=== PATIENT | male | born 1955 | race American Indian/Alaskan Native ===

== ENCOUNTER 2017-03-05 17:51 | Inpatient (IN) | payer MEDICARE, OTHER ==
[2017-03-05 18:10] VITALS: BMI 44.9
--- NOTE | 2017-03-05 18:28 | ED PDOC ---
Arrival/HPI - General Chief Complaint: GI Problem Time Seen by Provider: 03/05/17 18:15 Historian: Patient - History of Present Illness Narrative History of Present Illness (Text): 03/05/17 18:25 Patient had just finished dialysis and developed nausea and vomiting. He reports he has vomited approximately 6 times. No abdominal pain or diarrhea. No back pain. He states that he has some weakness and fatigue. No chest pain palpitations or dyspnea. No fever or chills. No injury or trauma. Time/Duration: Prior to Arrival Symptom Onset: Sudden Symptom Course: Unchanged Severity Level: Moderate Activities at Onset: Rest Past Medical History - Provider Review Nursing Documentation Reviewed: Yes - Infectious Disease Hx of Infectious Diseases: None - Tetanus Immunization Tetanus Immunization: Unknown - Cardiac Hx Cardiac Disorders: Yes Hx Cardiac Arrhythmia: Yes Hx Hypertension: Yes - Pulmonary Hx Respiratory Disorders: No (smokes cigarettes) Hx Asthma: No - Neurological Hx Neurological Disorder: No - HEENT Hx HEENT Disorder: No - Renal Hx Renal Disorder: Yes Hx Dialysis: Yes (MWF) Type of Dialysis Access: L arm fistula Date of Last Dialysis Treatment: 03/05/17 Hx Kidney Stones: Yes Hx Neurogenic Bladder: No Hx Pyelonephritis: No Hx Renal Cancer: No Hx Renal Failure: Yes - Endocrine/Metabolic Hx Endocrine Disorders: Yes Hx Diabetes Mellitus Type 1: Yes - Hematological/Oncological Hx Blood Disorders: Yes Hx Anemia: Yes (BLOOD TRANSFUSION) - Integumentary Hx Dermatological Disorder: No - Musculoskeletal/Rheumatological Hx Musculoskeletal Disorders: Yes Hx Falls: Yes Other/Comment: carpal tunnel - Gastrointestinal Hx Gastrointestinal Disorders: Yes Hx Gastroesophageal Reflux: Yes - Genitourinary/Gynecological Hx Genitourinary Disorders: No - Psychiatric Hx Psychophysiologic Disorder: No Hx Substance Use: No - Past Surgical History Past Surgical History: Non-Contributing - Surgical History Hx Cholecystectomy: No Hx Coronary Stent: Yes (2016) Hx Gastric Bypass Surgery: No Hx Hysterectomy: No Hx Joint Replacement: No Hx Kidney Transplant: No Hx Liver Transplant: No Hx Mastectomy: No Hx Musculoskeletal Surgery: No Hx Open Heart Surgery: No Hx Orthopedic Surgery: No Hx Splenectomy: No Hx Valve Replacement: No Other/Comment: Dialysis shunt placement in left arm. - Anesthesia Hx Anesthesia: Yes Hx Anesthesia Reactions: No Hx Malignant Hyperthermia: No - Suicidal Assessment Feels Threatened In Home Enviroment: No Family/Social History - Physician Review Nursing Documentation Reviewed: Yes Family/Social History: No Known Family HX, Unknown Family HX Smoking Status: Light Smoker < 10 Cigarettes Daily Hx Alcohol Use: No Hx Substance Use: No Hx Substance Use Treatment: No Allergies/Home Meds Allergies/Adverse Reactions: Allergies Penicillins Allergy (Verified 03/05/17 18:09) SWELLING Home Medications: Home Meds Medication Instructions Recorded Confirmed Enalapril Maleate [Vasotec] 20 mg PO BID 05/06/16 03/05/17 Mv,Sebastian,Min/Iron/Folic Acid/Lut 1 tab PO DAILY 05/06/16 03/05/17 [Complete Multi Tablet] Pantoprazole [Protonix EC Tab] 40 mg PO BID 05/06/16 03/05/17 amLODIPine [Norvasc] 10 mg PO DAILY 05/06/16 03/05/17 Albuterol HFA [Ventolin HFA 90 90 mcg INH PRN PRN 05/18/16 03/05/17 mcg/actuation (8 g)] Colesevelam HCl [Welchol] 27 mg PO DAILY 05/18/16 03/05/17 Ferric Citrate [Auryxia] 210 mg PO TID 05/18/16 03/05/17 Cinacalcet [Sensipar] 30 mg PO DAILY 02/09/17 03/05/17 Ergocalciferol (Vitamin D2) 50,000 unit PO QD7 PRN 02/09/17 03/05/17 [Vitamin D2] Insulin Glargine, Recombina 2 units SUBCUT ACBD PRN 02/09/17 03/05/17 [Lantus] Review of Systems - Physician Review All systems were reviewed & negative as marked: Yes - Review of Systems Constitutional: Fatigue. absent: Fevers Respiratory: absent: SOB, Cough, Wheezing Cardiovascular: absent: Chest Pain, Palpitations, Syncope Gastrointestinal: Nausea, Vomiting. absent: Abdominal Pain, Constipation, Diarrhea Genitourinary Male: Other (patient does make some minimal urine) Neurological: Normal Physical Exam Vital Signs Pulse Resp BP Pulse Ox 03/05/17 20:49 84 18 118/65 96 03/05/17 17:52 88 18 121/61 96 Appearance: Positive for: Other (morbidly obese) - Systems Exam Head: Present: Atraumatic, Normocephalic Pupils: Present: PERRL Extroacular Muscles: Present: EOMI Conjunctiva: Present: Normal Mouth: Present: Moist Mucous Membranes Pharnyx: No: ERYTHEMA, EXUDATE, TONSILS ENLARGED Neck: Present: Normal Range of Motion Respiratory/Chest: Present: Clear to Auscultation, Good Air Exchange, Decreased Breath Sounds. No: Respiratory Distress, Accessory Muscle Use Cardiovascular: Present: Regular Rate and Rhythm, Normal S1, S2. No: Murmurs Abdomen: Present: Normal Bowel Sounds. No: Tenderness, Distention, Peritoneal Signs, Rebound, Guarding Back: Present: Normal Inspection. No: CVA Tenderness, Midline Tenderness, Paraspinal Tenderness Upper Extremity: Present: Normal Inspection. No: Cyanosis, Edema Lower Extremity: Present: Normal Inspection. No: Edema, CALF TENDERNESS Neurological: Present: GCS=15, CN II-XII Intact, Speech Normal, Motor Func Grossly Intact Skin: Present: Warm, Dry, Normal Color. No: Rashes Psychiatric: Present: Alert, Oriented x 3, Normal Insight, Normal Concentration Medical Decision Making ED Course and Treatment: 03/05/17 18:32 Impression: A 61 year old male with nausea and vomiting after dialysis treatment. Plan: -- EKG -- chest xray -- labs -- Urinalysis -- Zofran -- Reassess and disposition Prior Visits: Notes and results from previous visits were reviewed. Patient last reported to emergency department on 02/09/17 for evaluation of low hemoglobin count and generalized weakness. Patient was discharged. Progress Notes: 03/05/17 20:24 EKG shows normal sinus rhythm rate approximately [address] or T-wave changes 03/05/17 20:25 Venous blood draw requiring M.D. skill from a right femoral vein stick on first attempt sterilely 03/05/17 20:26 Patient has had no vomiting while in the emergency department 03/05/17 21:34 Discussed in detail with . She will admit to telemetry. She requested the patient be covered with vancomycin and Flagyl. She requests a consult with who has been called. Ultrasound of the abdomen has been ordered, but the tech has left for the evening and will not be called back in. Ultrasound will be done first thing in the morning. - Lab Interpretations Lab Results: 03/05/17 20:20 03/05/17 20:20 Lab Results 03/05/17 20:20: Sodium 138, Potassium 5.5 H, Chloride 95 L, Carbon Dioxide 31, Anion Gap 18, BUN 31 H, Creatinine 5.4 H, Est GFR ( Amer) 13, Est GFR ( Non-Af Amer) 11, Random Glucose 122 H, Calcium 8.8, Total Bilirubin 2.1 H, AST > 1500 H, ALT 1301 H, Alkaline Phosphatase 145 H, Lactate Dehydrogenase 02773 H , Total Creatine Kinase 304 H, CK-MB (CK-2) 3.4, CK-MB (CK-2) % Cancelled, Troponin I 0.26 H* D, Total Protein 8.9 H, Albumin 3.8, Globulin 5.1, Albumin/ Globulin Ratio 0.7 L, Lipase 45 03/05/17 20:20: PT 19.7 H, INR 1.82 H, APTT 32.8 H 03/05/17 20:20: WBC 17.1 H D, RBC 3.02 L, Hgb 8.9 L, Hct 28.4 L, MCV 94.0, MCH 29.5, MCHC 31.3, RDW 17.7 H, Plt Count 122, MPV 10.1, Neutrophils % (Manual) Pending, Lymphocytes % (Manual) Pending, Monocytes % (Manual) Pending I have reviewed the lab results: Yes - RAD Interpretation Radiology Orders: 03/05/17 18:23 CHEST PORTABLE [RAD] Stat 03/05/17 21:22 ABDOMEN COMPLETE [US] Stat - EKG Interpretation Interpreted by ED Physician: Yes Type: 12 lead EKG - Medication Orders Current Medication Orders: Vancomycin HCl (Vancomycin 1gm) 1 gm in 250 mls @ 167 mls/hr IVPB STAT STA PRN Reason: Protocol Stop: 03/05/17 23:01 Discontinued Medications Ondansetron HCl (Zofran Inj) 4 mg IVP STAT STA Stop: 03/05/17 18:23 Last Admin: 03/05/17 21:12 Dose: Ondansetron HCl (Zofran Odt) 4 mg PO STAT STA Stop: 03/05/17 20:27 Last Admin: 03/05/17 21:12 Dose: 4 mg - Scribe Statement The provider has reviewed the documentation as recorded by the Leon Simons Provider Scribe Attestation: All medical record entries made by the Scribe were at my direction and personally dictated by me. I have reviewed the chart and agree that the record accurately reflects my personal performance of the history, physical exam, medical decision making, and the department course for this patient. I have also personally directed, reviewed, and agree with the discharge instructions and disposition. Disposition/Present on Arrival - Present on Arrival Any Indicators Present on Arrival: No History of DVT/PE: Yes History of Uncontrolled Diabetes: Yes Urinary Catheter: No History of Decub. Ulcer: No History Surgical Site Infection Following: None - Disposition Have Diagnosis and Disposition been Completed?: Yes Diagnosis: Elevated troponin, ESRD (end stage renal disease), Obesity, Nausea and vomiting , Elevated liver enzymes Disposition: HOSPITALIZED Disposition Time: 21:36 Patient Plan: Admission, Telemetry Condition: FAIR Referrals: Shavonne Varela MD [Primary Care Provider] - Follow up with primary
[2017-03-05 20:43] LABS: ALB/GLOB RATIO 0.7 (1.1-1.8); BILIRUBIN,TOTAL 2.1 mg/dL (0.2-1.3); CALCIUM 8.8 mg/dL (8.4-10.5); POTASSIUM 5.5 mmol/L (3.6-5.0); TOTAL PROTEIN 8.9 g/dL (5.8-8.3)
[2017-03-05 20:50] LABS: INR 1.82 (0.93-1.08); PARTIAL THROMBOPLASTIN TIME 32.8 Seconds (23.7-30.8)
[2017-03-05 20:55] LABS: HEMATOCRIT 28.4 % (42.0-52.0); MEAN CORPUSCULAR HEMOGLOBIN 29.5 pg (25.0-35.0); MEAN CORPUSCULAR HGB CONC 31.3 g/dl (31.0-37.0); MEAN PLATELET VOLUME 10.1 fl (7.0-11.0); PLATELET COUNT 122 10^3/uL (120.0-450.0); RED CELL DISTRIBUTION WIDTH 17.7 % (11.5-14.5); WHITE BLOOD COUNT 17.1 10^3/ul (4.5-11.0)
[2017-03-05 20:56] LABS: TROPONIN I 0.26 ng/mL
[2017-03-05 20:57] LABS: ADD MANUAL DIFF? YES
[2017-03-05] MEDS ORDERED: Vancomycin 1gm in NS 250ml 1 GM/250 ML BAG IVPB STA (21:32)
[2017-03-05] MEDS ORDERED: metroNIDAZOLE IV 500 mg/100 ml 500 MG/100 ML BAG IVPB STA (21:33)
[2017-03-05] MEDS ORDERED: Sodium Chloride 0.45% 1,000 ML IV SCH (22:45)
[2017-03-05 22:55] LABS: BAND 5 % (0-2); NEUTROPHIL 80 % (50.0-70.0); PLATELET ESTIMATE NORMAL (NORMAL)
[2017-03-05 23:19] LABS: ARTERIAL BLOOD GAS HCO3 26.7 mmol/L (21-28); ARTERIAL BLOOD GAS O2 CAPACITY 11.8 mL/dl (16-24); ARTERIAL BLOOD GAS O2 CONTENT 11.1 ML/dl (15-23); ARTERIAL BLOOD HGB O2 SAT 88.3 % (95.0-98.0); CARBOXYHEMOGLOBIN 5.5 % (0.5-1.5); HHB 5.4 % (0-5); METHEMOGLOBIN 0.8 % (0.0-3.0)
[2017-03-05 23:26] LABS: ARTERIAL BLOOD GAS PH 7.11 (7.35-7.45)
[2017-03-06] MEDS ORDERED: levoFLOXacin 750 mg in D5W 750 MG/150 ML BAG IVPB STA (00:14)
--- NOTE | 2017-03-06 00:23 | US ---
EXAM: US Abdomen Complete CLINICAL HISTORY: 61 years old, male; Pain; Abdominal pain; Generalized; Additional info: Elevated lfts TECHNIQUE: Real-time ultrasound of the abdomen (complete) with image documentation. COMPARISON: No relevant prior studies available. FINDINGS: Liver: The liver is increased in echogenicity and size measuring 21 cm in longitudinal dimension. No intrahepatic bile duct dilation. Gallbladder: The gallbladder is decompressed, and contains multiple stones. The gallbladder wall is thickened likely secondary to underdistention. Common bile duct: No stones. No dilation. Pancreas: Visualization of the pancreas is limited by overlying bowel gas. Right kidney: No acute findings. No hydronephrosis. Left Kidney: Unremarkable. No hydronephrosis. Spleen: Unremarkable in echogenicity and size. Aorta: Unremarkable. Inferior vena cava: patent. IMPRESSION: Fatty infiltration of an enlarged liver. Cholelithiasis. Limited evaluation of the pancreas, secondary to overlying bowel gas. Otherwise, unremarkable sonographic evaluation of the abdomen, as detailed above.
--- NOTE | 2017-03-06 00:37 | CP.PCM.CON ---
<Luiz Bro - Last Filed: 03/06/17 01:07> History of Present Illness - History of Present Illness History of Present Illness: 61 y/o M with PMH of HTN, IDDM,, ESRD on dialysis, and HLD presents to the ED for nausea and vomiting for the past day. History was provided by previous records, friend at bedside, and significant other via telephone as the patient was too lethargic to effectively communicate. According to significant other, pt had been experiencing flu-like symptoms over the past week. He recently went to see his PMD and received a Z-pack which he started 3 days ago. Over the weekend, pt went to [facility]. This morning, he began experiencing nonbloody, nonbilious episodes of vomiting. Pt began to develop fever and chills, along with lethargy. At this point, an ambulance was called for the patient. At bedside, pt is accompanied by his friend who also mentions that pt underwent dialysis and had between 4-5 liters removed. PMH: HTN, IDDM,, ESRD on dialysis, and HLD Surgical Hx: Carpal tunnel release, AV fistula Social Hx: Former tobacco use, 1/2 ppd. Occasional alcohol use, no illicit drug use Allergies: Penicillin Medications: See MAR Review of Systems - Review of Systems Systems not reviewed;Unavailable: Altered Mental Status Past Patient History - Infectious Disease Hx of Infectious Diseases: None - Tetanus Immunizations Tetanus Immunization: Unknown - Past Social History Smoking Status: Light Smoker < 10 Cigarettes Daily - CARDIAC Hx Cardiac Disorders: Yes Hx Cardia Arrhythmia: Yes Hx Hypertension: Yes - PULMONARY Hx Respiratory Disorders: No (smokes cigarettes) Hx Asthma: No - NEUROLOGICAL Hx Neurological Disorder: No - HEENT Hx HEENT Problems: No - RENAL Hx Chronic Kidney Disease: Yes Hx Dialysis: Yes (MWF) Type of Dialysis Access: L arm fistula Date of Last Dialysis Treatment: 03/05/17 Hx Kidney Stones: Yes Hx Neurogenic Bladder: No Hx Pyelonephritis: No Hx Renal (Kidney) Cancer: No Hx Renal Failure: Yes - ENDOCRINE/METABOLIC Hx Endocrine Disorders: Yes Hx Diabetes Mellitus Type 1: Yes - HEMATOLOGICAL/ONCOLOGICAL Hx Blood Disorders: Yes Hx Anemia: Yes (BLOOD TRANSFUSION) - INTEGUMENTARY Hx Dermatological Problems: No - MUSCULOSKELETAL/RHEUMATOLOGICAL Hx Musculoskeletal Disorders: Yes Hx Falls: Yes Other/Comment: carpal tunnel - GASTROINTESTINAL Hx Gastrointestinal Disorders: Yes Hx Gastroesophageal Reflux: Yes - GENITOURINARY/GYNECOLOGICAL Hx Genitourinary Disorders: No - PSYCHIATRIC Hx Psychophysiologic Disorder: No Hx Substance Use: No - SURGICAL HISTORY Hx Cholecystectomy: No Hx Coronary Stent: Yes (2016) Hx Gastric Bypass Surgery: No Hx Hysterectomy: No Hx Joint Replacement: No Hx Kidney Transplant: No Hx Liver Transplant: No Hx Mastectomy: No Hx Musculoskeletal Surgery: No Hx Open Heart Surgery: No Hx Orthopedic Surgery: No Hx Splenectomy: No Hx Valve Replacement: No Other/Comment: Dialysis shunt placement in left arm. - ANESTHESIA Hx Anesthesia: Yes Hx Anesthesia Reactions: No Hx Malignant Hyperthermia: No Meds Allergies/Adverse Reactions: Allergies Allergy/AdvReac Type Severity Reaction Status Date / Time Penicillins Allergy SWELLING Verified 03/05/17 18:09 - Medications Medications: Current Medications Acetaminophen (Tylenol 325mg Tab) 650 mg PO Q6H PRN PRN Reason: Fever >100.4 F Albuterol/Ipratropium (Duoneb 3 Mg/0.5 Mg (3 Ml) Ud) 3 ml IH Q2H PRN PRN Reason: Shortness of Breath Albuterol/Ipratropium (Duoneb 3 Mg/0.5 Mg (3 Ml) Ud) 3 ml IH [id number] NARA Furosemide (Lasix) 40 mg IVP STAT STA Stop: 03/06/17 00:34 Hydralazine HCl (Apresoline) 10 mg IVP Q6 NARA Metronidazole (Flagyl) 500 mg in 100 mls @ 100 mls/hr IVPB Q8 NARA PRN Reason: Protocol Levofloxacin/Dextrose (Levaquin 750mg) 750 mg in 150 mls @ 100 mls/hr IVPB STAT STA Stop: 03/06/17 01:43 Meropenem 250 mg/ Sodium (Chloride) 100 mls @ 100 mls/hr IVPB Q12H NARA PRN Reason: Protocol Stop: 03/06/17 01:14 Insulin Human Regular (Humulin R Med) 0 units SC ACHS NARA PRN Reason: Protocol Ondansetron HCl (Zofran Inj) 4 mg IVP Q6H PRN PRN Reason: Nausea/Vomiting Pantoprazole Sodium (Protonix Inj) 40 mg IVP DAILY NARA Physical Exam - Constitutional Appears: Toxic, In Acute Distress - Head Exam Head Exam: ATRAUMATIC, NORMAL INSPECTION, NORMOCEPHALIC - Eye Exam Eye Exam: EOMI, Normal appearance - ENT Exam ENT Exam: Mucous Membranes Dry - Neck Exam Neck exam: Positive for: Normal Inspection. Negative for: Lymphadenopathy - Respiratory Exam Respiratory Exam: Decreased Breath Sounds, Respiratory Distress. absent: Wheezes - Cardiovascular Exam Cardiovascular Exam: RRR, +S1, +S2 - GI/Abdominal Exam GI & Abdominal Exam: Normal Bowel Sounds, Soft. absent: Tenderness - Extremities Exam Extremities exam: Positive for: pedal edema (+1 edema b/l). Negative for: calf tenderness - Neurological Exam Neurological exam: Alert, CN II-XII Intact, Oriented x3 - Psychiatric Exam Psychiatric exam: Normal Affect, Normal Mood - Skin Skin Exam: Dry, Intact, Warm Results - Vital Signs Recent Vital Signs: Last Vital Signs Temp 99.4 F 03/05/17 22:40 Pulse 86 03/06/17 00:15 Resp 15 03/06/17 00:15 BP 150/70 03/06/17 00:15 Pulse Ox 92 L 03/06/17 00:15 - Labs Result Diagrams: 03/05/17 20:20 03/05/17 20:20 Labs: Laboratory Results - last 24 hr 03/05/17 03/05/17 22:30 23:15 pCO2 84 H* pO2 81.0 HCO3 26.7 ABG pH 7.11 L* ABG Total CO2 29.3 H ABG O2 Saturation 94.2 L ABG O2 Content 11.1 L ABG Base Excess -3.5 L ABG Hemoglobin 8.8 L ABG Carboxyhemoglobin 5.5 H POC ABG HHb (Measured) 5.4 H ABG Methemoglobin 0.8 ABG O2 Capacity 11.8 L Hgb O2 Saturation 88.3 L FiO2 100.0 Troponin I 0.35 H* D Assessment & Plan - Assessment and Plan (Free Text) Plan: 61 y/o M with PMH of HTN, IDDM,, ESRD on dialysis, and HLD presents with hypercapnic, hypoxemic respiratory failure in setting of multiorgan dysfunction syndrome. Pt is found to have multiple lab abnormalities including elevated troponins, elevated LFTs, and chronic anemia. Pt was intubated in the ED due to increased lethargy and inability to protect his airway. Pt will be admitted to the ICU. Neuro: Obtunded, intubated Ammonia levels Will monitor neuro status for acute worsening Cardio: Will obtain BNP Trend troponins, elevated at this time likely secondary to ESRD Lasix 40 mg IV x 1 given to help with potential fluid overload Hydralazine prn for BP, Goal SBP <180 Recent cardiac cath shown to have EF of 65%, nonocclusive Maintain MAP >65 Cardiology consult, Dr. Ervin Pulm: Hypercapnic, hypoxemic respiratory failure Intubated, PRVC Will obtain repeat CXR after intubation Will obtain ABG after intubation Duonebs scheduled and prn Solumedrol 40 mg IV q12 Will cover CAP with 1 dose of levaquin and Merrem scheduled Will obtain CT chest to evaluate for possible infiltrate Maintain O2 sat >92% GI: Will obtain noncontrast CT of abdomen Increased LFTs, possible shock liver Flagyl, Merrem, and 1 dose of levaquin Protonix GI consult, Dr. Brown Nephro: Received dialysis today Hx of ESRD, creatinine near baseline Replenish electrolytes as needed Maintain euvolemia Consider nephrology consult Heme/ID: Multiorgan dysfunction syndrome Afebrile, Leukocytosis CBC daily Blood and urine cultures pending Continue abx Maintain normothermia Endo: ISS Fingersticks q4h TSH PPX: Protonix Heparin Seen, reviewed, and discussed with attending Adali, PGY-1 <Antwon Espinoza Q - Last Filed: 03/06/17 07:00> Meds - Medications Medications: Current Medications Acetaminophen (Tylenol 325mg Tab) 650 mg PO Q6H PRN PRN Reason: Fever >100.4 F Albuterol/Ipratropium (Duoneb 3 Mg/0.5 Mg (3 Ml) Ud) 3 ml IH Q2H PRN PRN Reason: Shortness of Breath Albuterol/Ipratropium (Duoneb 3 Mg/0.5 Mg (3 Ml) Ud) 3 ml IH [id number] NARA Heparin Sodium (Porcine) (Heparin) 5,000 units SC Q12 NARA PRN Reason: Protocol Hydralazine HCl (Apresoline) 10 mg IVP Q6 PRN PRN Reason: SBP >180 Metronidazole (Flagyl) 500 mg in 100 mls @ 100 mls/hr IVPB Q8 NARA PRN Reason: Protocol Propofol (Diprivan) 1,000 mg in 100 mls @ 3.674 mls/hr IV .Q24H PRN; Protocol; 5 MCG/KG/MIN PRN Reason: TITRATE PER MD ORDER Last Titration: 03/06/17 03:35 Dose: 20 mcg/kg/min, 14.696 mls/hr Meropenem 500 mg/ Sodium (Chloride) 100 mls @ 100 mls/hr IVPB Q12 [facility] Stop: 03/13/17 06:23 Insulin Human Regular (Humulin R Med) 0 units SC ACHS NARA PRN Reason: Protocol Methylprednisolone (Solu-Medrol) 40 mg IVP Q12 [facility] Last Admin: 03/06/17 06:49 Dose: 40 mg Ondansetron HCl (Zofran Inj) 4 mg IVP Q6H PRN PRN Reason: Nausea/Vomiting Pantoprazole Sodium (Protonix Inj) 40 mg IVP DAILY [facility] Results - Vital Signs Recent Vital Signs: Last Vital Signs Temp 99.4 F 03/05/17 22:40 Pulse 77 03/06/17 05:08 Resp 14 03/06/17 05:08 BP 159/76 H 03/06/17 05:08 Pulse Ox 100 03/06/17 05:08 - Labs Result Diagrams: 03/05/17 20:20 03/05/17 20:20 Labs: Laboratory Results - last 24 hr 03/05/17 03/05/17 03/06/17 22:30 23:15 01:42 pCO2 84 H* pO2 81.0 HCO3 26.7 ABG pH 7.11 L* ABG Total CO2 29.3 H ABG O2 Saturation 94.2 L ABG O2 Content 11.1 L ABG Base Excess -3.5 L ABG Hemoglobin 8.8 L ABG Carboxyhemoglobin 5.5 H POC ABG HHb (Measured) 5.4 H ABG Methemoglobin 0.8 ABG O2 Capacity 11.8 L Hgb O2 Saturation 88.3 L FiO2 100.0 Ammonia 63 H Troponin I 0.35 H* D Influenza Typ A,B (EIA) 03/06/17 03/06/17 03:16 04:11 pCO2 75 H* pO2 76.0 L HCO3 26.7 ABG pH 7.16 L* ABG Total CO2 29.0 H ABG O2 Saturation 94.5 L ABG O2 Content 11.2 L ABG Base Excess -2.6 L ABG Hemoglobin 8.8 L ABG Carboxyhemoglobin 4.0 H POC ABG HHb (Measured) 5.2 H ABG Methemoglobin 0.9 ABG O2 Capacity 11.9 L Hgb O2 Saturation 89.9 L FiO2 100.0 Ammonia Troponin I Influenza Typ A,B (EIA) Negative for flu a/b Attending/Attestation - Attestation I have personally seen and examined this patient.: Yes I have fully participated in the care of the patient.: Yes I have reviewed all pertinent clinical information: Yes Notes (Text): 03/06/17 06:56 I agree with the above mentioned note by Dr. Bro with the following additions/exceptions noted: 61 y/o male with PMHx as described above came to the ED after experiencing cold- like symptoms over the past week. He used a zpack for about 3-4 days without any improvement. Over the past 1 day, as per his girlfriend, the patient began having multiple bouts of NBNB emesis, before and continuing after HD. Patient came to the ED and was obtunded; not a candidate for NIPPV due to his altered mentation and intractable vomiting. He was admitted to the ICU for further care and monitoring and remained in the ED overnight due to a lack of beds/ nurses in the ICU. Case discussed with Dr. Juarez who intubated the patient after it was handed over to him by an earlier ED Physician labs and images reviewed personally total time of care: 45 minutes
--- NOTE | 2017-03-06 00:58 | CP.PCM.CON ---
<Spencer Olivo - Last Filed: 03/06/17 01:01> History of Present Illness - History of Present Illness History of Present Illness: Surgery consult for Dr. Lin 61 M with PMH of ESRD on HD M, W, F, HTN, HLD, COPD, CHF, HIV presents with N/V since this AM. Pt had AMS and history was taken from friend. Pt has been having weakness, SOB, dry cough for a few weeks and these symptoms have been progressively worsen. This AM he started to vomit multiple times. Non bloody, non bilious. He was able to tolerate a banana today. Pt drank 4 beers yesterday. Pt also has chronic pain and takes Advil daily and takes percocet as needed. Friend also reports that pt had back pain for a few weeks and had Xray or MRI taken two weeks ago at [facility] that showed abnormality. Pt is oliguric and has alternating Diarrhea and Constipation. Denies F/C/CP/ABd pain/ hematemesis/hematochezia/melena/hemoptesis . US shows thicken GB wall, sludge and pericholecystic fluids. WBC was 17. Tbili 2.1 AST 1500+, ALT 1300. Trop 0.35 , Ph 7.11 PCo2 84. SS: smokes 1/2 pack daily, social drinker, no IV drug abuse. Sx: Carpal tunnel release 2013 Review of Systems - Review of Systems Systems not reviewed;Unavailable: Altered Mental Status Review of Systems: See HPI - Constitutional Constitutional: absent: Anorexia, Chills Past Patient History - Infectious Disease Hx of Infectious Diseases: None - Tetanus Immunizations Tetanus Immunization: Unknown - Past Social History Smoking Status: Light Smoker < 10 Cigarettes Daily - CARDIAC Hx Cardiac Disorders: Yes Hx Cardia Arrhythmia: Yes Hx Hypertension: Yes - PULMONARY Hx Respiratory Disorders: No (smokes cigarettes) Hx Asthma: No - NEUROLOGICAL Hx Neurological Disorder: No - HEENT Hx HEENT Problems: No - RENAL Hx Chronic Kidney Disease: Yes Hx Dialysis: Yes (MWF) Type of Dialysis Access: L arm fistula Date of Last Dialysis Treatment: 03/05/17 Hx Kidney Stones: Yes Hx Neurogenic Bladder: No Hx Pyelonephritis: No Hx Renal (Kidney) Cancer: No Hx Renal Failure: Yes - ENDOCRINE/METABOLIC Hx Endocrine Disorders: Yes Hx Diabetes Mellitus Type 1: Yes - HEMATOLOGICAL/ONCOLOGICAL Hx Blood Disorders: Yes Hx Anemia: Yes (BLOOD TRANSFUSION) - INTEGUMENTARY Hx Dermatological Problems: No - MUSCULOSKELETAL/RHEUMATOLOGICAL Hx Musculoskeletal Disorders: Yes Hx Falls: Yes Other/Comment: carpal tunnel - GASTROINTESTINAL Hx Gastrointestinal Disorders: Yes Hx Gastroesophageal Reflux: Yes - GENITOURINARY/GYNECOLOGICAL Hx Genitourinary Disorders: No - PSYCHIATRIC Hx Psychophysiologic Disorder: No Hx Substance Use: No - SURGICAL HISTORY Hx Cholecystectomy: No Hx Coronary Stent: Yes (2016) Hx Gastric Bypass Surgery: No Hx Hysterectomy: No Hx Joint Replacement: No Hx Kidney Transplant: No Hx Liver Transplant: No Hx Mastectomy: No Hx Musculoskeletal Surgery: No Hx Open Heart Surgery: No Hx Orthopedic Surgery: No Hx Splenectomy: No Hx Valve Replacement: No Other/Comment: Dialysis shunt placement in left arm. - ANESTHESIA Hx Anesthesia: Yes Hx Anesthesia Reactions: No Hx Malignant Hyperthermia: No Meds Allergies/Adverse Reactions: Allergies Allergy/AdvReac Type Severity Reaction Status Date / Time Penicillins Allergy SWELLING Verified 03/05/17 18:09 - Medications Medications: Current Medications Acetaminophen (Tylenol 325mg Tab) 650 mg PO Q6H PRN PRN Reason: Fever >100.4 F Albuterol/Ipratropium (Duoneb 3 Mg/0.5 Mg (3 Ml) Ud) 3 ml IH Q2H PRN PRN Reason: Shortness of Breath Albuterol/Ipratropium (Duoneb 3 Mg/0.5 Mg (3 Ml) Ud) 3 ml IH [id number] NARA Hydralazine HCl (Apresoline) 10 mg IVP Q6 NARA Metronidazole (Flagyl) 500 mg in 100 mls @ 100 mls/hr IVPB Q8 NARA PRN Reason: Protocol Levofloxacin/Dextrose (Levaquin 750mg) 750 mg in 150 mls @ 100 mls/hr IVPB STAT STA Stop: 03/06/17 01:43 Meropenem 250 mg/ Sodium (Chloride) 100 mls @ 100 mls/hr IVPB Q12H NARA PRN Reason: Protocol Stop: 03/06/17 01:14 Insulin Human Regular (Humulin R Med) 0 units SC ACHS NARA PRN Reason: Protocol Ondansetron HCl (Zofran Inj) 4 mg IVP Q6H PRN PRN Reason: Nausea/Vomiting Pantoprazole Sodium (Protonix Inj) 40 mg IVP DAILY NARA Physical Exam - Constitutional Appears: In Acute Distress - Head Exam Head Exam: ATRAUMATIC, NORMAL INSPECTION, NORMOCEPHALIC - Eye Exam Eye Exam: EOMI, PERRL. absent: Conjunctival injection, Scleral icterus Pupil Exam: NORMAL ACCOMODATION - ENT Exam ENT Exam: Mucous Membranes Moist, Normal Exam - Neck Exam Neck exam: Positive for: Normal Inspection - Respiratory Exam Respiratory Exam: absent: Accessory Muscle Use, Chest Wall Tenderness, NORMAL BREATHING PATTERN - Cardiovascular Exam Cardiovascular Exam: REGULAR RHYTHM, +S1, +S2 - GI/Abdominal Exam GI & Abdominal Exam: Soft. absent: Distended, Firm, Guarding, Hernia, Tenderness - Neurological Exam Neurological exam: Altered - Skin Skin Exam: Dry, Intact, Normal Color, Warm Results - Vital Signs Recent Vital Signs: Last Vital Signs Temp 99.4 F 03/05/17 22:40 Pulse 86 03/06/17 00:15 Resp 15 03/06/17 00:15 BP 150/70 03/06/17 00:15 Pulse Ox 92 L 03/06/17 00:15 - Labs Result Diagrams: 03/05/17 20:20 03/05/17 20:20 Labs: Laboratory Results - last 24 hr 03/05/17 03/05/17 22:30 23:15 pCO2 84 H* pO2 81.0 HCO3 26.7 ABG pH 7.11 L* ABG Total CO2 29.3 H ABG O2 Saturation 94.2 L ABG O2 Content 11.1 L ABG Base Excess -3.5 L ABG Hemoglobin 8.8 L ABG Carboxyhemoglobin 5.5 H POC ABG HHb (Measured) 5.4 H ABG Methemoglobin 0.8 ABG O2 Capacity 11.8 L Hgb O2 Saturation 88.3 L FiO2 100.0 Troponin I 0.35 H* D Assessment & Plan - Assessment and Plan (Free Text) Assessment: Vomiting with Transaminitis, r/o Cholecystitis , hepatitis -F/U official US reads -Trend Labs: LFT, CBC, CMP -MOnitor VS -f/u CT Will DW Dr. Lin <Sven Lin - Last Filed: 03/06/17 08:29> Meds - Medications Medications: Current Medications Albuterol/Ipratropium (Duoneb 3 Mg/0.5 Mg (3 Ml) Ud) 3 ml IH Q2H PRN PRN Reason: Shortness of Breath Albuterol/Ipratropium (Duoneb 3 Mg/0.5 Mg (3 Ml) Ud) 3 ml IH [id number] [facility] Heparin Sodium (Porcine) (Heparin) 5,000 units SC Q12 NARA PRN Reason: Protocol Hydralazine HCl (Apresoline) 10 mg IVP Q6 PRN PRN Reason: SBP >180 Metronidazole (Flagyl) 500 mg in 100 mls @ 100 mls/hr IVPB Q8 NARA PRN Reason: Protocol Propofol (Diprivan) 1,000 mg in 100 mls @ 3.674 mls/hr IV .Q24H PRN; Protocol; 5 MCG/KG/MIN PRN Reason: TITRATE PER MD ORDER Last Titration: 03/06/17 03:35 Dose: 20 mcg/kg/min, 14.696 mls/hr Meropenem 500 mg/ Sodium (Chloride) 100 mls @ 100 mls/hr IVPB Q12 [facility] Stop: 03/13/17 06:23 Acetylcysteine 18,300 mg/ (Dextrose) 291.5 mls @ 291.5 mls/hr IV .Q1H ONE PRN Reason: Protocol Stop: 03/06/17 09:29 Acetylcysteine 6,100 mg/ (Dextrose) 530.5 mls @ 132.625 mls/hr IV .Q4H ONE PRN Reason: Protocol Stop: 03/06/17 13:59 Acetylcysteine 12,200 mg/ (Dextrose) 1,061 mls @ 66.313 mls/hr IV .Q16H ONE PRN Reason: Protocol Stop: 03/07/17 05:59 Insulin Human Regular (Humulin R Med) 0 units SC ACHS [facility] PRN Reason: Protocol Methylprednisolone (Solu-Medrol) 40 mg IVP Q12 [facility] Last Admin: 03/06/17 06:49 Dose: 40 mg Ondansetron HCl (Zofran Inj) 4 mg IVP Q6H PRN PRN Reason: Nausea/Vomiting Pantoprazole Sodium (Protonix Inj) 40 mg IVP DAILY [facility] Results - Vital Signs Recent Vital Signs: Last Vital Signs Temp 99.1 F 03/06/17 08:05 Pulse 78 03/06/17 08:05 Resp 22 03/06/17 08:05 BP 162/70 H 03/06/17 08:05 Pulse Ox 99 03/06/17 08:05 - Labs Result Diagrams: 03/06/17 06:30 03/05/17 20:20 Labs: Laboratory Results - last 24 hr 03/05/17 03/05/17 03/06/17 22:30 23:15 01:42 WBC RBC Hgb Hct MCV MCH MCHC RDW Plt Count MPV Gran % Lymph % (Auto) [place] % (Auto) Eos % (Auto) Baso % (Auto) Gran # Lymph # [place] # Eos # Baso # pCO2 84 H* pO2 81.0 HCO3 26.7 ABG pH 7.11 L* ABG Total CO2 29.3 H ABG O2 Saturation 94.2 L ABG O2 Content 11.1 L ABG Base Excess -3.5 L ABG Hemoglobin 8.8 L ABG Carboxyhemoglobin 5.5 H POC ABG HHb (Measured) 5.4 H ABG Methemoglobin 0.8 ABG O2 Capacity 11.8 L Hgb O2 Saturation 88.3 L FiO2 100.0 Ammonia 63 H Troponin I 0.35 H* D Influenza Typ A,B (EIA) 03/06/17 03/06/17 03/06/17 03:16 04:11 05:30 WBC RBC Hgb Hct MCV MCH MCHC RDW Plt Count MPV Gran % Lymph % (Auto) [place] % (Auto) Eos % (Auto) Baso % (Auto) Gran # Lymph # [place] # Eos # Baso # pCO2 75 H* 45 pO2 76.0 L 234.0 H HCO3 26.7 27.2 ABG pH 7.16 L* 7.39 ABG Total CO2 29.0 H 28.6 H ABG O2 Saturation 94.5 L 99.7 H ABG O2 Content 11.2 L 13.1 L ABG Base Excess -2.6 L 1.9 ABG Hemoglobin 8.8 L 9.3 L ABG Carboxyhemoglobin 4.0 H 2.6 H POC ABG HHb (Measured) 5.2 H 0.3 ABG Methemoglobin 0.9 1.5 ABG O2 Capacity 11.9 L 13.1 L Hgb O2 Saturation 89.9 L 95.6 FiO2 100.0 100.0 Ammonia Troponin I Influenza Typ A,B (EIA) Negative for flu a/b 03/06/17 06:30 WBC 18.4 H RBC 2.97 L Hgb 8.8 L Hct 27.5 L MCV 92.6 MCH 29.6 MCHC 32.0 RDW 17.5 H Plt Count 122 MPV 9.5 Gran % 85.0 H Lymph % (Auto) 9.6 L [place] % (Auto) 5.2 Eos % (Auto) 0.1 L Baso % (Auto) 0.1 Gran # 15.63 H Lymph # 1.8 [place] # 1.0 H Eos # 0.0 Baso # 0.01 pCO2 pO2 HCO3 ABG pH ABG Total CO2 ABG O2 Saturation ABG O2 Content ABG Base Excess ABG Hemoglobin ABG Carboxyhemoglobin POC ABG HHb (Measured) ABG Methemoglobin ABG O2 Capacity Hgb O2 Saturation FiO2 Ammonia Troponin I Influenza Typ A,B (EIA) Assessment & Plan - Assessment and Plan (Free Text) Assessment: Dx Toxicity Acutr Hepatic insufficiency(GOT 2K) CholelithiasiRising TroponinCH Renal Failure PT 20 No labs this am-Needs Central line ? [facility] [place] transfer No surgery now This consult done under my direct supervision Rasta Lin MD FACS
[2017-03-06] MEDS ORDERED: Etomidate 20 mg/10ml Inj IV ONE (00:59)
[2017-03-06] MEDS ORDERED: Propofol 10 mg/ml 500 MG/50 ML VIAL IV PRN (01:21)
[2017-03-06] MEDS ORDERED: Propofol 10 mg/ml 1,000 MG/100 ML VIAL ONE (01:21)
--- NOTE | 2017-03-06 01:22 | ED PDOC ---
Physical Exam Vital Signs Reviewed: Yes Vital Signs Temp Pulse Resp BP Pulse Ox 03/06/17 05:08 77 14 159/76 H 100 03/06/17 04:23 78 15 125/71 99 03/06/17 03:59 76 15 153/70 H 100 03/06/17 03:53 76 22 137/66 100 03/06/17 03:36 78 14 137/66 100 03/06/17 02:59 80 15 145/67 100 03/06/17 01:33 96 H 136/95 H 94 L 03/06/17 00:15 86 15 150/70 92 L 03/05/17 22:40 99.4 F 64 L 03/05/17 22:39 85 15 155/78 H 96 03/05/17 20:49 84 18 118/65 96 03/05/17 17:52 88 18 121/61 96 Temperature: Afebrile Blood Pressure: Normal Pulse: Regular Respiratory Rate: Normal Appearance: Positive for: Non-Toxic Pain Distress: None Medical Decision Making ED Course and Treatment: 03/05/17 23:00 Patient evaluated by and was admitted to telemetry under Dr. Bowen 's service. 03/06/17 01:27 Upon reevaluation by nurse, patient became more lethargic. Ordered ABG which showed CO2 retention. Case discussed with who was updated with the details. Advices to place patient in ICU. Discussed with Dr. Espinoza, logging crew foreman, who accepts patient to ICU. resident manager Dr.Hae Olivo consulted for elevated LFTs. Will intubate patient due to hypercapnia and inability to protect airway. PROCEDURE: INTUBATION Performed by the emergency provider Time: 01:15 Consent: Discussion of the risks, benefits, and alternatives to the procedure, along with informed consent was precluded by the urgency of the procedure and the patient condition. Medications: 10mg Etomidate ETT Size: 8 gauge Confirmation: Cords directly visualized as tube passed, good bilateral breath sounds, positive CO2 detector color change, tube fogging, adequate chest rise, improving pulse oximetry reading, improved skin color, and absence of gastric sounds. ETT Secured: The cuff was inflated and the tube was secured appropriately at a distance of 24 cm at the lip. Post-Procedure: There were no immediate complications. CXR Confirmation: Yes - Critical Care Critical Care Minutes: 60 minutes Narrative Critical Care (Text): Patient lethargic and hypercapnic, had to be intubated. - Lab Interpretations Lab Results: 03/05/17 20:20 03/05/17 20:20 Lab Results 03/05/17 20:20: TSH 3rd Generation 0.05 L 03/05/17 20:20: NT-Pro-B Natriuret Pep 86048 H 03/05/17 20:20: Sodium 138, Potassium 5.5 H, Chloride 95 L, Carbon Dioxide 31, Anion Gap 18, BUN 31 H, Creatinine 5.4 H, Est GFR ( Amer) 13, Est GFR ( Non-Af Amer) 11, Random Glucose 122 H, Calcium 8.8, Total Bilirubin 2.1 H, AST > 1500 H, ALT 1301 H, Alkaline Phosphatase 145 H, Lactate Dehydrogenase 34948 H , Total Creatine Kinase 304 H, CK-MB (CK-2) 3.4, CK-MB (CK-2) % Cancelled, Troponin I 0.26 H* D, Total Protein 8.9 H, Albumin 3.8, Globulin 5.1, Albumin/ Globulin Ratio 0.7 L, Lipase 45 03/05/17 20:20: PT 19.7 H, INR 1.82 H, APTT 32.8 H 03/05/17 20:20: WBC 17.1 H D, RBC 3.02 L, Hgb 8.9 L, Hct 28.4 L, MCV 94.0, MCH 29.5, MCHC 31.3, RDW 17.7 H, Plt Count 122, MPV 10.1, Neutrophils % (Manual) 80 H, Band Neutrophils % 5 H, Lymphocytes % (Manual) 13 L, Monocytes % (Manual) 2, Platelet Evaluation Normal I have reviewed the lab results: Yes - RAD Interpretation Radiology Orders: 03/05/17 18:23 CHEST PORTABLE [RAD] Stat 03/05/17 21:22 ABDOMEN COMPLETE [US] Stat - Medication Orders Current Medication Orders: Acetaminophen (Tylenol 325mg Tab) 650 mg PO Q6H PRN PRN Reason: Fever >100.4 F Albuterol/Ipratropium (Duoneb 3 Mg/0.5 Mg (3 Ml) Ud) 3 ml IH Q2H PRN PRN Reason: Shortness of Breath Albuterol/Ipratropium (Duoneb 3 Mg/0.5 Mg (3 Ml) Ud) 3 ml IH [id number] NARA Heparin Sodium (Porcine) (Heparin) 5,000 units SC Q12 [facility] PRN Reason: Protocol Hydralazine HCl (Apresoline) 10 mg IVP Q6 PRN PRN Reason: SBP >180 Metronidazole (Flagyl) 500 mg in 100 mls @ 100 mls/hr IVPB Q8 NARA PRN Reason: Protocol Propofol (Diprivan) 1,000 mg in 100 mls @ 3.674 mls/hr IV .Q24H PRN; Protocol; 5 MCG/KG/MIN PRN Reason: TITRATE PER MD ORDER Last Titration: 03/06/17 03:35 Dose: 20 mcg/kg/min, 14.696 mls/hr Insulin Human Regular (Humulin R Med) 0 units SC ACHS NARA PRN Reason: Protocol Methylprednisolone (Solu-Medrol) 40 mg IVP Q12 [facility] Ondansetron HCl (Zofran Inj) 4 mg IVP Q6H PRN PRN Reason: Nausea/Vomiting Pantoprazole Sodium (Protonix Inj) 40 mg IVP DAILY [facility] Discontinued Medications Etomidate (Amidate) Confirm Administered Dose 20 mg IV .STK-MED ONE Stop: 03/06/17 01:00 Last Admin: 03/06/17 00:59 Dose: 20 mg Comments: administered during intubation Furosemide (Lasix) 40 mg IVP STAT STA Stop: 03/06/17 00:34 Hydralazine HCl (Apresoline) 10 mg IVP Q6 [facility] Vancomycin HCl (Vancomycin 1gm) 1 gm in 250 mls @ 167 mls/hr IVPB STAT STA PRN Reason: Protocol Stop: 03/05/17 23:01 Last Admin: 03/06/17 00:29 Dose: 167 mls/hr Metronidazole (Flagyl) 500 mg in 100 mls @ 100 mls/hr IVPB STAT STA PRN Reason: Protocol Stop: 03/05/17 22:32 Last Admin: 03/05/17 23:42 Dose: 100 mls/hr Levofloxacin/Dextrose (Levaquin 750mg) 750 mg in 150 mls @ 100 mls/hr IVPB STAT STA Stop: 03/06/17 01:43 Meropenem 250 mg/ Sodium (Chloride) 100 mls @ 100 mls/hr IVPB Q12H [facility] PRN Reason: Protocol Stop: 03/06/17 01:14 Propofol (Diprivan) Confirm Administered Dose 1,000 mg in 100 mls @ ud .ROUTE .STK-MED ONE Stop: 03/06/17 01:22 Last Admin: 03/06/17 03:18 Dose: Propofol (Diprivan) 500 mg in 50 mls @ 3.674 mls/hr IV .[id number] PRN; Protocol; 5 MCG/KG/MIN PRN Reason: TITRATE PER MD ORDER Last Admin: 03/06/17 01:27 Dose: 5 mcg/kg/min, 3.674 mls/hr Lorazepam (Ativan) 2 mg IVP ONCE ONE PRN Reason: Protocol Stop: 03/06/17 02:38 Last Admin: 03/06/17 02:41 Dose: 2 mg Lorazepam (Ativan) Confirm Administered Dose 2 mg .ROUTE .STK-MED ONE Stop: 03/06/17 02:42 Last Admin: 03/06/17 03:18 Dose: Ondansetron HCl (Zofran Inj) 4 mg IVP STAT STA Stop: 03/05/17 18:23 Last Admin: 03/05/17 21:12 Dose: Ondansetron HCl (Zofran Odt) 4 mg PO STAT STA Stop: 03/05/17 20:27 Last Admin: 03/05/17 21:12 Dose: 4 mg Disposition/Present on Arrival - Present on Arrival Any Indicators Present on Arrival: No History of DVT/PE: Yes History of Uncontrolled Diabetes: Yes Urinary Catheter: No History of Decub. Ulcer: No History Surgical Site Infection Following: None - Disposition Have Diagnosis and Disposition been Completed?: Yes Diagnosis: Elevated troponin, ESRD (end stage renal disease), Obesity, Nausea and vomiting , Elevated liver enzymes, Respiratory failure Disposition: HOSPITALIZED Disposition Time: 01:30 Patient Problems: Current Active Problems Problem Status Onset ESRD (end stage renal disease) Acute Elevated liver enzymes Acute Elevated troponin Acute Nausea and vomiting Acute Obesity Acute Condition: CRITICAL
[2017-03-06] MEDS ORDERED: MethylPREDNISolone 40 mg Vial IVP SCH (01:45)
--- NOTE | 2017-03-06 02:14 | HP ---
HISTORY OF PRESENT ILLNESS: The patient is a 61-year-old who was in with history of this nomi wallace. He states that he had a little weakness and fatigue earlier this morning. He had his routine, u sual dialysis and developed some abdominal discomfort and he has multiple episodes of nausea and vomi ting. Denies any diarrhea. No history of fever or chills. The patient was vomiting, he felt very w eak and tired, so he came to Emergency Room for further evaluation. No hemoptysis, no hematemesis, n o rectal bleeding. PAST MEDICAL HISTORY: 1. Significant for end-stage renal disease, on hemodialysis. 2. Chronic anemia. 3. Hypertension. 4. Morbid obesity. 5. History of gout. 6. Congestive heart failure. 7. Status post cardiac catheterization that was done on 10/[address] Ervin and was found to be unre markable. He had nonobstructive coronaries and ejection fraction of 65%. 8. History of chronic anemia requiring transfusion intermittently. ALLERGIES: HE IS ALLERGIC TO PENICILLIN. PAST SURGICAL HISTORY: Significant for AV fistula. FAMILY HISTORY: Significant for hypertension. ALLERGIES: HE IS ALLERGIC TO PENICILLIN. MEDICATIONS AT HOME: 1. He is on amlodipine 10 mg daily, Protonix 40 daily. 2. Multivitamin, enalapril 20 mg daily. 3. Welchol 2 tablets twice a day and nebulizer treatment. SOCIAL HISTORY: He is single, lives with his son. No history of smoking, drinking, or alcohol use. REVIEW OF SYSTEMS: Significant for abdominal discomfort, feels nauseous, but did not vomit since he came in. PHYSICAL EXAMINATION: GENERAL: He is awake and alert, communicative. VITAL SIGNS: He is afebrile, pulse 85, respirations 15, blood pressure 155/78. LUNGS: Bilateral fair airflow, no rhonchi or crackle. HEART: S1, S2 audible. No murmur. ABDOMEN: Soft, obese, nontender. No hepatosplenomegaly. NEUROLOGIC: The patient is awake and alert, able to communicate. LABORATORY DATA: WBC 17.1, hemoglobin 8.9, hematocrit 28.4, platelet of 122. PT 19.7, INR 1.82. Ch emistry: Sodium 138, potassium 5.5, chloride 95, CO2 of 31, BUN 31, creatinine 5.4, blood sugar 122. LFTs are elevated. AST is more than 1500, ALT 1305, alkaline phosphatase 145, LDH is 11,136. ____ _ 4, troponin 0.26. ASSESSMENT: 1. Intractable nausea and vomiting. 2. Leukocytosis, rule out underlying cholecystitis versus cholangitis. 3. End-stage renal disease, on hemodialysis. 4. , abnormal LFTs with etiology unclear yet, pending abdominal ultrasound. 5. Chronic anemia. 6. Borderline troponin, probably secondary to end-stage renal disease. 7. Insulin-dependent diabetes. PLAN: Will keep patient on clear liquid. Will start IV fluid, start him on IV antibiotic. Blood cu lture and urine cultures are sent. ID consult by Dr. Vargas. He is answered by Dr. Bronw and Surgical consult by Dr. Knox will be requested. Will follow up LFTs in a.m. Drug screen, uri ne screen, and hepatitis profile has been requested. We will follow up CBC and CMP in a.m. Raf Bowen MD cc: [phone] TT: 03/06/2017 02:14:06 cheryl
[2017-03-06 03:19] LABS: ARTERIAL BLOOD GAS HCO3 26.7 mmol/L (21-28); ARTERIAL BLOOD GAS O2 CAPACITY 11.9 mL/dl (16-24); ARTERIAL BLOOD GAS O2 CONTENT 11.2 ML/dl (15-23); ARTERIAL BLOOD HGB O2 SAT 89.9 % (95.0-98.0); HHB 5.2 % (0-5); METHEMOGLOBIN 0.9 % (0.0-3.0)
[2017-03-06 03:23] LABS: ARTERIAL BLOOD GAS PH 7.16 (7.35-7.45)
[2017-03-06] MEDS: Propofol 10 mg/ml 1,000 MG/100 ML VIAL IV PRN ×7 (03:35→23:47)
[2017-03-06] MEDS ORDERED: metroNIDAZOLE IV 250mg/50 ml 250 MG/50 ML BAG IV SCH (06:00)
[2017-03-06] MEDS ORDERED: metroNIDAZOLE IV 500 mg/100 ml 500 MG/100 ML BAG IVPB SCH (06:00)
[2017-03-06] MEDS ORDERED: Meropenem 1g/NS 100mL IVPB 1 GM/100 ML PIGGYBACK IVPB SCH (06:22)
[2017-03-06 07:02] LABS: ARTERIAL BLOOD GAS HCO3 27.2 mmol/L (21-28); ARTERIAL BLOOD GAS O2 CAPACITY 13.1 mL/dl (16-24); ARTERIAL BLOOD GAS O2 CONTENT 13.1 ML/dl (15-23); ARTERIAL BLOOD GAS PH 7.39 (7.35-7.45); ARTERIAL BLOOD HGB O2 SAT 95.6 % (95.0-98.0); CARBOXYHEMOGLOBIN 2.6 % (0.5-1.5); HHB 0.3 % (0-5); METHEMOGLOBIN 1.5 % (0.0-3.0)
[2017-03-06] MEDS ORDERED: Phytonadione 10 mg/ml Inj (Adult) SC STA (07:39)
--- NOTE | 2017-03-06 07:43 | CP.PCM.PCO ---
Physician Communication Note - Physician Communication Note Physician Communication Note: +Hepato-renal failure/Infiltrates--NO [place] now !
[2017-03-06 07:55] LABS: ADD MANUAL DIFF? NO
[2017-03-06 07:58] LABS: BASO # 0.01 K/mm3 (0.0-2.0); BASO % 0.1 % (0.0-3.0); EOS % 0.1 % (1.5-5.0); GRAN # 15.63 (1.4-6.5); HEMATOCRIT 27.5 % (42.0-52.0); LYMPH # 1.8 (1.2-3.4); LYMPH % 9.6 % (22.0-35.0); MEAN CELL VOLUME 92.6 fL (80.0-105.0); MEAN CORPUSCULAR HEMOGLOBIN 29.6 pg (25.0-35.0); MEAN PLATELET VOLUME 9.5 fl (7.0-11.0); MONO % 5.2 % (1.0-6.0); PLATELET COUNT 122 10^3/uL (120.0-450.0); RED CELL DISTRIBUTION WIDTH 17.5 % (11.5-14.5); WHITE BLOOD COUNT 18.4 10^3/ul (4.5-11.0)
--- NOTE | 2017-03-06 08:09 | RAD ---
HISTORY: vomiting COMPARISON: No prior. FINDINGS: BOWEL: Normal. No obstruction. No free air. Inferior vena caval filter noted. BONES: Normal. OTHER FINDINGS: None. IMPRESSION: No active disease.
[2017-03-06 08:26] LABS: ALB/GLOB RATIO 0.8 (1.1-1.8); BILIRUBIN,TOTAL 1.7 mg/dL (0.2-1.3); CALCIUM 8.5 mg/dL (8.4-10.5); POTASSIUM 5.2 mmol/L (3.6-5.0); TOTAL PROTEIN 8.2 g/dL (5.8-8.3)
[2017-03-06] MEDS ORDERED: ACETYLCYSTEINE IV ONE ×3 (08:30→14:00)
[2017-03-06] MEDS ORDERED: WATER IV ONE ×3 (08:30→14:00)
[2017-03-06] MEDS ORDERED: DEXTROSE 5% IV ONE ×3 (08:30→14:00)
[2017-03-06 08:31] LABS: INR 1.94 (0.93-1.08)
[2017-03-06 08:34] LABS: PHOSPHOROUS 6.1 mg/dL (2.5-4.5)
[2017-03-06] MEDS: Albuterol-Ipratrop 3 mg / 0.5 (3 ml) UD IH SCH ×3 (08:54→20:01)
[2017-03-06 09:13] LABS: ADD MANUAL DIFF? NO
[2017-03-06 09:15] LABS: BASO # 0.02 K/mm3 (0.0-2.0); BASO % 0.1 % (0.0-3.0); GRAN # 16.86 (1.4-6.5); GRAN % 88.6 % (50.0-68.0); HEMATOCRIT 27.8 % (42.0-52.0); LYMPH # 1.6 (1.2-3.4); LYMPH % 8.2 % (22.0-35.0); MEAN CORPUSCULAR HEMOGLOBIN 29.8 pg (25.0-35.0); MEAN PLATELET VOLUME 9.6 fl (7.0-11.0); MONO # 0.6 (0.1-0.6); MONO % 3.1 % (1.0-6.0); PLATELET COUNT 120 10^3/uL (120.0-450.0); RED CELL DISTRIBUTION WIDTH 17.5 % (11.5-14.5)
--- NOTE | 2017-03-06 09:18 | CT ---
PROCEDURE: CT HEAD WITHOUT CONTRAST. HISTORY: altered mental status COMPARISON: None available. TECHNIQUE: Axial computed tomography images were obtained through the head/brain without intravenous contrast. Radiation dose: Total exam DLP = 789.92 mGy-cm. This CT exam was performed using one or more of the following dose reduction techniques: Automated exposure control, adjustment of the mA and/or kV according to patient size, and/or use of iterative reconstruction technique. FINDINGS: HEMORRHAGE: No intracranial hemorrhage. BRAIN: No mass effect or edema. No atrophy or chronic microvascular ischemic changes. VENTRICLES: Unremarkable. No hydrocephalus. CALVARIUM: Unremarkable. PARANASAL SINUSES: Chronic sphenoid, ethmoid and bilateral maxillary sinusitis. Dependent fluid with air-fluid level noted in sphenoid and right frontal sinus. Possible acute sinusitis. Please correlate. MASTOID AIR CELLS: Unremarkable as visualized. No inflammatory changes. OTHER FINDINGS: None. IMPRESSION: No intracranial mass, hemorrhage or evidence of acute infarct. Chronic paranasal sinusitis. Dependent fluid in sphenoid and right frontal sinus. Rule out acute sinusitis.
--- NOTE | 2017-03-06 09:19 | RAD ---
HISTORY: vomiting COMPARISON: 02/26/2017 FINDINGS: LUNGS: There is mild to moderate cardiomegaly and mild vascular congestion improved from the recent study PLEURA: No significant pleural effusion identified, no pneumothorax apparent. CARDIOVASCULAR: Mild to moderate cardiomegaly OSSEOUS STRUCTURES: No significant abnormalities. VISUALIZED UPPER ABDOMEN: Normal. OTHER FINDINGS: None. IMPRESSION: There is mild to moderate cardiomegaly and mild vascular congestion improved from the recent study
[2017-03-06] MEDS: Meropenem 500 MG in Sodium Chloride 0.9% 100 ML IVPB SCH ×2 (09:22→21:54)
[2017-03-06 09:24] LABS: ALB/GLOB RATIO 0.8 (1.1-1.8); BILIRUBIN,TOTAL 2.1 mg/dL (0.2-1.3); CALCIUM 8.7 mg/dL (8.4-10.5); POTASSIUM 5.1 mmol/L (3.6-5.0); TOTAL PROTEIN 8.9 g/dL (5.8-8.3)
--- NOTE | 2017-03-06 09:40 | RAD ---
HISTORY: cp COMPARISON: 03/05/2017 FINDINGS: LUNGS: The endotracheal tube is just above the mikael. There is a new bilateral alveolar infiltrate. This most likely represents pulmonary edema. PLEURA: No significant pleural effusion identified, no pneumothorax apparent. CARDIOVASCULAR: Normal. OSSEOUS STRUCTURES: No significant abnormalities. VISUALIZED UPPER ABDOMEN: Normal. OTHER FINDINGS: None. IMPRESSION: New bilateral alveolar infiltrates probable pulmonary edema
--- NOTE | 2017-03-06 09:42 | CT ---
PROCEDURE: CT Chest, Abdomen and Pelvis without intravenous contrast HISTORY: recurrent vomiting; Spiked LFT's; ?acute sharan vs COMPARISON: None. TECHNIQUE: Radiation dose: Total exam DLP = 1354.87 mGy-cm. This CT exam was performed using one or more of the following dose reduction techniques: Automated exposure control, adjustment of the mA and/or kV according to patient size, and/or use of iterative reconstruction technique. FINDINGS: CT CHEST WITHOUT CONTRAST: LUNGS: Extensive bilateral upper lobe opacities. Right middle lobe opacity. Extensive consolidation with air bronchograms bilateral lower lobe. MEDIASTINUM: Normal caliber aorta and pulmonary artery trunk. Cardiomegaly. No pericardial effusion. Shotty mediastinal nodes with mildly enlarged right paratracheal nodes. No definite hilar adenopathy. Endotracheal tube terminates approximately 1 cm above tracheal mikael. LYMPH NODES: As above PLEURA: Unremarkable. No pneumothorax. No pleural fluid. BONES: Unremarkable. OTHER FINDINGS: None. CT ABDOMEN AND PELVIS: LIVER: Minimal hepatomegaly. Smooth contour. . No mass. No biliary ductal dilatation. GALLBLADDER AND BILE DUCTS: Few calcified gallstones are identified dependently. No clear mural thickening. PANCREAS: Unremarkable. No gross lesion or ductal dilatation. SPLEEN: Minimal splenomegaly. No mass. ADRENALS: No adrenal mass. Mild bilateral adrenal hypertrophy. KIDNEYS AND URETERS: Cortical cyst mid left kidney, 1.4 cm. This was not noted on abdominal ultrasound examination of 03/05/2017. No renal calculus or hydronephrosis. VASCULATURE: Inferior vena caval filter noted. No evidence of abdominal aortic aneurysm. BOWEL: No bowel obstruction. No significant retained feces. Sigmoid diverticulosis. No evidence of diverticulitis. APPENDIX: Normal appendix. PERITONEUM: Mild ascites seen about the liver extending into Golden's pouch. Nonspecific. LYMPH NODES: Shotty retroperitoneal lymph nodes without significant enlarged retroperitoneal nodes. Uncertain significance. No pelvic lymphadenopathy. BLADDER: Decompressed. REPRODUCTIVE: Unremarkable prostate. BONES: No acute fracture. OTHER FINDINGS: None. IMPRESSION: Extensive bilateral pulmonary infiltrate. Cardiomegaly. Mild mediastinal lymphadenopathy. No pleural effusion. Endotracheal tube. Cholelithiasis. No evidence of cholecystitis. Mild hepatosplenomegaly. There is localized ascites seen about the liver extending into Golden's pouch. Nonspecific. Inferior vena caval filter. Bilateral adrenal hypertrophy. Additional minor findings as above.
--- NOTE | 2017-03-06 09:49 | CON ---
DATE: 03/06/2017 REASON FOR CONSULTATION: Positive troponin, history of coronary artery disease , status post intubated, cardiac evaluation. BRIEF CLINICAL HISTORY: This is a 61-year-old male with a past medical history significant for insulin dependent diabetes, hypertension, end-stage renal disease, hyperlipidemia, history of cardiac catheterization on 11/02/2016, nonobstructive coronary artery disease, medical treatment recommended, who came to the Emergency Room with complaint of shortness of breath which is progressively worsening requiring intubation. The patient is currently being intubated in ER, on way to CAT scan for abdomen, pelvis and head and then patient will be heading towards ICU. Information obtained from the electronic medical record as patient is being intubated, and ER nurse and physician from the ER, as patient is unable to communicate. Apparently, it appears that patient was experiencing flu-like symptoms over the past week and recently went to the PMD and got the Z-Chacho, started 3 days ago. Then, patient become more short of breath, lethargic, obtunded and patient came to the Emergency Room, was unable to breathe and went into respiratory distress requiring intubation. Also is mentioned in the chart that recently patient went to PMD, got the Z-Chacho , started for 3 days. Over the weekend, patient went to [facility]. This morning, experiencing vomiting, nonbloody, nonbilious and began to develop fever, chills and was very lethargic, so 911 was called by the family and the patient was brought here. After this, patient was found to be in distress requiring intubation. Initial EKG shows normal sinus, no ST-T changes, no acute ST-T changes noted. Initial plan was to admit the patient to telemetry and GI consult, but later on, patient's respiratory status deteriorated requiring intubation. Currently, patient is being intubated in ER on way to CAT scan for abdomen, pelvis and head and then will be heading towards the ICU. PAST MEDICAL HISTORY: Significant for HIV test was found positive and later subsequently was negative, history of hypertension, hyperlipidemia, end-stage renal disease on dialysis, chronic anemia, multiple transfusions in the past, history of CHF, history of HIV positive, later on turned out to be negative. PAST SURGICAL HISTORY: Significant for AV fistula, declotting of AV fistula. PREVIOUS CARDIAC WORKUP: The patient had myocardial study perfusion 05/23/2016 that was reported essentially normal myocardial perfusion study, fixed defects secondary to diaphragmatic attenuation. The patient had last echocardiography that shows LV hypertrophy, ejection fraction 55%-60%, no aortic regurgitation, mild to moderate mitral regurgitation, trace tricuspid regurg, RV systolic pressure 18, dated 05/19/2016. Later on this admission, patient had a [id number] myocardial infarction, troponin was positive, unstable angina, so patient underwent cardiac catheterization dated 11/02/2016 as during this admission patient has a positive troponin and thought to be acute coronary syndrome. Cardiac catheterization revealed nonobstructive coronary artery disease, diffuse atherosclerotic burden noted, but no flow limiting lesion identified, ejection fraction 65%, EDP was in the range of 30%-35% and recommendation at that time was cardiac rehab, aggressive medical treatment, risk factor reduction recommended as the coronary anatomy says that right side is dominant, left main large no significant disease. LAD calcified toward the vessels without significant disease. Circumflex is calcified. There is no significant disease. Right coronary artery is also diffusely diseased, but no flow obstructive stenosis noted. SOCIAL HISTORY: Denies smoking. Denies any history of alcohol abuse in the past. History of substance abuse in the past. ALLERGIES PENICILLIN. Currently, patient was taking at home, amlodipine, pantoprazole, insulin, ferric sulfate, enalapril, Welchol, Sensipar. REVIEW OF SYSTEMS: As per HPI. PHYSICAL EXAMINATION: VITAL SIGNS: Temperature afebrile, heart rate 80, blood pressure 162/70. HEENT: PERRLA. Extraocular muscles intact. NECK: Supple. No carotid bruits. No thyromegaly. CHEST: Clear to auscultation. HEART: S1, S2 regular. ABDOMEN: Soft. EXTREMITIES: Clubbing, cyanosis negative. Decreased air entry bilateral. BLOOD WORKUP: WBC 18.4, hemoglobin 8.8, hematocrit 27.8, platelet count 122. Chemistry shows sodium 137, potassium 5.2, chloride 95, carbon dioxide 28, anion gap of 21, BUN 45, creatinine is 4.3. AST 7293,ALT 3925, Alkaline phos- 149. Chest x-ray shows pulmonary edema, congestion, flash pulmonary edema. IMPRESSION: Acute pulmonary edema, acute respiratory failure, respiratory distress, rule out early pneumonia, end-stage renal disease on dialysis, history of coronary artery disease, nonobstructive, status post cardiac catheterization, pulmonary edema, end-stage renal disease on dialysis, status post cardiac catheterization 11/02/2016 that shows diffuse atherosclerotic burden , no flow obstructive stenosis noted, preserved left ventricular function. Rule out early pneumonia. Positive troponin secondary to end-stage renal disease on dialysis and probably it is stress.Abnormal LFTS possibly secondary to shock liver?? I doubt it is a myocardial infarction. We will follow the CAT scan. Further recommendation after the workup. We will get echo to assess left ventricular function. We will follow with you. Thank you, Dr. Bowen, for providing us the opportunity in taking care of the patient. Darrel Ervin MD cc: [id number] TT: 03/06/2017 09:48:43 Confirmation # [id number] Dictation # [id number] en MTDD
[2017-03-06] MEDS ORDERED: Ciprofloxacin 200mg/100ml D5W 100 ML IVPB SCH (10:00)
[2017-03-06 10:26] LABS: TROPONIN I 0.75 ng/mL
--- NOTE | 2017-03-06 11:24 | CON ---
DATE: 03/06/2017 The patient is a 61-year-old gentleman with history of hypertension, hyperlipidemia, end-stage renal disease on dialysis and history of CHF, who according to his fiancee, 2 days ago was in his usual state of health. However , on Sunday, he started feeling fatigue and malaise as well as decreased tolerance to exertion. Also, increased shortness of breath. Shortly after dialysis, he vomited copious amount of nonbilious vomit and was transferred to ER for further management and monitoring. Initially, it was treated as gastroenteritis. However, patient became very lethargic, somnolent, altered and was intubated for airway protection. Almost at the same time, his ABG showed hypercapnic respiratory failure and he was treated as such with bronchodilators, steroids. The results of the other labs showed significantly elevated LFTs up to thousands as well as INR climbing up and ammonia level came back elevated as well. Subsequent CMP showed a rise in LFTs, slightly elevated bilirubin. Abdominal imaging including abdominal ultrasound did not reveal changes suspicious for acute cholecystitis or dilatation of common bile duct. No diarrhea, no chest pain, no constipation, no fever, no chills, no sweats. PAST MEDICAL HISTORY: As above. SOCIAL HISTORY: No alcohol or illicit drug abuse. No tobacco smoking. FAMILY HISTORY: Noncontributory. MEDICATIONS AT HOME: Amlodipine, Protonix, mineral supplementation, insulin, Auryxia, vitamin D, enalapril, Welchol, Sensipar, albuterol. REVIEW OF SYSTEMS: Review of 12 organ systems, other than mentioned in history of present illness, is negative. ALLERGIES: PENICILLINS. PHYSICAL EXAMINATION: GENERAL: The patient is intubated and is on PRVC 350/22/10/60%. On that setting: VITAL SIGNS: His oxygen saturation 94%, blood pressure 150/60, heart rate 80. The patient is afebrile with temperature 99.1. HEAD AND NECK: Atraumatic. LUNGS: A few crackles bibasilarly. HEART: Regular rate and rhythm. S1, S2 distant. ABDOMEN: Soft, nontender, nondistended, no peritoneal signs. MUSCULOSKELETAL: The patient is obese. Trace bilateral pedal and ankle edema. NEUROLOGIC: The patient was seen moving all extremities spontaneously. SKIN: Moist. PSYCHIATRIC: The patient is sedated at present time. LABORATORIES: WBC 19, hemoglobin 8.9, platelet count 120. Sodium 137, potassium 5.1 (the patient is on dialysis), chloride 96, carbon dioxide 27, BUN 43, creatinine 6.6 (the patient is on hemodialysis), glucose 159. AST 7037, ALT 3903, alkaline phosphatase 150, ammonia level 63, total bilirubin 2.1. INR 1.94, up from 1.82. VBG showed lactic acid 1.9, pH 7.4. ABG showed 7.39/45/ 234 (since then, his FiO2 went down to 60% from 100%). Influenza is negative. Chest x-ray showed bilateral fluffy infiltrate. CAT scan of the chest, abdomen and pelvis revealed extensive bilateral pulmonary infiltrates, cardiomegaly, mild mediastinal lymphadenopathy, no pleural effusion, cholelithiasis, but no evidence of cholecystitis, mild hepatosplenomegaly, localized ascites, inferior vena cava filter, bilateral adrenal hypertrophy. Abdominal ultrasound did not reveal common bile duct dilatation and did not reveal acute cholecystic changes. EKG showed no acute ischemic changes. ASSESSMENT AND PLAN: This is a 61-year-old gentleman who presented with acute liver failure with hepatic encephalopathy and respiratory failure. It is unclear whether bilateral infiltrates represent aspiration pneumonitis/ pneumonia in the setting of altered mental status and vomiting or primary event consistent with community-acquired pneumonia. It is also unclear whether patient started to hypoventilate first and then became altered due to C02 retention or patient developed hepatic encephalopathy and was unable to maintain his ventilatory status, which led to C02 retention. Nevertheless, acute liver failure at present time is of utmost concern. The patient is on N- acetylcysteine drip. Tylenol level came back negative. However, N- acetylcysteine can be beneficial in other then APAP related acute liver failure etiologies as well. The hepatitis profile is pending. [facility] was contacted and accepted patient (Dr. Singh). The patient is on broad-spectrum antibiotics. ID service is following him as well. Septic workup initiated. NEUROLOGIC: The patient likely has hepatic encephalopathy. We will start patient on lactulose and rifaximin and follow ammonia level. We will try to minimize exposure to benzodiazepine or benzodiazepine receptor agonists. PULMONARY: We will continue with protective lung ventilation strategy to avoid evolution to acute respiratory distress syndrome. We will proceed with high PEEP/FiO2 ratio. We will proceed with head of bed elevated more than 35 degrees. The patient is on broad-spectrum antibiotics. We will continue with euvolemia as patient likely has hepatic encephalopathy. We will continue with conservative oxygen management as well. We will continue with deep venous thrombosis and gastrointestinal prophylaxis. CARDIOVASCULAR: The patient is hemodynamically stable. GASTROINTESTINAL: We will keep n.p.o. for now except for meds. Gastrointestinal prophylaxis. Head of bed elevated more than 35 degrees. The patient has acute liver failure. He is on N-acetylcysteine. The patient is going to be transferred to tertiary center for evaluation by a liver transplant team. The patient will be started on lactulose and rifaximin. GI service was consulted. ENDOCRINE: We will proceed with blood glucose between 140-180 range according to NICE-SUGAR trial. We will avoid hypoglycemia. INFECTIOUS DISEASE: The patient has bilateral infiltrates which may represent aspiration pneumonia versus pneumonitis versus community-acquired pneumonia. The patient is on broad-spectrum antibiotics. ID service is following him and septic workup was initiated. Sputum, blood and urine cultures were sent. Procalcitonin is pending. RENAL: ESRD on HD We will continue with deep venous thrombosis and gastrointestinal prophylaxis. Addendum: oxygenation was getting worse--patient undergone HD today ccm time 40 min Tay Yañez MD cc: [id number] TT: 03/06/2017 11:23:29 Confirmation # [id number] Dictation # [id number] en MTDD
[2017-03-06 11:30] LABS: PH,URINE 5.5 (4.7-8.0); URINE BILIRUBIN SMALL (NEGATIVE); URINE BLOOD MODERATE (NEGATIVE); URINE GLUCOSE (UA) NEGATIVE (NEGATIVE); URINE KETONE NEGATIVE (NEGATIVE); URINE LEUKOCYTE ESTERASE TRACE Leu/uL (NEGATIVE); URINE PROTEIN >=300 mg/dL (<30 mg/dL); URINE UROBILINOGEN 0.2 E.U./dL (<1 E.U./dL)
[2017-03-06 11:34] LABS: URINE COLOR YELLOW (YELLOW)
[2017-03-06 11:35] LABS: URINE APPEARANCE CLEAR (CLEAR)
--- NOTE | 2017-03-06 11:47 | RAD ---
HISTORY: placement ngt COMPARISON: 03/06/2017 at 20:07 a.m. FINDINGS: LUNGS: Marked interval improvement in the extent of bilateral upper lobe and perihilar infiltrate. There is persistent but decreased upper lobe infiltrate. There is left retrocardiac infiltrate with air bronchograms noted. PLEURA: No significant pleural effusion identified, no pneumothorax apparent. CARDIOVASCULAR: ET tube grossly unchanged. NG tube has been placed extending to the left upper quadrant of the abdomen. OSSEOUS STRUCTURES: No significant abnormalities. VISUALIZED UPPER ABDOMEN: Normal. OTHER FINDINGS: None. IMPRESSION: Improved bilateral infiltrate. New NG tube appropriately positioned. ET tube unchanged.
[2017-03-06] MEDS: Insulin Reg-MEDIUM-Coverage SC SCH ×3 (12:00→21:58)
[2017-03-06 12:11] LABS: URINE AMORPHOUS SEDIMENT FEW; URINE BACTERIA SMALL (NEG); URINE RBC 0 - 2 /hpf (0-2)
--- NOTE | 2017-03-06 13:30 | CP.PCM.CON ---
History of Present Illness - History of Present Illness History of Present Illness: 61 year old male with PMH of HTN, ESRD on HD, dyslipidemia, morbid obesity with BMI 45 was brought in to [facility] because of nausea and vomiting a day prior to the hospital. The patient apparently experiencing flu-like symptoms last week and was given Zithromax by his PMD. In the ED, the patient was noted to be lethargic and he was intubated because of worsening lethargy. There was no note of fever, no convulsions, no hematuria, no diarrhea, no loss of consciousness. Full review of systems is unobtainable because of the patient being intubated. He underwent CT chest/abdomen and pelvis which showed bilateral lung consolidation and infiltrates. Infectious Diseases consult is requested to further evaluate and manage. Review of Systems - Review of Systems Systems not reviewed;Unavailable: Intubated Past Patient History - Infectious Disease Hx of Infectious Diseases: None - Tetanus Immunizations Tetanus Immunization: Unknown - Past Social History Smoking Status: Light Smoker < 10 Cigarettes Daily - CARDIAC Hx Cardiac Disorders: Yes Hx Cardia Arrhythmia: Yes Hx Hypertension: Yes - PULMONARY Hx Respiratory Disorders: No (smokes cigarettes) Hx Asthma: No - NEUROLOGICAL Hx Neurological Disorder: No - HEENT Hx HEENT Problems: No - RENAL Hx Chronic Kidney Disease: Yes Hx Dialysis: Yes (MWF) Type of Dialysis Access: L arm fistula Date of Last Dialysis Treatment: 03/05/17 Hx Kidney Stones: Yes Hx Neurogenic Bladder: No Hx Pyelonephritis: No Hx Renal (Kidney) Cancer: No Hx Renal Failure: Yes - ENDOCRINE/METABOLIC Hx Endocrine Disorders: Yes Hx Diabetes Mellitus Type 1: Yes - HEMATOLOGICAL/ONCOLOGICAL Hx Blood Disorders: Yes Hx Anemia: Yes (BLOOD TRANSFUSION) - INTEGUMENTARY Hx Dermatological Problems: No - MUSCULOSKELETAL/RHEUMATOLOGICAL Hx Musculoskeletal Disorders: Yes Hx Falls: Yes Other/Comment: carpal tunnel - GASTROINTESTINAL Hx Gastrointestinal Disorders: Yes Hx Gastroesophageal Reflux: Yes - GENITOURINARY/GYNECOLOGICAL Hx Genitourinary Disorders: No - PSYCHIATRIC Hx Psychophysiologic Disorder: No Hx Substance Use: No - SURGICAL HISTORY Hx Cholecystectomy: No Hx Coronary Stent: Yes (2016) Hx Gastric Bypass Surgery: No Hx Hysterectomy: No Hx Joint Replacement: No Hx Kidney Transplant: No Hx Liver Transplant: No Hx Mastectomy: No Hx Musculoskeletal Surgery: No Hx Open Heart Surgery: No Hx Orthopedic Surgery: No Hx Splenectomy: No Hx Valve Replacement: No Other/Comment: Dialysis shunt placement in left arm. - ANESTHESIA Hx Anesthesia: Yes Hx Anesthesia Reactions: No Hx Malignant Hyperthermia: No Meds Allergies/Adverse Reactions: Allergies Allergy/AdvReac Type Severity Reaction Status Date / Time Penicillins Allergy SWELLING Verified 03/05/17 18:09 - Medications Medications: Current Medications Acetaminophen (Tylenol 325mg Tab) 650 mg PO Q6H PRN PRN Reason: Fever >100.4 F Albuterol/Ipratropium (Duoneb 3 Mg/0.5 Mg (3 Ml) Ud) 3 ml IH Q2H PRN PRN Reason: Shortness of Breath Albuterol/Ipratropium (Duoneb 3 Mg/0.5 Mg (3 Ml) Ud) 3 ml IH [id number] NARA Heparin Sodium (Porcine) (Heparin) 5,000 units SC Q12 NARA PRN Reason: Protocol Hydralazine HCl (Apresoline) 10 mg IVP Q6 PRN PRN Reason: SBP >180 Metronidazole (Flagyl) 500 mg in 100 mls @ 100 mls/hr IVPB Q8 NARA PRN Reason: Protocol Propofol (Diprivan) 1,000 mg in 100 mls @ 3.674 mls/hr IV .Q24H PRN; Protocol; 5 MCG/KG/MIN PRN Reason: TITRATE PER MD ORDER Last Titration: 03/06/17 03:35 Dose: 20 mcg/kg/min, 14.696 mls/hr Meropenem 1g/NS 100mL IVPB (Meropenem 1g/Ns 100ml Ivpb) 1 gm in 100 mls @ 100 mls/hr IVPB Q12 NARA PRN Reason: Protocol Stop: 03/13/17 06:23 Insulin Human Regular (Humulin R Med) 0 units SC ACHS NARA PRN Reason: Protocol Methylprednisolone (Solu-Medrol) 40 mg IVP Q12 NARA Ondansetron HCl (Zofran Inj) 4 mg IVP Q6H PRN PRN Reason: Nausea/Vomiting Pantoprazole Sodium (Protonix Inj) 40 mg IVP DAILY [facility] Physical Exam - Constitutional Appears: Other (Intubated and sedated) - Head Exam Head Exam: NORMAL INSPECTION - ENT Exam Additional comments: ET tube in place - Neck Exam Neck exam: Negative for: Lymphadenopathy, Meningismus - Respiratory Exam Respiratory Exam: Decreased Breath Sounds, Rales (scattered) - Cardiovascular Exam Cardiovascular Exam: +S1, +S2 - GI/Abdominal Exam GI & Abdominal Exam: Soft. absent: Tenderness - Extremities Exam Additional comments: left upper arm AV fistula intact with good thrill Results - Vital Signs Recent Vital Signs: Last Vital Signs Temp 99.4 F 03/05/17 22:40 Pulse 77 03/06/17 05:08 Resp 14 03/06/17 05:08 BP 159/76 H 03/06/17 05:08 Pulse Ox 100 03/06/17 05:08 - Labs Result Diagrams: 03/06/17 09:00 03/06/17 09:00 Labs: Laboratory Results - last 24 hr 03/05/17 03/05/17 03/06/17 22:30 23:15 01:42 pCO2 84 H* pO2 81.0 HCO3 26.7 ABG pH 7.11 L* ABG Total CO2 29.3 H ABG O2 Saturation 94.2 L ABG O2 Content 11.1 L ABG Base Excess -3.5 L ABG Hemoglobin 8.8 L ABG Carboxyhemoglobin 5.5 H POC ABG HHb (Measured) 5.4 H ABG Methemoglobin 0.8 ABG O2 Capacity 11.8 L Hgb O2 Saturation 88.3 L FiO2 100.0 Ammonia 63 H Troponin I 0.35 H* D Influenza Typ A,B (EIA) 03/06/17 03/06/17 03:16 04:11 pCO2 75 H* pO2 76.0 L HCO3 26.7 ABG pH 7.16 L* ABG Total CO2 29.0 H ABG O2 Saturation 94.5 L ABG O2 Content 11.2 L ABG Base Excess -2.6 L ABG Hemoglobin 8.8 L ABG Carboxyhemoglobin 4.0 H POC ABG HHb (Measured) 5.2 H ABG Methemoglobin 0.9 ABG O2 Capacity 11.9 L Hgb O2 Saturation 89.9 L FiO2 100.0 Ammonia Troponin I Influenza Typ A,B (EIA) Negative for flu a/b Assessment & Plan - Assessment and Plan (Free Text) Plan: Assessment Severe sepsis with ventilator-dependent respiratory failure and acute liver failure due to bilateral healthcare-associated pneumonia with possible gram positive cocci and/or gram negative bacilli HTN ESRD on HD dyslipidemia morbid obesity with BMI 45 Plan Gave patient a dose of IV Vancomycin and started Merrem and Doxycycline pending blood, urine, sputum cx, PCT; reviewed CT scan which showed the bilateral consolidations and infiltrates in the lungs; reviewed ultrasound of the abdomen which showed the fatty liver and hepatomegaly Patient is in critical condition
--- NOTE | 2017-03-06 13:45 | CON ---
DATE: 03/06/2017 The patient admitted for Dr. Bowen. REFERRING PHYSICIAN: Dr. Bowen. REASON FOR CONSULTATION: To provide dialysis services for a patient admitted with acute fulminant he patitis and respiratory failure, now intubated in the CCU. HISTORY OF PRESENT ILLNESS: The patient is a 61-year-old black male with a history of end-stage wes l disease on chronic maintenance hemodialysis Sunday, Sunday, Sunday in [facility], hist ory of NIDDM, hypertension, history of nonobstructive coronary artery disease, status post cardiac ca theterization 10/2016, history of LVH, history of valvular heart disease, MR/TR, history of gastroesop hageal reflux disease, history of anemia secondary to chronic kidney disease, history of secondary hy perparathyroidism, history of nephrolithiasis, history of obesity and history of gout. The patient p resented to the Emergency Room with nausea, vomiting, and abdominal pain. En route to CAT scan, the patient developed acute respiratory distress and was intubated. The patient is currently seen in CCU , bed 6. He is sedated on Diprivan. He is on a ventilator. He has acute fulminant hepatitis. His chest imaging study showed bilateral infiltrates. It is uncertain whether he is in CHF or he has GIOVANNI S. Workup of his elevated LFTs are in process. The patient will likely be transferred to [facility] for further evaluation. The patient's last dialysis was yesterday. Plan is to dialyze page ent today prior to transfer to [facility]. PAST MEDICAL HISTORY: Significant for end-stage renal disease, NIDDM, hypertension, nonobstructive c oronary artery disease, LVH, MR/TR, GERD, anemia secondary to chronic kidney disease, secondary hyper parathyroidism, kidney stones, obesity and gout. MEDICATIONS: At home include that of Norvasc, Protonix, multivite, sliding scale regular insulin, Au ryxia, vitamin D, Vasotec, Welchol, Sensipar, and albuterol. ALLERGIES: THE PATIENT IS ALLERGIC TO PENICILLIN. MEDICATIONS: Presently in hospital include that of acetylcysteine, hydralazine, Diprivan, DuoNeb, En ulose, Flagyl, heparin, sliding scale insulin, meropenem, Protonix, Xifaxan and Zofran p.r.n. SOCIAL HISTORY: As per old charts, patient continues to smoke cigarettes. The patient does not use alcohol. FAMILY HISTORY: From old charts. No history of diabetes, hypertension, kidney disease or heart dise ase. REVIEW OF SYSTEMS: Unobtainable as patient is intubated. PHYSICAL EXAMINATION: GENERAL: The patient is seen in CCU, bed 6. He is currently on a ventilator. VITAL SIGNS: Blood pressure presently is 165/73. Heart rate is 91. Oxygen saturation is 93%. Resp iratory rate is 22. HEENT: The patient is intubated. Eyes are closed. NG tube in place. NECK: No neck vein distention. CHEST: Decreased breath sounds at the bases with scattered rales and rhonchi bilaterally. No wheezi ng. CARDIOVASCULAR: Regular rate and rhythm with MR/TR. No S3, no S4. No rub. ABDOMEN: Soft. No rigidity. No apparent rebound or guarding. No appreciable organomegaly. Modera te obesity. Moderate distention. EXTREMITIES: No lower extremity edema, but legs are puffy. Left upper extremity AV fistula, positiv e thrill, positive bruit. NEUROLOGIC: Difficult to assess as patient is sedated on a ventilator. LABORATORY DATA AND IMAGING: Admitting chest x-ray showed bilateral infiltrates. Follow up chest x- ray showed improvement in the infiltrates. Abdominal and chest CT scan showed bilateral infiltrates, cardiomegaly, gallstones without cholecystitis, mild hepatosplenomegaly. CBC: White blood cell count on admission 19,000, today 17.1, hemoglobin 8.9. Platelet count is 122, 000. Coags show a PT of 20.9 with an INR of 1.94 and a PTT of 32.8. Last blood gas, pH 7.40, pCO2 4 6 with a pO2 of 188. Oxygen saturation is 93%. Chemistries today, sodium 137, potassium 5.1, chlori de 96, BUN 43 with a creatinine of 6.6. Glucose is 159. Bilirubin is 2.1. AST elevated at 7037, ALT elevated at 3903. Alkaline phosphatase mildly elevated at 150. Troponins are elevated at 0.61 and 0.75. Lipase is normal. Ammonia level is elevated at 63. TSH is 0.05. PSA is 0.5. Toxicology scr een positive for urine opiates. Acetaminophen level is less than 10. Alcohol level was less than 10 . Benzodiazepines are positive. Serologies: Hepatitis A, B and C antibodies are pending. Hepatitis B surface antigen is negative. Influenza A and B are negative. Urines are unremarkable with the ex ception of proteinuria. Microbiology: All cultures are pending. ASSESSMENT: 1. End-stage renal disease. The patient's last dialysis was on 03/05/2017. The patient will receive another dialysis treatment today. Perhaps some component of his bilateral interstitial infiltrates on chest CT and chest x-ray are volume related. The patient's potassium level is acceptable. 2. Acute respiratory failure. Possible adult respiratory distress syndrome, possible congestive hea rt failure with pulmonary edema. Again, dialysis will be done today. This has been discussed with rosanna fu veterinarian poultry. 3. Elevated liver enzymes, transaminitis. Exact etiology pending. No evidence for obstruction, mil d hepatomegaly. Complete hepatitis viral titers are pending. Mild elevation of ammonia. The patien t is being appropriately treated. In light of his fulminant hepatitis, patient is likely being trans ferred [facility] later today. 4. Elevated cardiac enzymes. Troponin likely elevated secondary to kidney failure. The patient had nonobstructive coronary artery disease on catheterization done in 10/2016. Positive left ventricular hypertrophy, positive mitral regurg/tricuspid regurg with cardiomegaly seen on chest x-ray. 5. History of anemia. Hemoglobin is acceptable and within his range. The patient should continue r eceiving Aranesp with dialysis and to be transfused on a p.r.n. basis. Anemia is likely secondary to chronic kidney disease. 6. History of secondary hyperparathyroidism. The patient's phosphorus level was 6.1 with a calcium level of 8.5. Once patient starts to nutrition, binder should be restarted. The patient was on Sharon juan manuel. PLAN: 1. Plan for short dialysis today. We will try and keep patient as euvolemic as possible in as much as patient makes small amounts of urine. 2. Agree with transfer to a tertiary facility in light of his elevated liver enzymes and fulminant h epatitis. 3. Discussed with cardiology and veterinarian poultry and CCU staff in detail. 4. Continue empiric antibiotic therapy. Check cultures. 5. Continue treatment for his elevated ammonia levels. 6. Close renal followup as noted above. Greater than 35 minutes spent in the care of this critically ill patient. Thank you for letting me partake and share in the care of our mutual patient. Tono Kent MD cc: [id number] TT: 03/06/2017 13:44:32 Confirmation # [id number] Dictation # [id number] rn
[2017-03-06] MEDS ORDERED: Pneumococcal 23-Valent Vaccine IM ONE (14:26)
--- NOTE | 2017-03-06 15:09 | CON ---
DATE: 03/06/2017 Seen and examined in CCU. The patient is currently intubated. Medical history obtained from medical chart and medical staff. No family currently at the bedside. HISTORY OF PRESENT ILLNESS: This is a 61-year-old male with a past medical history of end-stage wes l disease, chronic anemia, hypertension, CHF and came to the hospital with complaints of weakness and fatigue. The patient had received dialysis and complained of abdominal discomfort as well as nausea and vomiting. The patient's bowel movements were regular. No history of fever or chills, shortness of breath or chest pain. It is reported that the patient and his girlfriend, they were up in [facility] for the weekend. When they returned, patient had complaints of not feeling well and nause a and vomiting. He had multiple episodes. No reports of hematemesis. No hemoptysis or complaints o f any bleeding per rectum. The patient had an x-ray of the abdomen which did not report any acute fi ndings. He did have an ultrasound of the abdomen and that reported multiple CBD stones with wall thi ckening, likely secondary to under distention, common bile duct no dilatation or stones, fatty infilt ration of enlarged liver. They did also send him for a CT scan of the chest and abdomen and pelvis w ithout any contrast and that . PAST MEDICAL HISTORY: As stated above, end-stage renal disease on dialysis, chronic anemia, hyperten kandy, CHF, obesity, history of gout, cardiac catheterization done on 11/10/2016 that was reported to b e unremarkable, HIV positive, grade 1 esophageal varices, duodenal polyp, insulin-dependent diabetes. Last endoscopy and colonoscopy was 05/2014, found to have duodenal polyp, grade I esophageal varices and prominent rectal veins, but no colon polyp. PAST SURGICAL HISTORY: AV fistula, had declotting of fistula, status post declotting of tissue. ALLERGIES: PENICILLIN. PAST SURGICAL HISTORY: AV fistula. Denies any abdominal surgery. The patient had cardiac catheteri zation that was unremarkable. MEDICATIONS: Reviewed as per DEC. REVIEW OF SYSTEMS: Systems reviewed with positive findings, see HPI. FAMILY HISTORY: Hypertension. VITAL SIGNS: Temperature is 99.1, blood pressure 165/73, pulse is 90, respirations is on ventilator, is 94%. LABORATORIES: WBC is 19.0, H and H is 8.9, hematocrit is 27.8, platelets is 120. PT 20.9, INR is 1. 94. Sodium 137, K 5.1, chloride 96, BUN is 43, creatinine is 6.6, total bilirubin is 2.1, AST is 703 7, this is at 9:00, ALT is 3930, alk phos is . Had radiologic testing and a CT scan of chest, abdomen and pelvis with no contrast shows extensive bi lateral pulmonary infiltrates, cardiomegaly, mild mediastinal lymphadenopathy, no pleural effusion, s hows cholelithiasis, no evidence of cholecystitis, mild hepatosplenomegaly, localized ascites seen ab out the liver , bilateral adrenal hypertrophy, additional minor findings as above. PHYSICAL EXAMINATION: HEENT: Eyes are closed. NECK: Supple. CARDIAC: S1, S2. LUNG SOUNDS: With decreased breath sounds, but did not hear any rales or wheeze. ABDOMEN: With bowel sounds, soft, nontender at this time. No rebound, guarding, or organomegaly. The patient also had a chest x-ray and that showed new bilateral alveolar infiltrates, probable pulmo nary edema. Head CT shows no intracranial hemorrhage, no mass or acute infarct, chronic paranasal si nusitis, rule out acute sinusitis. Chest x-ray repeated this morning, pending. PHYSICAL EXAMINATION: HEENT: Sclera is anicteric. The patient is intubated. NECK: Supple. CARDIAC: S1, S2. LUNG SOUNDS: With decreased breath sounds, but good air entry. No rales or wheeze. Mild crackles. ABDOMEN: With bowel sounds, soft. No organomegaly. EXTREMITIES: Lower extremities, trace edema. It is warm to touch. NEUROLOGIC: The patient is currently intubated and is not responsive, is on propofol drip. ASSESSMENT: This is a 61-year-old male with history of end-stage renal disease on dialysis, chronic anemia, hypertension with history of cardiac catheterization. Came to the hospital with complaints o f nausea and vomiting. The patient was noted to be in acute liver failure with hepatic encephalopath y and respiratory failure. He is now intubated. The patient has been started on acetylcysteine. Un known as to the etiology of the elevation of the liver enzymes. Rule out medication induced acute li gina failure, rule out any ischemic process. PLAN: Right now, the patient will continue on the acetylcysteine. His Tylenol level is less than 10 . The patient did have history of taking Tylenol for pain as well as some nonsteroidal anti-inflamma tory drugs and pain medication. The patient is up for possible transfer to [facility]. The patient is curr ently on deep venous thrombosis prophylaxis. The patient is on heparin. He was also noted to have e levated troponins. Started on lactulose for his ammonia level was at 63, is on IV antibiotics of aleena openem and Flagyl. Continue gastrointestinal prophylaxis, is on Protonix 40. Started on Xifaxan. Thank you for this consultation and for allowing us to participate in your patient's care. We will m debi further recommendations based on the patient's clinical course. We will also follow up patient's hepatitis panel. The patient was seen and case discussed with Dr. Brown. Idalia MONROE cc: [id number] TT: 03/06/2017 13:26:20 Confirmation # [id number] Dictation # [id number] en
--- NOTE | 2017-03-06 15:17 | PN ---
DATE: 03/06/2017 The patient is a 61-year-old. Last night events noted. After patient was admitted, initially he bec lucie more confused and disoriented. He was found to be in CO2 narcosis. He was then intubated. He h ad CT scan of the abdomen and pelvis done that showed extensive bilateral pulmonary infiltrate, cardi omegaly and mediastinal lymphadenopathy. He was also found to have cholelithiasis, but no evidence o f cholecystitis. The patient was admitted in ICU. When I saw patient this morning, he was intubated and sedated. Case discussed with the bake room worker and patient's nurse, , taking care of him. PHYSICAL EXAMINATION: GENERAL: He is on a vent and sedated. VITAL SIGNS: He is afebrile, pulse 91, blood pressure 150/60. LUNGS: Bilateral soft crackle. HEART: S1, S2 audible. ABDOMEN: Soft, obese, nontender, no rebound, no guarding. NEUROLOGIC: The patient is sedated on vent. LABORATORY EXAMINATION: WBCs 19.0, hemoglobin 8.9, hematocrit 27.8, platelets 120. His PT is 20.9, INR 1.94. Chemistry: Sodium 137, potassium 5.1, chloride 96, CO2 27, BUN 43, creatinine 6.6, blood sugar of 159. His total bilirubin is 2.1, his AST is 7037 and ALT 3903, alk phos is normal. His tro ponin is 0.61. X-ray chest: Improved bilateral infiltrate. ASSESSMENT: 1. Sepsis. 2. Hepatic failure. 3. End-stage renal disease, on hemodialysis. 4. Bilateral alveolar infiltrate. 5. Cholelithiasis. PLAN: Currently, patient is on IV antibiotics including metronidazole and meropenem. He was given d ose of vancomycin. We will continue him on PPI. Discussed with Dr. Yañez, who will discuss with the patient's family. We are trying to transfer him to tertiary care unit and that could be [facility] or [facility]. Once a bed is available, he will be transferred . Raf Bowen MD cc: [phone] TT: 03/06/2017 15:16:03 Confirmation # [id number] Dictation # [id number] en
[2017-03-06 17:52] LABS: ABG MECHANICAL RATE 30; ARTERIAL BLOOD GAS HCO3 28.5 mmol/L (21-28); ATERIAL BLOOD GAS PEEP 10
[2017-03-06 21:00] LABS: HEMATOCRIT 26.4 % (42.0-52.0); MEAN CORPUSCULAR HEMOGLOBIN 29.9 pg (25.0-35.0); MEAN CORPUSCULAR HGB CONC 31.8 g/dl (31.0-37.0); MEAN PLATELET VOLUME 9.4 fl (7.0-11.0); RED CELL DISTRIBUTION WIDTH 17.6 % (11.5-14.5); WHITE BLOOD COUNT 20.5 10^3/ul (4.5-11.0)
[2017-03-06 21:11] LABS: ALB/GLOB RATIO 0.7 (1.1-1.8); BILIRUBIN,TOTAL 3.5 mg/dL (0.2-1.3); CALCIUM 8.7 mg/dL (8.4-10.5); POTASSIUM 4.5 mmol/L (3.6-5.0); TOTAL PROTEIN 8.3 g/dL (5.8-8.3)
--- NOTE | 2017-03-06 22:58 | CARD ---
APPROVED REPORT EKG Measurement Heart [id number] <Conclusion> Normal sinus rhythm Possible Left atrial enlargement Cannot rule out Anterior infarct, age undetermined Abnormal ECG
--- NOTE | 2017-03-06 23:09 | CARD ---
APPROVED REPORT EKG Measurement Heart [id number] <Conclusion> Normal sinus rhythm Prolonged QT Abnormal ECG
[2017-03-07] MEDS: Albuterol-Ipratrop 3 mg / 0.5 (3 ml) UD IH SCH ×6 (01:10→19:54)
[2017-03-07] MEDS: Propofol 10 mg/ml 1,000 MG/100 ML VIAL IV PRN ×5 (03:17→18:35)
[2017-03-07 07:03] LABS: INR 1.63 (0.93-1.08)
[2017-03-07 07:08] LABS: HEMATOCRIT 25.2 % (42.0-52.0); MEAN CELL VOLUME 94.4 fL (80.0-105.0); MEAN CORPUSCULAR HGB CONC 31.7 g/dl (31.0-37.0); MEAN PLATELET VOLUME 9.7 fl (7.0-11.0); PLATELET COUNT 154 10^3/uL (120.0-450.0); WHITE BLOOD COUNT 24.8 10^3/ul (4.5-11.0)
[2017-03-07 07:34] LABS: ALB/GLOB RATIO 0.8 (1.1-1.8); BILIRUBIN,TOTAL 4.4 mg/dL (0.2-1.3); CALCIUM 8.8 mg/dL (8.4-10.5); POTASSIUM 4.5 mmol/L (3.6-5.0)
[2017-03-07] MEDS ORDERED: DEXTROSE 5% IV ONE ×2 (07:52→22:17)
[2017-03-07] MEDS ORDERED: ACETYLCYSTEINE IV ONE ×2 (07:52→22:17)
[2017-03-07] MEDS ORDERED: WATER IV ONE ×2 (07:52→22:17)
[2017-03-07] MEDS ORDERED: Vancomycin 1gm in NS 250ml 1 GM/250 ML BAG IVPB STA (08:09)
[2017-03-07 08:11] LABS: ADD MANUAL DIFF? NO; CHOLESTEROL 156 mg/dL (130-200); PHOSPHOROUS 6.2 mg/dL (2.5-4.5)
--- NOTE | 2017-03-07 08:12 | CON ---
DATE: 03/06/2017 This is an addendum to the GI consultation report dictated by Idalia Nguyen APN. This 61-year-old patient with a past medical history of end-stage renal disease , on hemodialysis; history of noninsulin-dependent diabetes mellitus, hypertension; nonobstructive coronary artery disease, history of valvular disease, MR, TR; gastroesophageal reflux disease, anemia, initially presented to the Emergency Room with the complaints of abdominal discomfort, nausea, vomiting. The patient recently returned from the trip from [facility]. The patient was found to be in respiratory distress in the ER, got intubated. The patient was found to have an elevated ammonia. Found to have elevated LFTs and GI consult was requested because of that. OTHER PAST MEDICAL HISTORY: Significant as above. SOCIAL HISTORY: No alcohol and denies smoking. FAMILY HISTORY: Noncontributory. REVIEW OF SYSTEMS: Positive as above. Other systems reviewed. ALLERGIES: ALLERGIC TO PENICILLIN. PHYSICAL EXAMINATION: HEENT: Atraumatic, anicteric. NECK: Supple. HEART: S1, S2 heard. LUNGS: Bilateral air entry present. ____ at the base with a few crackles. HEART: S1, S2 are heard. There is a systolic murmur present. ABDOMEN: Softly distended. EXTREMITIES: Bilateral mild pedal edema present. The patient is on ____ now. LABORATORY DATA: WBC 19, hemoglobin 8.9, hematocrit 27.8, platelets 120. INR 1.94. AST 7037, ALT 3903. Alkaline phosphatase normal at 1.8. The patient's INR is elevated at 1.94. Hepatitis serology: Negative. The patient had a CT of the abdomen and pelvis and chest and mild ascites is present with cholelithiasis, extensive bilateral lung infiltrate. IMPRESSION: This 61-year-old patient with end-stage liver disease, on hemodialysis, admitted with nausea, vomiting and respiratory distress, currently intubated. The patient does have bilateral lung infiltrate, found to be acute pulmonary edema, rule out pneumonia. The patient previously, a week ago, had some flu-like symptoms; had Z-Chacho. Have H/O increase use Acetaminophen and was also taking Percocet. Over the weekend he went [facility], came back and was feeling weak, nausea, vomiting; that is why he came to the Emergency Room, got intubated. Other possibilities to consider, Rule out sepsis, rule out pneumonia, acute pulmonary edema, respiratory failure; acute liver failure, etiology unclear; on ventilator; end-stage renal disease, on hemodialysis; morbidly obese. This 61-year-old patient with acute liver failure. The differential diagnosis should include drug induced (Tylenol) also should be considered definitive diagnosis of drug induced. The other differential diagnosis could include history of viral hepatitis. RECOMMEND: 1. ____ IgM, hepatitis B core IgM and also hepatitis A IgM ____. 2. Follow up of the hemoglobin and hematocrit. 3. Discussed with Dr. Yañez, drywall taper helper, in the a.m., and also I have discussed this case with Dr. Bowen. PLAN: 1. Is the patient is now being accepted for transfer to the [facility]. Meanwhile, will continue the acetylcysteine drip. 2. Followup of the hemoglobin, hematocrit and INR. 3. At the present time, will continue the Mucomyst. 4. Follow up the LFTs. 5. Awaiting for the patient to go to the [facility] where he has been accepted. 6. Will continue to closely follow up his care and suggest further management based on the clinical course. Maddie Brown MD cc: [id number] TT: 03/07/2017 08:11:24 Confirmation # [id number] Dictation # [id number] cheryl DANIELLE
[2017-03-07 08:40] LABS: ARTERIAL BLOOD GAS HCO3 28.2 mmol/L (21-28); ARTERIAL BLOOD GAS PH 7.28 (7.35-7.45)
[2017-03-07] MEDS ORDERED: Insulin Regular 100 UNITS in Sodium Chloride 0.9% 99 ML IV PRN (08:42)
--- NOTE | 2017-03-07 09:36 | PN ---
DATE: 03/07/2017 The patient seen and examined at bedside. He is comfortable. He is on PRVC 350 /30/10/40%. PHYSICAL EXAMINATION: VITAL SIGNS: On that setting, his blood pressure 115/51 with mean arterial pressure 75, oxygen saturation 100, end-tidal CO2 on the monitor 49-53, heart rate 87. The patient is on propofol 60 which was reduced to 30 mcg per kilogram per hour. HEAD AND NECK: Atraumatic. LUNGS: Clear to auscultation bilaterally. HEART: Regular rate and rhythm. S1, S2 normal. ABDOMEN: Soft, nontender, nondistended. MUSCULOSKELETAL: Trace bilateral pedal and ankle edema. NEUROLOGIC: The patient is sedated. SKIN: Moist. PSYCHIATRIC: The patient is sedated. LABORATORY DATA: WBC 24.8, hemoglobin 8, platelet count 154. Sodium 132, potassium 4.5, chloride 88, carbon dioxide 26, BUN 42, creatinine 5 (the patient is on dialysis), glucose 338. AST 3295, ALT 2917, ammonia level 29, albumin 3.5, triglycerides 694, cholesterol 156, LDL 1130, lipase 45. Blood gas 7.28/60/69 (minute ventilation was increased by a way of increasing respiratory rate from 30-35). Hepatitis profile is negative. INR 1.63 down from 1.84. MEDICATIONS: Mucomyst, DuoNeb p.r.n. and every 6 hours, heparin 5000 subQ q. 12 , hydralazine p.r.n., insulin, lactulose 20 grams p.o. q. 8, meropenem, Zofran p.r.n., Protonix, vitamin K, rifaximin, vancomycin. ASSESSMENT AND PLAN: This is a 61-year-old gentleman with acute liver failure, hepatic encephalopathy, adult respiratory distress syndrome/pulmonary edema. 1. Neurologic: The patient likely has hepatic encephalopathy. Yesterday he was very synchronous with the ventilator which required propofol drip. However , today he looks much better from that perspective. We will start tapering down propofol to assess his intrinsic mental status. The patient is on lactulose and rifaximin. His ammonia level normalized. I will proceed with EEG to make sure he is not in nonconvulsive status. 2. Pulmonary: We will continue with protective lung ventilation strategy and tidal volume 6 mL per predicted body weight. We will aim at pH 7.35-7.45 to optimally support cerebral perfusion/CBF. We will increase minute ventilation to achieve this goal. Meanwhile, we will go with a bit higher PEEP to FIO2 ratio. His FIO2 went down from 60% to 40%. We will continue with euvolemia and conservative oxygen management. We will continue with head of bed elevated more than 35 degrees. The patient likely has aspiration pneumonitis versus pneumonia. Possibility of community-acquired pneumonia cannot be ruled out as well. The patient is on antibiotics for that and septic workup is in process. 3. Gastrointestinal: The patient is n.p.o. He has acute liver failure and is getting acetylcysteine. Poison control contacted. Gastroenterology service also contacted and appreciated. Gastrointestinal prophylaxis is ongoing. The patient was accepted to [facility] for consideration of liver transplant. 4. Renal: The patient is on end-stage renal dialysis. He received extra dialysis session yesterday to help with oxygenation/end-stage renal disease. 5. Endocrine: We will continue with blood glucose within 140-180 range. The patient's triglycerides subsequently elevated as well as blood glucose came back as more than 300. I will start insulin drip and Accu-Chek every 1 hour. 6. Infectious disease: The patient is afebrile. Leukocytosis rising. He is on broad-spectrum antibiotics. Infectious disease service is following him as well. Septic workup is in progress. Blood culture and sputum culture negative so far. We will continue with deep venous thrombosis and gastrointestinal prophylaxis. ccm time 40 min Tay Yañez MD cc: [id number] TT: 03/07/2017 09:36:02 Confirmation # [id number] Dictation # [id number] gene DANIELLE
--- NOTE | 2017-03-07 09:43 | RAD ---
HISTORY: ARDS COMPARISON: 03/06/2017 FINDINGS: LUNGS: Increasing vascular congestion and bilateral infiltrates PLEURA: No significant pleural effusion identified, no pneumothorax apparent. CARDIOVASCULAR: Moderate to severe cardiomegaly OSSEOUS STRUCTURES: No significant abnormalities. VISUALIZED UPPER ABDOMEN: Normal. OTHER FINDINGS: Endotracheal and nasogastric tubes in satisfactory position IMPRESSION: Increasing infiltrate and vascular congestion. Severe cardiomegaly
--- NOTE | 2017-03-07 10:03 | CP.PCM.PN ---
<Spencer Olivo - Last Filed: 03/07/17 10:09> Subjective - Date & Time of Evaluation Date of Evaluation: 03/07/17 Time of Evaluation: 10:00 - Subjective Subjective: GI progress note for Dr. Brown Pt s &e w attending. Pt is intubated. Unresponsive to pain or verbal stimuli. OG tube in place. Objective - Vital Signs/Intake and Output Vital Signs (last 24 hours): Temp Pulse Resp BP Pulse Ox 99.3 F 95 H 22 160/66 H 100 03/07/17 04:00 03/07/17 03:10 03/06/17 16:00 03/07/17 03:01 03/07/17 03:10 Intake and Output: 03/07/17 03/07/17 06:59 18:59 Intake Total 1860 100 Balance 1860 100 - Medications Medications: Current Medications Albuterol/Ipratropium (Duoneb 3 Mg/0.5 Mg (3 Ml) Ud) 3 ml IH Q2H PRN PRN Reason: Shortness of Breath Albuterol/Ipratropium (Duoneb 3 Mg/0.5 Mg (3 Ml) Ud) 3 ml IH [id number] NARA Last Admin: 03/07/17 01:10 Dose: 3 ml Heparin Sodium (Porcine) (Heparin) 5,000 units SC Q12 NARA PRN Reason: Protocol Last Admin: 03/07/17 09:00 Dose: 5,000 units Hydralazine HCl (Apresoline) 10 mg IVP Q6 PRN PRN Reason: SBP >180 Last Admin: 03/07/17 02:05 Dose: 10 mg Propofol (Diprivan) 1,000 mg in 100 mls @ 3.674 mls/hr IV .Q24H PRN; Protocol; 5 MCG/KG/MIN PRN Reason: TITRATE PER MD ORDER Last Admin: 03/07/17 09:28 Dose: 60 mcg/kg/min, 44.089 mls/hr Meropenem 500 mg/ Sodium (Chloride) 100 mls @ 100 mls/hr IVPB Q12 NARA Stop: 03/13/17 06:23 Last Admin: 03/06/17 21:54 Dose: 100 mls/hr Acetylcysteine 12,200 mg/ (Dextrose) 1,061 mls @ 66.313 mls/hr IV .Q16H ONE Stop: 03/07/17 23:51 Last Admin: 03/07/17 09:28 Dose: 66.313 mls/hr Insulin Human Regular 100 (units/ Sodium Chloride) 100 mls @ 5 mls/hr IV .Q20H PRN; Protocol; 5 UNITS/HR PRN Reason: TITRATE PER MD ORDER Insulin Human Regular (Humulin R Med) 0 units SC ACHS NARA PRN Reason: Protocol Last Admin: 03/06/17 21:58 Dose: Not Given Lactulose (Enulose) 20 gm PO Q8H [facility] Last Admin: 03/07/17 03:23 Dose: 20 gm Ondansetron HCl (Zofran Inj) 4 mg IVP Q6H PRN PRN Reason: Nausea/Vomiting Pantoprazole Sodium (Protonix Inj) 40 mg IVP DAILY [facility] Last Admin: 03/07/17 09:01 Dose: 40 mg Rifaximin (Xifaxan) 550 mg PO BID [facility] PRN Reason: Protocol Last Admin: 03/07/17 09:01 Dose: 550 mg - Labs Labs: 03/07/17 06:10 03/07/17 06:10 PT 17.6 Seconds (9.9-11.8) H 03/07/17 06:10 INR 1.63 (0.93-1.08) H 03/07/17 06:10 APTT 26.0 Seconds (23.7-30.8) 03/07/17 06:10 - Head Exam Head Exam: ATRAUMATIC, NORMAL INSPECTION, NORMOCEPHALIC - ENT Exam ENT Exam: Mucous Membranes Moist, Normal Exam Additional comments: Intubated. oG tube in place - Neck Exam Neck Exam: Normal Inspection - Respiratory Exam Respiratory Exam: Respiratory Distress - Cardiovascular Exam Cardiovascular Exam: REGULAR RHYTHM - GI/Abdominal Exam GI & Abdominal Exam: Soft. absent: Distended, Firm, Guarding, Rigid, Tenderness - Exam Exam: NORMAL INSPECTION - Extremities Exam Extremities Exam: Normal Capillary Refill - Back Exam Back Exam: NORMAL INSPECTION - Skin Skin Exam: Dry, Intact, Normal Color, Warm Assessment and Plan - Assessment and Plan (Free Text) Assessment: 61 M w PMD ESRD on HD , DM , CAD, GERD came with vomiting and respiratory distress. Pt is intubated. found to have elevated LFT and ammonia (63->29). Hep panel is negative. MELD score: 32 -> 50% 3month mortality. Differential dx: Acetominophen induced acute hepatic failure , hepatic encephalopathy Plan -Continue Lactulose, Rifaximin -Acetylcystein drip given -Trend ammonia level / LFT -ICU management -Awaiting bed at [facility]. -We will continue to follow closely Case Discussed with Dr. Brown <Maddie Brown V - Last Filed: 03/07/17 15:26> Objective - Vital Signs/Intake and Output Vital Signs (last 24 hours): Temp Pulse Resp BP Pulse Ox 97.8 F 81 38 H 119/54 L 100 03/07/17 14:48 03/07/17 15:10 03/07/17 14:48 03/07/17 15:00 03/07/17 15:10 Intake and Output: 03/07/17 03/07/17 06:59 18:59 Intake Total 1860 500 Balance 1860 500 - Medications Medications: Current Medications Albuterol/Ipratropium (Duoneb 3 Mg/0.5 Mg (3 Ml) Ud) 3 ml IH Q2H PRN PRN Reason: Shortness of Breath Albuterol/Ipratropium (Duoneb 3 Mg/0.5 Mg (3 Ml) Ud) 3 ml IH [id number] NARA Last Admin: 03/07/17 13:30 Dose: 3 ml Heparin Sodium (Porcine) (Heparin) 5,000 units SC Q12 NARA PRN Reason: Protocol Last Admin: 03/07/17 09:00 Dose: 5,000 units Hydralazine HCl (Apresoline) 10 mg IVP Q6 PRN PRN Reason: SBP >180 Last Admin: 03/07/17 02:05 Dose: 10 mg Propofol (Diprivan) 1,000 mg in 100 mls @ 3.674 mls/hr IV .Q24H PRN; Protocol; 5 MCG/KG/MIN PRN Reason: TITRATE PER MD ORDER Last Admin: 03/07/17 14:08 Dose: 60 mcg/kg/min, 44.089 mls/hr Meropenem 500 mg/ Sodium (Chloride) 100 mls @ 100 mls/hr IVPB Q12 NARA Stop: 03/13/17 06:23 Last Admin: 03/07/17 12:00 Dose: 100 mls/hr Acetylcysteine 12,200 mg/ (Dextrose) 1,061 mls @ 66.313 mls/hr IV .Q16H ONE Stop: 03/07/17 23:51 Last Admin: 03/07/17 09:28 Dose: 66.313 mls/hr Insulin Human Regular 100 (units/ Sodium Chloride) 100 mls @ 5 mls/hr IV .Q20H PRN; Protocol; 5 UNITS/HR PRN Reason: TITRATE PER MD ORDER Last Titration: 03/07/17 15:00 Dose: 1 units/hr, 1 mls/hr Insulin Human Regular (Humulin R Med) 0 units SC ACHS NARA PRN Reason: Protocol Last Admin: 03/06/17 21:58 Dose: Not Given Lactulose (Enulose) 20 gm PO Q8H [facility] Last Admin: 03/07/17 11:00 Dose: 20 gm Ondansetron HCl (Zofran Inj) 4 mg IVP Q6H PRN PRN Reason: Nausea/Vomiting Pantoprazole Sodium (Protonix Inj) 40 mg IVP DAILY [facility] Last Admin: 03/07/17 09:01 Dose: 40 mg Rifaximin (Xifaxan) 550 mg PO BID NARA PRN Reason: Protocol Last Admin: 03/07/17 09:01 Dose: 550 mg - Labs Labs: 03/07/17 06:10 03/07/17 06:10 PT 17.6 Seconds (9.9-11.8) H 03/07/17 06:10 INR 1.63 (0.93-1.08) H 03/07/17 06:10 APTT 26.0 Seconds (23.7-30.8) 03/07/17 06:10 Assessment and Plan - Assessment and Plan (Free Text) Assessment: This is and addendum note to Dr. Spencer Olivo, resident progress note. Patient was seen and examined earlier this morning. Chart was reviewed, labs ,and diagnostic tests. Remains on ventilator unresponsive. LFT elevated on Acetylcystein drip. Awaiting transfer to [facility]. MELD is 32 with 50 % 3 month mortality. Agree with the plan as outlined above, will continue to follow closely.
--- NOTE | 2017-03-07 10:05 | CP.PCM.PCO ---
Physician Communication Note - Physician Communication Note Physician Communication Note: Trach(Bria)-Gastrostomy(Smiley)SUNDAY 7: 30am
--- NOTE | 2017-03-07 10:08 | CP.PCM.PCO ---
Physician Communication Note - Physician Communication Note Physician Communication Note: WRONG PATIENT-DISREGARD!
--- NOTE | 2017-03-07 11:55 | PN ---
DATE: 03/07/2017 The patient is still intubated and has been in the intensive care unit for the past 24 hours. He has developed what appears to be an acute hepatic failure in addition to his chronic renal failure treat ed with hemodialysis. On admission, he was found to have stones in his gallbladder and questionable fluid surrounding the g allbladder, but this clinician did not think this was direct sales representative of acute cholecystitis. The CAT scan examination the day after admission and just today a repeat ultrasound examination does confirm that the patient did not have acute cholecystitis, but hepatic failure. The ammonia level responded to lactulose and the patient's liver enzymes had risen to 7000. However, at this point in time, he is preparing for transfer to a liver facility for critical care treatment. The anticipated recovery is somewhat guarded at this point; however, his protime did drop from 21-17 seconds with 2 more units of fresh frozen plasma. The etiology of the liver failure is still unclear and history is extremely difficult to obtain from this patient's family and acquaintances, and we suspect some drug or other toxic influence in the rec ent history that is still unknown to us. This dictation will be electronically signed without being read. Sven Lin MD cc: [phone] TT: 03/07/2017 11:54:53 Confirmation # [id number] Dictation # [id number] jerry
[2017-03-07] MEDS: Meropenem 500 MG in Sodium Chloride 0.9% 100 ML IVPB SCH ×2 (12:00→21:09)
--- NOTE | 2017-03-07 12:02 | US ---
HISTORY: Eval GB/Liver COMPARISON: None. TECHNIQUE: Sonographic evaluation of the right upper quadrant of the abdomen. FINDINGS: LIVER: Measures 17 cm in length. Increased echogenicity of the liver parenchyma. No mass. No intrahepatic bile duct dilatation. GALLBLADDER: Gallstones present. No sonographic Cooper's sign elicited. Minimal amount of fluid around the gallbladder. Minimal gallbladder wall thickening (3.4 mm its) however the gallbladder is not especially at distended COMMON BILE DUCT: Measures varies between 3.4 and 4.4 mm. No stones. No dilatation. PANCREAS: Unremarkable as visualized. No mass. No ductal dilatation. RIGHT KIDNEY: Measures 9.4 x 4.7 x 4.6 cm in length. Diffuse increased echogenicity -can be seen with medical renal disease No calculus, mass, or hydronephrosis. AORTA: No aneurysmal dilatation. IVC: Unremarkable. OTHER FINDINGS: None . IMPRESSION: Hepatomegaly with probable diffuse fatty infiltration. Limited gallbladder distension. Gall stones, minimal -mild gallbladder wall edema -apparent minimal fluid around the gallbladder. Although no sonographic Cooper sign was elicited- findings do not exclude a acute spurs -an acute/subacute or even chronic cholecystitis status. Hypoalbuminemic states with minimal ascites can simulate the gallbladder wall appearance. No dilated ducts. Clinical follow-up recommended.
--- NOTE | 2017-03-07 12:53 | PN ---
DATE: 03/07/2017 SUBJECTIVE: The patient seen and examined while in the CCU; remains critically sick. He is intubate d. He is sedated. Awaiting bed in [facility]. PHYSICAL EXAMINATION: VITAL SIGNS: The patient is afebrile, pulse 79, respirations 20, FIO2 40% and saturation is 100%. LUNGS: Bilateral fair airflow, no rhonchi or crackle. HEART: S1, S2 audible. Tachycardic. ABDOMEN: Soft, obese, nontender. NEUROLOGIC: He is sedated. EXTREMITIES: Bilateral legs, no edema. LABORATORY EXAMINATION: WBC is 24.8, hemoglobin 8.0, hematocrit 25.2, platelet of 180. PT 17.6, INR 1.63. Chemistry: Sodium 132, potassium 4.5, chloride 88, CO2 26, BUN 42, creatinine 5.0, blood sug ar of 338. Urine drug screen positive for opiates. Hepatitis profile is negative. ASSESSMENT AND PLAN: 1. Respiratory failure, on vent support. 2. Hypertension. 3. End-stage renal disease, on hemodialysis. 4. Acute hepatitis, etiology unclear. 5. Coagulopathy. 6. Cholelithiasis but not cholecystitis. PLAN: He will stay n.p.o. Will continue vent support. He is getting dialysis today. Continue to m onitor his blood pressure and electrolytes. Will follow up this patient in a.m. Raf Bowen MD cc: [facility] TT: 03/07/2017 12:52:05 Confirmation # [id number] Dictation # [id number] mn
--- NOTE | 2017-03-07 16:40 | PN ---
DATE: 03/07/2017 SUBJECTIVE: The patient is seen in the ICU. He is sedated, he is on mechanical ventilation. He is currently receiving dialysis. He appears very swollen. He has anasarca. He is receiving 1 unit of blood during dialysis. He is on a propofol drip. He is on IV insulin at 5 units per hour. PHYSICAL EXAMINATION: GENERAL: Middle-aged male lying in bed in the ICU, anasarcic. VITAL SIGNS: Blood pressure 119/54, heart rate 81, respiratory rate 38, temperature 97.8. HEENT: Normocephalic, atraumatic, positive pallor. NECK: Supple, no JVD. LUNGS: Bilateral equal air entry, bilateral equal expansion. CARDIAC: S1, S2, regular rate and rhythm, no murmur, no rub. ABDOMEN: Obese, distended, soft, nontender, bowel sounds present. EXTREMITIES: 3+ pitting edema of the lower extremities. INTAKE AND OUTPUT: 4541/2530. LABORATORY DATA: WBC 24.8, hemoglobin 8, hematocrit 25, platelets 154. Sodium 132, potassium 4.5, c hloride 88, CO2 26, BUN 42, creatinine 5.0, glucose 338, calcium 8.8, phosphorus 6.2, magnesium 2.0, total bilirubin 4.4. AST 3295, ALT 2917, albumin 3.5. Urine toxicology positive for opiates and benzodiazepines, Tylenol level less than 10, alcohol level less than 10. Hepatitis serology negative. Urinalysis: Yellow, clear, pH 5.5, specific gravity 1.0 25, protein greater than 300, blood moderate, bilirubin small, leukocyte esterase trace. Blood cultu re negative. Sputum culture negative. CURRENT MEDICATIONS: Hydralazine p.r.n., Diprivan, DuoNeb, Enulose, heparin 5000 subQ, insulin drip, meropenem 500 q. 12, Protonix, rifaximin, Zofran, doxycycline given yesterday 100 q. 12, vancomycin 1 gram given this morning. ASSESSMENT: A 61-year-old male with acute liver failure, hepatic encephalopathy, respiratory failure , adult respiratory distress syndrome, pulmonary edema, anasarca. 1. Acute liver failure. Etiology of acute liver injury is unclear. Viral hepatitis titers are nega tive. Blood Tylenol level was less than 10. Urine toxicology did show opiates and benzodiazepines i n the urine. 2. Acute respiratory failure, adult respiratory distress syndrome, pulmonary edema. 3. Elevated troponins, secondary to acute liver injury/kidney injury. 4. Severe anemia. 5. End-stage renal disease. PLAN: 1. The patient is receiving dialysis at this time. He is being dialyzed for 4 hours, we are trying to remove about 3 kilograms. He is being dialyzed with a potassium 4 bath so as to not cause any maximino ctrolyte imbalance. 2. Continue supportive care. 3. Continue Mucomyst/acetylcysteine for acute liver failure. 4. Case discussed with ICU staff at length. 5. Case discussed with dialysis staff. 6. The patient is awaiting transfer to [facility] for possible liver transplant in the setting of fulminant hepatitis. More than 35 minutes were spent in the care of this critically ill patient. Shavonne Varela MD cc: [phone] TT: 03/07/2017 16:39:11 Confirmation # [id number] Dictation # [id number] cn
[2017-03-07 17:21] LABS: ARTERIAL BLOOD GAS HCO3 27.1 mmol/L (21-28); ARTERIAL BLOOD GAS PH 7.35 (7.35-7.45)
--- NOTE | 2017-03-07 18:18 | PN ---
DATE: 03/07/2017 REASON FOR CONSULTATION AND FOLLOWUP: Positive troponin, history of coronary artery disease status p ost intubated, cardiac evaluation, acute liver failure, end-stage renal disease on dialysis. BRIEF CLINICAL HISTORY: This is a 61-year-old male with past medical history significant for insulin -dependent diabetes, hypertension, hyperlipidemia, end-stage renal disease on dialysis, admitted with shortness of breath, intubated, requiring intubation, history of cardiac catheterization 11/02/2016, nonobstructive coronary artery disease medical treatment recommended. Came to the Emergency Room. A fter being intubated, found to be in acute liver failure. LFTs in 7000. Awaiting to be transferred to [facility] for acute liver failure, still being intubated, critically ill and sedated, possibly hepatic e ncephalopathy. PHYSICAL EXAMINATION: VITAL SIGNS: Temperature afebrile, heart rate ____, blood pressure 109/47. HEENT: PERRLA. Extraocular muscles intact. NECK: Supple. No carotid bruits. No thyromegaly. CHEST: Clear to auscultation. HEART: S1, S2 regular. ABDOMEN: Soft. EXTREMITIES: Clubbing and cyanosis negative. LABORATORY DATA: Blood workup as follows: WBC 24.8, hemoglobin 8, hematocrit 25.2, platelet count 1 54. Chemistry shows sodium 130, potassium 4.5, chloride ____, carbon dioxide 26, anion gap of 23, BU N 42, creatinine 5. AST 7943. ALT 3914 as of yesterday. Today, AST 3294 and ALT 2914. IMPRESSION: Acute liver failure, etiology is not clear. End-stage renal disease on dialysis, status post cardiac catheterization, nonobstructive coronary artery disease in 10/2016, history of once HIV positive, which is false now, repeat test was HIV negative. Last echo shows ejection fraction 55%-60 % dated 05/19/2015, cardiac catheterization 10/23/2016 showed nonobstructive coronary artery disease, ejection fraction 65%, EDP was in the range of 30-36, respiratory failure, sepsis, possibly acute li gina failure, etiology not clear and no evidence of acute myocardial infarction. Borderline positive troponin was 0.75 is probably secondary to end-stage renal disease and hemodynamic instability. Trop onin never went more than 0.75. RECOMMENDATION: Continue supportive care. Keep a negative fluid balance, patient going to ARDS, non cardiac pulmonary edema. Possible transfer to [facility]. Continue dialysis. Try to keep negative fluid b alance for better oxygenation. The patient is PEEP now with FI02 of 60%. We will follow with you. Overall, the patient is critical, ill. Prognosis is guarded, possibly hepatic encephalopathy. Darrel Ervin MD cc: [id number] TT: 03/07/2017 18:17:16 Confirmation # [id number] Dictation # [id number] jn
[2017-03-07 20:17] LABS: ALB/GLOB RATIO 0.7 (1.1-1.8); BILIRUBIN,TOTAL 6.1 mg/dL (0.2-1.3); CALCIUM 9.4 mg/dL (8.4-10.5); TOTAL PROTEIN 8.5 g/dL (5.8-8.3)
--- NOTE | 2017-03-07 20:43 | CP.PCM.PN ---
Subjective - Date & Time of Evaluation Date of Evaluation: 03/07/17 Time of Evaluation: 09:00 - Subjective Subjective: Patient continues to be intubated and sedated. Objective - Vital Signs/Intake and Output Vital Signs (last 24 hours): Temp Pulse Resp BP Pulse Ox 98.7 F 82 38 H 130/60 100 03/07/17 20:00 03/07/17 20:01 03/07/17 20:00 03/07/17 20:01 03/07/17 20:01 Intake and Output: 03/07/17 03/08/17 18:59 06:59 Intake Total 2036 73 Output Total 2900 Balance -864 73 - Medications Medications: Current Medications Albuterol/Ipratropium (Duoneb 3 Mg/0.5 Mg (3 Ml) Ud) 3 ml IH Q2H PRN PRN Reason: Shortness of Breath Albuterol/Ipratropium (Duoneb 3 Mg/0.5 Mg (3 Ml) Ud) 3 ml IH [id number] [facility] Last Admin: 03/07/17 19:54 Dose: 3 ml Heparin Sodium (Porcine) (Heparin) 5,000 units SC Q12 NARA PRN Reason: Protocol Last Admin: 03/07/17 09:00 Dose: 5,000 units Hydralazine HCl (Apresoline) 10 mg IVP Q6 PRN PRN Reason: SBP >180 Last Admin: 03/07/17 02:05 Dose: 10 mg Propofol (Diprivan) 1,000 mg in 100 mls @ 3.674 mls/hr IV .Q24H PRN; Protocol; 5 MCG/KG/MIN PRN Reason: TITRATE PER MD ORDER Last Admin: 03/07/17 18:35 Dose: 60 mcg/kg/min, 44.089 mls/hr Meropenem 500 mg/ Sodium (Chloride) 100 mls @ 100 mls/hr IVPB Q12 [facility] Stop: 03/13/17 06:23 Last Admin: 03/07/17 12:00 Dose: 100 mls/hr Acetylcysteine 12,200 mg/ (Dextrose) 1,061 mls @ 66.313 mls/hr IV .Q16H ONE Stop: 03/07/17 23:51 Last Admin: 03/07/17 09:28 Dose: 66.313 mls/hr Insulin Human Regular 100 (units/ Sodium Chloride) 100 mls @ 5 mls/hr IV .Q20H PRN; Protocol; 5 UNITS/HR PRN Reason: TITRATE PER MD ORDER Last Titration: 03/07/17 20:00 Dose: 3 units/hr, 3 mls/hr Insulin Human Regular (Humulin R Med) 0 units SC ACHS NARA PRN Reason: Protocol Last Admin: 03/06/17 21:58 Dose: Not Given Lactulose (Enulose) 20 gm PO Q8H [facility] Last Admin: 03/07/17 11:00 Dose: 20 gm Ondansetron HCl (Zofran Inj) 4 mg IVP Q6H PRN PRN Reason: Nausea/Vomiting Pantoprazole Sodium (Protonix Inj) 40 mg IVP DAILY [facility] Last Admin: 03/07/17 09:01 Dose: 40 mg Rifaximin (Xifaxan) 550 mg PO BID [facility] PRN Reason: Protocol Last Admin: 03/07/17 18:34 Dose: 550 mg - Labs Labs: 03/07/17 06:10 03/07/17 19:52 PT 17.6 Seconds (9.9-11.8) H 03/07/17 06:10 INR 1.63 (0.93-1.08) H 03/07/17 06:10 APTT 26.0 Seconds (23.7-30.8) 03/07/17 06:10 - Constitutional Appears: Other (Intubated and sedated) - ENT Exam Additional comments: ET tube in place - Neck Exam Neck Exam: absent: Lymphadenopathy, Meningismus - Respiratory Exam Respiratory Exam: Decreased Breath Sounds, Rales (scattered) - Cardiovascular Exam Cardiovascular Exam: +S1, +S2 - GI/Abdominal Exam GI & Abdominal Exam: Soft. absent: Tenderness Assessment and Plan - Assessment and Plan (Free Text) Plan: Assessment Severe sepsis with ventilator-dependent respiratory failure and acute liver failure/acute fulminant hepatitis due to bilateral healthcare-associated pneumonia with possible gram positive cocci and/or gram negative bacilli HTN ESRD on HD dyslipidemia morbid obesity with BMI 45 Plan will give intermittent IV Vancomycin and continue Merrem (day 2); pending final blood, urine, sputum cx results; we have discontinued Doxycycline since it may worsen the liver failure; reviewed CT scan which showed the bilateral consolidations and infiltrates in the lungs; reviewed ultrasound of the abdomen which showed the fatty liver and hepatomegaly Patient is in critical condition and his overall prognosis is getting worse; awaiting transfer to a tertiary care center - discussed with Dr. Yañez
[2017-03-07] MEDS ORDERED: Dextrose 50% SYRINGE Inj (50 ml) ONE (23:32)
[2017-03-08] MEDS: Albuterol-Ipratrop 3 mg / 0.5 (3 ml) UD IH SCH ×2 (02:28→19:45)
[2017-03-08] MEDS ORDERED: Vancomycin 1gm in NS 250ml 1 GM/250 ML BAG IVPB ONE (09:40)
[2017-03-08] MEDS ORDERED: Insulin Detemir 100 units/ml Vial (Levemir) SC ONE (12:10)
[2017-03-08] MEDS ORDERED: Insulin Regular 1 UNITS/0.01 ML ML ONE ×2 (12:11→18:05)
--- NOTE | 2017-03-08 15:05 | PN ---
DATE: 03/08/2017 REASON FOR CONSULTATION AND FOLLOWUP: Status post respiratory failure, intubated, acute liver failur e, cardiac evaluation, borderline troponin positive, secondary to end-stage renal disease. BRIEF CLINICAL HISTORY: A 61-year-old morbidly obese male with past medical history of diabetes, hyp ertension, end-stage renal disease on dialysis, history of cardiac catheterization being of this year , nonobstructive coronary artery disease who admitted having a cold flu-like symptom. Respiratory st atus deteriorated requiring intubation in the Emergency Room, found to be acute liver failure, awaiti ng to be transferred to [facility] for liver transplant evaluation. The patient is currently on vent. Now the liver function is improving. Computer system [facility] [employer] is down. Lab today is not available, but yesterday, LFTs trended down. PHYSICAL EXAMINATION: VITAL SIGNS: Heart rate 89, blood pressure 110/80. HEENT: PERRLA. Extraocular muscles intact. NECK: Supple. No carotid bruits. No thyromegaly. CHEST: Clear to auscultation. HEART: S1, S2 regular. ABDOMEN: Soft. EXTREMITIES: Clubbing and cyanosis negative. LABORATORY DATA: Blood workup pending, as [facility] system is down. IMPRESSION: Status post respiratory failure, intubated, acute liver failure, borderline troponin pos itive on admission secondary to end-stage renal disease, and no evidence of acute coronary syndrome, no evidence of ischemia, no evidence of myocardial infarction. History of cardiac catheterization be ginning of the nonobstructive coronary artery disease. RECOMMENDATION: Continue vent management. Keep dry. Keep a negative fluid balance, and oxygenation . When a bed is available, the patient was transferred to [facility]. Now the liver function is significan tly improved. Awaiting for the repeat lab. We will follow the lab when the [facility] system is avail able or the lab is available. PROGRESS NOTE WAS DICTATED FROM THE TOP OF THE HEAD, [employer] SYSTEM IS DOWN. We will follow. Thank you, Dr. Bowen, for providing the opportunity in taking care of the patient. Darrel Ervin MD cc: [id number] TT: 03/08/2017 11:47:45 Confirmation # [id number] Dictation # [id number] jn
--- NOTE | 2017-03-08 15:06 | PN ---
DATE: 03/08/2017 LOCATION: CCU, room #129, bed 6. The patient was seen earlier this morning in [facility]. SUBJECTIVE: The patient continues to be intubated on the ventilator and still sedated. Has not been febrile overnight, but still poorly responsive. OBJECTIVE: VITAL SIGNS: The patient has a blood pressure of 120s/70s, heart rate 118, respiratory rate 20. HEAD AND NECK: Normocephalic, atraumatic. ET tube in place in the mouth. CHEST: Decreased breath sounds bilaterally with diffuse crackles and rales noted. ABDOMEN: Soft. It is nontender. There is no hepatomegaly. EXTREMITIES: The patient has a left upper arm AV fistula with a good thrill. LABORATORY DATA: Unfortunately, we are unable to review the labs because the computer system is curr ently down. ASSESSMENT: This is a 61-year-old male with past medical history of end-stage renal disease on hemod ialysis, morbid obesity who came in with weakness and altered mental status. We are currently treati ng for severe sepsis with ventilator-dependent respiratory failure as well as acute hepatic failure a nd acute fulminant hepatitis and the sepsis is due to bilateral healthcare-associated pneumonia with possible gram-positive cocci and/or gram-negative bacilli. PLAN: We are continuing the patient on intermittent vancomycin and meropenem. We have discontinued doxycycline several days ago because doxycycline may worsen the patient's liver failure. Currently, the cultures are negative. We are awaiting possible transfer of the patient to a tertiary care [facility] to take care of his acute fulminant hepatitis. The patient continues to be on the ventilator and t he overall prognosis for this patient is becoming worse. We will continue to monitor this patient an d we will follow the GI recommendations for the acute fulminant hepatitis. Of note, viral serologies have been negative for this patient and we are still unclear as to what is the etiology of his liver failure. Ilya Hall M.D. cc: [id number] TT: 03/08/2017 13:56:14 Confirmation # [id number] Dictation # [id number] jerry
--- NOTE | 2017-03-08 17:19 | CARD ---
APPROVED REPORT EXAM: Two-dimensional and M-mode echocardiogram with Doppler and color Doppler. INDICATION Chest Pain 2D DIMENSIONS Left Atrium (2D)5.1 (1.6-4.0cm)IVSd1.2 (0.7-1.1cm) LVDd5.4 (3.9-5.9cm)PWd1.3 (0.7-1.1cm) LVDs4.3 (2.5-4.0cm)FS (%) 21.0 % LVEF (%)42.3 (>50%) M-Mode DIMENSIONS Aortic Root2.70 (2.2-3.7cm)Aortic Cusp Exc.1.90 (1.5-2.0cm) Aortic Valve AoV Peak Wprflbbb864.0cm/Priyanka Peak GR.12mmHg Mitral Valve MV E Puhnhjzm305.0cm/sMV A Mdnbnlwv59.7cm/sE/A ratio1.1 TDI E/Lateral E'0.0E/Medial E'0.0 Tricuspid Valve TR Peak Swcadhpc509ur/sRAP [id number] Peak Gr.35mmHg [id number] LEFT VENTRICLE The left ventricle is normal size. There is mild concentric left ventricular hypertrophy. The systolic function is mildly impaired.EF-45-50% Mild regional wall motion abnormalities noted. Transmitral Doppler flow pattern is Grade II-pseudonormal filling dynamics. No left ventricle thrombus noted on this study. There is no ventricular septal defect visualized. There is no left ventricular aneurysm. There is no mass noted in the left ventricle. RIGHT VENTRICLE The right ventricle is mildly to moderately dilated. The right ventricle is mildly to moderately hypertrophied. Systolic function of RV is mildly to moderately reduced. ATRIA The left atrium is moderately dilated. The right atrium is mildly dilated. The interatrial septum is intact with no evidence for an atrial septal defect. AORTIC VALVE The aortic valve is thickened but opens well. There is trace to mild aortic regurgitation. There is no aortic valvular stenosis. There is no aortic valvular vegetation. MITRAL VALVE The mitral valve is thickened but opens well. Mitral regurgitation is mild. There is no mitral valve stenosis. There is no evidence of mitral valve prolapse. TRICUSPID VALVE The tricuspid valve leaflets are thickened , but open well. There is mild to moderate tricuspid regurgitation.RVSP-45 mmof Hg. There is no tricuspid valve stenosis. There is no tricuspid valve prolapse or vegetation. PULMONIC VALVE The pulmonic valve is borderline thickened. There is trace to mild pulmonic valvular regurgitation. There is no pulmonic valvular stenosis. GREAT VESSELS The aortic root is normal in size. The ascending aorta is normal in size. The pulmonary artery is normal. The IVC is dilated. PERICARDIAL EFFUSION There is no pleural effusion. There is no pericardial effusion. <Conclusion> The left ventricle is normal size. There is mild concentric left ventricular hypertrophy. The systolic function is mildly impaired.EF-45-50% Mild regional wall motion abnormalities noted. The right ventricle is mildly to moderately dilated. Systolic function of RV is mildly to moderately reduced. There is trace to mild aortic regurgitation. Mitral regurgitation is mild. There is mild to moderate tricuspid regurgitation.RVSP-45 mmof Hg. The IVC is dilated. There is no pericardial effusion.
[2017-03-08] MEDS ORDERED: WATER IV ONE ×3 (19:45→20:59)
[2017-03-08] MEDS ORDERED: ACETYLCYSTEINE IV ONE ×3 (19:45→20:59)
[2017-03-08] MEDS ORDERED: DEXTROSE 5% IV ONE ×3 (19:45→20:59)
[2017-03-08 20:12] LABS: ADD MANUAL DIFF? NO
[2017-03-08] MEDS: Propofol 10 mg/ml 1,000 MG/100 ML VIAL IV PRN ×2 (20:17→23:00)
[2017-03-08] MEDS: Meropenem 500 MG in Sodium Chloride 0.9% 100 ML IVPB SCH (22:01)
[2017-03-08] MEDS: Insulin Reg-MEDIUM-Coverage SC SCH (22:30)
[2017-03-09] MEDS: Propofol 10 mg/ml 1,000 MG/100 ML VIAL IV PRN ×4 (01:07→13:30)
[2017-03-09] MEDS: Albuterol-Ipratrop 3 mg / 0.5 (3 ml) UD IH SCH ×4 (02:15→19:45)
[2017-03-09] MEDS: Insulin Reg-MEDIUM-Coverage SC SCH ×6 (03:03→22:00)
[2017-03-09 06:23] LABS: ARTERIAL BLOOD GAS HCO3 23.7 mmol/L (21-28); ARTERIAL BLOOD GAS PH 7.31 (7.35-7.45)
[2017-03-09 07:53] LABS: MEAN CELL VOLUME 91.5 fL (80.0-105.0)
[2017-03-09 08:09] LABS: ALB/GLOB RATIO 0.7 (1.1-1.8); BILIRUBIN,TOTAL 5.5 mg/dL (0.2-1.3); CALCIUM 10.3 mg/dL (8.4-10.5); POTASSIUM 4.4 mmol/L (3.6-5.0)
--- NOTE | 2017-03-09 08:17 | PN ---
DATE: 03/08/2017 SUBJECTIVE: This patient was seen and evaluated earlier. The patient still remains on vent. Discuss with crown wheel assembler. PHYSICAL EXAMINATION: VITAL SIGNS: Temperature is afebrile. Blood pressure 110/80, heart rate 89. HEENT: Atraumatic, anicteric, jaundiced. NECK: Supple. HEART: S1, S2 heard. LUNGS: Bilateral air entry present. ABDOMEN: Softly distended. EXTREMITIES: Mild edema present. NEUROLOGIC: Neurologically . LABORATORY DATA: Labs are not available at the time of examination because of the [facility] which was subsequently reviewed. IMPRESSION: A 61-year-old patient with end-stage renal disease on hemodialysis, admitted with acute liver failure, sepsis on vent awaiting for transfer to [facility]. Possible sepsis probably secondary to pneumonia. RECOMMENDATIONS: 1. Followup of the labs. 2. Continue the antibiotics as per ID. Thank you very much for allowing us to participate in the care of the patient. Maddie Brown MD cc: [phone] TT: 03/09/2017 01:05:12 Confirmation # [id number] Dictation # [id number] jn SHASHI
[2017-03-09] MEDS ORDERED: Vancomycin 1gm in NS 250ml 1 GM/250 ML BAG IVPB STA (08:33)
[2017-03-09 08:40] LABS: MEAN CORPUSCULAR HEMOGLOBIN 30.8 pg (25.0-35.0); MEAN CORPUSCULAR HGB CONC 33.6 g/dl (31.0-37.0); MEAN PLATELET VOLUME 10.2 fl (7.0-11.0); PLATELET COUNT 143 10^3/uL (120.0-450.0); RED CELL DISTRIBUTION WIDTH 19.4 % (11.5-14.5)
[2017-03-09] MEDS: Meropenem 500 MG in Sodium Chloride 0.9% 100 ML IVPB SCH ×2 (09:01→21:48)
[2017-03-09] MEDS: Insulin Detemir 100 units/ml Vial (Levemir) SC SCH (09:05)
[2017-03-09 09:17] LABS: WHITE BLOOD COUNT 67.5 10^3/ul (4.5-11.0)
[2017-03-09 09:18] LABS: HEMATOCRIT 23.8 % (42.0-52.0)
[2017-03-09 09:19] LABS: ADD MANUAL DIFF? NO
[2017-03-09 09:22] LABS: INR 1.31 (0.93-1.08); PARTIAL THROMBOPLASTIN TIME 26.8 Seconds (23.7-30.8)
[2017-03-09] MEDS ORDERED: HYDROmorphone 0.5 mg/0.5 ml ISec IVP STA (09:24)
--- NOTE | 2017-03-09 09:42 | RAD ---
HISTORY: intubated, resp failure COMPARISON: 03/08/2017 FINDINGS: LUNGS: No active pulmonary disease. PLEURA: No significant pleural effusion identified, no pneumothorax apparent. CARDIOVASCULAR: There is severe cardiomegaly and severe vascular congestion increased from prior exam OSSEOUS STRUCTURES: No significant abnormalities. VISUALIZED UPPER ABDOMEN: Normal. OTHER FINDINGS: Endotracheal tube and nasogastric tube in satisfactory position IMPRESSION: CHF
--- NOTE | 2017-03-09 09:51 | PN ---
DATE: 03/08/2017 SUBJECTIVE: The patient is seen in the ICU. He remains sedated, on mechanical ventilation. He javier ins on Mucomyst/acetylcysteine. He is also on rifaximin, empiric antibiotics of vancomycin and merop enem. He is also on an insulin drip. PHYSICAL EXAMINATION: GENERAL: Morbidly obese, middle-aged male lying in bed in the ICU, on mechanical ventilation. VITAL SIGNS: Blood pressure 138/64, heart rate 84, respiratory rate 38, temperature 97.5. HEENT: Normocephalic, atraumatic. Pupils sluggish, reactive to light. NECK: Supple, no JVD. LUNGS: Bilateral equal air entry, bilateral equal expansion. No rales appreciated. CARDIAC: S1, S2, regular rate and rhythm, no murmur, no rub. ABDOMEN: Obese, distended, soft, nontender, bowel sounds present. EXTREMITIES: 2+ pitting edema of the lower extremities, puffiness of the face, periorbital edema. INTAKE AND OUTPUT: 2215/2900. LABORATORY DATA: WBC 24.8, hemoglobin 8, hematocrit 25, platelets 154. Sodium 136, potassium 4.0, c hloride 97, CO2 of 29, BUN 24, creatinine 3.4, glucose 134. Total bili 6.1, AST 2468, ALT 2425, albu min 3.4. Hepatitis profile is negative. Mycoplasma pneumonia IgM 95. Blood cultures no growth so f ar. MEDICATIONS: Mucomyst, Apresoline p.r.n., Diprivan, DuoNeb, Enulose, heparin, insulin, Levemir, beverly penem, Protonix, vancomycin, rifaximin, Zofran. ASSESSMENT AND PLAN: A 61-year-old male with history of morbid obesity, hypertension, end-stage wes l disease, anemia, multiple blood transfusions, admitted with weakness, fatigue, found to have altere d mental status. Found to have severe sepsis, acute hepatic failure, fulminant hepatitis. Etiology of acute hepatitis is unclear at this time. The patient also found to have elevated troponins, likel y secondary to renal failure. 1. Sepsis. 2. Acute liver failure/fulminant hepatitis. 3. Anasarca. 4. End-stage renal disease. 5. Possible pneumonia. 6. Respiratory failure. 7. Altered mental status. PLAN: 1. The patient has received dialysis and ultrafiltration. Will ultrafiltrate again. Will try to re move 3 kilos today. 2. Continue antibiotics to cover for pneumonia. 3. Continue Mucomyst/acetylcysteine for acute liver failure. 4. Continue PPI. 5. Continue insulin drip to maintain normal glycemia. The patient remains critically ill. Case is discussed with ICU residents, ICU nursing staff, dialysi s staff. More than 35 minutes was spent in the care of this critically ill patient. Shavonne Varela MD cc: [phone] TT: 03/09/2017 09:50:26 Confirmation # [id number] Dictation # [id number] mn
--- NOTE | 2017-03-09 09:52 | RAD ---
HISTORY: respiratory failure, on vent COMPARISON: 03/07/2017 FINDINGS: LUNGS: No active pulmonary disease. PLEURA: No significant pleural effusion identified, no pneumothorax apparent. CARDIOVASCULAR: There is moderate to severe cardiomegaly. There is severe vascular congestion that has shown improvement OSSEOUS STRUCTURES: No significant abnormalities. VISUALIZED UPPER ABDOMEN: Normal. OTHER FINDINGS: None. IMPRESSION: Severe cardiomegaly and severe vascular congestion showing improvement
[2017-03-09 10:35] LABS: ARTERIAL BLOOD GAS PH 7.22 (7.35-7.45)
--- NOTE | 2017-03-09 10:36 | PN ---
DATE: 03/09/2017 REASON FOR CONSULTATION AND FOLLOWUP: Status post respiratory failure, intubated, acute liver failur e, borderline troponin secondary to end-stage renal disease. BRIEF CLINICAL HISTORY: This is a 61-year-old morbidly obese male with past medical history of diabe yuri, hypertension, hyperlipidemia; end-stage renal disease, on dialysis; cardiac catheterization 10/22, nonobstructive coronary artery disease. Admitted with a history of shortness of breath now f or 2-3 days. Prior to that was on Zithromax at home by PMD. Why the patient came here, respiratory status deteriorated requiring intubation. Found to be acute liver failure with ____ AST in 7000s. A waiting to be transferred to [facility], waiting for the bed. Now, the trend of AST is going down. Liver f unctions are improving. He still remains intubated. On yesterday, had dialysis. The patient made s ome troponin, 0.35, 0.75 and 0.65, which I do not think so is significant; less than 0.7 with end-sta ge renal disease probably is not significant. PHYSICAL EXAMINATION: VITAL SIGNS: Temperature afebrile, heart rate 84, blood pressure 130/80. HEENT: PERRLA. Extraocular muscles intact. NECK: Supple. No carotid bruits. No thyromegaly. CHEST: Clear to auscultation. HEART: S1, S2 regular. ABDOMEN: Soft. EXTREMITIES: Clubbing and cyanosis negative. BLOOD WORKUP: As follows: WBC 67.5, hemoglobin 8, hematocrit 23.7, platelet count 143. INR 1.31 as of yesterday. Chemistry shows ____ 131, potassium 4.4, chloride ____, carbon dioxide 22, anion gap of ____, BUN 57, creatinine 5.9. AST 1193, ALT 1323. IMPRESSION: Acute liver failure, now improving, etiology is not clear, probably shock liver question ed above; hypertension; end-stage renal disease, on dialysis; I doubt it is myocardial infarction. I think there is no evidence of acute coronary syndrome, status post cardiac catheterization on 2016, mild coronary artery disease. Maximum troponin the patient made was 0.75 which is unlikely to be cardiac in origin and probably secondary to hemodynamic instability. RECOMMENDATION: Continue vent management. Try to wean off the event. Monitor closely liver functio n. Avoid nephrotoxic and hepatotoxic medication. Continue p.r.n. hydralazine as needed for blood pr essure. We will follow with you. Overall, patient's condition is critical. Prognosis is guarded. Now patient's condition is improving. Will follow with you. Elevated WBC could be secondary to seps is. The patient had a repeat echocardiography done to assess LV function yesterday that showed mildly imp aired ejection ____ 45-50%, mild regional wall motion abnormality noted, right ventricle moderately d ilated, RV systolic function moderately reduced, trace to mild aortic regurgitation, mild mitral regu rgitation, mild to moderate tricuspid regurgitation, RV systolic pressure 45. Thank you, Dr. Bowen, for providing the opportunity in taking care of this patient. Darrel Ervin MD cc: [phone] TT: 03/09/2017 10:33:33 Confirmation # [id number] Dictation # [id number] mn 03/09/2017 09:34:24
[2017-03-09 10:47] LABS: ADD MANUAL DIFF? NO
[2017-03-09 10:55] LABS: HEMATOCRIT 25.8 % (42.0-52.0); MEAN CELL VOLUME 93.5 fL (80.0-105.0); MEAN CORPUSCULAR HEMOGLOBIN 30.4 pg (25.0-35.0); MEAN CORPUSCULAR HGB CONC 32.6 g/dl (31.0-37.0); MEAN PLATELET VOLUME 9.7 fl (7.0-11.0); PLATELET COUNT 128 10^3/uL (120.0-450.0); RED CELL DISTRIBUTION WIDTH 19.6 % (11.5-14.5); WHITE BLOOD COUNT 37.9 10^3/ul (4.5-11.0)
[2017-03-09 11:55] LABS: ACETONE 6 mg/dL; ETHANOL None Detected; ISOPROPANOL None Detected; METHANOL None Detected
--- NOTE | 2017-03-09 12:13 | PN ---
DATE: 03/09/2017 Seen and examined at the bedside in ICU this morning. The patient remains on ventilator, but he is a little bit more responsive, able to move his extremities and follows simple commands, at least attempted to squeeze the hands. VITAL SIGNS: Temperature is 98.7, respirations 28, 100 on the vent. LABORATORY DATA: Today, WBC is 67.5, H and H is 8.0 and 23.8, platelets 143. His PT yesterday was 14.2, INR is 1.31 and PTT 26.8. Sodium 131, K is 4.4, BUN 57, creatinine is 5.9. His total bilirubin is 5.5, AST is 1193, ALT is 1328 and alkaline phosphatase is 171. He had a chest x-ray today and that shows ET tube and nasogastric tube in satisfactory position. Ultrasound was done on 02/2017 of the gallbladder and that did show gallstones, negative for Cooper's sign, minimal amount of fluid in the MEG, minimal thickening. CBD measured between 3.4 and 4.4 mm, no dilatation, hepatomegaly. PHYSICAL EXAMINATION: HEENT: Sclerae is icteric. NECK: Supple. CARDIAC: S1, S2. LUNGS: Sounds are clear. ABDOMEN: With bowel sounds, softly obese and distended, nontender. EXTREMITIES: Positive bilateral lower extremity edema. The patient looks like he has generalized edema. ASSESSMENT: A 61-year-old male with end-stage renal disease on dialysis, hypertension, came with weakness and fatigue and had altered mental status, found to have severe sepsis, severe luekocytosis and in acute hepatic failure/ fulminant hepatitis. It is currently unclear of etiology of the acute hepatitis. He also had elevated troponins and probable pneumonia. PLAN: Awaiting transfer to [facility], continues to wait for a bed placement according to nursing staff. Continue to trend the liver enzymes. The patient is on dialysis. He is on acetylcysteine, on DVT prophylaxis, getting lactulose , on IV antibiotics of meropenem and is on Xifaxan. FU stool Cdiff. We will continue to follow closely as per ICU team. The patient was seen and case discussed with Dr. Brown. Idalia MONROE cc: [id number] TT: 03/09/2017 12:13:11 Confirmation # [id number] Dictation # [id number] cn MTDD
[2017-03-09] MEDS ORDERED: Acetylcysteine 200 mg/ml IV IV ONE (14:40)
[2017-03-09] MEDS: Vancomycin 25 MG/ML PO SCH ×3 (14:44→23:54)
[2017-03-09] MEDS: metroNIDAZOLE IV 500 mg/100 ml 500 MG/100 ML BAG IVPB SCH ×2 (14:45→21:42)
[2017-03-09] MEDS ORDERED: WATER IV ONE ×2 (15:00→15:06)
[2017-03-09] MEDS ORDERED: DEXTROSE 5% IV ONE ×2 (15:00→15:06)
[2017-03-09] MEDS ORDERED: ACETYLCYSTEINE IV ONE ×2 (15:00→15:06)
[2017-03-09 16:19] LABS: ALB/GLOB RATIO 0.7 (1.1-1.8); BILIRUBIN,TOTAL 6.2 mg/dL (0.2-1.3); CALCIUM 9.9 mg/dL (8.4-10.5); PHOSPHOROUS 4.1 mg/dL (2.5-4.5); POTASSIUM 4.7 mmol/L (3.6-5.0); TOTAL PROTEIN 8.9 g/dL (5.8-8.3)
[2017-03-09 17:31] LABS: ARTERIAL BLOOD GAS PH 7.33 (7.35-7.45)
[2017-03-09 17:32] LABS: ARTERIAL BLOOD GAS HCO3 27.9 mmol/L (21-28)
[2017-03-09 17:34] LABS: INR 1.26 (0.93-1.08)
[2017-03-09 17:36] LABS: MEAN CELL VOLUME 93.1 fL (80.0-105.0); MEAN CORPUSCULAR HEMOGLOBIN 30.2 pg (25.0-35.0); MEAN CORPUSCULAR HGB CONC 32.5 g/dl (31.0-37.0); MEAN PLATELET VOLUME 9.5 fl (7.0-11.0); PLATELET COUNT 144 10^3/uL (120.0-450.0); RED CELL DISTRIBUTION WIDTH 19.4 % (11.5-14.5)
[2017-03-09 17:40] LABS: WHITE BLOOD COUNT 67.4 10^3/ul (4.5-11.0)
[2017-03-09 17:41] LABS: HEMATOCRIT 23.1 % (42.0-52.0)
--- NOTE | 2017-03-09 17:58 | CP.CCUPN ---
CCU Subjective - Physician Review Events Since Last Encounter (Free Text): 03/09/17 17:49 61 y/o M that I am seeing for the first time. Intubated and sedated for hypoxemic failure in the setting of Renal failure and acute hepatic failure. Finishing NAC protocol from uncertain cause. Marked elevation of WBC overnight. Afebrile and normotensive. CCU Objective - Vital Signs / Intake & Output Vital Signs (Last 4 hours): Vital Signs Pulse BP Pulse Ox 03/09/17 15:01 85 155/65 H 92 L 03/09/17 15:00 84 92 L 03/09/17 14:01 86 159/71 H 86 L 03/09/17 14:00 85 87 L Intake and Output (Last 8hrs): Intake & Output 03/09/17 03/09/17 03/09/17 06:59 14:59 22:59 Intake Total 1585 200 Balance 1585 200 Weight 283 lb 15.286 oz Intake: IV 1585 200 RH 100 MUNA 663 rfa 522 Oral 0 Tube Feeding 0 Other: # Voids Straight 0 # Bowel Movements 3 - Physical Exam Head: Positive for: Atraumatic, Normocephalic. Negative for: Tenderness, Contusion, Swelling, Ecchymosis, Abrasion, Laceration, Other Pupils: Positive for: PERRL. Negative for: Sluggish, Non-Reactive, Pinpoint, Other Extroacular Muscles: Positive for: EOMI Conjunctiva: Positive for: Normal Mouth: Positive for: Moist Mucous Membranes Pharnyx: Negative for: ERYTHEMA, EXUDATE, TONSILS ENLARGED Neck: Positive for: Normal Range of Motion Respiratory/Chest: Positive for: Clear to Auscultation, Good Air Exchange, Decreased Breath Sounds, Rales, Rhonchi. Negative for: Respiratory Distress, Accessory Muscle Use Cardiovascular: Positive for: Regular Rate and Rhythm, Normal S1, S2. Negative for: Murmurs Abdomen: Positive for: Normal Bowel Sounds, Other (abd pain on palpation). Negative for: Tenderness, Distention, Peritoneal Signs, Rebound, Guarding Back: Positive for: Normal Inspection. Negative for: CVA Tenderness, Midline Tenderness, Paraspinal Tenderness Upper Extremity: Positive for: Normal Inspection. Negative for: Cyanosis, Edema Lower Extremity: Positive for: Normal Inspection. Negative for: Edema, CALF TENDERNESS Neurological: Positive for: GCS=15, CN II-XII Intact, Speech Normal, Motor Func Grossly Intact, Other (sedated unable to do full neuro exam. ) Skin: Positive for: Warm, Dry, Normal Color. Negative for: Rashes Psychiatric: Positive for: Alert, Oriented x 3, Normal Insight, Normal Concentration, Lethargic - Medications Active Medications: Active Medications Generic Name Dose Route Start Last Admin Trade Name Freq PRN Reason Stop Dose Admin Albuterol/Ipratropium 3 ml 03/06/17 00:33 Duoneb 3 Mg/0.5 Mg (3 Ml) Ud IH Q2H PRN Shortness of Breath Albuterol/Ipratropium 3 ml 03/06/17 02:00 03/09/17 13:44 Duoneb 3 Mg/0.5 Mg (3 Ml) Ud IH 3 ml [id number] NARA Administration Heparin Sodium (Porcine) 5,000 units 03/06/17 10:00 03/09/17 09:07 Heparin SC 5,000 units Q12 NARA Administration Protocol Hydralazine HCl 10 mg 03/06/17 02:36 03/07/17 02:05 Apresoline IVP 10 mg Q6 PRN Administration SBP >180 Propofol 1,000 mg in 100 mls @ 3.674 mls/hr 03/06/17 01:31 03/09/17 13:30 Diprivan IV 30 mcg/kg/min .Q24H PRN 22.045 mls/hr TITRATE PER MD ORDER Administration Protocol 5 MCG/KG/MIN Meropenem 500 mg/ Sodium 100 mls @ 100 mls/hr 03/06/17 06:22 03/09/17 09:01 Chloride IVPB 03/13/17 06:23 100 mls/hr Q12 NARA Administration Insulin Human Regular 100 100 mls @ 5 mls/hr 03/07/17 08:42 03/07/17 23:32 units/ Sodium Chloride IV 0 units/hr .Q20H PRN 0 mls/hr TITRATE PER MD ORDER Titration Protocol 5 UNITS/HR Metronidazole 500 mg in 100 mls @ 100 mls/hr 03/09/17 14:00 Flagyl IVPB Q8 NARA Protocol Acetylcysteine 12,200 mg/ 1,061 mls @ 66.313 mls/hr 03/09/17 15:06 Dextrose IV 03/10/17 06:59 .Q16H ONE Insulin Detemir 20 unit 03/08/17 12:10 03/09/17 09:05 Levemir SC 20 unit DAILY NARA Administration Insulin Human Regular 0 units 03/08/17 10:35 03/09/17 14:44 Humulin R Med SC 5 units Q4H NARA Administration Lactulose 20 gm 03/06/17 10:30 03/09/17 09:29 Enulose PO 20 gm Q8H NARA Administration Ondansetron HCl 4 mg 03/05/17 22:41 Zofran Inj IVP Q6H PRN Nausea/Vomiting Pantoprazole Sodium 40 mg 03/06/17 10:00 03/09/17 09:00 Protonix Inj IVP 40 mg DAILY NARA Administration Rifaximin 550 mg 03/06/17 10:30 03/09/17 09:00 Xifaxan PO 550 mg BID NARA Administration Protocol Vancomycin HCl 500 mg 03/09/17 14:00 03/09/17 14:44 Vancocin 25 Mg/Ml (Oral Use) PO 500 mg QID NARA Administration Protocol - Patient Studies Lab Studies: Microbiology Studies 03/09/17 11:30 C. difficile Antigen & Toxin A,B (M - Final Stool 03/06/17 11:00 Gram Stain - Final Sputum Sputum Culture - Final Methicillin Resistant S Aureus 03/05/17 23:50 Blood Culture - Preliminary Blood-Venous NO GROWTH AFTER 3 DAYS Lab Studies 03/09/17 03/09/17 03/09/17 Range/Units 17:20 10:45 10:00 WBC 67.4 H* (4.5-11.0) 10^3/ul RBC 2.48 L (3.5-6.1) 10^6/uL Hgb 7.5 L (14.0-18.0) gm/dL Hct 23.1 L (42.0-52.0) % MCV 93.1 (80.0-105.0) fL MCH 30.2 (25.0-35.0) pg MCHC 32.5 (31.0-37.0) g/dl RDW 19.4 H (11.5-14.5) % Plt Count 144 (120.0-450.0) 10^3/uL MPV 9.5 (7.0-11.0) fl PT 13.6 H (9.9-11.8) Seconds INR 1.26 H (0.93-1.08) APTT (23.7-30.8) Seconds pCO2 61 H (35-45) mm/Hg pO2 208.0 H (80-100) mm/Hg HCO3 25.0 (21-28) mmol/L ABG pH 7.22 L (7.35-7.45) ABG Total CO2 26.9 (22-28) mmol.L ABG O2 Saturation 102.9 H (95-98) % ABG Base Excess -2.7 L (-2.0-3.0) mmol/L ABG Potassium (3.6-5.2) mmol/L Sodium (132-148) mmol/L Chloride 97.0 L (98-107) mmol/L Glucose (75-110) mg/dl Lactate (0.7-2.1) mmol/L FiO2 % Potassium (3.6-5.0) mmol/L Carbon Dioxide (21-33) mmol/L Anion Gap (10-20) BUN (7-21) mg/dL Creatinine (0.5-1.4) mg/dL Est GFR ( Amer) Est GFR (Non-Af Amer) POC Glucose (mg/dL) (65-110) mg/dL Random Glucose (70-110) mg/dL Calcium (8.4-10.5) mg/dL Phosphorus (2.5-4.5) mg/dL Magnesium (1.7-2.2) mg/dL Total Bilirubin (0.2-1.3) mg/dL AST (15-59) U/L ALT (7-56) U/L Alkaline Phosphatase (38-133) U/L Total Protein (5.8-8.3) g/dL Albumin (3.0-4.8) g/dL Globulin gm/dL Albumin/Globulin Ratio (1.1-1.8) Ethanolamine Arterial Blood Potassium (3.6-5.2) mmol/L Methyl Alcohol Level Isopropanol Acetone Level mg/dL Mycoplasma pneumon IgM (<770) U/mL 03/09/17 03/09/17 03/09/17 Range/Units 09:59 07:15 07:15 WBC 67.5 H* D (4.5-11.0) 10^3/ul RBC 2.60 L (3.5-6.1) 10^6/uL Hgb 8.0 L (14.0-18.0) gm/dL Hct 23.8 L (42.0-52.0) % MCV 91.5 (80.0-105.0) fL MCH 30.8 (25.0-35.0) pg MCHC 33.6 (31.0-37.0) g/dl RDW 19.4 H (11.5-14.5) % Plt Count 143 (120.0-450.0) 10^3/uL MPV 10.2 (7.0-11.0) fl PT (9.9-11.8) Seconds INR (0.93-1.08) APTT (23.7-30.8) Seconds pCO2 (35-45) mm/Hg pO2 (80-100) mm/Hg HCO3 (21-28) mmol/L ABG pH (7.35-7.45) ABG Total CO2 (22-28) mmol.L ABG O2 Saturation (95-98) % ABG Base Excess (-2.0-3.0) mmol/L ABG Potassium (3.6-5.2) mmol/L Sodium 131 L (132-148) mmol/L Chloride 91 L (98-107) mmol/L Glucose (75-110) mg/dl Lactate (0.7-2.1) mmol/L FiO2 % Potassium 4.4 (3.6-5.0) mmol/L Carbon Dioxide 22 (21-33) mmol/L Anion Gap 22 H (10-20) BUN 57 H (7-21) mg/dL Creatinine 5.9 H (0.5-1.4) mg/dL Est GFR ( Amer) 12 Est GFR (Non-Af Amer) 10 POC Glucose (mg/dL) 245 H (65-110) mg/dL Random Glucose 235 H (70-110) mg/dL Calcium 10.3 (8.4-10.5) mg/dL Phosphorus (2.5-4.5) mg/dL Magnesium (1.7-2.2) mg/dL Total Bilirubin 5.5 H (0.2-1.3) mg/dL AST 1193 H (15-59) U/L ALT 1328 H (7-56) U/L Alkaline Phosphatase 171 H (38-133) U/L Total Protein 9.0 H (5.8-8.3) g/dL Albumin 3.7 (3.0-4.8) g/dL Globulin 5.2 gm/dL Albumin/Globulin Ratio 0.7 L (1.1-1.8) Ethanolamine Arterial Blood Potassium (3.6-5.2) mmol/L Methyl Alcohol Level Isopropanol Acetone Level mg/dL Mycoplasma pneumon IgM (<770) U/mL 03/09/17 03/08/17 03/08/17 Range/Units 06:09 19:05 07:00 WBC 37.9 H* D (4.5-11.0) 10^3/ul RBC 2.76 L (3.5-6.1) 10^6/uL Hgb 8.4 L (14.0-18.0) gm/dL Hct 25.8 L (42.0-52.0) % MCV 93.5 (80.0-105.0) fL MCH 30.4 (25.0-35.0) pg MCHC 32.6 (31.0-37.0) g/dl RDW 19.6 H (11.5-14.5) % Plt Count 128 (120.0-450.0) 10^3/uL MPV 9.7 (7.0-11.0) fl PT 14.2 H (9.9-11.8) Seconds INR 1.31 H (0.93-1.08) APTT 26.8 (23.7-30.8) Seconds pCO2 47 H (35-45) mm/Hg pO2 115.0 H (80-100) mm/Hg HCO3 23.7 (21-28) mmol/L ABG pH 7.31 L (7.35-7.45) ABG Total CO2 25.1 (22-28) mmol.L ABG O2 Saturation 100.9 H (95-98) % ABG Base Excess -2.4 L (-2.0-3.0) mmol/L ABG Potassium 4.4 (3.6-5.2) mmol/L Sodium 132.0 (132-148) mmol/L Chloride 100.0 (98-107) mmol/L Glucose 223 H (75-110) mg/dl Lactate 1.0 (0.7-2.1) mmol/L FiO2 40.0 % Potassium (3.6-5.0) mmol/L Carbon Dioxide (21-33) mmol/L Anion Gap (10-20) BUN (7-21) mg/dL Creatinine (0.5-1.4) mg/dL Est GFR ( Amer) Est GFR (Non-Af Amer) POC Glucose (mg/dL) (65-110) mg/dL Random Glucose (70-110) mg/dL Calcium (8.4-10.5) mg/dL Phosphorus (2.5-4.5) mg/dL Magnesium (1.7-2.2) mg/dL Total Bilirubin (0.2-1.3) mg/dL AST (15-59) U/L ALT (7-56) U/L Alkaline Phosphatase (38-133) U/L Total Protein (5.8-8.3) g/dL Albumin (3.0-4.8) g/dL Globulin gm/dL Albumin/Globulin Ratio (1.1-1.8) Ethanolamine Arterial Blood Potassium 4.4 (3.6-5.2) mmol/L Methyl Alcohol Level Isopropanol Acetone Level mg/dL Mycoplasma pneumon IgM (<770) U/mL 03/08/17 03/08/17 03/06/17 Range/Units 07:00 05:50 09:00 WBC (4.5-11.0) 10^3/ul RBC (3.5-6.1) 10^6/uL Hgb (14.0-18.0) gm/dL Hct (42.0-52.0) % MCV (80.0-105.0) fL MCH (25.0-35.0) pg MCHC (31.0-37.0) g/dl RDW (11.5-14.5) % Plt Count (120.0-450.0) 10^3/uL MPV (7.0-11.0) fl PT (9.9-11.8) Seconds INR (0.93-1.08) APTT (23.7-30.8) Seconds pCO2 53 H (35-45) mm/Hg pO2 103.0 H (80-100) mm/Hg HCO3 27.9 (21-28) mmol/L ABG pH 7.33 L (7.35-7.45) ABG Total CO2 29.5 H (22-28) mmol.L ABG O2 Saturation 100.0 H (95-98) % ABG Base Excess 1.6 (-2.0-3.0) mmol/L ABG Potassium 4.5 (3.6-5.2) mmol/L Sodium 134 135.0 (132-148) mmol/L Chloride 94 L 102.0 (98-107) mmol/L Glucose 178 H (75-110) mg/dl Lactate 1.1 (0.7-2.1) mmol/L FiO2 40 % Potassium 4.7 (3.6-5.0) mmol/L Carbon Dioxide 24 (21-33) mmol/L Anion Gap 21 H (10-20) BUN 36 H (7-21) mg/dL Creatinine 4.6 H (0.5-1.4) mg/dL Est GFR ( Amer) 16 Est GFR (Non-Af Amer) 13 POC Glucose (mg/dL) (65-110) mg/dL Random Glucose 137 H (70-110) mg/dL Calcium 9.9 (8.4-10.5) mg/dL Phosphorus 4.1 (2.5-4.5) mg/dL Magnesium 2.0 (1.7-2.2) mg/dL Total Bilirubin 6.2 H (0.2-1.3) mg/dL AST 1573 H (15-59) U/L ALT 1892 H (7-56) U/L Alkaline Phosphatase 161 H (38-133) U/L Total Protein 8.9 H (5.8-8.3) g/dL Albumin 3.5 (3.0-4.8) g/dL Globulin 5.3 gm/dL Albumin/Globulin Ratio 0.7 L (1.1-1.8) Ethanolamine None detected Arterial Blood Potassium 4.5 (3.6-5.2) mmol/L Methyl Alcohol Level None detected Isopropanol None detected Acetone Level 6 H mg/dL Mycoplasma pneumon IgM (<770) U/mL 03/06/17 Range/Units 06:30 WBC (4.5-11.0) 10^3/ul RBC (3.5-6.1) 10^6/uL Hgb (14.0-18.0) gm/dL Hct (42.0-52.0) % MCV (80.0-105.0) fL MCH (25.0-35.0) pg MCHC (31.0-37.0) g/dl RDW (11.5-14.5) % Plt Count (120.0-450.0) 10^3/uL MPV (7.0-11.0) fl PT (9.9-11.8) Seconds INR (0.93-1.08) APTT (23.7-30.8) Seconds pCO2 (35-45) mm/Hg pO2 (80-100) mm/Hg HCO3 (21-28) mmol/L ABG pH (7.35-7.45) ABG Total CO2 (22-28) mmol.L ABG O2 Saturation (95-98) % ABG Base Excess (-2.0-3.0) mmol/L ABG Potassium (3.6-5.2) mmol/L Sodium (132-148) mmol/L Chloride (98-107) mmol/L Glucose (75-110) mg/dl Lactate (0.7-2.1) mmol/L FiO2 % Potassium (3.6-5.0) mmol/L Carbon Dioxide (21-33) mmol/L Anion Gap (10-20) BUN (7-21) mg/dL Creatinine (0.5-1.4) mg/dL Est GFR ( Amer) Est GFR (Non-Af Amer) POC Glucose (mg/dL) (65-110) mg/dL Random Glucose (70-110) mg/dL Calcium (8.4-10.5) mg/dL Phosphorus (2.5-4.5) mg/dL Magnesium (1.7-2.2) mg/dL Total Bilirubin (0.2-1.3) mg/dL AST (15-59) U/L ALT (7-56) U/L Alkaline Phosphatase (38-133) U/L Total Protein (5.8-8.3) g/dL Albumin (3.0-4.8) g/dL Globulin gm/dL Albumin/Globulin Ratio (1.1-1.8) Ethanolamine Arterial Blood Potassium (3.6-5.2) mmol/L Methyl Alcohol Level Isopropanol Acetone Level mg/dL Mycoplasma pneumon IgM 95 (<770) U/mL Laboratory Results - last 24 hr 03/06/17 03/06/17 03/08/17 06:30 09:00 05:50 WBC RBC Hgb Hct MCV MCH MCHC RDW Plt Count MPV PT INR APTT pCO2 53 H pO2 103.0 H HCO3 27.9 ABG pH 7.33 L ABG Total CO2 29.5 H ABG O2 Saturation 100.0 H ABG Base Excess 1.6 ABG Potassium 4.5 Sodium 135.0 Chloride 102.0 Glucose 178 H Lactate 1.1 FiO2 40 Potassium Carbon Dioxide Anion Gap BUN Creatinine Est GFR ( Amer) Est GFR (Non-Af Amer) POC Glucose (mg/dL) Random Glucose Calcium Phosphorus Magnesium Total Bilirubin AST ALT Alkaline Phosphatase Total Protein Albumin Globulin Albumin/Globulin Ratio Ethanolamine None detected Arterial Blood Potassium 4.5 Methyl Alcohol Level None detected Isopropanol None detected Acetone Level 6 H Mycoplasma pneumon IgM 95 03/08/17 03/08/17 03/08/17 07:00 07:00 19:05 WBC 37.9 H* D RBC 2.76 L Hgb 8.4 L Hct 25.8 L MCV 93.5 MCH 30.4 MCHC 32.6 RDW 19.6 H Plt Count 128 MPV 9.7 PT 14.2 H INR 1.31 H APTT 26.8 pCO2 pO2 HCO3 ABG pH ABG Total CO2 ABG O2 Saturation ABG Base Excess ABG Potassium Sodium 134 Chloride 94 L Glucose Lactate FiO2 Potassium 4.7 Carbon Dioxide 24 Anion Gap 21 H BUN 36 H Creatinine 4.6 H Est GFR ( Amer) 16 Est GFR (Non-Af Amer) 13 POC Glucose (mg/dL) Random Glucose 137 H Calcium 9.9 Phosphorus 4.1 Magnesium 2.0 Total Bilirubin 6.2 H AST 1573 H ALT 1892 H Alkaline Phosphatase 161 H Total Protein 8.9 H Albumin 3.5 Globulin 5.3 Albumin/Globulin Ratio 0.7 L Ethanolamine Arterial Blood Potassium Methyl Alcohol Level Isopropanol Acetone Level Mycoplasma pneumon IgM 03/09/17 03/09/17 03/09/17 06:09 07:15 07:15 WBC 67.5 H* D RBC 2.60 L Hgb 8.0 L Hct 23.8 L MCV 91.5 MCH 30.8 MCHC 33.6 RDW 19.4 H Plt Count 143 MPV 10.2 PT INR APTT pCO2 47 H pO2 115.0 H HCO3 23.7 ABG pH 7.31 L ABG Total CO2 25.1 ABG O2 Saturation 100.9 H ABG Base Excess -2.4 L ABG Potassium 4.4 Sodium 132.0 131 L Chloride 100.0 91 L Glucose 223 H Lactate 1.0 FiO2 40.0 Potassium 4.4 Carbon Dioxide 22 Anion Gap 22 H BUN 57 H Creatinine 5.9 H Est GFR ( Amer) 12 Est GFR (Non-Af Amer) 10 POC Glucose (mg/dL) Random Glucose 235 H Calcium 10.3 Phosphorus Magnesium Total Bilirubin 5.5 H AST 1193 H ALT 1328 H Alkaline Phosphatase 171 H Total Protein 9.0 H Albumin 3.7 Globulin 5.2 Albumin/Globulin Ratio 0.7 L Ethanolamine Arterial Blood Potassium 4.4 Methyl Alcohol Level Isopropanol Acetone Level Mycoplasma pneumon IgM 03/09/17 03/09/17 03/09/17 09:59 10:00 10:45 WBC 67.4 H* RBC 2.48 L Hgb 7.5 L Hct 23.1 L MCV 93.1 MCH 30.2 MCHC 32.5 RDW 19.4 H Plt Count 144 MPV 9.5 PT INR APTT pCO2 61 H pO2 208.0 H HCO3 25.0 ABG pH 7.22 L ABG Total CO2 26.9 ABG O2 Saturation 102.9 H ABG Base Excess -2.7 L ABG Potassium Sodium Chloride 97.0 L Glucose Lactate FiO2 Potassium Carbon Dioxide Anion Gap BUN Creatinine Est GFR ( Amer) Est GFR (Non-Af Amer) POC Glucose (mg/dL) 245 H Random Glucose Calcium Phosphorus Magnesium Total Bilirubin AST ALT Alkaline Phosphatase Total Protein Albumin Globulin Albumin/Globulin Ratio Ethanolamine Arterial Blood Potassium Methyl Alcohol Level Isopropanol Acetone Level Mycoplasma pneumon IgM 03/09/17 17:20 WBC RBC Hgb Hct MCV MCH MCHC RDW Plt Count MPV PT 13.6 H INR 1.26 H APTT pCO2 pO2 HCO3 ABG pH ABG Total CO2 ABG O2 Saturation ABG Base Excess ABG Potassium Sodium Chloride Glucose Lactate FiO2 Potassium Carbon Dioxide Anion Gap BUN Creatinine Est GFR ( Amer) Est GFR (Non-Af Amer) POC Glucose (mg/dL) Random Glucose Calcium Phosphorus Magnesium Total Bilirubin AST ALT Alkaline Phosphatase Total Protein Albumin Globulin Albumin/Globulin Ratio Ethanolamine Arterial Blood Potassium Methyl Alcohol Level Isopropanol Acetone Level Mycoplasma pneumon IgM Fingerstick Blood Sugar Results: 276 Review of Systems - Review of Systems Systems not reviewed;Unavailable: Intubated Critical Care Progress Note - Ventilator Checklist Head of Bed 30 Degrees: Yes Daily Sedation Vacation: Yes Daily Assessment of Readiness to Wean: Yes Daily Spontaneous Breathing Trial: Yes PUD Prophalyxis: Yes DVT Prophylaxis: Yes Oral Care with Chlorhexidine Gluconate {CHG}: Yes - Nutrition Nutrition: Nutrition Category Date Time Status NPO Diet [DIET] Diets 03/07/17 Breakfast Ordered Assessment/Plan - Assessment and Plan (Free Text) Assessment: 61 y/o M w/ MODS Acute respiratory failure due to b/l multolobar infiltrated found to have MRSA in the sputum On AC/VC to keep ro2 sat > 90% pao2 > 65. O2 sat on monitor is often inncorrect. Sputum cx sent again with multiple orders for rare infections in the possible state of immunocompromised state. Markedely elevated WBC 67K unclear reason, C.Diff sent and negative, No hx of leukemia or lymphoma, no signs of Myelofibrosis , septic joint , gout etc. May need to repeat CT CHEST?ABD/Pelvis. If concern for mental status worsens and / or fevers start, would plan for LP to r/o encephalitis. This morning off sedation patient was able to follow commands. ESRD, HD to be done today for fluid removal as tolerated. Acute liver failure Completed NAC protocol, lft's improving, T.Bili elevated but improved and INR normal. Need further history from family or GF about his course of sickness to better understand . HIV pending, multiple + screens prior w/ low CD4. multiple consultants on board. DVT P heparin sq tid PPI cc time 75 min
--- NOTE | 2017-03-09 19:43 | CP.PCM.PN ---
Subjective - Date & Time of Evaluation Date of Evaluation: 03/09/17 Time of Evaluation: 09:00 - Subjective Subjective: Patient continues to be on the ventilator and sedated. No fevers overnight. Objective - Vital Signs/Intake and Output Vital Signs (last 24 hours): Temp Pulse Resp BP Pulse Ox 97.6 F 81 28 H 138/54 L 86 L 03/09/17 16:00 03/09/17 18:46 03/09/17 12:00 03/09/17 18:46 03/09/17 18:46 Intake and Output: 03/09/17 03/10/17 18:59 06:59 Intake Total 1950 Output Total 2500 Balance -550 - Medications Medications: Current Medications Albuterol/Ipratropium (Duoneb 3 Mg/0.5 Mg (3 Ml) Ud) 3 ml IH Q2H PRN PRN Reason: Shortness of Breath Albuterol/Ipratropium (Duoneb 3 Mg/0.5 Mg (3 Ml) Ud) 3 ml IH [id number] [facility] Last Admin: 03/09/17 13:44 Dose: 3 ml Heparin Sodium (Porcine) (Heparin) 5,000 units SC Q12 NARA PRN Reason: Protocol Last Admin: 03/09/17 09:07 Dose: 5,000 units Hydralazine HCl (Apresoline) 10 mg IVP Q6 PRN PRN Reason: SBP >180 Last Admin: 03/07/17 02:05 Dose: 10 mg Propofol (Diprivan) 1,000 mg in 100 mls @ 3.674 mls/hr IV .Q24H PRN; Protocol; 5 MCG/KG/MIN PRN Reason: TITRATE PER MD ORDER Last Admin: 03/09/17 13:30 Dose: 30 mcg/kg/min, 22.045 mls/hr Meropenem 500 mg/ Sodium (Chloride) 100 mls @ 100 mls/hr IVPB Q12 [facility] Stop: 03/13/17 06:23 Last Admin: 03/09/17 09:01 Dose: 100 mls/hr Insulin Human Regular 100 (units/ Sodium Chloride) 100 mls @ 5 mls/hr IV .Q20H PRN; Protocol; 5 UNITS/HR PRN Reason: TITRATE PER MD ORDER Last Titration: 03/07/17 23:32 Dose: 0 units/hr, 0 mls/hr Metronidazole (Flagyl) 500 mg in 100 mls @ 100 mls/hr IVPB Q8 NARA PRN Reason: Protocol Last Admin: 03/09/17 14:45 Dose: 100 mls/hr Acetylcysteine 12,200 mg/ (Dextrose) 1,061 mls @ 66.313 mls/hr IV .Q16H ONE Stop: 03/10/17 06:59 Last Admin: 03/09/17 15:30 Dose: 66.313 mls/hr Linezolid (Zyvox 600mg/300ml D5w) 600 mg in 300 mls @ 200 mls/hr IVPB Q12 NARA PRN Reason: Protocol Stop: 03/16/17 22:01 Insulin Detemir (Levemir) 20 unit SC DAILY [facility] Last Admin: 03/09/17 09:05 Dose: 20 unit Insulin Human Regular (Humulin R Med) 0 units SC Q4H [facility] Last Admin: 03/09/17 17:51 Dose: 3 units Lactulose (Enulose) 20 gm PO Q8H [facility] Last Admin: 03/09/17 17:50 Dose: 20 gm Ondansetron HCl (Zofran Inj) 4 mg IVP Q6H PRN PRN Reason: Nausea/Vomiting Pantoprazole Sodium (Protonix Inj) 40 mg IVP DAILY [facility] Last Admin: 03/09/17 09:00 Dose: 40 mg Rifaximin (Xifaxan) 550 mg PO BID [facility] PRN Reason: Protocol Last Admin: 03/09/17 17:50 Dose: 550 mg Vancomycin HCl (Vancocin 25 Mg/Ml (Oral Use)) 500 mg PO QID [facility] PRN Reason: Protocol Last Admin: 03/09/17 17:52 Dose: 500 mg - Labs Labs: 03/09/17 10:45 03/09/17 07:15 PT 13.6 Seconds (9.9-11.8) H 03/09/17 17:20 INR 1.26 (0.93-1.08) H 03/09/17 17:20 APTT 26.8 Seconds (23.7-30.8) 03/08/17 07:00 - Constitutional Appears: Other (Intubated and sedated) - Head Exam Head Exam: NORMAL INSPECTION - ENT Exam Additional comments: ET tube in place - Neck Exam Neck Exam: absent: Lymphadenopathy, Meningismus - Respiratory Exam Respiratory Exam: Decreased Breath Sounds - Cardiovascular Exam Cardiovascular Exam: +S1, +S2 - GI/Abdominal Exam GI & Abdominal Exam: Soft. absent: Tenderness Assessment and Plan - Assessment and Plan (Free Text) Plan: Assessment Severe sepsis with ventilator-dependent respiratory failure and acute liver failure/acute fulminant hepatitis due to bilateral healthcare-associated pneumonia with possible gram positive cocci and/or gram negative bacilli; sputum cx now growing MRSA HTN ESRD on HD dyslipidemia morbid obesity with BMI 45 positive HIV SELVIN test with negative HIV-1 PCR Plan will change IV Vancomycin to Zyvox and continue Merrem (day 4); we have discontinued Doxycycline several days ago since it may worsen the liver failure ; reviewed CT scan which showed the bilateral consolidations and infiltrates in the lungs; reviewed ultrasound of the abdomen which showed the fatty liver and hepatomegaly Patient is in critical condition and his overall prognosis is getting worse; awaiting transfer to a tertiary care center - discussed with Dr. Yañez and Dr. Boyd
--- NOTE | 2017-03-09 20:41 | PN ---
DATE: 03/09/2017 SUBJECTIVE: The patient is seen in the ICU. He remains on mechanical ventilation. He is sedated with propofol. He still appears to be anasarcic. Face is very puffy. Periorbital edema. He remains on Mucomyst IV, he remains on IV insulin drip. PHYSICAL EXAMINATION: GENERAL: Obese, middle-aged male lying in bed in the ICU, on mechanical ventilation. VITAL SIGNS: Blood pressure 155/65, heart rate 85, respiratory rate 18, temperature 98.6. HEENT: Normocephalic and atraumatic. NECK: Positive pallor. NECK: Supple, no JVD. LUNGS: Bilateral equal air entry, bilateral equal expansion. CARDIAC: S1, S2, regular rate and rhythm, no murmur, no rub. ABDOMEN: Obese, distended, soft, nontender, bowel sounds present. EXTREMITIES: 2+ pitting edema of the lower extremities. INTAKE AND OUTPUT: 1585/not charted. LABORATORY DATA: WBC 67.5, hemoglobin 8, hematocrit 24, platelets 143. Sodium 131, potassium 4.4, chloride 91, CO2 22, BUN 57, creatinine , glucose 235, calcium 10.3, AST 1193, ALT 1328, total bili 5.5. INR 1.2. PH 7.2, pCO2 of 61 , pO2 208. Sputum culture MRSA. CURRENT MEDICATIONS: Mucomyst, hydralazine, Diprivan, DuoNeb, lactulose, Flagyl , heparin, insulin drip, Levemir, meropenem 500 q. 12, Protonix, vancomycin 500 q.i.d. oral, rifaximin, Zofran. ASSESSMENT: 1. Acute fulminant hepatitis, etiology likely sepsis versus drug-induced. 2. Severe leukocytosis, source unclear. 3. Severe anemia. 4. Respiratory failure. 5. Anasarca. 6. Hypertension. 7. End-stage renal disease. PLAN: 1. Ultrafiltration today, will try to remove 2-1/2 kilos. 2. Continue supportive care for an acute fulminant hepatitis/hepatitic failure. 3. Continue antibiotics for broad spectrum coverage. 4. Possible bronchoscopy today. 5. CT scan of the abdomen. The case discussed with Dr. Brown, case discussed with Dr. Boyd. He remains critically ill, More than 35 minutes were spent in the care of this patient. Shavonne Varela MD cc: [id number] TT: 03/09/2017 20:40:28 Confirmation # [id number] Dictation # [id number] cheryl DANIELLE
--- NOTE | 2017-03-09 21:11 | PN ---
DATE: 03/09/2017 SUBJECTIVE: The patient is intubated. PHYSICAL EXAMINATION: VITAL SIGNS: Temperature is 98.9, pulse of 85, blood pressure 155/65, respirations are 28. GENERAL: The patient comfortable, in no acute distress. HEENT: Anicteric sclerae. Moist mucosa. NECK: No JVD or adenopathy. CARDIAC: S1/S2. No murmurs. No rubs. Regular. RESPIRATORY: Clear to auscultation bilaterally. No wheezes, rales, or rhonchi. Good air entry. ABDOMEN: Bowel sounds are positive, soft, nontender, and nondistended. EXTREMITIES: No edema. Has 1+ pulses. LABS: White count of 67.4, hemoglobin 7.5, creatinine is 5.9. ASSESSMENT: 1. Respiratory failure, on ventilator. 2. Sepsis. 3. Acute liver failure. 4. End-stage renal disease. 5. Hypertension. 6. Acute anemia. PLAN: The patient is currently admitted to the hospital in the ICU. He is critically ill. He is on nebulizer treatments. He is on propofol. The patient is on lactulose. He is on Flagyl. The patie nt is receiving insulin drip for his diabetes. He is on Levemir. The patient is on Protonix. He is on vancomycin. He has blood cultures that are negative. He has sputum culture that shows MRSA. Th e patient's liver functions are improving. Jose Mims MD cc: [id number] TT: 03/09/2017 21:10:28 Confirmation # [id number] Dictation # [id number] jerry
[2017-03-09] MEDS: Linezolid 600 mg in D5W 300 ml 600 MG/300 ML BAG IVPB SCH (21:46)
[2017-03-10] MEDS: Insulin Reg-MEDIUM-Coverage SC SCH ×5 (02:47→22:35)
[2017-03-10] MEDS: Albuterol-Ipratrop 3 mg / 0.5 (3 ml) UD IH SCH ×4 (03:05→19:40)
[2017-03-10] MEDS: metroNIDAZOLE IV 500 mg/100 ml 500 MG/100 ML BAG IVPB SCH ×3 (05:44→22:39)
[2017-03-10 06:02] LABS: MEAN CELL VOLUME 91.6 fL (80.0-105.0); MEAN CORPUSCULAR HEMOGLOBIN 32.2 pg (25.0-35.0); MEAN CORPUSCULAR HGB CONC 35.2 g/dl (31.0-37.0); MEAN PLATELET VOLUME 10.1 fl (7.0-11.0); PLATELET COUNT 169 10^3/uL (120.0-450.0); RED CELL DISTRIBUTION WIDTH 18.9 % (11.5-14.5)
[2017-03-10 06:21] LABS: ALB/GLOB RATIO 0.8 (1.1-1.8); BILIRUBIN,TOTAL 5.8 mg/dL (0.2-1.3); CALCIUM 10.9 mg/dL (8.4-10.5); POTASSIUM 5.2 mmol/L (3.6-5.0); TOTAL PROTEIN 8.7 g/dL (5.8-8.3)
[2017-03-10 06:27] LABS: ADD MANUAL DIFF? YES; HEMATOCRIT 19.6 % (42.0-52.0); WHITE BLOOD COUNT 70.2 10^3/ul (4.5-11.0)
--- NOTE | 2017-03-10 08:12 | PN ---
DATE: 03/09/2017 This is an addendum to the GI progress report dictated by Idalia Nguyen NP. Discussed with Dr. Boyd, ross lift operator. The patient's white cell count has gone up to 67,000. Follow up of the stool for C. di ff. We would recommend CT of the abdomen and pelvis and chest to further followup which can be cons idered after review of the stool test Thank you very much for allowing us to participate in the care of the patient. Maddie Brown MD cc: [phone] TT: 03/10/2017 08:12:04 Confirmation # [id number] Dictation # [id number] tn
--- NOTE | 2017-03-10 08:33 | CP.PCM.PCO ---
Physician Communication Note - Physician Communication Note Physician Communication Note: Worsening sepsis-prognosis grave/?Hospice
[2017-03-10 08:43] LABS: ATYPICAL LYMPHOCYTE 2 % (0.0-0.0); BAND 7 % (0-2); EOSINOPHIL 1 % (0.0-3.0); METAMYELOCYTE 3 %; MYELOCYTE 3 %
[2017-03-10 08:44] LABS: CORRECTED WBC 56.2 K/mm3 (4.5-11.0); HYPOCHROMIA 2+; NEUTROPHIL 63 % (50.0-70.0); NUCLEATED RED BLOOD CELL 25 %; PLATELET ESTIMATE NORMAL (NORMAL)
[2017-03-10 08:45] LABS: ANISOCYTOSIS 1+; LARGE PLATELETS PRESENT; OVALOCYTES SLIGHT; POIKILOCYTOSIS SLIGHT; TEAR DROP CELLS SLIGHT
--- NOTE | 2017-03-10 09:37 | PN ---
DATE: 03/10/2017 SUBJECTIVE: The patient is sedated on the ventilator and continues to require FIO2 of 40%. The page ent is scheduled for a CT scan of the abdomen and noted that a white count is still extremely elevate d. The patient is sedated with propofol. PHYSICAL EXAMINATION: VITAL SIGNS: Temperature is 98.8, his pulse is 86, respirations are 18 and his BP is 133/61. SKIN: Warm and dry. HEAD: Atraumatic, normocephalic. EYES: Reactive to light. EARS, NOSE AND THROAT: Seem to be within normal limits. NECK: Supple. No JVD, no thyroid enlargement, no lymph nodes. HEART: Has regular rate and rhythm, normal S1, S2. LUNGS: Reveal mild decreased breath sounds at the bases. ABDOMEN: Soft. Mildly distended. No organomegaly noted. GENITALIA AND RECTAL: Deferred. MUSCULOSKELETAL: No joint deformities. EXTREMITIES: Reveal 1+ lower extremity edema. NEUROLOGIC: The patient is sedated on the ventilator. LABORATORIES: His white count is ____.2, hemoglobin is 6.9, hematocrit 19.6 with platelets of 169,00 0. Blood gas this morning is pending. Coagulation is pending as well. Sodium is 130, potassium 5.2 , chloride is 90, CO2 of 21, BUN of 67, creatinine of 6.9 and glucose is 337. The patient's LFTs are still elevated. IMPRESSION: The patient has acute liver failure, etiology unclear. He has respiratory failure on a ventilator with FIO2 of 40%. The patient has acute anemia as well as end-stage renal disease on hemo dialysis, and history of chronic obstructive pulmonary disease. He has leukocytosis, of which the et iology is unclear, and coagulopathy. PLAN: We will continue to monitor his labs closely. We will consider transfusion of packed red bloo d cells and hematology consult to help evaluate the leukocytosis. The patient is on blood pressure m edications at this time. He is also getting DuoNeb as a bronchodilator. The patient also is schedul ed to get lactulose as well. The patient is on IV antibiotics of meropenem and Protonix as well and other antibiotics would be vancomycin. We will follow his chest x-ray and arterial blood gas and con tinue to treat aggressively along with the other consultants and the primary care doctor. Antwon Barrow MD cc: [id number] TT: 03/10/2017 09:36:09 Confirmation # [id number] Dictation # [id number] jn
--- NOTE | 2017-03-10 10:37 | CT ---
PROCEDURE: CT Chest, Abdomen and Pelvis without intravenous contrast HISTORY: Worsening sepsis COMPARISON: 03/06/2017 TECHNIQUE: Radiation dose: Total exam DLP = 1363.47 mGy-cm. This CT exam was performed using one or more of the following dose reduction techniques: Automated exposure control, adjustment of the mA and/or kV according to patient size, and/or use of iterative reconstruction technique. FINDINGS: CT CHEST WITHOUT CONTRAST: LUNGS: Diffuse bilateral upper lobe alveolar opacity decreased in extent compared to prior CT examination. Bilateral lower lobe consolidation, decreased in right lower lobe compared to prior examination but unchanged in left lower lobe. Consider atelectasis or pneumonia. No endobronchial mass identified. MEDIASTINUM: Cardiomegaly. No pericardial effusion. No evidence of thoracic aortic aneurysm. Normal caliber main pulmonary artery. Endotracheal tube noted. Tip positioned approximately 5.2 cm proximal to the tracheal mikael. Nasogastric tube traverses the thoracic esophagus to the upper abdomen. LYMPH NODES: Unremarkable. PLEURA: Unremarkable. No pneumothorax. No pleural fluid. BONES: Unremarkable. OTHER FINDINGS: None. CT ABDOMEN AND PELVIS: LIVER: Unremarkable. No gross lesion or ductal dilatation. GALLBLADDER AND BILE DUCTS: Unremarkable. PANCREAS: Infiltration of soft tissues about pancreatic tail suspicious for pancreatitis. Please correlate with laboratory evaluation. No pancreatic mass or pancreatic ductal dilatation. SPLEEN: Unremarkable. ADRENALS: Unremarkable. No mass. KIDNEYS AND URETERS: 1.5 cm cortical cyst mid left kidney. No other renal mass. No calculus or hydronephrosis. VASCULATURE: Inferior vena caval filter. No abdominal aortic aneurysm. BOWEL: Unremarkable. No obstruction. No gross mural thickening. APPENDIX: Normal appendix. PERITONEUM: Unremarkable. No free fluid. No free air. LYMPH NODES: Shotty subcentimeter retroperitoneal nodes, nonspecific. No enlarged retroperitoneal or pelvic lymphadenopathy. BLADDER: Poorly distended. No gross abnormality. REPRODUCTIVE: Unremarkable prostate. BONES: No acute fracture. OTHER FINDINGS: None. IMPRESSION: Extensive bilateral pulmonary infiltrate. Javid bilateral lower lobe consolidation, decreasing in right lower lobe. Improved infiltrates in the upper lobes though persistent. Cardiomegaly. ET tube. Nasogastric tube. Possible acute pancreatitis. Please correlate with laboratory and clinical evaluation. Vena caval filter. No bowel obstruction.
[2017-03-10] MEDS: Insulin Detemir 100 units/ml Vial (Levemir) SC SCH (11:22)
[2017-03-10] MEDS: Meropenem 500 MG in Sodium Chloride 0.9% 100 ML IVPB SCH ×2 (11:25→22:03)
[2017-03-10] MEDS: Vancomycin 25 MG/ML PO SCH ×4 (11:25→22:22)
[2017-03-10] MEDS: Linezolid 600 mg in D5W 300 ml 600 MG/300 ML BAG IVPB SCH ×2 (11:25→22:03)
[2017-03-10] MEDS: Propofol 10 mg/ml 1,000 MG/100 ML VIAL IV PRN (11:27)
--- NOTE | 2017-03-10 12:31 | CP.PCM.PN ---
Subjective - Date & Time of Evaluation Date of Evaluation: 03/10/17 Time of Evaluation: 10:00 - Subjective Subjective: Continues to be intubated and sedated. No fevers overnight. Objective - Vital Signs/Intake and Output Vital Signs (last 24 hours): Temp Pulse Resp BP Pulse Ox 97.6 F 82 28 H 136/53 L 88 L 03/10/17 12:25 03/10/17 12:25 03/10/17 12:25 03/10/17 12:25 03/10/17 06:00 Intake and Output: 03/10/17 03/10/17 06:59 18:59 Intake Total 1600 120 Output Total 0 Balance 1600 120 - Medications Medications: Current Medications Albuterol/Ipratropium (Duoneb 3 Mg/0.5 Mg (3 Ml) Ud) 3 ml IH Q2H PRN PRN Reason: Shortness of Breath Albuterol/Ipratropium (Duoneb 3 Mg/0.5 Mg (3 Ml) Ud) 3 ml IH [id number] [facility] Last Admin: 03/10/17 07:48 Dose: 3 ml Heparin Sodium (Porcine) (Heparin) 5,000 units SC Q12 [facility] PRN Reason: Protocol Last Admin: 03/10/17 11:26 Dose: 5,000 units Hydralazine HCl (Apresoline) 10 mg IVP Q6 PRN PRN Reason: SBP >180 Last Admin: 03/07/17 02:05 Dose: 10 mg Propofol (Diprivan) 1,000 mg in 100 mls @ 3.674 mls/hr IV .Q24H PRN; Protocol; 5 MCG/KG/MIN PRN Reason: TITRATE PER MD ORDER Last Admin: 03/10/17 11:27 Dose: 30 mcg/kg/min, 22.045 mls/hr Meropenem 500 mg/ Sodium (Chloride) 100 mls @ 100 mls/hr IVPB Q12 [facility] Stop: 03/13/17 06:23 Last Admin: 03/10/17 11:25 Dose: 100 mls/hr Insulin Human Regular 100 (units/ Sodium Chloride) 100 mls @ 5 mls/hr IV .Q20H PRN; Protocol; 5 UNITS/HR PRN Reason: TITRATE PER MD ORDER Last Titration: 03/07/17 23:32 Dose: 0 units/hr, 0 mls/hr Metronidazole (Flagyl) 500 mg in 100 mls @ 100 mls/hr IVPB Q8 [facility] PRN Reason: Protocol Last Admin: 03/10/17 05:44 Dose: 100 mls/hr Linezolid (Zyvox 600mg/300ml D5w) 600 mg in 300 mls @ 200 mls/hr IVPB Q12 [facility] PRN Reason: Protocol Stop: 03/16/17 22:01 Last Admin: 03/10/17 11:25 Dose: 200 mls/hr Insulin Detemir (Levemir) 20 unit SC DAILY [facility] Last Admin: 03/10/17 11:22 Dose: 20 unit Insulin Human Regular (Humulin R Med) 0 units SC Q4H [facility] Last Admin: 03/10/17 11:24 Dose: 7 units Lactulose (Enulose) 20 gm PO Q8H [facility] Last Admin: 03/10/17 11:26 Dose: 20 gm Ondansetron HCl (Zofran Inj) 4 mg IVP Q6H PRN PRN Reason: Nausea/Vomiting Pantoprazole Sodium (Protonix Inj) 40 mg IVP DAILY [facility] Last Admin: 03/10/17 11:26 Dose: 40 mg Rifaximin (Xifaxan) 550 mg PO BID [facility] PRN Reason: Protocol Last Admin: 03/10/17 11:30 Dose: 550 mg Vancomycin HCl (Vancocin 25 Mg/Ml (Oral Use)) 500 mg PO QID [facility] PRN Reason: Protocol Last Admin: 03/10/17 11:25 Dose: 500 mg - Labs Labs: 03/10/17 05:00 03/10/17 05:00 PT 13.6 Seconds (9.9-11.8) H 03/09/17 17:20 INR 1.26 (0.93-1.08) H 03/09/17 17:20 APTT 26.8 Seconds (23.7-30.8) 03/08/17 07:00 - Constitutional Appears: Other (Intubated and sedated) - ENT Exam Additional comments: Et tube in place - Respiratory Exam Respiratory Exam: Decreased Breath Sounds - Cardiovascular Exam Cardiovascular Exam: +S1, +S2 - GI/Abdominal Exam GI & Abdominal Exam: Soft. absent: Tenderness Assessment and Plan - Assessment and Plan (Free Text) Plan: Assessment Severe sepsis with ventilator-dependent respiratory failure and acute liver failure/acute fulminant hepatitis due to bilateral healthcare-associated pneumonia with possible gram positive cocci and/or gram negative bacilli; sputum cx now growing MRSA; need to rule out C. diff. infection HTN ESRD on HD dyslipidemia morbid obesity with BMI 45 positive HIV SELVIN test with negative HIV-1 PCR Plan continue Zyvox and continue Merrem (day 5); we have discontinued Doxycycline several days ago since it may worsen the liver failure; reviewed CT scan which showed the bilateral consolidations and infiltrates in the lungs; reviewed ultrasound of the abdomen which showed the fatty liver and hepatomegaly Patient has also been started on PO vancomycin and IV flagyl pending stool for C. diff patient has history of multiple positive HIV SELVIN - will check 4th generation test and HIV-1 PCR Follow up fungal and mycobacterial work up Overall prognosis is poor
[2017-03-10 14:34] LABS: INR 1.17 (0.93-1.08)
[2017-03-10] MEDS ORDERED: WATER IV STA (16:54)
[2017-03-10] MEDS ORDERED: DEXTROSE 5% IV STA (16:54)
[2017-03-10] MEDS ORDERED: ACETYLCYSTEINE IV STA (16:54)
--- NOTE | 2017-03-10 18:09 | PN ---
DATE: 03/10/2017 SUBJECTIVE: The patient is seen in the ICU. He is sedated. Unresponsive at this time. Remains on ventilatory support. Earlier, his sedation was weaned off, patient was awake, but was not able to to lerate decreasing ventilatory support. He had a CT scan of his abdomen, chest and pelvis done this m orning; shown to have bilateral pneumonia. PHYSICAL EXAMINATION: GENERAL: Obese middle-aged male lying in bed in the ICU, on mechanical ventilation, sedated. VITAL SIGNS: Blood pressure 130/56, heart rate 81, respiratory rate 28, temperature 97.8. HEENT: Normocephalic, atraumatic. NECK: Supple, no JVD. LUNGS: Bilateral equal air entry, no rales. CARDIAC: S1, S2, regular rate and rhythm, no murmur, no rub. ABDOMEN: Obese, distended, soft, nontender, bowel sounds present. EXTREMITIES: 2+ pitting edema of the lower extremities, puffy face, increased upper extremity edema. INTAKE AND OUTPUT: 3550/2500. The patient had ultrafiltration done and 2500 was removed. LABORATORY DATA: WBC 70,000, hemoglobin 6.9, hematocrit 19.6, platelets 169, neutrophils, 56% bands 7%. Sodium 130, potassium 5.2, chloride 90, CO2 21, BUN 67, creatinine 6.9, glucose 337, calcium 10. 9, albumin 3.8, bilirubin 5.8, AST is 865, ALT 811. Blood gas pH 7.22, pCO2 61, pO2 ____. INR 1.1. RPR nonreactive. Blood cultures no growth. Sputum culture MRSA. CT of the abdomen: Extensive bilateral pulmonary infiltrate, donavan bilateral lower lo be consolidation, possible acute pancreatitis. CURRENT MEDICATIONS: Diprivan, DuoNeb, Enulose, Flagyl, heparin, insulin, Levemir, mayor meropenem 5 00 q. 12, Protonix, vancomycin, rifaximin, Zofran, Zyvox. ASSESSMENT AND PLAN: A 61-year-old male with history of hypertension, obesity, endstage renal diseas e, severe anemia, multiple blood transfusions, admitted with weakness, fatigue, altered mental status . Found to have severe sepsis, acute fulminant hepatitis, respiratory failure. The patient also fou nd to have elevated troponins, likely secondary to renal failure. Etiology of sepsis now appears to be severe pneumonia. Etiology of acute fulminant hepatitis still unclear. Likely drug induced, less likely viral hepatitis. 1. Sepsis. 2. Acute fulminant hepatitis. 3. Severe anemia. 4. Respiratory failure. 5. Bilateral pneumonia. 6. End-stage renal disease. 7. Anasarca. 8. Methicillin-resistant Staphylococcus aureus pneumonia. PLAN: 1. Antibiotics adjusted for methicillin-resistant Staphylococcus aureus pneumonia as per ID recommen dations. 2. Dialysis today, ultrafiltration 2.5 kilograms, received 2 units of blood during dialysis. 3. Off mucomyst now. 4. Continue PPI. 5. Maintain normal glycemia. 6. Prognosis is extremely grim. Case discussed with the dialysis nurses, case discussed with ICU residence, case discussed with the [facility] staff, is discussed with Dr. Brown. More than 35 minutes was spent in the care of this critically ill patient. Shavonne Varela MD cc: [phone] TT: 03/10/2017 18:08:45 Confirmation # [id number] Dictation # [id number] symone
--- NOTE | 2017-03-10 18:42 | PN ---
DATE: 03/10/2017 SUBJECTIVE: The patient is a 61-year-old, seen and examined, remains intubated. Discussed with the medical examiner. There were multiple tries to wean him off, but he would become tachycardic and tac hypneic. Currently he is intubated and sedated. PHYSICAL EXAMINATION: VITAL SIGNS: He is afebrile, pulse 81, respirations 14, blood pressure 130/56. LUNGS: Bilateral fair air flow. HEART: S1, S2 audible. ABDOMEN: Soft, obese, nontender, no rebound, no guarding. NEUROLOGIC: He is sedated and intubated. LABORATORY EXAMINATION: WBC is 70,000, hemoglobin 6.9, hematocrit 19.6, platelet of 169. His PT is 12.6, INR 1.17. Chemistry: Sodium 130, potassium 5.2, chloride 90, CO2 21, BUN 67, creatinine is 6. 9, blood sugar of 337. AST is improving, it is 865. ALT is 811, alkaline phosphatase is 147. His spu richard is growing MRSA. Stool for C. diff is negative. ASSESSMENT: 1. Sepsis, source is pulmonary infiltrate. 2. Acute hepatic failure, etiology unknown. 3. End-stage renal disease, on hemodialysis. 4. Respiratory failure. PLAN: We will continue patient on vent support yet. All cultures are negative except sputum culture is positive. Currently, the patient is on propofol. He is getting nebulizer treatment. He is on m etronidazole and meropenem. Blood sugar is being monitored. He is on p.o. vancomycin and Xifaxan. He is also being covered with Zyvox. Prognosis is poor. We will continue current medical treatment. Will monitor electrolytes and cultures. Raf Bowen MD cc: [phone] TT: 03/10/2017 18:41:51 Confirmation # [id number] Dictation # [id number] jerry
[2017-03-11] MEDS: Albuterol-Ipratrop 3 mg / 0.5 (3 ml) UD IH SCH ×4 (01:00→19:34)
[2017-03-11] MEDS: Insulin Reg-MEDIUM-Coverage SC SCH ×5 (02:35→22:20)
[2017-03-11] MEDS: metroNIDAZOLE IV 500 mg/100 ml 500 MG/100 ML BAG IVPB SCH ×3 (05:29→21:32)
[2017-03-11 06:31] LABS: ALB/GLOB RATIO 0.8 (1.1-1.8); CALCIUM 10.9 mg/dL (8.4-10.5); POTASSIUM 4.2 mmol/L (3.6-5.0); TOTAL PROTEIN 8.7 g/dL (5.8-8.3)
[2017-03-11 06:32] LABS: MEAN CELL VOLUME 89.8 fL (80.0-105.0); MEAN CORPUSCULAR HEMOGLOBIN 31.9 pg (25.0-35.0); MEAN CORPUSCULAR HGB CONC 35.5 g/dl (31.0-37.0); MEAN PLATELET VOLUME 9.8 fl (7.0-11.0); PLATELET COUNT 146 10^3/uL (120.0-450.0); RED CELL DISTRIBUTION WIDTH 18.9 % (11.5-14.5)
[2017-03-11 06:36] LABS: ADD MANUAL DIFF? YES
[2017-03-11 06:40] LABS: HEMATOCRIT 22.8 % (42.0-52.0); WHITE BLOOD COUNT 47.5 10^3/ul (4.5-11.0)
[2017-03-11 07:35] LABS: BAND 5 % (0-2); CORRECTED WBC 35.2 K/mm3 (4.5-11.0); HYPOCHROMIA 1+; METAMYELOCYTE 3 %; MYELOCYTE 6 %; NEUTROPHIL 70 % (50.0-70.0); NUCLEATED RED BLOOD CELL 35 %; PLATELET ESTIMATE NORMAL (NORMAL)
[2017-03-11 07:36] LABS: ANISOCYTOSIS 1+
[2017-03-11 07:37] LABS: OVALOCYTES SLIGHT; POIKILOCYTOSIS SLIGHT
--- NOTE | 2017-03-11 08:42 | PN ---
DATE: 03/10/2017 SUBJECTIVE: This patient was seen and evaluated earlier. He remains on vent. PHYSICAL EXAMINATION: VITAL SIGNS: Temperature is 97.7, pulse 88. Blood pressure is ____. HEENT: Atraumatic, jaundiced. NECK: Supple. HEART: S1, S2 heard. LUNGS: Bilateral air entry present. ABDOMEN: Softly distended. Mild tenderness present. EXTREMITIES: Mild edema present. LABORATORY DATA: Hemoglobin is 6.9, hematocrit 19.6, WBC 17.2, platelets 159. BUN 67, creatinine 6.9. Total bilirubin is now 5.8. AST was 865. ALT 811. Alkaline phosphatase is 147. IMPRESSION: This patient admitted with acute liver failure, etiology is unclear. History of end-stage renal disease on hemodialysis. The patient is also septic with the white cell count is about 70,000. The patient has a lung infiltrate being treated for pneumonia. ____ and treatment for Clostridium difficile. Stool for Clostridium difficile negative. Discussed with the glass designer regarding the CT scan. Overall, prognosis remains very guarded. Continue the antibiotics. Thank you very much for allowing us to participate in the care of this patient. Maddie Brown MD cc: [phone] TT: 03/11/2017 08:42:10 Confirmation # [id number] Dictation # [id number] jn SHASHI
[2017-03-11 09:38] LABS: AMYLASE 985 U/L (35-125)
[2017-03-11] MEDS: Vancomycin 25 MG/ML PO SCH ×4 (10:34→22:32)
[2017-03-11] MEDS: Meropenem 500 MG in Sodium Chloride 0.9% 100 ML IVPB SCH ×2 (10:34→22:32)
[2017-03-11] MEDS: Linezolid 600 mg in D5W 300 ml 600 MG/300 ML BAG IVPB SCH ×2 (10:34→21:31)
[2017-03-11] MEDS: Insulin Detemir 100 units/ml Vial (Levemir) SC SCH (10:37)
[2017-03-11 10:40] LABS: LIPASE 20477 U/L (23-300)
--- NOTE | 2017-03-11 10:50 | PN ---
DATE: 03/11/2017 SUBJECTIVE: The patient is intubated. PHYSICAL EXAMINATION: VITAL SIGNS: Temperature is 99, pulse of 88, blood pressure is 140/59, respiration is 28. GENERAL: The patient comfortable, in no acute distress. HEENT: Anicteric sclerae. Moist mucosa. NECK: No JVD or adenopathy. CARDIAC: S1/S2. No murmurs. No rubs. Regular. RESPIRATORY: Clear to auscultation bilaterally. No wheezes, rales, or rhonchi. Good air entry. ABDOMEN: Bowel sounds are positive, soft, nontender, and nondistended. EXTREMITIES: Lower extremity 1+ edema. Upper extremity 1+ edema. Has 1+ pulses. LABORATORIES: White count of 47, hemoglobin is 8.1. Creatinine is 4.2. CT of the chest, abdomen and pelvis shows extensive bilateral pulmonary infiltrates. ASSESSMENT: 1. Respiratory failure, on ventilator. 2. Sepsis, secondary to pneumonia. 3. Acute liver failure. 4. End-stage renal disease. 5. Hypertension. 6. Acute anemia. 7. Anasarca. 8. Acute hepatitis. PLAN: The patient remains critically ill. He is intubated. His white count has improved from yeste rday. The patient's creatinine is starting to improve. The liver function has also started to impro ve. The patient is on propofol, is going to be on lactulose, is receiving heparin for deep venous th rombosis prophylaxis, is on Lasix, is on meropenem for antibiotics. The patient is going to be on li nezolid . Continue to follow closely. Jose Mims MD cc: [phone] TT: 03/11/2017 10:50:00 Confirmation # [id number] Dictation # [id number] en
--- NOTE | 2017-03-11 11:43 | PN ---
DATE: 03/11/2017 SUBJECTIVE: The patient is resting comfortably on the ventilator with FiO2 of 40%. The patient cont inues to have sedation with propofol and no real change is noted this morning. PHYSICAL EXAMINATION: VITAL SIGNS: His temperature is 99.0, his BP is 140/59 with a pulse of 88 and respirations of 16. SKIN: Warm and dry. HEAD: Atraumatic, normocephalic. EYES: Reactive to light. EARS, NOSE AND THROAT: Seem to be within normal limits. NECK: Supple. No JVD, no thyroid enlargement, no lymph nodes. HEART: Has a regular rate and rhythm. Normal S1, S2. LUNGS: Reveal mild some rhonchi at the bases. ABDOMEN: Soft, but obese. Decreased bowel sounds. GENITALIA AND RECTAL: Deferred. MUSCULOSKELETAL: No joint deformities. EXTREMITIES: Reveal 1+ lower extremity edema. NEUROLOGIC: The patient is sedated on the ventilator. As far as his CT scan of his abdomen and chest and pelvis, the patient has extensive bilateral pleura l effusions as well as bilateral lower lobe consolidations. He is noted to have cardiomegaly and it is stated that there is possible acute pancreatitis. LABORATORIES: Reveal a white count of 47.5, hemoglobin of 8.1, hematocrit 22.8 and platelets of 146, 000. The patient's sodium is 133, potassium 4.2, chloride 93, CO2 of 25 with a BUN of 44 and a creat inine of 4.2 as well as a glucose of . The patient's liver enzymes continue to decrease and tanesha lase and lipase are still elevated. IMPRESSION: The patient has acute liver failure, possible pancreatitis, etiology unclear. He has re spiratory failure requiring ventilator support with FiO2 of 40%. The patient also is noted to have a nemia with end-stage renal disease and is on hemodialysis. Has a history of chronic obstructive pulm onary disease and noted to have a leukocytosis, which is slowly improving, etiology unclear as well w ith a coagulopathy. PLAN: We will continue to monitor closely. His laboratories will be followed and we will correct as needed. Hematology is following closely for the leukocytosis and we will continue with DuoNeb for b ronchodilators. The patient is on lactulose and meropenem as well as Protonix and vancomycin. We wi ll follow his chest x-ray and arterial blood gas closely, and continue to treat aggressively along wi th the other consultants and the primary care doctor. Antwon Barrow MD cc: [id number] TT: 03/11/2017 11:43:13 Confirmation # [id number] Dictation # [id number] en
--- NOTE | 2017-03-11 14:16 | CP.PCM.PN ---
Subjective - Date & Time of Evaluation Date of Evaluation: 03/11/17 Time of Evaluation: 11:10 - Subjective Subjective: Patient is still intubated and sedated. Still has watery diarrhea. Objective - Vital Signs/Intake and Output Vital Signs (last 24 hours): Temp Pulse Resp BP Pulse Ox 99.0 F 88 28 H 140/59 L 95 03/11/17 04:00 03/10/17 19:00 03/10/17 14:07 03/10/17 19:00 03/10/17 19:00 Intake and Output: 03/11/17 03/11/17 06:59 18:59 Intake Total 1360 Output Total 410 Balance 950 - Medications Medications: Current Medications Albuterol/Ipratropium (Duoneb 3 Mg/0.5 Mg (3 Ml) Ud) 3 ml IH Q2H PRN PRN Reason: Shortness of Breath Albuterol/Ipratropium (Duoneb 3 Mg/0.5 Mg (3 Ml) Ud) 3 ml IH [id number] [facility] Last Admin: 03/11/17 13:54 Dose: 3 ml Heparin Sodium (Porcine) (Heparin) 5,000 units SC Q12 [facility] PRN Reason: Protocol Last Admin: 03/11/17 10:35 Dose: 5,000 units Hydralazine HCl (Apresoline) 10 mg IVP Q6 PRN PRN Reason: SBP >180 Last Admin: 03/07/17 02:05 Dose: 10 mg Propofol (Diprivan) 1,000 mg in 100 mls @ 3.674 mls/hr IV .Q24H PRN; Protocol; 5 MCG/KG/MIN PRN Reason: TITRATE PER MD ORDER Last Titration: 03/11/17 04:30 Dose: 30 mcg/kg/min, 22.045 mls/hr Meropenem 500 mg/ Sodium (Chloride) 100 mls @ 100 mls/hr IVPB Q12 [facility] Stop: 03/13/17 06:23 Last Admin: 03/11/17 10:34 Dose: 100 mls/hr Insulin Human Regular 100 (units/ Sodium Chloride) 100 mls @ 5 mls/hr IV .Q20H PRN; Protocol; 5 UNITS/HR PRN Reason: TITRATE PER MD ORDER Last Titration: 03/07/17 23:32 Dose: 0 units/hr, 0 mls/hr Metronidazole (Flagyl) 500 mg in 100 mls @ 100 mls/hr IVPB Q8 [facility] PRN Reason: Protocol Last Admin: 03/11/17 05:29 Dose: 100 mls/hr Linezolid (Zyvox 600mg/300ml D5w) 600 mg in 300 mls @ 200 mls/hr IVPB Q12 [facility] PRN Reason: Protocol Stop: 03/16/17 22:01 Last Admin: 03/11/17 10:34 Dose: 200 mls/hr Insulin Detemir (Levemir) 20 unit SC DAILY [facility] Last Admin: 03/11/17 10:37 Dose: 20 unit Insulin Human Regular (Humulin R Med) 0 units SC Q4H [facility] Last Admin: 03/11/17 10:36 Dose: 5 units Lactulose (Enulose) 20 gm PO Q8H [facility] Last Admin: 03/11/17 10:35 Dose: 20 gm Ondansetron HCl (Zofran Inj) 4 mg IVP Q6H PRN PRN Reason: Nausea/Vomiting Pantoprazole Sodium (Protonix Inj) 40 mg IVP DAILY [facility] Last Admin: 03/11/17 10:37 Dose: 40 mg Rifaximin (Xifaxan) 550 mg PO BID [facility] PRN Reason: Protocol Last Admin: 03/11/17 10:38 Dose: 550 mg Vancomycin HCl (Vancocin 25 Mg/Ml (Oral Use)) 500 mg PO QID [facility] PRN Reason: Protocol Last Admin: 03/11/17 10:34 Dose: 500 mg - Labs Labs: 03/11/17 06:00 03/11/17 06:00 PT 12.6 Seconds (9.9-11.8) H 03/10/17 14:15 INR 1.17 (0.93-1.08) H 03/10/17 14:15 APTT 26.8 Seconds (23.7-30.8) 03/08/17 07:00 - Constitutional Appears: Other (Intubated and sedated) - Neck Exam Neck Exam: absent: Lymphadenopathy, Meningismus - Respiratory Exam Respiratory Exam: Decreased Breath Sounds - Cardiovascular Exam Cardiovascular Exam: +S1, +S2 - GI/Abdominal Exam GI & Abdominal Exam: Soft. absent: Tenderness - Extremities Exam Additional comments: generalized edema Assessment and Plan - Assessment and Plan (Free Text) Plan: Assessment Severe sepsis with ventilator-dependent respiratory failure and acute liver failure/acute fulminant hepatitis due to bilateral healthcare-associated pneumonia with possible gram positive cocci and/or gram negative bacilli; sputum cx now growing MRSA; need to rule out C. diff. infection HTN ESRD on HD dyslipidemia morbid obesity with BMI 45 positive HIV SELVIN test with negative HIV-1 PCR Plan continue Zyvox and continue Merrem (day 6); we have discontinued Doxycycline several days ago since it may worsen the liver failure; reviewed CT scan which showed the bilateral consolidations and infiltrates in the lungs; reviewed ultrasound of the abdomen which showed the fatty liver and hepatomegaly Patient has also been started on PO vancomycin and IV flagyl pending repeat stool for C. diff (day 2) patient has history of multiple positive HIV SELVIN - follow up generation test and HIV-1 PCR Follow up fungal and mycobacterial work up Overall prognosis is poor
--- NOTE | 2017-03-11 16:24 | PN ---
DATE: 03/11/2017 SUBJECTIVE: This patient was seen and evaluated earlier. The patient remains on vent. PHYSICAL EXAMINATION: GENERAL: On examination, remains on vent. VITAL SIGNS: Temperature is 99, blood pressure is 152/62, pulse 90, respiration is 16. HEENT: Atraumatic, jaundiced. NECK: Supple. HEART: S1, S2 heard. LUNGS: Bilateral air entry present, slightly reduced at base, bilateral scattered rhonchi present. ABDOMEN: Softly distended. EXTREMITIES: Edema present bilaterally. NEUROLOGICAL: The patient is on vent, sedated. LABORATORY DATA: Hemoglobin is 8.1. The patient's hemoglobin was 6.9, transfused is 8.1. Hematocrit 22.8. WBC count has come down to 47.5, platelet count is 146. Chemistry: Total bilirubin 5, AST 648, ALT 624, alkaline phosphatase 151. CT scan of the abdomen and pelvis done was reviewed, reported extensive pneumonia, bilateral infiltrate, donavan bilateral lower lobe consolidation. The patient has MRSA pneumonia The patient also was found to have mild pancreatic changes, some peripancreatic stranding with elevated pancreatic enzymes. There is no fluid collection. IMPRESSION: This 61-year-old patient with end-stage renal disease, admitted with acute liver failure, sepsis, bilateral pneumonia, methicillin-resistant Staphylococcus aureus, on intravenous antibiotics. Significantly worsening of the white cell count. Had a repeat CAT scan done which also reported in addition to the lung infiltrates and pneumonia, some mild pancreatitis changes. The patient has gallstones but was a normal common bile duct before. Would recommend at this point, continue the antibiotics and close followup of the patient. Followup of the liver enzymes. The patient is on imipenem, Xifaxan and also on Flagyl. The patient's common bile duct is was normal,. Would consider repeating the ultrasound. The patient's alkaline phosphatase is relatively not elevated significantly. Other differential diagnosis for the pancreatitis to be considered including a drug-induced pancreatitis should also be considered. We will continue to closely follow up her care and suggest further management based on the clinical course. We will also discuss with infectious disease. Thank you very much for allowing us to participate in the care of the patient. Maddie Brown MD cc: [id number] TT: 03/11/2017 16:23:55 Confirmation # [id number] Dictation # [id number] sn MTDD
--- NOTE | 2017-03-11 20:37 | CP.PCM.PCO ---
Physician Communication Note - Physician Communication Note Physician Communication Note: amylase 985/lipase 20,477
[2017-03-12] MEDS: Propofol 10 mg/ml 1,000 MG/100 ML VIAL IV PRN ×2 (00:45→04:26)
[2017-03-12 00:56] LABS: CYTOMEGALOVIRUS AB (IGG) >10.00 U/mL; CYTOMEGALOVIRUS AB (IGM) <30.00 AU/mL
[2017-03-12 00:56] LABS: CYTOMEGALOVIRUS AB (IGG) >10.00 U/mL; CYTOMEGALOVIRUS AB (IGM) <30.00 AU/mL
[2017-03-12] MEDS: Albuterol-Ipratrop 3 mg / 0.5 (3 ml) UD IH SCH ×5 (01:51→23:54)
[2017-03-12 03:31] LABS: ATERIAL BLOOD GAS PEEP 10
[2017-03-12] MEDS: Insulin Reg-MEDIUM-Coverage SC SCH ×5 (04:25→20:00)
[2017-03-12] MEDS: metroNIDAZOLE IV 500 mg/100 ml 500 MG/100 ML BAG IVPB SCH ×3 (05:17→21:33)
[2017-03-12 06:16] LABS: ARTERIAL BLOOD GAS HCO3 23.5 mmol/L (21-28); ARTERIAL BLOOD GAS O2 CAPACITY 11.5 mL/dl (16-24); ARTERIAL BLOOD GAS O2 CONTENT 11.4 ML/dl (15-23); ARTERIAL BLOOD GAS PH 7.28 (7.35-7.45); CARBOXYHEMOGLOBIN 3.4 % (0.5-1.5); HHB 0.7 % (0-5); METHEMOGLOBIN 3.8 % (0.0-3.0)
[2017-03-12 07:32] LABS: BASO # 0.18 K/mm3 (0.0-2.0); BASO % 0.6 % (0.0-3.0); EOS # 0.5 (0.0-0.7); EOS % 1.8 % (1.5-5.0); GRAN # 21.94 (1.4-6.5); GRAN % 74.1 % (50.0-68.0); LYMPH # 3.6 (1.2-3.4); LYMPH % 12.3 % (22.0-35.0); MEAN CELL VOLUME 89.4 fL (80.0-105.0); MEAN CORPUSCULAR HEMOGLOBIN 30.8 pg (25.0-35.0); MEAN CORPUSCULAR HGB CONC 34.5 g/dl (31.0-37.0); MEAN PLATELET VOLUME 9.8 fl (7.0-11.0); MONO # 3.3 (0.1-0.6); MONO % 11.2 % (1.0-6.0); PLATELET COUNT 103 10^3/uL (120.0-450.0); RED CELL DISTRIBUTION WIDTH 20.7 % (11.5-14.5)
[2017-03-12 07:49] LABS: ADD MANUAL DIFF? NO; HEMATOCRIT 23.5 % (42.0-52.0); WHITE BLOOD COUNT 29.6 10^3/ul (4.5-11.0)
[2017-03-12 07:58] LABS: ALB/GLOB RATIO 0.7 (1.1-1.8); CALCIUM 10.8 mg/dL (8.4-10.5); TOTAL PROTEIN 7.8 g/dL (5.8-8.3)
[2017-03-12] MEDS ORDERED: Sodium Chloride 0.9% 1,000 ML IV STA (08:10)
[2017-03-12 09:03] LABS: PHOSPHOROUS 8.1 mg/dL (2.5-4.5)
[2017-03-12] MEDS ORDERED: Fentanyl 1000mcg/100ml NS 1,000 MCG/100 ML BAG IV PRN (09:14)
[2017-03-12] MEDS: Vancomycin 25 MG/ML PO SCH ×4 (09:14→21:54)
[2017-03-12] MEDS: Dexmedetomidine HCl 4mcg/ml 400 MCG/100 ML BOTTLE IV PRN ×2 (09:48→19:55)
[2017-03-12] MEDS: Linezolid 600 mg in D5W 300 ml 600 MG/300 ML BAG IVPB SCH ×2 (09:49→21:35)
[2017-03-12] MEDS: Meropenem 500 MG in Sodium Chloride 0.9% 100 ML IVPB SCH ×2 (10:24→21:31)
[2017-03-12] MEDS: Insulin Detemir 100 units/ml Vial (Levemir) SC SCH ×2 (10:30→12:25)
[2017-03-12 10:44] LABS: INR 1.17 (0.93-1.08)
[2017-03-12 11:10] LABS: CRYPTOCOCCUS AB <1:2
--- NOTE | 2017-03-12 12:37 | PN ---
DATE: 03/12/2017 Seen and examined at the bedside this morning. The patient is getting dialysis. He remains intubate d and remains on ventilator. VITAL SIGNS: Temperature is 97.5, blood pressure is 124/53, pulse rate is 105, respirations 24, O2 s at 99 on vent. LABORATORY DATA: WBC 29.6, H and H are 8.1 and 23.5, platelets are 103. WBC count has improved. Hi s PT is 12.6, INR is 1.17; is about the same. Sodium 134, K is 4.0, BUN is 58, creatinine is 6.1. H is mag is 2.0. Total bilirubin is 3.0, GGT is 242, AST 295, ALT 403, alk phos is 129. There is some improvement in his liver enzymes. His amylase is 454, lipase is 5748; this is improving. PHYSICAL EXAMINATION: HEENT: Sclerae are icteric. The patient is jaundiced. NECK: Supple. CARDIAC: S1, S2. LUNGS: With breath sounds that are decreased at the bases with positive rhonchi, but positive air en try. No rales or wheeze. ABDOMEN: With bowel sounds. It is softly distended. Looks like he has some tenderness. EXTREMITIES: Bilateral edema. ASSESSMENT: This is a 61-year-old male with end-stage renal disease, admitted with acute liver failu re, sepsis and with bilateral pneumonia. He is also positive methicillin-resistant Staphylococcus au reus and worsening white blood cell count which is now improving. The patient did have a repeat CAT scan of abdomen and pelvis which shows additional lung infiltrate and pneumonia and changes in the pa ncreas that appear like pancreatitis. The patient does have gallstones but common bile duct was norm al. The pancreatitis, can consider if this is secondary to medication. PLAN: Continue to trend the liver enzymes. He is on imipenem, Xifaxan, and Flagyl. The patient is on Precedex and fentanyl. He is on DVT prophylaxis, heparin. On Zyvox, meropenem as well as Flagyl. He is on PPI and vancomycin oral. The patient was seen and case discussed with Dr. Brown. The patient is off acetylcysteine now. Idalia MONROE cc: [id number] TT: 03/12/2017 12:36:32 Confirmation # [id number] Dictation # [id number] mn
--- NOTE | 2017-03-12 13:01 | PN ---
DATE: 03/12/2017 The patient is a 61-year-old, seen and examined, remains intubated, sedated, [facility]. PHYSICAL EXAMINATION: VITAL SIGNS: He has temperature 97.5, pulse 105, respirations 34, blood pressure 124/53. LUNGS: Bilateral fair airflow. Occasional soft crackle at bases. HEART: S1, S2 audible. ABDOMEN: Soft, obese, nontender, no rebound, no guarding. NEUROLOGIC: The patient is sedated and on vent. LABORATORY EXAMINATION: WBCs 29.6, hemoglobin 8.1, hematocrit 23.5, platelets of 103. PT is 12.6, I NR 1.17. Chemistry: Sodium 134, potassium 4.0, chloride 96, CO2 21, BUN 58, creatinine 6.1, blood s ugar of 181. His sputum culture positive for Staph. Stool for C. diff is negative. ASSESSMENT: 1. Bilateral infiltrates. 2. Leukocytosis, seems to be improving. 3. Respiratory failure, on vent. 4. Acute liver failure, improving. 5. End-stage renal disease, on hemodialysis. 6. Chronic anemia. PLAN: Continue patient on vent support. He is receiving hemodialysis. Weaning trial will be starte d in a.m. I will continue on current antibiotic that includes meropenem, Xifaxan, and Zyvox. I will renew his meropenem and will reevaluate patient in a.m. Raf Bowen MD cc: [id number] TT: 03/12/2017 13:00:04 Confirmation # [id number] Dictation # [id number]
[2017-03-12 14:26] LABS: PNEUMOCYSTIS CARINII SOURCE Sputum
--- NOTE | 2017-03-12 15:22 | CP.CCUPN ---
<Shaggy Ames - Last Filed: 03/12/17 15:17> CCU Subjective - Physician Review Events Since Last Encounter (Free Text): 03/12/17 15:18 Shaggy Ames D.O. PGY-1, Internal Medicine Resident, ICU Progress Note 61 year old male with a PMH of HTN, IDDM, ESRD on dialysis, and HLD who presented for nausea and vomiting, progressed into respiratory failure needing intubation, found to have hepatic failure of unknown etiology, then found to have MRSA pneumonia. Patient was seen and examined at bedside. Patient continues to be intubated. No acute overnight events. Previously attempted a trail of CPAP and patient did markedly better. Otherwise no acute changes. Discussed patient's condition with daughter Jacqueline (next of kin) who is in [place] over telephone. 03/12/17 15:50 CCU Objective - Vital Signs / Intake & Output Vital Signs (Last 4 hours): Vital Signs Temp Pulse Resp BP Pulse Ox 03/12/17 12:00 97.2 F L 64 30 H 100/40 L 100 Intake and Output (Last 8hrs): Intake & Output 03/12/17 03/12/17 03/12/17 06:59 14:59 22:59 Intake Total 1064 Output Total 500 Balance 564 Weight 121.109 kg Intake: IV 1064 RH 600 rfa 264 Oral 0 Output: Urine 0 Straight 0 Stool 500 - Physical Exam Head: Positive for: Atraumatic, Normocephalic. Negative for: Tenderness, Contusion, Swelling, Ecchymosis, Abrasion, Laceration, Other Pupils: Positive for: PERRL. Negative for: Sluggish, Non-Reactive, Pinpoint, Other Extroacular Muscles: Positive for: EOMI Conjunctiva: Positive for: Normal Ears: Positive for: Normal Mouth: Positive for: Moist Mucous Membranes Pharnyx: Positive for: Other (ET in place) Nose (External): Positive for: Atraumatic Neck: Positive for: Trachea Midline. Negative for: JVD, Lymphadenopathy Respiratory/Chest: Positive for: Clear to Auscultation, Good Air Exchange, Rhonchi (R>L). Negative for: Respiratory Distress, Accessory Muscle Use Cardiovascular: Positive for: Regular Rate and Rhythm, Normal S1, S2. Negative for: Murmurs, Rub, Gallop Abdomen: Positive for: Tenderness (diffuse, grimaces), Normal Bowel Sounds. Negative for: Distention, Peritoneal Signs, Rebound, Guarding Back: Positive for: Normal Inspection. Negative for: CVA Tenderness, Midline Tenderness, Paraspinal Tenderness Upper Extremity: Positive for: Normal Inspection, Tenderness. Negative for: Cyanosis, Edema Lower Extremity: Positive for: Normal Inspection, Edema (+3), CALF TENDERNESS Neurological: Positive for: Other (off sedation awake, somewhat alert, nods and shakes head for questions, follow simple commands sporadically, seen moving all extremities, withdraws) Skin: Positive for: Warm, Dry, Normal Color. Negative for: Rashes - Medications Active Medications: Active Medications Generic Name Dose Route Start Last Admin Trade Name Freq PRN Reason Stop Dose Admin Albuterol/Ipratropium 3 ml 03/06/17 00:33 Duoneb 3 Mg/0.5 Mg (3 Ml) Ud IH Q2H PRN Shortness of Breath Albuterol/Ipratropium 3 ml 03/06/17 02:00 03/12/17 13:39 Duoneb 3 Mg/0.5 Mg (3 Ml) Ud IH 3 ml [id number] NARA Administration Heparin Sodium (Porcine) 5,000 units 03/06/17 10:00 03/12/17 09:52 Heparin SC 5,000 units Q12 NARA Administration Protocol Hydralazine HCl 10 mg 03/06/17 02:36 03/07/17 02:05 Apresoline IVP 10 mg Q6 PRN Administration SBP >180 Meropenem 500 mg/ Sodium 100 mls @ 100 mls/hr 03/06/17 06:22 03/12/17 10:24 Chloride IVPB 03/13/17 06:23 100 mls/hr Q12 NARA Administration Metronidazole 500 mg in 100 mls @ 100 mls/hr 03/09/17 14:00 03/12/17 05:17 Flagyl IVPB 100 mls/hr Q8 NARA Administration Protocol Linezolid 600 mg in 300 mls @ 200 mls/hr 03/09/17 22:00 03/12/17 09:49 Zyvox 600mg/300ml D5w IVPB 03/16/17 22:01 200 mls/hr Q12 NARA Administration Protocol Fentanyl Citrate 1,000 mcg in 100 mls @ 10 mls/hr 03/12/17 09:14 03/12/17 09: 36 Fentanyl Citrate/Sodium Chloride 1 Mg/100 Ml IV 100 mcg/hr .Q10H PRN 10 mls/hr TITRATE PER MD ORDER Administration Protocol 100 MCG/HR Dexmedetomidine HCl 400 mcg in 100 mls @ 12.111 mls/hr 03/12/17 09:15 09:48 Precedex 4 Mcg/Ml (100 Ml) IV 0.4 mcg/kg/hr .Q8H16M PRN 12.111 mls/hr Agitation Administration Protocol 0.4 MCG/KG/HR Insulin Detemir 20 unit 03/08/17 12:10 03/11/17 10:37 Levemir SC 20 unit DAILY NARA Administration Insulin Human Regular 0 units 03/12/17 01:12 03/12/17 04:25 Humulin R Med SC Not Given Q4 NARA Lactulose 20 gm 03/06/17 10:30 03/12/17 02:18 Enulose PO 20 gm Q8H NARA Administration Ondansetron HCl 4 mg 03/05/17 22:41 Zofran Inj IVP Q6H PRN Nausea/Vomiting Pantoprazole Sodium 40 mg 03/06/17 10:00 03/12/17 10:21 Protonix Inj IVP 40 mg DAILY NARA Administration Rifaximin 550 mg 03/06/17 10:30 03/12/17 09:50 Xifaxan PO Not Given BID NARA Protocol Vancomycin HCl 500 mg 03/09/17 14:00 03/12/17 09:14 Vancocin 25 Mg/Ml (Oral Use) PO 500 mg QID NARA Administration Protocol - Patient Studies Lab Studies: Microbiology Studies 03/09/17 16:14 Gram Stain - Final Sputum Sputum Culture - Final Methicillin Resistant S Aureus Lab Studies 03/12/17 03/12/17 03/12/17 Range/Units 11:11 10:00 06:40 WBC (4.5-11.0) 10^3/ul RBC (3.5-6.1) 10^6/uL Hgb (14.0-18.0) gm/dL Hct (42.0-52.0) % MCV (80.0-105.0) fL MCH (25.0-35.0) pg MCHC (31.0-37.0) g/dl RDW (11.5-14.5) % Plt Count (120.0-450.0) 10^3/uL MPV (7.0-11.0) fl Gran % (50.0-68.0) % Lymph % (Auto) (22.0-35.0) % [place] % (Auto) (1.0-6.0) % Eos % (Auto) (1.5-5.0) % Baso % (Auto) (0.0-3.0) % Gran # (1.4-6.5) Lymph # (1.2-3.4) [place] # (0.1-0.6) Eos # (0.0-0.7) Baso # (0.0-2.0) K/mm3 PT 12.6 H (9.9-11.8) Seconds INR 1.17 H (0.93-1.08) pCO2 (35-45) mm/Hg pO2 (80-100) mm/Hg HCO3 (21-28) mmol/L ABG pH (7.35-7.45) ABG Total CO2 (22-28) mmol.L ABG O2 Saturation (95-98) % ABG O2 Content (15-23) ML/dl ABG Base Excess (-2.0-3.0) mmol/L ABG Hemoglobin (11.7-17.4) g/dL ABG Carboxyhemoglobin (0.5-1.5) % POC ABG HHb (Measured) (0-5) % ABG Methemoglobin (0.0-3.0) % ABG O2 Capacity (16-24) mL/dl ABG Potassium (3.6-5.2) mmol/L Hgb O2 Saturation (95.0-98.0) % Sodium (132-148) mmol/L Glucose (75-110) mg/dl Lactate (0.7-2.1) mmol/L FiO2 % PEEP Pressure Support Potassium (3.6-5.0) mmol/L Chloride (98-107) mmol/L Carbon Dioxide (21-33) mmol/L Anion Gap (10-20) BUN (7-21) mg/dL Creatinine (0.5-1.4) mg/dL Est GFR ( Amer) Est GFR (Non-Af Amer) POC Glucose (mg/dL) 181 H (65-110) mg/dL Random Glucose (70-110) mg/dL Calcium (8.4-10.5) mg/dL Phosphorus 8.1 H (2.5-4.5) mg/dL Magnesium 2.0 (1.7-2.2) mg/dL Total Bilirubin (0.2-1.3) mg/dL GGT 242 H (8-78) U/L AST (15-59) U/L ALT (7-56) U/L Alkaline Phosphatase (38-133) U/L Total Protein (5.8-8.3) g/dL Albumin (3.0-4.8) g/dL Globulin gm/dL Albumin/Globulin Ratio (1.1-1.8) Amylase 454 H (35-125) U/L Lipase 5748 H (23-300) U/L Arterial Blood Potassium (3.6-5.2) mmol/L Cryptococcus Ab CMV Specimen Source CMV IgG Ab U/mL CMV IgM Ab AU/mL CMV DNA Quant PCR IU/mL CMV Qnt PCR log IU/mL Log IU/mL P. carinii Source P.carinii Concentration (()) Pneumocyst carinii DFA Beta-(1,3)-D-Glucan (()) pg/mL B-(1,3)-D-Glucan Intrp WB Flow Cytometry 03/12/17 03/12/17 03/12/17 Range/Units 06:40 06:40 06:40 WBC 29.6 H* D (4.5-11.0) 10^3/ul RBC 2.63 L (3.5-6.1) 10^6/uL Hgb 8.1 L (14.0-18.0) gm/dL Hct 23.5 L (42.0-52.0) % MCV 89.4 (80.0-105.0) fL MCH 30.8 (25.0-35.0) pg MCHC 34.5 (31.0-37.0) g/dl RDW 20.7 H (11.5-14.5) % Plt Count 103 L (120.0-450.0) 10^3/uL MPV 9.8 (7.0-11.0) fl Gran % 74.1 H (50.0-68.0) % Lymph % (Auto) 12.3 L (22.0-35.0) % [place] % (Auto) 11.2 H (1.0-6.0) % Eos % (Auto) 1.8 (1.5-5.0) % Baso % (Auto) 0.6 (0.0-3.0) % Gran # 21.94 H (1.4-6.5) Lymph # 3.6 H (1.2-3.4) [place] # 3.3 H (0.1-0.6) Eos # 0.5 (0.0-0.7) Baso # 0.18 (0.0-2.0) K/mm3 PT (9.9-11.8) Seconds INR (0.93-1.08) pCO2 (35-45) mm/Hg pO2 (80-100) mm/Hg HCO3 (21-28) mmol/L ABG pH (7.35-7.45) ABG Total CO2 (22-28) mmol.L ABG O2 Saturation (95-98) % ABG O2 Content (15-23) ML/dl ABG Base Excess (-2.0-3.0) mmol/L ABG Hemoglobin (11.7-17.4) g/dL ABG Carboxyhemoglobin (0.5-1.5) % POC ABG HHb (Measured) (0-5) % ABG Methemoglobin (0.0-3.0) % ABG O2 Capacity (16-24) mL/dl ABG Potassium (3.6-5.2) mmol/L Hgb O2 Saturation (95.0-98.0) % Sodium 134 (132-148) mmol/L Glucose (75-110) mg/dl Lactate (0.7-2.1) mmol/L FiO2 % PEEP Pressure Support Potassium 4.0 (3.6-5.0) mmol/L Chloride 96 L (98-107) mmol/L Carbon Dioxide 21 (21-33) mmol/L Anion Gap 21 H (10-20) BUN 58 H (7-21) mg/dL Creatinine 6.1 H (0.5-1.4) mg/dL Est GFR ( Amer) 11 Est GFR (Non-Af Amer) 9 POC Glucose (mg/dL) (65-110) mg/dL Random Glucose 159 H (70-110) mg/dL Calcium 10.8 H (8.4-10.5) mg/dL Phosphorus (2.5-4.5) mg/dL Magnesium (1.7-2.2) mg/dL Total Bilirubin 3.0 H (0.2-1.3) mg/dL GGT (8-78) U/L AST 295 H (15-59) U/L ALT 403 H (7-56) U/L Alkaline Phosphatase 129 (38-133) U/L Total Protein 7.8 (5.8-8.3) g/dL Albumin 3.3 (3.0-4.8) g/dL Globulin 4.5 gm/dL Albumin/Globulin Ratio 0.7 L (1.1-1.8) Amylase (35-125) U/L Lipase (23-300) U/L Arterial Blood Potassium (3.6-5.2) mmol/L Cryptococcus Ab CMV Specimen Source CMV IgG Ab U/mL CMV IgM Ab AU/mL CMV DNA Quant PCR IU/mL CMV Qnt PCR log IU/mL Log IU/mL P. carinii Source P.carinii Concentration (()) Pneumocyst carinii DFA Beta-(1,3)-D-Glucan (()) pg/mL B-(1,3)-D-Glucan Intrp WB Flow Cytometry Reference test 03/12/17 03/12/17 03/12/17 Range/Units 05:50 04:04 00:40 WBC (4.5-11.0) 10^3/ul RBC (3.5-6.1) 10^6/uL Hgb (14.0-18.0) gm/dL Hct (42.0-52.0) % MCV (80.0-105.0) fL MCH (25.0-35.0) pg MCHC (31.0-37.0) g/dl RDW (11.5-14.5) % Plt Count (120.0-450.0) 10^3/uL MPV (7.0-11.0) fl Gran % (50.0-68.0) % Lymph % (Auto) (22.0-35.0) % [place] % (Auto) (1.0-6.0) % Eos % (Auto) (1.5-5.0) % Baso % (Auto) (0.0-3.0) % Gran # (1.4-6.5) Lymph # (1.2-3.4) [place] # (0.1-0.6) Eos # (0.0-0.7) Baso # (0.0-2.0) K/mm3 PT (9.9-11.8) Seconds INR (0.93-1.08) pCO2 50 H (35-45) mm/Hg pO2 123.0 H (80-100) mm/Hg HCO3 23.5 (21-28) mmol/L ABG pH 7.28 L (7.35-7.45) ABG Total CO2 25.0 (22-28) mmol.L ABG O2 Saturation 99.2 H (95-98) % ABG O2 Content 11.4 L (15-23) ML/dl ABG Base Excess -3.3 L (-2.0-3.0) mmol/L ABG Hemoglobin 8.6 L (11.7-17.4) g/dL ABG Carboxyhemoglobin 3.4 H (0.5-1.5) % POC ABG HHb (Measured) 0.7 (0-5) % ABG Methemoglobin 3.8 H (0.0-3.0) % ABG O2 Capacity 11.5 L (16-24) mL/dl ABG Potassium (3.6-5.2) mmol/L Hgb O2 Saturation 92.0 L (95.0-98.0) % Sodium (132-148) mmol/L Glucose (75-110) mg/dl Lactate (0.7-2.1) mmol/L FiO2 40.0 % PEEP Pressure Support Potassium (3.6-5.0) mmol/L Chloride (98-107) mmol/L Carbon Dioxide (21-33) mmol/L Anion Gap (10-20) BUN (7-21) mg/dL Creatinine (0.5-1.4) mg/dL Est GFR ( Amer) Est GFR (Non-Af Amer) POC Glucose (mg/dL) 183 H 224 H (65-110) mg/dL Random Glucose (70-110) mg/dL Calcium (8.4-10.5) mg/dL Phosphorus (2.5-4.5) mg/dL Magnesium (1.7-2.2) mg/dL Total Bilirubin (0.2-1.3) mg/dL GGT (8-78) U/L AST (15-59) U/L ALT (7-56) U/L Alkaline Phosphatase (38-133) U/L Total Protein (5.8-8.3) g/dL Albumin (3.0-4.8) g/dL Globulin gm/dL Albumin/Globulin Ratio (1.1-1.8) Amylase (35-125) U/L Lipase (23-300) U/L Arterial Blood Potassium (3.6-5.2) mmol/L Cryptococcus Ab CMV Specimen Source CMV IgG Ab U/mL CMV IgM Ab AU/mL CMV DNA Quant PCR IU/mL CMV Qnt PCR log IU/mL Log IU/mL P. carinii Source P.carinii Concentration (()) Pneumocyst carinii DFA Beta-(1,3)-D-Glucan (()) pg/mL B-(1,3)-D-Glucan Intrp WB Flow Cytometry 03/11/17 03/11/17 03/11/17 Range/Units 20:59 19:09 15:57 WBC (4.5-11.0) 10^3/ul RBC (3.5-6.1) 10^6/uL Hgb (14.0-18.0) gm/dL Hct (42.0-52.0) % MCV (80.0-105.0) fL MCH (25.0-35.0) pg MCHC (31.0-37.0) g/dl RDW (11.5-14.5) % Plt Count (120.0-450.0) 10^3/uL MPV (7.0-11.0) fl Gran % (50.0-68.0) % Lymph % (Auto) (22.0-35.0) % [place] % (Auto) (1.0-6.0) % Eos % (Auto) (1.5-5.0) % Baso % (Auto) (0.0-3.0) % Gran # (1.4-6.5) Lymph # (1.2-3.4) [place] # (0.1-0.6) Eos # (0.0-0.7) Baso # (0.0-2.0) K/mm3 PT (9.9-11.8) Seconds INR (0.93-1.08) pCO2 (35-45) mm/Hg pO2 (80-100) mm/Hg HCO3 (21-28) mmol/L ABG pH (7.35-7.45) ABG Total CO2 (22-28) mmol.L ABG O2 Saturation (95-98) % ABG O2 Content (15-23) ML/dl ABG Base Excess (-2.0-3.0) mmol/L ABG Hemoglobin (11.7-17.4) g/dL ABG Carboxyhemoglobin (0.5-1.5) % POC ABG HHb (Measured) (0-5) % ABG Methemoglobin (0.0-3.0) % ABG O2 Capacity (16-24) mL/dl ABG Potassium (3.6-5.2) mmol/L Hgb O2 Saturation (95.0-98.0) % Sodium (132-148) mmol/L Glucose (75-110) mg/dl Lactate (0.7-2.1) mmol/L FiO2 % PEEP Pressure Support Potassium (3.6-5.0) mmol/L Chloride (98-107) mmol/L Carbon Dioxide (21-33) mmol/L Anion Gap (10-20) BUN (7-21) mg/dL Creatinine (0.5-1.4) mg/dL Est GFR ( Amer) Est GFR (Non-Af Amer) POC Glucose (mg/dL) 227 H 272 H 314 H (65-110) mg/dL Random Glucose (70-110) mg/dL Calcium (8.4-10.5) mg/dL Phosphorus (2.5-4.5) mg/dL Magnesium (1.7-2.2) mg/dL Total Bilirubin (0.2-1.3) mg/dL GGT (8-78) U/L AST (15-59) U/L ALT (7-56) U/L Alkaline Phosphatase (38-133) U/L Total Protein (5.8-8.3) g/dL Albumin (3.0-4.8) g/dL Globulin gm/dL Albumin/Globulin Ratio (1.1-1.8) Amylase (35-125) U/L Lipase (23-300) U/L Arterial Blood Potassium (3.6-5.2) mmol/L Cryptococcus Ab CMV Specimen Source CMV IgG Ab U/mL CMV IgM Ab AU/mL CMV DNA Quant PCR IU/mL CMV Qnt PCR log IU/mL Log IU/mL P. carinii Source P.carinii Concentration (()) Pneumocyst carinii DFA Beta-(1,3)-D-Glucan (()) pg/mL B-(1,3)-D-Glucan Intrp WB Flow Cytometry 03/11/17 03/11/17 03/11/17 Range/Units 10:22 06:14 03:07 WBC (4.5-11.0) 10^3/ul RBC (3.5-6.1) 10^6/uL Hgb (14.0-18.0) gm/dL Hct (42.0-52.0) % MCV (80.0-105.0) fL MCH (25.0-35.0) pg MCHC (31.0-37.0) g/dl RDW (11.5-14.5) % Plt Count (120.0-450.0) 10^3/uL MPV (7.0-11.0) fl Gran % (50.0-68.0) % Lymph % (Auto) (22.0-35.0) % [place] % (Auto) (1.0-6.0) % Eos % (Auto) (1.5-5.0) % Baso % (Auto) (0.0-3.0) % Gran # (1.4-6.5) Lymph # (1.2-3.4) [place] # (0.1-0.6) Eos # (0.0-0.7) Baso # (0.0-2.0) K/mm3 PT (9.9-11.8) Seconds INR (0.93-1.08) pCO2 (35-45) mm/Hg pO2 (80-100) mm/Hg HCO3 (21-28) mmol/L ABG pH (7.35-7.45) ABG Total CO2 (22-28) mmol.L ABG O2 Saturation (95-98) % ABG O2 Content (15-23) ML/dl ABG Base Excess (-2.0-3.0) mmol/L ABG Hemoglobin (11.7-17.4) g/dL ABG Carboxyhemoglobin (0.5-1.5) % POC ABG HHb (Measured) (0-5) % ABG Methemoglobin (0.0-3.0) % ABG O2 Capacity (16-24) mL/dl ABG Potassium (3.6-5.2) mmol/L Hgb O2 Saturation (95.0-98.0) % Sodium (132-148) mmol/L Glucose (75-110) mg/dl Lactate (0.7-2.1) mmol/L FiO2 % PEEP Pressure Support Potassium (3.6-5.0) mmol/L Chloride (98-107) mmol/L Carbon Dioxide (21-33) mmol/L Anion Gap (10-20) BUN (7-21) mg/dL Creatinine (0.5-1.4) mg/dL Est GFR ( Amer) Est GFR (Non-Af Amer) POC Glucose (mg/dL) 280 H 333 H 325 H (65-110) mg/dL Random Glucose (70-110) mg/dL Calcium (8.4-10.5) mg/dL Phosphorus (2.5-4.5) mg/dL Magnesium (1.7-2.2) mg/dL Total Bilirubin (0.2-1.3) mg/dL GGT (8-78) U/L AST (15-59) U/L ALT (7-56) U/L Alkaline Phosphatase (38-133) U/L Total Protein (5.8-8.3) g/dL Albumin (3.0-4.8) g/dL Globulin gm/dL Albumin/Globulin Ratio (1.1-1.8) Amylase (35-125) U/L Lipase (23-300) U/L Arterial Blood Potassium (3.6-5.2) mmol/L Cryptococcus Ab CMV Specimen Source CMV IgG Ab U/mL CMV IgM Ab AU/mL CMV DNA Quant PCR IU/mL CMV Qnt PCR log IU/mL Log IU/mL P. carinii Source P.carinii Concentration (()) Pneumocyst carinii DFA Beta-(1,3)-D-Glucan (()) pg/mL B-(1,3)-D-Glucan Intrp WB Flow Cytometry 03/10/17 03/10/17 03/10/17 Range/Units 22:37 16:38 15:30 WBC (4.5-11.0) 10^3/ul RBC (3.5-6.1) 10^6/uL Hgb (14.0-18.0) gm/dL Hct (42.0-52.0) % MCV (80.0-105.0) fL MCH (25.0-35.0) pg MCHC (31.0-37.0) g/dl RDW (11.5-14.5) % Plt Count (120.0-450.0) 10^3/uL MPV (7.0-11.0) fl Gran % (50.0-68.0) % Lymph % (Auto) (22.0-35.0) % [place] % (Auto) (1.0-6.0) % Eos % (Auto) (1.5-5.0) % Baso % (Auto) (0.0-3.0) % Gran # (1.4-6.5) Lymph # (1.2-3.4) [place] # (0.1-0.6) Eos # (0.0-0.7) Baso # (0.0-2.0) K/mm3 PT (9.9-11.8) Seconds INR (0.93-1.08) pCO2 (35-45) mm/Hg pO2 (80-100) mm/Hg HCO3 (21-28) mmol/L ABG pH (7.35-7.45) ABG Total CO2 (22-28) mmol.L ABG O2 Saturation (95-98) % ABG O2 Content (15-23) ML/dl ABG Base Excess (-2.0-3.0) mmol/L ABG Hemoglobin (11.7-17.4) g/dL ABG Carboxyhemoglobin (0.5-1.5) % POC ABG HHb (Measured) (0-5) % ABG Methemoglobin (0.0-3.0) % ABG O2 Capacity (16-24) mL/dl ABG Potassium (3.6-5.2) mmol/L Hgb O2 Saturation (95.0-98.0) % Sodium (132-148) mmol/L Glucose (75-110) mg/dl Lactate (0.7-2.1) mmol/L FiO2 % PEEP Pressure Support Potassium (3.6-5.0) mmol/L Chloride (98-107) mmol/L Carbon Dioxide (21-33) mmol/L Anion Gap (10-20) BUN (7-21) mg/dL Creatinine (0.5-1.4) mg/dL Est GFR ( Amer) Est GFR (Non-Af Amer) POC Glucose (mg/dL) 323 H 255 H (65-110) mg/dL Random Glucose (70-110) mg/dL Calcium (8.4-10.5) mg/dL Phosphorus (2.5-4.5) mg/dL Magnesium (1.7-2.2) mg/dL Total Bilirubin (0.2-1.3) mg/dL GGT (8-78) U/L AST (15-59) U/L ALT (7-56) U/L Alkaline Phosphatase (38-133) U/L Total Protein (5.8-8.3) g/dL Albumin (3.0-4.8) g/dL Globulin gm/dL Albumin/Globulin Ratio (1.1-1.8) Amylase (35-125) U/L Lipase (23-300) U/L Arterial Blood Potassium (3.6-5.2) mmol/L Cryptococcus Ab CMV Specimen Source CMV IgG Ab U/mL CMV IgM Ab AU/mL CMV DNA Quant PCR IU/mL CMV Qnt PCR log IU/mL Log IU/mL P. carinii Source Sputum P.carinii Concentration (()) Pneumocyst carinii DFA See note Beta-(1,3)-D-Glucan (()) pg/mL B-(1,3)-D-Glucan Intrp WB Flow Cytometry 03/10/17 03/10/17 03/09/17 Range/Units 11:16 02:40 16:12 WBC (4.5-11.0) 10^3/ul RBC (3.5-6.1) 10^6/uL Hgb (14.0-18.0) gm/dL Hct (42.0-52.0) % MCV (80.0-105.0) fL MCH (25.0-35.0) pg MCHC (31.0-37.0) g/dl RDW (11.5-14.5) % Plt Count (120.0-450.0) 10^3/uL MPV (7.0-11.0) fl Gran % (50.0-68.0) % Lymph % (Auto) (22.0-35.0) % [place] % (Auto) (1.0-6.0) % Eos % (Auto) (1.5-5.0) % Baso % (Auto) (0.0-3.0) % Gran # (1.4-6.5) Lymph # (1.2-3.4) [place] # (0.1-0.6) Eos # (0.0-0.7) Baso # (0.0-2.0) K/mm3 PT (9.9-11.8) Seconds INR (0.93-1.08) pCO2 (35-45) mm/Hg pO2 (80-100) mm/Hg HCO3 (21-28) mmol/L ABG pH (7.35-7.45) ABG Total CO2 (22-28) mmol.L ABG O2 Saturation (95-98) % ABG O2 Content (15-23) ML/dl ABG Base Excess (-2.0-3.0) mmol/L ABG Hemoglobin (11.7-17.4) g/dL ABG Carboxyhemoglobin (0.5-1.5) % POC ABG HHb (Measured) (0-5) % ABG Methemoglobin (0.0-3.0) % ABG O2 Capacity (16-24) mL/dl ABG Potassium (3.6-5.2) mmol/L Hgb O2 Saturation (95.0-98.0) % Sodium (132-148) mmol/L Glucose (75-110) mg/dl Lactate (0.7-2.1) mmol/L FiO2 % PEEP Pressure Support Potassium (3.6-5.0) mmol/L Chloride (98-107) mmol/L Carbon Dioxide (21-33) mmol/L Anion Gap (10-20) BUN (7-21) mg/dL Creatinine (0.5-1.4) mg/dL Est GFR ( Amer) Est GFR (Non-Af Amer) POC Glucose (mg/dL) 309 H 305 H (65-110) mg/dL Random Glucose (70-110) mg/dL Calcium (8.4-10.5) mg/dL Phosphorus (2.5-4.5) mg/dL Magnesium (1.7-2.2) mg/dL Total Bilirubin (0.2-1.3) mg/dL GGT (8-78) U/L AST (15-59) U/L ALT (7-56) U/L Alkaline Phosphatase (38-133) U/L Total Protein (5.8-8.3) g/dL Albumin (3.0-4.8) g/dL Globulin gm/dL Albumin/Globulin Ratio (1.1-1.8) Amylase (35-125) U/L Lipase (23-300) U/L Arterial Blood Potassium (3.6-5.2) mmol/L Cryptococcus Ab CMV Specimen Source CMV IgG Ab U/mL CMV IgM Ab AU/mL CMV DNA Quant PCR IU/mL CMV Qnt PCR log IU/mL Log IU/mL P. carinii Source P.carinii Concentration (()) Pneumocyst carinii DFA Beta-(1,3)-D-Glucan (()) pg/mL B-(1,3)-D-Glucan Intrp See note WB Flow Cytometry 03/09/17 03/09/17 03/09/17 Range/Units 16:12 16:12 14:10 WBC (4.5-11.0) 10^3/ul RBC (3.5-6.1) 10^6/uL Hgb (14.0-18.0) gm/dL Hct (42.0-52.0) % MCV (80.0-105.0) fL MCH (25.0-35.0) pg MCHC (31.0-37.0) g/dl RDW (11.5-14.5) % Plt Count (120.0-450.0) 10^3/uL MPV (7.0-11.0) fl Gran % (50.0-68.0) % Lymph % (Auto) (22.0-35.0) % [place] % (Auto) (1.0-6.0) % Eos % (Auto) (1.5-5.0) % Baso % (Auto) (0.0-3.0) % Gran # (1.4-6.5) Lymph # (1.2-3.4) [place] # (0.1-0.6) Eos # (0.0-0.7) Baso # (0.0-2.0) K/mm3 PT (9.9-11.8) Seconds INR (0.93-1.08) pCO2 (35-45) mm/Hg pO2 (80-100) mm/Hg HCO3 (21-28) mmol/L ABG pH (7.35-7.45) ABG Total CO2 (22-28) mmol.L ABG O2 Saturation (95-98) % ABG O2 Content (15-23) ML/dl ABG Base Excess (-2.0-3.0) mmol/L ABG Hemoglobin (11.7-17.4) g/dL ABG Carboxyhemoglobin (0.5-1.5) % POC ABG HHb (Measured) (0-5) % ABG Methemoglobin (0.0-3.0) % ABG O2 Capacity (16-24) mL/dl ABG Potassium (3.6-5.2) mmol/L Hgb O2 Saturation (95.0-98.0) % Sodium (132-148) mmol/L Glucose (75-110) mg/dl Lactate (0.7-2.1) mmol/L FiO2 % PEEP Pressure Support Potassium (3.6-5.0) mmol/L Chloride (98-107) mmol/L Carbon Dioxide (21-33) mmol/L Anion Gap (10-20) BUN (7-21) mg/dL Creatinine (0.5-1.4) mg/dL Est GFR ( Amer) Est GFR (Non-Af Amer) POC Glucose (mg/dL) 276 H (65-110) mg/dL Random Glucose (70-110) mg/dL Calcium (8.4-10.5) mg/dL Phosphorus (2.5-4.5) mg/dL Magnesium (1.7-2.2) mg/dL Total Bilirubin (0.2-1.3) mg/dL GGT (8-78) U/L AST (15-59) U/L ALT (7-56) U/L Alkaline Phosphatase (38-133) U/L Total Protein (5.8-8.3) g/dL Albumin (3.0-4.8) g/dL Globulin gm/dL Albumin/Globulin Ratio (1.1-1.8) Amylase (35-125) U/L Lipase (23-300) U/L Arterial Blood Potassium (3.6-5.2) mmol/L Cryptococcus Ab CMV Specimen Source CMV IgG Ab >10.00 H U/mL CMV IgM Ab <30.00 AU/mL CMV DNA Quant PCR IU/mL CMV Qnt PCR log IU/mL Log IU/mL P. carinii Source P.carinii Concentration (()) Pneumocyst carinii DFA Beta-(1,3)-D-Glucan (()) pg/mL B-(1,3)-D-Glucan Intrp See note WB Flow Cytometry 03/09/17 03/09/17 03/09/17 Range/Units 10:45 10:45 10:00 WBC (4.5-11.0) 10^3/ul RBC (3.5-6.1) 10^6/uL Hgb (14.0-18.0) gm/dL Hct (42.0-52.0) % MCV (80.0-105.0) fL MCH (25.0-35.0) pg MCHC (31.0-37.0) g/dl RDW (11.5-14.5) % Plt Count (120.0-450.0) 10^3/uL MPV (7.0-11.0) fl Gran % (50.0-68.0) % Lymph % (Auto) (22.0-35.0) % [place] % (Auto) (1.0-6.0) % Eos % (Auto) (1.5-5.0) % Baso % (Auto) (0.0-3.0) % Gran # (1.4-6.5) Lymph # (1.2-3.4) [place] # (0.1-0.6) Eos # (0.0-0.7) Baso # (0.0-2.0) K/mm3 PT (9.9-11.8) Seconds INR (0.93-1.08) pCO2 (35-45) mm/Hg pO2 (80-100) mm/Hg HCO3 (21-28) mmol/L ABG pH (7.35-7.45) ABG Total CO2 (22-28) mmol.L ABG O2 Saturation (95-98) % ABG O2 Content (15-23) ML/dl ABG Base Excess (-2.0-3.0) mmol/L ABG Hemoglobin (11.7-17.4) g/dL ABG Carboxyhemoglobin (0.5-1.5) % POC ABG HHb (Measured) (0-5) % ABG Methemoglobin (0.0-3.0) % ABG O2 Capacity (16-24) mL/dl ABG Potassium 4.6 (3.6-5.2) mmol/L Hgb O2 Saturation (95.0-98.0) % Sodium 131.0 L (132-148) mmol/L Glucose 258 H (75-110) mg/dl Lactate 0.9 (0.7-2.1) mmol/L FiO2 80 % PEEP 10 Pressure Support 12 Potassium (3.6-5.0) mmol/L Chloride (98-107) mmol/L Carbon Dioxide (21-33) mmol/L Anion Gap (10-20) BUN (7-21) mg/dL Creatinine (0.5-1.4) mg/dL Est GFR ( Amer) Est GFR (Non-Af Amer) POC Glucose (mg/dL) (65-110) mg/dL Random Glucose (70-110) mg/dL Calcium (8.4-10.5) mg/dL Phosphorus (2.5-4.5) mg/dL Magnesium (1.7-2.2) mg/dL Total Bilirubin (0.2-1.3) mg/dL GGT (8-78) U/L AST (15-59) U/L ALT (7-56) U/L Alkaline Phosphatase (38-133) U/L Total Protein (5.8-8.3) g/dL Albumin (3.0-4.8) g/dL Globulin gm/dL Albumin/Globulin Ratio (1.1-1.8) Amylase (35-125) U/L Lipase (23-300) U/L Arterial Blood Potassium 4.6 (3.6-5.2) mmol/L Cryptococcus Ab <1:2 CMV Specimen Source Plasma CMV IgG Ab >10.00 H U/mL CMV IgM Ab <30.00 AU/mL CMV DNA Quant PCR <200 IU/mL CMV Qnt PCR log IU/mL <2.30 Log IU/mL P. carinii Source P.carinii Concentration (()) Pneumocyst carinii DFA Beta-(1,3)-D-Glucan (()) pg/mL B-(1,3)-D-Glucan Intrp WB Flow Cytometry Laboratory Results - last 24 hr 03/09/17 03/09/17 03/09/17 10:00 10:45 10:45 WBC RBC Hgb Hct MCV MCH MCHC RDW Plt Count MPV Gran % Lymph % (Auto) [place] % (Auto) Eos % (Auto) Baso % (Auto) Gran # Lymph # [place] # Eos # Baso # PT INR pCO2 pO2 HCO3 ABG pH ABG Total CO2 ABG O2 Saturation ABG O2 Content ABG Base Excess ABG Hemoglobin ABG Carboxyhemoglobin POC ABG HHb (Measured) ABG Methemoglobin ABG O2 Capacity ABG Potassium 4.6 Hgb O2 Saturation Sodium 131.0 L Glucose 258 H Lactate 0.9 FiO2 80 PEEP 10 Pressure Support 12 Potassium Chloride Carbon Dioxide Anion Gap BUN Creatinine Est GFR ( Amer) Est GFR (Non-Af Amer) POC Glucose (mg/dL) Random Glucose Calcium Phosphorus Magnesium Total Bilirubin GGT AST ALT Alkaline Phosphatase Total Protein Albumin Globulin Albumin/Globulin Ratio Amylase Lipase Arterial Blood Potassium 4.6 Cryptococcus Ab <1:2 CMV Specimen Source Plasma CMV IgG Ab >10.00 H CMV IgM Ab <30.00 CMV DNA Quant PCR <200 CMV Qnt PCR log IU/mL <2.30 P. carinii Source P.carinii Concentration Pneumocyst carinii DFA Beta-(1,3)-D-Glucan B-(1,3)-D-Glucan Intrp WB Flow Cytometry 03/09/17 03/09/17 03/09/17 14:10 16:12 16:12 WBC RBC Hgb Hct MCV MCH MCHC RDW Plt Count MPV Gran % Lymph % (Auto) [place] % (Auto) Eos % (Auto) Baso % (Auto) Gran # Lymph # [place] # Eos # Baso # PT INR pCO2 pO2 HCO3 ABG pH ABG Total CO2 ABG O2 Saturation ABG O2 Content ABG Base Excess ABG Hemoglobin ABG Carboxyhemoglobin POC ABG HHb (Measured) ABG Methemoglobin ABG O2 Capacity ABG Potassium Hgb O2 Saturation Sodium Glucose Lactate FiO2 PEEP Pressure Support Potassium Chloride Carbon Dioxide Anion Gap BUN Creatinine Est GFR ( Amer) Est GFR (Non-Af Amer) POC Glucose (mg/dL) 276 H Random Glucose Calcium Phosphorus Magnesium Total Bilirubin GGT AST ALT Alkaline Phosphatase Total Protein Albumin Globulin Albumin/Globulin Ratio Amylase Lipase Arterial Blood Potassium Cryptococcus Ab CMV Specimen Source CMV IgG Ab >10.00 H CMV IgM Ab <30.00 CMV DNA Quant PCR CMV Qnt PCR log IU/mL P. carinii Source P.carinii Concentration Pneumocyst carinii DFA Beta-(1,3)-D-Glucan B-(1,3)-D-Glucan Intrp See note WB Flow Cytometry 03/09/17 03/10/17 03/10/17 16:12 02:40 11:16 WBC RBC Hgb Hct MCV MCH MCHC RDW Plt Count MPV Gran % Lymph % (Auto) [place] % (Auto) Eos % (Auto) Baso % (Auto) Gran # Lymph # [place] # Eos # Baso # PT INR pCO2 pO2 HCO3 ABG pH ABG Total CO2 ABG O2 Saturation ABG O2 Content ABG Base Excess ABG Hemoglobin ABG Carboxyhemoglobin POC ABG HHb (Measured) ABG Methemoglobin ABG O2 Capacity ABG Potassium Hgb O2 Saturation Sodium Glucose Lactate FiO2 PEEP Pressure Support Potassium Chloride Carbon Dioxide Anion Gap BUN Creatinine Est GFR ( Amer) Est GFR (Non-Af Amer) POC Glucose (mg/dL) 305 H 309 H Random Glucose Calcium Phosphorus Magnesium Total Bilirubin GGT AST ALT Alkaline Phosphatase Total Protein Albumin Globulin Albumin/Globulin Ratio Amylase Lipase Arterial Blood Potassium Cryptococcus Ab CMV Specimen Source CMV IgG Ab CMV IgM Ab CMV DNA Quant PCR CMV Qnt PCR log IU/mL P. carinii Source P.carinii Concentration Pneumocyst carinii DFA Beta-(1,3)-D-Glucan B-(1,3)-D-Glucan Intrp See note WB Flow Cytometry 03/10/17 03/10/17 03/10/17 15:30 16:38 22:37 WBC RBC Hgb Hct MCV MCH MCHC RDW Plt Count MPV Gran % Lymph % (Auto) [place] % (Auto) Eos % (Auto) Baso % (Auto) Gran # Lymph # [place] # Eos # Baso # PT INR pCO2 pO2 HCO3 ABG pH ABG Total CO2 ABG O2 Saturation ABG O2 Content ABG Base Excess ABG Hemoglobin ABG Carboxyhemoglobin POC ABG HHb (Measured) ABG Methemoglobin ABG O2 Capacity ABG Potassium Hgb O2 Saturation Sodium Glucose Lactate FiO2 PEEP Pressure Support Potassium Chloride Carbon Dioxide Anion Gap BUN Creatinine Est GFR ( Amer) Est GFR (Non-Af Amer) POC Glucose (mg/dL) 255 H 323 H Random Glucose Calcium Phosphorus Magnesium Total Bilirubin GGT AST ALT Alkaline Phosphatase Total Protein Albumin Globulin Albumin/Globulin Ratio Amylase Lipase Arterial Blood Potassium Cryptococcus Ab CMV Specimen Source CMV IgG Ab CMV IgM Ab CMV DNA Quant PCR CMV Qnt PCR log IU/mL P. carinii Source Sputum P.carinii Concentration Pneumocyst carinii DFA See note Beta-(1,3)-D-Glucan B-(1,3)-D-Glucan Intrp WB Flow Cytometry 03/11/17 03/11/17 03/11/17 03:07 06:14 10:22 WBC RBC Hgb Hct MCV MCH MCHC RDW Plt Count MPV Gran % Lymph % (Auto) [place] % (Auto) Eos % (Auto) Baso % (Auto) Gran # Lymph # [place] # Eos # Baso # PT INR pCO2 pO2 HCO3 ABG pH ABG Total CO2 ABG O2 Saturation ABG O2 Content ABG Base Excess ABG Hemoglobin ABG Carboxyhemoglobin POC ABG HHb (Measured) ABG Methemoglobin ABG O2 Capacity ABG Potassium Hgb O2 Saturation Sodium Glucose Lactate FiO2 PEEP Pressure Support Potassium Chloride Carbon Dioxide Anion Gap BUN Creatinine Est GFR ( Amer) Est GFR (Non-Af Amer) POC Glucose (mg/dL) 325 H 333 H 280 H Random Glucose Calcium Phosphorus Magnesium Total Bilirubin GGT AST ALT Alkaline Phosphatase Total Protein Albumin Globulin Albumin/Globulin Ratio Amylase Lipase Arterial Blood Potassium Cryptococcus Ab CMV Specimen Source CMV IgG Ab CMV IgM Ab CMV DNA Quant PCR CMV Qnt PCR log IU/mL P. carinii Source P.carinii Concentration Pneumocyst carinii DFA Beta-(1,3)-D-Glucan B-(1,3)-D-Glucan Intrp WB Flow Cytometry 03/11/17 03/11/17 03/11/17 15:57 19:09 20:59 WBC RBC Hgb Hct MCV MCH MCHC RDW Plt Count MPV Gran % Lymph % (Auto) [place] % (Auto) Eos % (Auto) Baso % (Auto) Gran # Lymph # [place] # Eos # Baso # PT INR pCO2 pO2 HCO3 ABG pH ABG Total CO2 ABG O2 Saturation ABG O2 Content ABG Base Excess ABG Hemoglobin ABG Carboxyhemoglobin POC ABG HHb (Measured) ABG Methemoglobin ABG O2 Capacity ABG Potassium Hgb O2 Saturation Sodium Glucose Lactate FiO2 PEEP Pressure Support Potassium Chloride Carbon Dioxide Anion Gap BUN Creatinine Est GFR ( Amer) Est GFR (Non-Af Amer) POC Glucose (mg/dL) 314 H 272 H 227 H Random Glucose Calcium Phosphorus Magnesium Total Bilirubin GGT AST ALT Alkaline Phosphatase Total Protein Albumin Globulin Albumin/Globulin Ratio Amylase Lipase Arterial Blood Potassium Cryptococcus Ab CMV Specimen Source CMV IgG Ab CMV IgM Ab CMV DNA Quant PCR CMV Qnt PCR log IU/mL P. carinii Source P.carinii Concentration Pneumocyst carinii DFA Beta-(1,3)-D-Glucan B-(1,3)-D-Glucan Intrp WB Flow Cytometry 03/12/17 03/12/17 03/12/17 00:40 04:04 05:50 WBC RBC Hgb Hct MCV MCH MCHC RDW Plt Count MPV Gran % Lymph % (Auto) [place] % (Auto) Eos % (Auto) Baso % (Auto) Gran # Lymph # [place] # Eos # Baso # PT INR pCO2 50 H pO2 123.0 H HCO3 23.5 ABG pH 7.28 L ABG Total CO2 25.0 ABG O2 Saturation 99.2 H ABG O2 Content 11.4 L ABG Base Excess -3.3 L ABG Hemoglobin 8.6 L ABG Carboxyhemoglobin 3.4 H POC ABG HHb (Measured) 0.7 ABG Methemoglobin 3.8 H ABG O2 Capacity 11.5 L ABG Potassium Hgb O2 Saturation 92.0 L Sodium Glucose Lactate FiO2 40.0 PEEP Pressure Support Potassium Chloride Carbon Dioxide Anion Gap BUN Creatinine Est GFR ( Amer) Est GFR (Non-Af Amer) POC Glucose (mg/dL) 224 H 183 H Random Glucose Calcium Phosphorus Magnesium Total Bilirubin GGT AST ALT Alkaline Phosphatase Total Protein Albumin Globulin Albumin/Globulin Ratio Amylase Lipase Arterial Blood Potassium Cryptococcus Ab CMV Specimen Source CMV IgG Ab CMV IgM Ab CMV DNA Quant PCR CMV Qnt PCR log IU/mL P. carinii Source P.carinii Concentration Pneumocyst carinii DFA Beta-(1,3)-D-Glucan B-(1,3)-D-Glucan Intrp WB Flow Cytometry 03/12/17 03/12/17 03/12/17 06:40 06:40 06:40 WBC 29.6 H* D RBC 2.63 L Hgb 8.1 L Hct 23.5 L MCV 89.4 MCH 30.8 MCHC 34.5 RDW 20.7 H Plt Count 103 L MPV 9.8 Gran % 74.1 H Lymph % (Auto) 12.3 L [place] % (Auto) 11.2 H Eos % (Auto) 1.8 Baso % (Auto) 0.6 Gran # 21.94 H Lymph # 3.6 H [place] # 3.3 H Eos # 0.5 Baso # 0.18 PT INR pCO2 pO2 HCO3 ABG pH ABG Total CO2 ABG O2 Saturation ABG O2 Content ABG Base Excess ABG Hemoglobin ABG Carboxyhemoglobin POC ABG HHb (Measured) ABG Methemoglobin ABG O2 Capacity ABG Potassium Hgb O2 Saturation Sodium 134 Glucose Lactate FiO2 PEEP Pressure Support Potassium 4.0 Chloride 96 L Carbon Dioxide 21 Anion Gap 21 H BUN 58 H Creatinine 6.1 H Est GFR ( Amer) 11 Est GFR (Non-Af Amer) 9 POC Glucose (mg/dL) Random Glucose 159 H Calcium 10.8 H Phosphorus Magnesium Total Bilirubin 3.0 H GGT AST 295 H ALT 403 H Alkaline Phosphatase 129 Total Protein 7.8 Albumin 3.3 Globulin 4.5 Albumin/Globulin Ratio 0.7 L Amylase Lipase Arterial Blood Potassium Cryptococcus Ab CMV Specimen Source CMV IgG Ab CMV IgM Ab CMV DNA Quant PCR CMV Qnt PCR log IU/mL P. carinii Source P.carinii Concentration Pneumocyst carinii DFA Beta-(1,3)-D-Glucan B-(1,3)-D-Glucan Intrp WB Flow Cytometry Reference test 03/12/17 03/12/17 03/12/17 06:40 10:00 11:11 WBC RBC Hgb Hct MCV MCH MCHC RDW Plt Count MPV Gran % Lymph % (Auto) [place] % (Auto) Eos % (Auto) Baso % (Auto) Gran # Lymph # [place] # Eos # Baso # PT 12.6 H INR 1.17 H pCO2 pO2 HCO3 ABG pH ABG Total CO2 ABG O2 Saturation ABG O2 Content ABG Base Excess ABG Hemoglobin ABG Carboxyhemoglobin POC ABG HHb (Measured) ABG Methemoglobin ABG O2 Capacity ABG Potassium Hgb O2 Saturation Sodium Glucose Lactate FiO2 PEEP Pressure Support Potassium Chloride Carbon Dioxide Anion Gap BUN Creatinine Est GFR ( Amer) Est GFR (Non-Af Amer) POC Glucose (mg/dL) 181 H Random Glucose Calcium Phosphorus 8.1 H Magnesium 2.0 Total Bilirubin GGT 242 H AST ALT Alkaline Phosphatase Total Protein Albumin Globulin Albumin/Globulin Ratio Amylase 454 H Lipase 5748 H Arterial Blood Potassium Cryptococcus Ab CMV Specimen Source CMV IgG Ab CMV IgM Ab CMV DNA Quant PCR CMV Qnt PCR log IU/mL P. carinii Source P.carinii Concentration Pneumocyst carinii DFA Beta-(1,3)-D-Glucan B-(1,3)-D-Glucan Intrp WB Flow Cytometry Fingerstick Blood Sugar Results: 181 Results Reviewed to Date: Yes Review of Systems - Review of Systems Systems not reviewed;Unavailable: Intubated Critical Care Progress Note - Ventilator Checklist Head of Bed 30 Degrees: Yes Daily Sedation Vacation: Yes Daily Assessment of Readiness to Wean: Yes Daily Spontaneous Breathing Trial: Yes PUD Prophalyxis: Yes DVT Prophylaxis: Yes Oral Care with Chlorhexidine Gluconate {CHG}: Yes - Vent Settings MODE:: PRVC TIDAL VOLUME:: 400 RESP RATE:: 28 FIO2:: 40 PEEP:: 10 - Extremities/Vascular Does the Patient have a Central Venous Catheter?: No - Prophylaxis GI Prophylaxis GI: PPI - Prophylaxis DVT Prophylaxis DVT: Heparin SQ - Nutrition Nutrition: Nutrition Category Date Time Status NPO Diet [DIET] Diets 03/07/17 Breakfast Ordered Assessment/Plan - Assessment and Plan (Free Text) Assessment: 61 year old male with a PMH of HTN, IDDM,, ESRD on dialysis, and HLD who presented for nausea and vomiting, progressed into respiratory failure needing intubation, found to have hepatic failure of unknown etiology, then found to have MRSA pneumonia. Plan: Neurological Off sedation neurologically improved, follows commands, grossly nonfocal Frequent sedation vacations, on fentanyl and precedex gtts Cardiovascular Hemodynamically stable, maintain normotension, has PRN hydralazine in place but has not needed it Cardio following and recs appreciated Pulmonary Intubated on PRVC 350/28/10/40%, maintain O2sat >90%, continue CPAP trials to assess for possible extubation MRSA pnemonia on linezolid day 4, leukocytosis improving, less secretions appreciated and exam improving, will increase to q4h NARA to promote expectoration Renal/ Fluids / Electrolytes ESRD on HD scheduled for today Nephro following, recs appreciated Suspicion of myalgias, will get CPK level Repleting electrolytes as needed GI NPO, intubated GI following, recs appreciated Acute hepatic failure improving with AST/ALT downtrend as well as INR and bilirubin levels Found to have pancreatitis with elevated lipase, surgery following, known cholelithiasis but unremarkable GB on recent CT, will repeat GB US at later time Still has some diarrhea but on lactulose for hyperammonemia, on vancomycin PO D5 GI ppx Infectious disease ID following, recs apprecaited On xifaxan D7 and meropenem D7 broad spectrum, blood cultures have been negative Sputum Cx showed MRSA, on linezolid Afebrile Leukocytosis continues to downtrend Hematology/Oncology Hgb stable, chronic anemia with known kidney disease, s/p total of 3U PRBCs Endocrine Maintain euglycemia, on levemir and RISS with accuchecks Prophylaxis PPI/SCDs Patient was seen and examined and case was discussed at length with attending physician. - Date & Time Date: 03/12/17 Time: 10:30 <Deb HINES,Po H - Last Filed: 03/12/17 16:06> CCU Objective - Vital Signs / Intake & Output Intake and Output (Last 8hrs): Intake & Output 03/12/17 03/12/17 03/12/17 06:59 14:59 22:59 Intake Total 1064 Output Total 500 1999 Balance 564 -1999 Weight 267 lb Intake: IV 1064 RH 600 rfa 264 Oral 0 Output: Urine 0 Straight 0 Stool 500 Other 1999 - Medications Active Medications: Active Medications Generic Name Dose Route Start Last Admin Trade Name Freq PRN Reason Stop Dose Admin Albuterol/Ipratropium 3 ml 03/06/17 00:33 Duoneb 3 Mg/0.5 Mg (3 Ml) Ud IH Q2H PRN Shortness of Breath Albuterol/Ipratropium 3 ml 03/12/17 19:30 Duoneb 3 Mg/0.5 Mg (3 Ml) Ud IH [id number] NARA Heparin Sodium (Porcine) 5,000 units 03/06/17 10:00 03/12/17 09:52 Heparin SC 5,000 units Q12 NARA Administration Protocol Hydralazine HCl 10 mg 03/06/17 02:36 03/07/17 02:05 Apresoline IVP 10 mg Q6 PRN Administration SBP >180 Meropenem 500 mg/ Sodium 100 mls @ 100 mls/hr 03/06/17 06:22 03/12/17 10:24 Chloride IVPB 03/13/17 06:23 100 mls/hr Q12 NARA Administration Metronidazole 500 mg in 100 mls @ 100 mls/hr 03/09/17 14:00 03/12/17 05:17 Flagyl IVPB 100 mls/hr Q8 NARA Administration Protocol Linezolid 600 mg in 300 mls @ 200 mls/hr 03/09/17 22:00 03/12/17 09:49 Zyvox 600mg/300ml D5w IVPB 03/16/17 22:01 200 mls/hr Q12 NARA Administration Protocol Fentanyl Citrate 1,000 mcg in 100 mls @ 10 mls/hr 03/12/17 09:14 03/12/17 09: 36 Fentanyl Citrate/Sodium Chloride 1 Mg/100 Ml IV 100 mcg/hr .Q10H PRN 10 mls/hr TITRATE PER MD ORDER Administration Protocol 100 MCG/HR Dexmedetomidine HCl 400 mcg in 100 mls @ 12.111 mls/hr 03/12/17 09:15 09:48 Precedex 4 Mcg/Ml (100 Ml) IV 0.4 mcg/kg/hr .Q8H16M PRN 12.111 mls/hr Agitation Administration Protocol 0.4 MCG/KG/HR Insulin Detemir 20 unit 03/08/17 12:10 03/11/17 10:37 Levemir SC 20 unit DAILY NARA Administration Insulin Human Regular 0 units 03/12/17 01:12 03/12/17 04:25 Humulin R Med SC Not Given Q4 NARA Lactulose 20 gm 03/06/17 10:30 03/12/17 02:18 Enulose PO 20 gm Q8H NARA Administration Ondansetron HCl 4 mg 03/05/17 22:41 Zofran Inj IVP Q6H PRN Nausea/Vomiting Pantoprazole Sodium 40 mg 03/06/17 10:00 03/12/17 10:21 Protonix Inj IVP 40 mg DAILY NARA Administration Rifaximin 550 mg 03/06/17 10:30 03/12/17 09:50 Xifaxan PO Not Given BID [facility] Protocol Vancomycin HCl 500 mg 03/09/17 14:00 03/12/17 09:14 Vancocin 25 Mg/Ml (Oral Use) PO 500 mg QID NARA Administration Protocol - Patient Studies Lab Studies: Microbiology Studies 03/09/17 16:14 Gram Stain - Final Sputum Sputum Culture - Final Methicillin Resistant S Aureus Lab Studies 03/12/17 03/12/17 03/12/17 Range/Units 11:11 10:00 06:40 WBC (4.5-11.0) 10^3/ul RBC (3.5-6.1) 10^6/uL Hgb (14.0-18.0) gm/dL Hct (42.0-52.0) % MCV (80.0-105.0) fL MCH (25.0-35.0) pg MCHC (31.0-37.0) g/dl RDW (11.5-14.5) % Plt Count (120.0-450.0) 10^3/uL MPV (7.0-11.0) fl Gran % (50.0-68.0) % Lymph % (Auto) (22.0-35.0) % [place] % (Auto) (1.0-6.0) % Eos % (Auto) (1.5-5.0) % Baso % (Auto) (0.0-3.0) % Gran # (1.4-6.5) Lymph # (1.2-3.4) [place] # (0.1-0.6) Eos # (0.0-0.7) Baso # (0.0-2.0) K/mm3 PT 12.6 H (9.9-11.8) Seconds INR 1.17 H (0.93-1.08) pCO2 (35-45) mm/Hg pO2 (80-100) mm/Hg HCO3 (21-28) mmol/L ABG pH (7.35-7.45) ABG Total CO2 (22-28) mmol.L ABG O2 Saturation (95-98) % ABG O2 Content (15-23) ML/dl ABG Base Excess (-2.0-3.0) mmol/L ABG Hemoglobin (11.7-17.4) g/dL ABG Carboxyhemoglobin (0.5-1.5) % POC ABG HHb (Measured) (0-5) % ABG Methemoglobin (0.0-3.0) % ABG O2 Capacity (16-24) mL/dl ABG Potassium (3.6-5.2) mmol/L Hgb O2 Saturation (95.0-98.0) % Sodium (132-148) mmol/L Glucose (75-110) mg/dl Lactate (0.7-2.1) mmol/L FiO2 % PEEP Pressure Support Potassium (3.6-5.0) mmol/L Chloride (98-107) mmol/L Carbon Dioxide (21-33) mmol/L Anion Gap (10-20) BUN (7-21) mg/dL Creatinine (0.5-1.4) mg/dL Est GFR ( Amer) Est GFR (Non-Af Amer) POC Glucose (mg/dL) 181 H (65-110) mg/dL Random Glucose (70-110) mg/dL Calcium (8.4-10.5) mg/dL Phosphorus 8.1 H (2.5-4.5) mg/dL Magnesium 2.0 (1.7-2.2) mg/dL Total Bilirubin (0.2-1.3) mg/dL GGT 242 H (8-78) U/L AST (15-59) U/L ALT (7-56) U/L Alkaline Phosphatase (38-133) U/L Total Protein (5.8-8.3) g/dL Albumin (3.0-4.8) g/dL Globulin gm/dL Albumin/Globulin Ratio (1.1-1.8) Amylase 454 H (35-125) U/L Lipase 5748 H (23-300) U/L Arterial Blood Potassium (3.6-5.2) mmol/L Cryptococcus Ab CMV Specimen Source CMV IgG Ab U/mL CMV IgM Ab AU/mL CMV DNA Quant PCR IU/mL CMV Qnt PCR log IU/mL Log IU/mL P. carinii Source P.carinii Concentration (()) Pneumocyst carinii DFA Ur Strep pneumoniae Ag Beta-(1,3)-D-Glucan (()) pg/mL B-(1,3)-D-Glucan Intrp WB Flow Cytometry 03/12/17 03/12/17 03/12/17 Range/Units 06:40 06:40 06:40 WBC 29.6 H* D (4.5-11.0) 10^3/ul RBC 2.63 L (3.5-6.1) 10^6/uL Hgb 8.1 L (14.0-18.0) gm/dL Hct 23.5 L (42.0-52.0) % MCV 89.4 (80.0-105.0) fL MCH 30.8 (25.0-35.0) pg MCHC 34.5 (31.0-37.0) g/dl RDW 20.7 H (11.5-14.5) % Plt Count 103 L (120.0-450.0) 10^3/uL MPV 9.8 (7.0-11.0) fl Gran % 74.1 H (50.0-68.0) % Lymph % (Auto) 12.3 L (22.0-35.0) % [place] % (Auto) 11.2 H (1.0-6.0) % Eos % (Auto) 1.8 (1.5-5.0) % Baso % (Auto) 0.6 (0.0-3.0) % Gran # 21.94 H (1.4-6.5) Lymph # 3.6 H (1.2-3.4) [place] # 3.3 H (0.1-0.6) Eos # 0.5 (0.0-0.7) Baso # 0.18 (0.0-2.0) K/mm3 PT (9.9-11.8) Seconds INR (0.93-1.08) pCO2 (35-45) mm/Hg pO2 (80-100) mm/Hg HCO3 (21-28) mmol/L ABG pH (7.35-7.45) ABG Total CO2 (22-28) mmol.L ABG O2 Saturation (95-98) % ABG O2 Content (15-23) ML/dl ABG Base Excess (-2.0-3.0) mmol/L ABG Hemoglobin (11.7-17.4) g/dL ABG Carboxyhemoglobin (0.5-1.5) % POC ABG HHb (Measured) (0-5) % ABG Methemoglobin (0.0-3.0) % ABG O2 Capacity (16-24) mL/dl ABG Potassium (3.6-5.2) mmol/L Hgb O2 Saturation (95.0-98.0) % Sodium 134 (132-148) mmol/L Glucose (75-110) mg/dl Lactate (0.7-2.1) mmol/L FiO2 % PEEP Pressure Support Potassium 4.0 (3.6-5.0) mmol/L Chloride 96 L (98-107) mmol/L Carbon Dioxide 21 (21-33) mmol/L Anion Gap 21 H (10-20) BUN 58 H (7-21) mg/dL Creatinine 6.1 H (0.5-1.4) mg/dL Est GFR ( Amer) 11 Est GFR (Non-Af Amer) 9 POC Glucose (mg/dL) (65-110) mg/dL Random Glucose 159 H (70-110) mg/dL Calcium 10.8 H (8.4-10.5) mg/dL Phosphorus (2.5-4.5) mg/dL Magnesium (1.7-2.2) mg/dL Total Bilirubin 3.0 H (0.2-1.3) mg/dL GGT (8-78) U/L AST 295 H (15-59) U/L ALT 403 H (7-56) U/L Alkaline Phosphatase 129 (38-133) U/L Total Protein 7.8 (5.8-8.3) g/dL Albumin 3.3 (3.0-4.8) g/dL Globulin 4.5 gm/dL Albumin/Globulin Ratio 0.7 L (1.1-1.8) Amylase (35-125) U/L Lipase (23-300) U/L Arterial Blood Potassium (3.6-5.2) mmol/L Cryptococcus Ab CMV Specimen Source CMV IgG Ab U/mL CMV IgM Ab AU/mL CMV DNA Quant PCR IU/mL CMV Qnt PCR log IU/mL Log IU/mL P. carinii Source P.carinii Concentration (()) Pneumocyst carinii DFA Ur Strep pneumoniae Ag Beta-(1,3)-D-Glucan (()) pg/mL B-(1,3)-D-Glucan Intrp WB Flow Cytometry Reference test 03/12/17 03/12/17 03/12/17 Range/Units 05:50 04:04 00:40 WBC (4.5-11.0) 10^3/ul RBC (3.5-6.1) 10^6/uL Hgb (14.0-18.0) gm/dL Hct (42.0-52.0) % MCV (80.0-105.0) fL MCH (25.0-35.0) pg MCHC (31.0-37.0) g/dl RDW (11.5-14.5) % Plt Count (120.0-450.0) 10^3/uL MPV (7.0-11.0) fl Gran % (50.0-68.0) % Lymph % (Auto) (22.0-35.0) % [place] % (Auto) (1.0-6.0) % Eos % (Auto) (1.5-5.0) % Baso % (Auto) (0.0-3.0) % Gran # (1.4-6.5) Lymph # (1.2-3.4) [place] # (0.1-0.6) Eos # (0.0-0.7) Baso # (0.0-2.0) K/mm3 PT (9.9-11.8) Seconds INR (0.93-1.08) pCO2 50 H (35-45) mm/Hg pO2 123.0 H (80-100) mm/Hg HCO3 23.5 (21-28) mmol/L ABG pH 7.28 L (7.35-7.45) ABG Total CO2 25.0 (22-28) mmol.L ABG O2 Saturation 99.2 H (95-98) % ABG O2 Content 11.4 L (15-23) ML/dl ABG Base Excess -3.3 L (-2.0-3.0) mmol/L ABG Hemoglobin 8.6 L (11.7-17.4) g/dL ABG Carboxyhemoglobin 3.4 H (0.5-1.5) % POC ABG HHb (Measured) 0.7 (0-5) % ABG Methemoglobin 3.8 H (0.0-3.0) % ABG O2 Capacity 11.5 L (16-24) mL/dl ABG Potassium (3.6-5.2) mmol/L Hgb O2 Saturation 92.0 L (95.0-98.0) % Sodium (132-148) mmol/L Glucose (75-110) mg/dl Lactate (0.7-2.1) mmol/L FiO2 40.0 % PEEP Pressure Support Potassium (3.6-5.0) mmol/L Chloride (98-107) mmol/L Carbon Dioxide (21-33) mmol/L Anion Gap (10-20) BUN (7-21) mg/dL Creatinine (0.5-1.4) mg/dL Est GFR ( Amer) Est GFR (Non-Af Amer) POC Glucose (mg/dL) 183 H 224 H (65-110) mg/dL Random Glucose (70-110) mg/dL Calcium (8.4-10.5) mg/dL Phosphorus (2.5-4.5) mg/dL Magnesium (1.7-2.2) mg/dL Total Bilirubin (0.2-1.3) mg/dL GGT (8-78) U/L AST (15-59) U/L ALT (7-56) U/L Alkaline Phosphatase (38-133) U/L Total Protein (5.8-8.3) g/dL Albumin (3.0-4.8) g/dL Globulin gm/dL Albumin/Globulin Ratio (1.1-1.8) Amylase (35-125) U/L Lipase (23-300) U/L Arterial Blood Potassium (3.6-5.2) mmol/L Cryptococcus Ab CMV Specimen Source CMV IgG Ab U/mL CMV IgM Ab AU/mL CMV DNA Quant PCR IU/mL CMV Qnt PCR log IU/mL Log IU/mL P. carinii Source P.carinii Concentration (()) Pneumocyst carinii DFA Ur Strep pneumoniae Ag Beta-(1,3)-D-Glucan (()) pg/mL B-(1,3)-D-Glucan Intrp WB Flow Cytometry 03/11/17 03/11/17 03/11/17 Range/Units 20:59 19:09 15:57 WBC (4.5-11.0) 10^3/ul RBC (3.5-6.1) 10^6/uL Hgb (14.0-18.0) gm/dL Hct (42.0-52.0) % MCV (80.0-105.0) fL MCH (25.0-35.0) pg MCHC (31.0-37.0) g/dl RDW (11.5-14.5) % Plt Count (120.0-450.0) 10^3/uL MPV (7.0-11.0) fl Gran % (50.0-68.0) % Lymph % (Auto) (22.0-35.0) % [place] % (Auto) (1.0-6.0) % Eos % (Auto) (1.5-5.0) % Baso % (Auto) (0.0-3.0) % Gran # (1.4-6.5) Lymph # (1.2-3.4) [place] # (0.1-0.6) Eos # (0.0-0.7) Baso # (0.0-2.0) K/mm3 PT (9.9-11.8) Seconds INR (0.93-1.08) pCO2 (35-45) mm/Hg pO2 (80-100) mm/Hg HCO3 (21-28) mmol/L ABG pH (7.35-7.45) ABG Total CO2 (22-28) mmol.L ABG O2 Saturation (95-98) % ABG O2 Content (15-23) ML/dl ABG Base Excess (-2.0-3.0) mmol/L ABG Hemoglobin (11.7-17.4) g/dL ABG Carboxyhemoglobin (0.5-1.5) % POC ABG HHb (Measured) (0-5) % ABG Methemoglobin (0.0-3.0) % ABG O2 Capacity (16-24) mL/dl ABG Potassium (3.6-5.2) mmol/L Hgb O2 Saturation (95.0-98.0) % Sodium (132-148) mmol/L Glucose (75-110) mg/dl Lactate (0.7-2.1) mmol/L FiO2 % PEEP Pressure Support Potassium (3.6-5.0) mmol/L Chloride (98-107) mmol/L Carbon Dioxide (21-33) mmol/L Anion Gap (10-20) BUN (7-21) mg/dL Creatinine (0.5-1.4) mg/dL Est GFR ( Amer) Est GFR (Non-Af Amer) POC Glucose (mg/dL) 227 H 272 H 314 H (65-110) mg/dL Random Glucose (70-110) mg/dL Calcium (8.4-10.5) mg/dL Phosphorus (2.5-4.5) mg/dL Magnesium (1.7-2.2) mg/dL Total Bilirubin (0.2-1.3) mg/dL GGT (8-78) U/L AST (15-59) U/L ALT (7-56) U/L Alkaline Phosphatase (38-133) U/L Total Protein (5.8-8.3) g/dL Albumin (3.0-4.8) g/dL Globulin gm/dL Albumin/Globulin Ratio (1.1-1.8) Amylase (35-125) U/L Lipase (23-300) U/L Arterial Blood Potassium (3.6-5.2) mmol/L Cryptococcus Ab CMV Specimen Source CMV IgG Ab U/mL CMV IgM Ab AU/mL CMV DNA Quant PCR IU/mL CMV Qnt PCR log IU/mL Log IU/mL P. carinii Source P.carinii Concentration (()) Pneumocyst carinii DFA Ur Strep pneumoniae Ag Beta-(1,3)-D-Glucan (()) pg/mL B-(1,3)-D-Glucan Intrp WB Flow Cytometry 03/11/17 03/11/17 03/11/17 Range/Units 10:22 06:14 03:07 WBC (4.5-11.0) 10^3/ul RBC (3.5-6.1) 10^6/uL Hgb (14.0-18.0) gm/dL Hct (42.0-52.0) % MCV (80.0-105.0) fL MCH (25.0-35.0) pg MCHC (31.0-37.0) g/dl RDW (11.5-14.5) % Plt Count (120.0-450.0) 10^3/uL MPV (7.0-11.0) fl Gran % (50.0-68.0) % Lymph % (Auto) (22.0-35.0) % [place] % (Auto) (1.0-6.0) % Eos % (Auto) (1.5-5.0) % Baso % (Auto) (0.0-3.0) % Gran # (1.4-6.5) Lymph # (1.2-3.4) [place] # (0.1-0.6) Eos # (0.0-0.7) Baso # (0.0-2.0) K/mm3 PT (9.9-11.8) Seconds INR (0.93-1.08) pCO2 (35-45) mm/Hg pO2 (80-100) mm/Hg HCO3 (21-28) mmol/L ABG pH (7.35-7.45) ABG Total CO2 (22-28) mmol.L ABG O2 Saturation (95-98) % ABG O2 Content (15-23) ML/dl ABG Base Excess (-2.0-3.0) mmol/L ABG Hemoglobin (11.7-17.4) g/dL ABG Carboxyhemoglobin (0.5-1.5) % POC ABG HHb (Measured) (0-5) % ABG Methemoglobin (0.0-3.0) % ABG O2 Capacity (16-24) mL/dl ABG Potassium (3.6-5.2) mmol/L Hgb O2 Saturation (95.0-98.0) % Sodium (132-148) mmol/L Glucose (75-110) mg/dl Lactate (0.7-2.1) mmol/L FiO2 % PEEP Pressure Support Potassium (3.6-5.0) mmol/L Chloride (98-107) mmol/L Carbon Dioxide (21-33) mmol/L Anion Gap (10-20) BUN (7-21) mg/dL Creatinine (0.5-1.4) mg/dL Est GFR ( Amer) Est GFR (Non-Af Amer) POC Glucose (mg/dL) 280 H 333 H 325 H (65-110) mg/dL Random Glucose (70-110) mg/dL Calcium (8.4-10.5) mg/dL Phosphorus (2.5-4.5) mg/dL Magnesium (1.7-2.2) mg/dL Total Bilirubin (0.2-1.3) mg/dL GGT (8-78) U/L AST (15-59) U/L ALT (7-56) U/L Alkaline Phosphatase (38-133) U/L Total Protein (5.8-8.3) g/dL Albumin (3.0-4.8) g/dL Globulin gm/dL Albumin/Globulin Ratio (1.1-1.8) Amylase (35-125) U/L Lipase (23-300) U/L Arterial Blood Potassium (3.6-5.2) mmol/L Cryptococcus Ab CMV Specimen Source CMV IgG Ab U/mL CMV IgM Ab AU/mL CMV DNA Quant PCR IU/mL CMV Qnt PCR log IU/mL Log IU/mL P. carinii Source P.carinii Concentration (()) Pneumocyst carinii DFA Ur Strep pneumoniae Ag Beta-(1,3)-D-Glucan (()) pg/mL B-(1,3)-D-Glucan Intrp WB Flow Cytometry 03/10/17 03/10/17 03/10/17 Range/Units 22:37 16:38 15:30 WBC (4.5-11.0) 10^3/ul RBC (3.5-6.1) 10^6/uL Hgb (14.0-18.0) gm/dL Hct (42.0-52.0) % MCV (80.0-105.0) fL MCH (25.0-35.0) pg MCHC (31.0-37.0) g/dl RDW (11.5-14.5) % Plt Count (120.0-450.0) 10^3/uL MPV (7.0-11.0) fl Gran % (50.0-68.0) % Lymph % (Auto) (22.0-35.0) % [place] % (Auto) (1.0-6.0) % Eos % (Auto) (1.5-5.0) % Baso % (Auto) (0.0-3.0) % Gran # (1.4-6.5) Lymph # (1.2-3.4) [place] # (0.1-0.6) Eos # (0.0-0.7) Baso # (0.0-2.0) K/mm3 PT (9.9-11.8) Seconds INR (0.93-1.08) pCO2 (35-45) mm/Hg pO2 (80-100) mm/Hg HCO3 (21-28) mmol/L ABG pH (7.35-7.45) ABG Total CO2 (22-28) mmol.L ABG O2 Saturation (95-98) % ABG O2 Content (15-23) ML/dl ABG Base Excess (-2.0-3.0) mmol/L ABG Hemoglobin (11.7-17.4) g/dL ABG Carboxyhemoglobin (0.5-1.5) % POC ABG HHb (Measured) (0-5) % ABG Methemoglobin (0.0-3.0) % ABG O2 Capacity (16-24) mL/dl ABG Potassium (3.6-5.2) mmol/L Hgb O2 Saturation (95.0-98.0) % Sodium (132-148) mmol/L Glucose (75-110) mg/dl Lactate (0.7-2.1) mmol/L FiO2 % PEEP Pressure Support Potassium (3.6-5.0) mmol/L Chloride (98-107) mmol/L Carbon Dioxide (21-33) mmol/L Anion Gap (10-20) BUN (7-21) mg/dL Creatinine (0.5-1.4) mg/dL Est GFR ( Amer) Est GFR (Non-Af Amer) POC Glucose (mg/dL) 323 H 255 H (65-110) mg/dL Random Glucose (70-110) mg/dL Calcium (8.4-10.5) mg/dL Phosphorus (2.5-4.5) mg/dL Magnesium (1.7-2.2) mg/dL Total Bilirubin (0.2-1.3) mg/dL GGT (8-78) U/L AST (15-59) U/L ALT (7-56) U/L Alkaline Phosphatase (38-133) U/L Total Protein (5.8-8.3) g/dL Albumin (3.0-4.8) g/dL Globulin gm/dL Albumin/Globulin Ratio (1.1-1.8) Amylase (35-125) U/L Lipase (23-300) U/L Arterial Blood Potassium (3.6-5.2) mmol/L Cryptococcus Ab CMV Specimen Source CMV IgG Ab U/mL CMV IgM Ab AU/mL CMV DNA Quant PCR IU/mL CMV Qnt PCR log IU/mL Log IU/mL P. carinii Source Sputum P.carinii Concentration (()) Pneumocyst carinii DFA See note Ur Strep pneumoniae Ag Beta-(1,3)-D-Glucan (()) pg/mL B-(1,3)-D-Glucan Intrp WB Flow Cytometry 03/10/17 03/10/17 03/09/17 Range/Units 11:16 02:40 16:12 WBC (4.5-11.0) 10^3/ul RBC (3.5-6.1) 10^6/uL Hgb (14.0-18.0) gm/dL Hct (42.0-52.0) % MCV (80.0-105.0) fL MCH (25.0-35.0) pg MCHC (31.0-37.0) g/dl RDW (11.5-14.5) % Plt Count (120.0-450.0) 10^3/uL MPV (7.0-11.0) fl Gran % (50.0-68.0) % Lymph % (Auto) (22.0-35.0) % [place] % (Auto) (1.0-6.0) % Eos % (Auto) (1.5-5.0) % Baso % (Auto) (0.0-3.0) % Gran # (1.4-6.5) Lymph # (1.2-3.4) [place] # (0.1-0.6) Eos # (0.0-0.7) Baso # (0.0-2.0) K/mm3 PT (9.9-11.8) Seconds INR (0.93-1.08) pCO2 (35-45) mm/Hg pO2 (80-100) mm/Hg HCO3 (21-28) mmol/L ABG pH (7.35-7.45) ABG Total CO2 (22-28) mmol.L ABG O2 Saturation (95-98) % ABG O2 Content (15-23) ML/dl ABG Base Excess (-2.0-3.0) mmol/L ABG Hemoglobin (11.7-17.4) g/dL ABG Carboxyhemoglobin (0.5-1.5) % POC ABG HHb (Measured) (0-5) % ABG Methemoglobin (0.0-3.0) % ABG O2 Capacity (16-24) mL/dl ABG Potassium (3.6-5.2) mmol/L Hgb O2 Saturation (95.0-98.0) % Sodium (132-148) mmol/L Glucose (75-110) mg/dl Lactate (0.7-2.1) mmol/L FiO2 % PEEP Pressure Support Potassium (3.6-5.0) mmol/L Chloride (98-107) mmol/L Carbon Dioxide (21-33) mmol/L Anion Gap (10-20) BUN (7-21) mg/dL Creatinine (0.5-1.4) mg/dL Est GFR ( Amer) Est GFR (Non-Af Amer) POC Glucose (mg/dL) 309 H 305 H (65-110) mg/dL Random Glucose (70-110) mg/dL Calcium (8.4-10.5) mg/dL Phosphorus (2.5-4.5) mg/dL Magnesium (1.7-2.2) mg/dL Total Bilirubin (0.2-1.3) mg/dL GGT (8-78) U/L AST (15-59) U/L ALT (7-56) U/L Alkaline Phosphatase (38-133) U/L Total Protein (5.8-8.3) g/dL Albumin (3.0-4.8) g/dL Globulin gm/dL Albumin/Globulin Ratio (1.1-1.8) Amylase (35-125) U/L Lipase (23-300) U/L Arterial Blood Potassium (3.6-5.2) mmol/L Cryptococcus Ab CMV Specimen Source CMV IgG Ab U/mL CMV IgM Ab AU/mL CMV DNA Quant PCR IU/mL CMV Qnt PCR log IU/mL Log IU/mL P. carinii Source P.carinii Concentration (()) Pneumocyst carinii DFA Ur Strep pneumoniae Ag Beta-(1,3)-D-Glucan (()) pg/mL B-(1,3)-D-Glucan Intrp See note WB Flow Cytometry 03/09/17 03/09/17 03/09/17 Range/Units 16:12 16:12 14:10 WBC (4.5-11.0) 10^3/ul RBC (3.5-6.1) 10^6/uL Hgb (14.0-18.0) gm/dL Hct (42.0-52.0) % MCV (80.0-105.0) fL MCH (25.0-35.0) pg MCHC (31.0-37.0) g/dl RDW (11.5-14.5) % Plt Count (120.0-450.0) 10^3/uL MPV (7.0-11.0) fl Gran % (50.0-68.0) % Lymph % (Auto) (22.0-35.0) % [place] % (Auto) (1.0-6.0) % Eos % (Auto) (1.5-5.0) % Baso % (Auto) (0.0-3.0) % Gran # (1.4-6.5) Lymph # (1.2-3.4) [place] # (0.1-0.6) Eos # (0.0-0.7) Baso # (0.0-2.0) K/mm3 PT (9.9-11.8) Seconds INR (0.93-1.08) pCO2 (35-45) mm/Hg pO2 (80-100) mm/Hg HCO3 (21-28) mmol/L ABG pH (7.35-7.45) ABG Total CO2 (22-28) mmol.L ABG O2 Saturation (95-98) % ABG O2 Content (15-23) ML/dl ABG Base Excess (-2.0-3.0) mmol/L ABG Hemoglobin (11.7-17.4) g/dL ABG Carboxyhemoglobin (0.5-1.5) % POC ABG HHb (Measured) (0-5) % ABG Methemoglobin (0.0-3.0) % ABG O2 Capacity (16-24) mL/dl ABG Potassium (3.6-5.2) mmol/L Hgb O2 Saturation (95.0-98.0) % Sodium (132-148) mmol/L Glucose (75-110) mg/dl Lactate (0.7-2.1) mmol/L FiO2 % PEEP Pressure Support Potassium (3.6-5.0) mmol/L Chloride (98-107) mmol/L Carbon Dioxide (21-33) mmol/L Anion Gap (10-20) BUN (7-21) mg/dL Creatinine (0.5-1.4) mg/dL Est GFR ( Amer) Est GFR (Non-Af Amer) POC Glucose (mg/dL) 276 H (65-110) mg/dL Random Glucose (70-110) mg/dL Calcium (8.4-10.5) mg/dL Phosphorus (2.5-4.5) mg/dL Magnesium (1.7-2.2) mg/dL Total Bilirubin (0.2-1.3) mg/dL GGT (8-78) U/L AST (15-59) U/L ALT (7-56) U/L Alkaline Phosphatase (38-133) U/L Total Protein (5.8-8.3) g/dL Albumin (3.0-4.8) g/dL Globulin gm/dL Albumin/Globulin Ratio (1.1-1.8) Amylase (35-125) U/L Lipase (23-300) U/L Arterial Blood Potassium (3.6-5.2) mmol/L Cryptococcus Ab CMV Specimen Source CMV IgG Ab >10.00 H U/mL CMV IgM Ab <30.00 AU/mL CMV DNA Quant PCR IU/mL CMV Qnt PCR log IU/mL Log IU/mL P. carinii Source P.carinii Concentration (()) Pneumocyst carinii DFA Ur Strep pneumoniae Ag Beta-(1,3)-D-Glucan (()) pg/mL B-(1,3)-D-Glucan Intrp See note WB Flow Cytometry 03/09/17 03/09/17 03/09/17 Range/Units 10:45 10:45 10:00 WBC (4.5-11.0) 10^3/ul RBC (3.5-6.1) 10^6/uL Hgb (14.0-18.0) gm/dL Hct (42.0-52.0) % MCV (80.0-105.0) fL MCH (25.0-35.0) pg MCHC (31.0-37.0) g/dl RDW (11.5-14.5) % Plt Count (120.0-450.0) 10^3/uL MPV (7.0-11.0) fl Gran % (50.0-68.0) % Lymph % (Auto) (22.0-35.0) % [place] % (Auto) (1.0-6.0) % Eos % (Auto) (1.5-5.0) % Baso % (Auto) (0.0-3.0) % Gran # (1.4-6.5) Lymph # (1.2-3.4) [place] # (0.1-0.6) Eos # (0.0-0.7) Baso # (0.0-2.0) K/mm3 PT (9.9-11.8) Seconds INR (0.93-1.08) pCO2 (35-45) mm/Hg pO2 (80-100) mm/Hg HCO3 (21-28) mmol/L ABG pH (7.35-7.45) ABG Total CO2 (22-28) mmol.L ABG O2 Saturation (95-98) % ABG O2 Content (15-23) ML/dl ABG Base Excess (-2.0-3.0) mmol/L ABG Hemoglobin (11.7-17.4) g/dL ABG Carboxyhemoglobin (0.5-1.5) % POC ABG HHb (Measured) (0-5) % ABG Methemoglobin (0.0-3.0) % ABG O2 Capacity (16-24) mL/dl ABG Potassium 4.6 (3.6-5.2) mmol/L Hgb O2 Saturation (95.0-98.0) % Sodium 131.0 L (132-148) mmol/L Glucose 258 H (75-110) mg/dl Lactate 0.9 (0.7-2.1) mmol/L FiO2 80 % PEEP 10 Pressure Support 12 Potassium (3.6-5.0) mmol/L Chloride (98-107) mmol/L Carbon Dioxide (21-33) mmol/L Anion Gap (10-20) BUN (7-21) mg/dL Creatinine (0.5-1.4) mg/dL Est GFR ( Amer) Est GFR (Non-Af Amer) POC Glucose (mg/dL) (65-110) mg/dL Random Glucose (70-110) mg/dL Calcium (8.4-10.5) mg/dL Phosphorus (2.5-4.5) mg/dL Magnesium (1.7-2.2) mg/dL Total Bilirubin (0.2-1.3) mg/dL GGT (8-78) U/L AST (15-59) U/L ALT (7-56) U/L Alkaline Phosphatase (38-133) U/L Total Protein (5.8-8.3) g/dL Albumin (3.0-4.8) g/dL Globulin gm/dL Albumin/Globulin Ratio (1.1-1.8) Amylase (35-125) U/L Lipase (23-300) U/L Arterial Blood Potassium 4.6 (3.6-5.2) mmol/L Cryptococcus Ab <1:2 CMV Specimen Source Plasma CMV IgG Ab >10.00 H U/mL CMV IgM Ab <30.00 AU/mL CMV DNA Quant PCR <200 IU/mL CMV Qnt PCR log IU/mL <2.30 Log IU/mL P. carinii Source P.carinii Concentration (()) Pneumocyst carinii DFA Ur Strep pneumoniae Ag Beta-(1,3)-D-Glucan (()) pg/mL B-(1,3)-D-Glucan Intrp WB Flow Cytometry 03/06/17 Range/Units 06:30 WBC (4.5-11.0) 10^3/ul RBC (3.5-6.1) 10^6/uL Hgb (14.0-18.0) gm/dL Hct (42.0-52.0) % MCV (80.0-105.0) fL MCH (25.0-35.0) pg MCHC (31.0-37.0) g/dl RDW (11.5-14.5) % Plt Count (120.0-450.0) 10^3/uL MPV (7.0-11.0) fl Gran % (50.0-68.0) % Lymph % (Auto) (22.0-35.0) % [place] % (Auto) (1.0-6.0) % Eos % (Auto) (1.5-5.0) % Baso % (Auto) (0.0-3.0) % Gran # (1.4-6.5) Lymph # (1.2-3.4) [place] # (0.1-0.6) Eos # (0.0-0.7) Baso # (0.0-2.0) K/mm3 PT (9.9-11.8) Seconds INR (0.93-1.08) pCO2 (35-45) mm/Hg pO2 (80-100) mm/Hg HCO3 (21-28) mmol/L ABG pH (7.35-7.45) ABG Total CO2 (22-28) mmol.L ABG O2 Saturation (95-98) % ABG O2 Content (15-23) ML/dl ABG Base Excess (-2.0-3.0) mmol/L ABG Hemoglobin (11.7-17.4) g/dL ABG Carboxyhemoglobin (0.5-1.5) % POC ABG HHb (Measured) (0-5) % ABG Methemoglobin (0.0-3.0) % ABG O2 Capacity (16-24) mL/dl ABG Potassium (3.6-5.2) mmol/L Hgb O2 Saturation (95.0-98.0) % Sodium (132-148) mmol/L Glucose (75-110) mg/dl Lactate (0.7-2.1) mmol/L FiO2 % PEEP Pressure Support Potassium (3.6-5.0) mmol/L Chloride (98-107) mmol/L Carbon Dioxide (21-33) mmol/L Anion Gap (10-20) BUN (7-21) mg/dL Creatinine (0.5-1.4) mg/dL Est GFR ( Amer) Est GFR (Non-Af Amer) POC Glucose (mg/dL) (65-110) mg/dL Random Glucose (70-110) mg/dL Calcium (8.4-10.5) mg/dL Phosphorus (2.5-4.5) mg/dL Magnesium (1.7-2.2) mg/dL Total Bilirubin (0.2-1.3) mg/dL GGT (8-78) U/L AST (15-59) U/L ALT (7-56) U/L Alkaline Phosphatase (38-133) U/L Total Protein (5.8-8.3) g/dL Albumin (3.0-4.8) g/dL Globulin gm/dL Albumin/Globulin Ratio (1.1-1.8) Amylase (35-125) U/L Lipase (23-300) U/L Arterial Blood Potassium (3.6-5.2) mmol/L Cryptococcus Ab CMV Specimen Source CMV IgG Ab U/mL CMV IgM Ab AU/mL CMV DNA Quant PCR IU/mL CMV Qnt PCR log IU/mL Log IU/mL P. carinii Source P.carinii Concentration (()) Pneumocyst carinii DFA Ur Strep pneumoniae Ag Not detected Beta-(1,3)-D-Glucan (()) pg/mL B-(1,3)-D-Glucan Intrp WB Flow Cytometry Laboratory Results - last 24 hr 03/06/17 03/09/17 03/09/17 06:30 10:00 10:45 WBC RBC Hgb Hct MCV MCH MCHC RDW Plt Count MPV Gran % Lymph % (Auto) [place] % (Auto) Eos % (Auto) Baso % (Auto) Gran # Lymph # [place] # Eos # Baso # PT INR pCO2 pO2 HCO3 ABG pH ABG Total CO2 ABG O2 Saturation ABG O2 Content ABG Base Excess ABG Hemoglobin ABG Carboxyhemoglobin POC ABG HHb (Measured) ABG Methemoglobin ABG O2 Capacity ABG Potassium 4.6 Hgb O2 Saturation Sodium 131.0 L Glucose 258 H Lactate 0.9 FiO2 80 PEEP 10 Pressure Support 12 Potassium Chloride Carbon Dioxide Anion Gap BUN Creatinine Est GFR ( Amer) Est GFR (Non-Af Amer) POC Glucose (mg/dL) Random Glucose Calcium Phosphorus Magnesium Total Bilirubin GGT AST ALT Alkaline Phosphatase Total Protein Albumin Globulin Albumin/Globulin Ratio Amylase Lipase Arterial Blood Potassium 4.6 Cryptococcus Ab CMV Specimen Source Plasma CMV IgG Ab CMV IgM Ab CMV DNA Quant PCR <200 CMV Qnt PCR log IU/mL <2.30 P. carinii Source P.carinii Concentration Pneumocyst carinii DFA Ur Strep pneumoniae Ag Not detected Beta-(1,3)-D-Glucan B-(1,3)-D-Glucan Intrp WB Flow Cytometry 03/09/17 03/09/17 03/09/17 10:45 14:10 16:12 WBC RBC Hgb Hct MCV MCH MCHC RDW Plt Count MPV Gran % Lymph % (Auto) [place] % (Auto) Eos % (Auto) Baso % (Auto) Gran # Lymph # [place] # Eos # Baso # PT INR pCO2 pO2 HCO3 ABG pH ABG Total CO2 ABG O2 Saturation ABG O2 Content ABG Base Excess ABG Hemoglobin ABG Carboxyhemoglobin POC ABG HHb (Measured) ABG Methemoglobin ABG O2 Capacity ABG Potassium Hgb O2 Saturation Sodium Glucose Lactate FiO2 PEEP Pressure Support Potassium Chloride Carbon Dioxide Anion Gap BUN Creatinine Est GFR ( Amer) Est GFR (Non-Af Amer) POC Glucose (mg/dL) 276 H Random Glucose Calcium Phosphorus Magnesium Total Bilirubin GGT AST ALT Alkaline Phosphatase Total Protein Albumin Globulin Albumin/Globulin Ratio Amylase Lipase Arterial Blood Potassium Cryptococcus Ab <1:2 CMV Specimen Source CMV IgG Ab >10.00 H CMV IgM Ab <30.00 CMV DNA Quant PCR CMV Qnt PCR log IU/mL P. carinii Source P.carinii Concentration Pneumocyst carinii DFA Ur Strep pneumoniae Ag Beta-(1,3)-D-Glucan B-(1,3)-D-Glucan Intrp See note WB Flow Cytometry 03/09/17 03/09/17 03/10/17 16:12 16:12 02:40 WBC RBC Hgb Hct MCV MCH MCHC RDW Plt Count MPV Gran % Lymph % (Auto) [place] % (Auto) Eos % (Auto) Baso % (Auto) Gran # Lymph # [place] # Eos # Baso # PT INR pCO2 pO2 HCO3 ABG pH ABG Total CO2 ABG O2 Saturation ABG O2 Content ABG Base Excess ABG Hemoglobin ABG Carboxyhemoglobin POC ABG HHb (Measured) ABG Methemoglobin ABG O2 Capacity ABG Potassium Hgb O2 Saturation Sodium Glucose Lactate FiO2 PEEP Pressure Support Potassium Chloride Carbon Dioxide Anion Gap BUN Creatinine Est GFR ( Amer) Est GFR (Non-Af Amer) POC Glucose (mg/dL) 305 H Random Glucose Calcium Phosphorus Magnesium Total Bilirubin GGT AST ALT Alkaline Phosphatase Total Protein Albumin Globulin Albumin/Globulin Ratio Amylase Lipase Arterial Blood Potassium Cryptococcus Ab CMV Specimen Source CMV IgG Ab >10.00 H CMV IgM Ab <30.00 CMV DNA Quant PCR CMV Qnt PCR log IU/mL P. carinii Source P.carinii Concentration Pneumocyst carinii DFA Ur Strep pneumoniae Ag Beta-(1,3)-D-Glucan B-(1,3)-D-Glucan Intrp See note WB Flow Cytometry 03/10/17 03/10/17 03/10/17 11:16 15:30 16:38 WBC RBC Hgb Hct MCV MCH MCHC RDW Plt Count MPV Gran % Lymph % (Auto) [place] % (Auto) Eos % (Auto) Baso % (Auto) Gran # Lymph # [place] # Eos # Baso # PT INR pCO2 pO2 HCO3 ABG pH ABG Total CO2 ABG O2 Saturation ABG O2 Content ABG Base Excess ABG Hemoglobin ABG Carboxyhemoglobin POC ABG HHb (Measured) ABG Methemoglobin ABG O2 Capacity ABG Potassium Hgb O2 Saturation Sodium Glucose Lactate FiO2 PEEP Pressure Support Potassium Chloride Carbon Dioxide Anion Gap BUN Creatinine Est GFR ( Amer) Est GFR (Non-Af Amer) POC Glucose (mg/dL) 309 H 255 H Random Glucose Calcium Phosphorus Magnesium Total Bilirubin GGT AST ALT Alkaline Phosphatase Total Protein Albumin Globulin Albumin/Globulin Ratio Amylase Lipase Arterial Blood Potassium Cryptococcus Ab CMV Specimen Source CMV IgG Ab CMV IgM Ab CMV DNA Quant PCR CMV Qnt PCR log IU/mL P. carinii Source Sputum P.carinii Concentration Pneumocyst carinii DFA See note Ur Strep pneumoniae Ag Beta-(1,3)-D-Glucan B-(1,3)-D-Glucan Intrp WB Flow Cytometry 03/10/17 03/11/17 03/11/17 22:37 03:07 06:14 WBC RBC Hgb Hct MCV MCH MCHC RDW Plt Count MPV Gran % Lymph % (Auto) [place] % (Auto) Eos % (Auto) Baso % (Auto) Gran # Lymph # [place] # Eos # Baso # PT INR pCO2 pO2 HCO3 ABG pH ABG Total CO2 ABG O2 Saturation ABG O2 Content ABG Base Excess ABG Hemoglobin ABG Carboxyhemoglobin POC ABG HHb (Measured) ABG Methemoglobin ABG O2 Capacity ABG Potassium Hgb O2 Saturation Sodium Glucose Lactate FiO2 PEEP Pressure Support Potassium Chloride Carbon Dioxide Anion Gap BUN Creatinine Est GFR ( Amer) Est GFR (Non-Af Amer) POC Glucose (mg/dL) 323 H 325 H 333 H Random Glucose Calcium Phosphorus Magnesium Total Bilirubin GGT AST ALT Alkaline Phosphatase Total Protein Albumin Globulin Albumin/Globulin Ratio Amylase Lipase Arterial Blood Potassium Cryptococcus Ab CMV Specimen Source CMV IgG Ab CMV IgM Ab CMV DNA Quant PCR CMV Qnt PCR log IU/mL P. carinii Source P.carinii Concentration Pneumocyst carinii DFA Ur Strep pneumoniae Ag Beta-(1,3)-D-Glucan B-(1,3)-D-Glucan Intrp WB Flow Cytometry 03/11/17 03/11/17 03/11/17 10:22 15:57 19:09 WBC RBC Hgb Hct MCV MCH MCHC RDW Plt Count MPV Gran % Lymph % (Auto) [place] % (Auto) Eos % (Auto) Baso % (Auto) Gran # Lymph # [place] # Eos # Baso # PT INR pCO2 pO2 HCO3 ABG pH ABG Total CO2 ABG O2 Saturation ABG O2 Content ABG Base Excess ABG Hemoglobin ABG Carboxyhemoglobin POC ABG HHb (Measured) ABG Methemoglobin ABG O2 Capacity ABG Potassium Hgb O2 Saturation Sodium Glucose Lactate FiO2 PEEP Pressure Support Potassium Chloride Carbon Dioxide Anion Gap BUN Creatinine Est GFR ( Amer) Est GFR (Non-Af Amer) POC Glucose (mg/dL) 280 H 314 H 272 H Random Glucose Calcium Phosphorus Magnesium Total Bilirubin GGT AST ALT Alkaline Phosphatase Total Protein Albumin Globulin Albumin/Globulin Ratio Amylase Lipase Arterial Blood Potassium Cryptococcus Ab CMV Specimen Source CMV IgG Ab CMV IgM Ab CMV DNA Quant PCR CMV Qnt PCR log IU/mL P. carinii Source P.carinii Concentration Pneumocyst carinii DFA Ur Strep pneumoniae Ag Beta-(1,3)-D-Glucan B-(1,3)-D-Glucan Intrp WB Flow Cytometry 03/11/17 03/12/17 03/12/17 20:59 00:40 04:04 WBC RBC Hgb Hct MCV MCH MCHC RDW Plt Count MPV Gran % Lymph % (Auto) [place] % (Auto) Eos % (Auto) Baso % (Auto) Gran # Lymph # [place] # Eos # Baso # PT INR pCO2 pO2 HCO3 ABG pH ABG Total CO2 ABG O2 Saturation ABG O2 Content ABG Base Excess ABG Hemoglobin ABG Carboxyhemoglobin POC ABG HHb (Measured) ABG Methemoglobin ABG O2 Capacity ABG Potassium Hgb O2 Saturation Sodium Glucose Lactate FiO2 PEEP Pressure Support Potassium Chloride Carbon Dioxide Anion Gap BUN Creatinine Est GFR ( Amer) Est GFR (Non-Af Amer) POC Glucose (mg/dL) 227 H 224 H 183 H Random Glucose Calcium Phosphorus Magnesium Total Bilirubin GGT AST ALT Alkaline Phosphatase Total Protein Albumin Globulin Albumin/Globulin Ratio Amylase Lipase Arterial Blood Potassium Cryptococcus Ab CMV Specimen Source CMV IgG Ab CMV IgM Ab CMV DNA Quant PCR CMV Qnt PCR log IU/mL P. carinii Source P.carinii Concentration Pneumocyst carinii DFA Ur Strep pneumoniae Ag Beta-(1,3)-D-Glucan B-(1,3)-D-Glucan Intrp WB Flow Cytometry 03/12/17 03/12/17 03/12/17 05:50 06:40 06:40 WBC 29.6 H* D RBC 2.63 L Hgb 8.1 L Hct 23.5 L MCV 89.4 MCH 30.8 MCHC 34.5 RDW 20.7 H Plt Count 103 L MPV 9.8 Gran % 74.1 H Lymph % (Auto) 12.3 L [place] % (Auto) 11.2 H Eos % (Auto) 1.8 Baso % (Auto) 0.6 Gran # 21.94 H Lymph # 3.6 H [place] # 3.3 H Eos # 0.5 Baso # 0.18 PT INR pCO2 50 H pO2 123.0 H HCO3 23.5 ABG pH 7.28 L ABG Total CO2 25.0 ABG O2 Saturation 99.2 H ABG O2 Content 11.4 L ABG Base Excess -3.3 L ABG Hemoglobin 8.6 L ABG Carboxyhemoglobin 3.4 H POC ABG HHb (Measured) 0.7 ABG Methemoglobin 3.8 H ABG O2 Capacity 11.5 L ABG Potassium Hgb O2 Saturation 92.0 L Sodium Glucose Lactate FiO2 40.0 PEEP Pressure Support Potassium Chloride Carbon Dioxide Anion Gap BUN Creatinine Est GFR ( Amer) Est GFR (Non-Af Amer) POC Glucose (mg/dL) Random Glucose Calcium Phosphorus Magnesium Total Bilirubin GGT AST ALT Alkaline Phosphatase Total Protein Albumin Globulin Albumin/Globulin Ratio Amylase Lipase Arterial Blood Potassium Cryptococcus Ab CMV Specimen Source CMV IgG Ab CMV IgM Ab CMV DNA Quant PCR CMV Qnt PCR log IU/mL P. carinii Source P.carinii Concentration Pneumocyst carinii DFA Ur Strep pneumoniae Ag Beta-(1,3)-D-Glucan B-(1,3)-D-Glucan Intrp WB Flow Cytometry Reference test 03/12/17 03/12/17 03/12/17 06:40 06:40 10:00 WBC RBC Hgb Hct MCV MCH MCHC RDW Plt Count MPV Gran % Lymph % (Auto) [place] % (Auto) Eos % (Auto) Baso % (Auto) Gran # Lymph # [place] # Eos # Baso # PT 12.6 H INR 1.17 H pCO2 pO2 HCO3 ABG pH ABG Total CO2 ABG O2 Saturation ABG O2 Content ABG Base Excess ABG Hemoglobin ABG Carboxyhemoglobin POC ABG HHb (Measured) ABG Methemoglobin ABG O2 Capacity ABG Potassium Hgb O2 Saturation Sodium 134 Glucose Lactate FiO2 PEEP Pressure Support Potassium 4.0 Chloride 96 L Carbon Dioxide 21 Anion Gap 21 H BUN 58 H Creatinine 6.1 H Est GFR ( Amer) 11 Est GFR (Non-Af Amer) 9 POC Glucose (mg/dL) Random Glucose 159 H Calcium 10.8 H Phosphorus 8.1 H Magnesium 2.0 Total Bilirubin 3.0 H GGT 242 H AST 295 H ALT 403 H Alkaline Phosphatase 129 Total Protein 7.8 Albumin 3.3 Globulin 4.5 Albumin/Globulin Ratio 0.7 L Amylase 454 H Lipase 5748 H Arterial Blood Potassium Cryptococcus Ab CMV Specimen Source CMV IgG Ab CMV IgM Ab CMV DNA Quant PCR CMV Qnt PCR log IU/mL P. carinii Source P.carinii Concentration Pneumocyst carinii DFA Ur Strep pneumoniae Ag Beta-(1,3)-D-Glucan B-(1,3)-D-Glucan Intrp WB Flow Cytometry 03/12/17 11:11 WBC RBC Hgb Hct MCV MCH MCHC RDW Plt Count MPV Gran % Lymph % (Auto) [place] % (Auto) Eos % (Auto) Baso % (Auto) Gran # Lymph # [place] # Eos # Baso # PT INR pCO2 pO2 HCO3 ABG pH ABG Total CO2 ABG O2 Saturation ABG O2 Content ABG Base Excess ABG Hemoglobin ABG Carboxyhemoglobin POC ABG HHb (Measured) ABG Methemoglobin ABG O2 Capacity ABG Potassium Hgb O2 Saturation Sodium Glucose Lactate FiO2 PEEP Pressure Support Potassium Chloride Carbon Dioxide Anion Gap BUN Creatinine Est GFR ( Amer) Est GFR (Non-Af Amer) POC Glucose (mg/dL) 181 H Random Glucose Calcium Phosphorus Magnesium Total Bilirubin GGT AST ALT Alkaline Phosphatase Total Protein Albumin Globulin Albumin/Globulin Ratio Amylase Lipase Arterial Blood Potassium Cryptococcus Ab CMV Specimen Source CMV IgG Ab CMV IgM Ab CMV DNA Quant PCR CMV Qnt PCR log IU/mL P. carinii Source P.carinii Concentration Pneumocyst carinii DFA Ur Strep pneumoniae Ag Beta-(1,3)-D-Glucan B-(1,3)-D-Glucan Intrp WB Flow Cytometry Critical Care Progress Note - Nutrition Nutrition: Nutrition Category Date Time Status NPO Diet [DIET] Diets 03/07/17 Breakfast Ordered Attending/Attestation - Attestation I have personally seen and examined this patient.: Yes I have fully participated in the care of the patient.: Yes I have reviewed all pertinent clinical information: Yes Notes (Text): 03/12/17 16:01 61 y/o M w/ MODS Acute transaminitis resolving post NAC protocol. Acute pancreatitis , possibly drug induced vs GS related. May need US RUQ. Lipase resolving Acute MRSA PNA- Repeat CT chest shows some improvement. On Zyvox with improvement to WBC. No further fevers . All other labs from [facility] pending. ESRD on HD ( HD today) PRVC , off sedation following some commands, trail of SBT currently. G.I and Surgery on board . DVT P Heparin sq tid ppi Tube feeds to resume. cc time 65 min
--- NOTE | 2017-03-12 16:18 | CP.PCM.PN ---
Subjective - Date & Time of Evaluation Date of Evaluation: 03/12/17 Time of Evaluation: 09:00 - Subjective Subjective: Continues to be intubated and sedated, no fevers, still with loose stools but slowly improving. Objective - Vital Signs/Intake and Output Vital Signs (last 24 hours): Temp Pulse Resp BP Pulse Ox 97.2 F L 64 30 H 100/40 L 100 03/12/17 12:00 03/12/17 12:00 03/12/17 12:00 03/12/17 12:00 03/12/17 12:00 Intake and Output: 03/12/17 03/12/17 06:59 18:59 Intake Total 1064 Output Total 500 1999 Balance 564 -1999 - Medications Medications: Current Medications Albuterol/Ipratropium (Duoneb 3 Mg/0.5 Mg (3 Ml) Ud) 3 ml IH Q2H PRN PRN Reason: Shortness of Breath Albuterol/Ipratropium (Duoneb 3 Mg/0.5 Mg (3 Ml) Ud) 3 ml IH [id number] NARA Heparin Sodium (Porcine) (Heparin) 5,000 units SC Q12 NARA PRN Reason: Protocol Last Admin: 03/12/17 09:52 Dose: 5,000 units Hydralazine HCl (Apresoline) 10 mg IVP Q6 PRN PRN Reason: SBP >180 Last Admin: 03/07/17 02:05 Dose: 10 mg Meropenem 500 mg/ Sodium (Chloride) 100 mls @ 100 mls/hr IVPB Q12 NARA Stop: 03/13/17 06:23 Last Admin: 03/12/17 10:24 Dose: 100 mls/hr Metronidazole (Flagyl) 500 mg in 100 mls @ 100 mls/hr IVPB Q8 NARA PRN Reason: Protocol Last Admin: 03/12/17 05:17 Dose: 100 mls/hr Linezolid (Zyvox 600mg/300ml D5w) 600 mg in 300 mls @ 200 mls/hr IVPB Q12 NARA PRN Reason: Protocol Stop: 03/16/17 22:01 Last Admin: 03/12/17 09:49 Dose: 200 mls/hr Fentanyl Citrate (Fentanyl Citrate/Sodium Chloride 1 Mg/100 Ml) 1,000 mcg in 100 mls @ 10 mls/hr IV .Q10H PRN; Protocol; 100 MCG/HR PRN Reason: TITRATE PER MD ORDER Last Admin: 03/12/17 09:36 Dose: 100 mcg/hr, 10 mls/hr Dexmedetomidine HCl (Precedex 4 Mcg/Ml (100 Ml)) 400 mcg in 100 mls @ 12.111 mls/hr IV .Q8H16M PRN; Protocol; 0.4 MCG/KG/HR PRN Reason: Agitation Last Admin: 03/12/17 09:48 Dose: 0.4 mcg/kg/hr, 12.111 mls/hr Insulin Detemir (Levemir) 20 unit SC DAILY [facility] Last Admin: 03/11/17 10:37 Dose: 20 unit Insulin Human Regular (Humulin R Med) 0 units SC Q4 NARA Last Admin: 03/12/17 04:25 Dose: Not Given Lactulose (Enulose) 20 gm PO Q8H [facility] Last Admin: 03/12/17 02:18 Dose: 20 gm Ondansetron HCl (Zofran Inj) 4 mg IVP Q6H PRN PRN Reason: Nausea/Vomiting Pantoprazole Sodium (Protonix Inj) 40 mg IVP DAILY [facility] Last Admin: 03/12/17 10:21 Dose: 40 mg Rifaximin (Xifaxan) 550 mg PO BID NARA PRN Reason: Protocol Last Admin: 03/12/17 09:50 Dose: Not Given Vancomycin HCl (Vancocin 25 Mg/Ml (Oral Use)) 500 mg PO QID [facility] PRN Reason: Protocol Last Admin: 03/12/17 09:14 Dose: 500 mg - Labs Labs: 03/12/17 06:40 03/12/17 06:40 PT 12.6 Seconds (9.9-11.8) H 03/12/17 10:00 INR 1.17 (0.93-1.08) H 03/12/17 10:00 APTT 26.8 Seconds (23.7-30.8) 03/08/17 07:00 - Constitutional Appears: Other (Intubated and sedated) - ENT Exam Additional comments: ET tube in place - Neck Exam Neck Exam: absent: Lymphadenopathy, Meningismus - Respiratory Exam Respiratory Exam: Decreased Breath Sounds - Cardiovascular Exam Cardiovascular Exam: +S1, +S2 - GI/Abdominal Exam GI & Abdominal Exam: Soft. absent: Tenderness Assessment and Plan - Assessment and Plan (Free Text) Plan: Assessment Severe sepsis with ventilator-dependent respiratory failure and acute liver failure/acute fulminant hepatitis due to bilateral healthcare-associated pneumonia with possible gram positive cocci and/or gram negative bacilli; sputum cx now growing MRSA; need to rule out C. diff. infection HTN ESRD on HD dyslipidemia morbid obesity with BMI 45 positive HIV SELVIN test with negative HIV-1 PCR Plan continue Zyvox and continue Merrem (day 7 to complete 7-10 days of therapy); we have discontinued Doxycycline several days ago since it may worsen the liver failure; reviewed CT scan which showed the bilateral consolidations and infiltrates in the lungs; reviewed ultrasound of the abdomen which showed the fatty liver and hepatomegaly - liver enzymes are trending down and bilirubin as well Patient has also been started on PO vancomycin and IV flagyl pending repeat stool for C. diff (day 3) patient has history of multiple positive HIV SELVIN - follow up generation test and HIV-1 PCR Follow up fungal and mycobacterial work up Overall prognosis is poor
[2017-03-12 16:31] LABS: TOXOPLASMA IGM AB Negative (Negative)
[2017-03-12 16:31] LABS: EPSTEIN-BARR VCA AB IGG 3.51 (<0.91); TOXOPLASMA IGM AB Negative (Negative)
--- NOTE | 2017-03-12 16:41 | PN ---
DATE: 03/12/2017 SUBJECTIVE: The patient is seen in the ICU. He is currently being weaned off his sedation. Trial o f weaning is planned. He is arousable. He is opening his eyes on command. He is responding to pain ful stimuli. He is moving his lower extremities. He answers to questions by nodding his head. He reports pain. Unable to describe where the pain is. PHYSICAL EXAMINATION: GENERAL: Middle-aged male seen in the ICU, on mechanical ventilation. Off propofol for the time marenrena wallace. VITAL SIGNS: Blood pressure 100/40, heart rate 64, respiratory rate 30, temperature 97.2. HEENT: Normocephalic, atraumatic, positive pallor. NECK: Supple, no JVD. LUNGS: Bilateral equal air entry, bilateral rhonchi, no rales appreciated. CARDIAC: S1, S2, regular rate and rhythm, no murmur, no rub. ABDOMEN: Obese, distended, soft, nontender, bowel sounds present. EXTREMITIES: 2+ pitting edema of the lower extremities. INTAKE AND OUTPUT: 2014/. LABORATORY DATA: WBC 29.6, hemoglobin 8.1, hematocrit 23.5, platelets 103. Sodium 134, potassium 4. 0, chloride 96, CO2 21, BUN 58, creatinine 6.1, glucose 159, calcium 10.8, phosphorus 8.1, magnesium 2.0, total bili 3.0. GGT 242, AST 295, ALT 403, albumin 3.3. Corrected calcium is 11.3. Amylase 45 4, lipase 5748. Sputum culture showing MRSA. CURRENT MEDICATIONS: DuoNeb, Enulose, fentanyl, Flagyl, heparin, insulin, Levemir, meropenem 500 q. 12, Protonix, vancomycin IV, it is at 500 p.o. 4 times daily, rifaximin, Zofran, Zyvox 600 q. 12. ASSESSMENT AND PLAN: A 61-year-old male, presented with complaints of cough, not feeling well, short ness of breath, altered mental status. The patient was found to have septic shock, acute liver injur y, acute fulminant hepatitis. The patient was also found to have respiratory failure. He was intuba rk. Etiology of his liver failure is thought to be sepsis related. The patient had a CT scan of ca s abdomen and pelvis revealing bilateral pulmonary infiltrates, he has a sputum culture growing methi cillin-resistant Staphylococcus aureus. He has methicillin-resistant Staphylococcus aureus pneumonia . Also, he was thought to be tender in his abdomen on Sunday. He had a CT scan of his abdomen don e. He also had an amylase and lipase which were elevated. Hence, the thought is he has acute pancre atitis. He also has severe anemia. His hemoglobin was as low as 6.9. The patient received 1 unit of blood t ransfusion on 03/07. He received total of 3 units of blood transfusion; 2 were given on 03/10. At this point, the patient is responding to the treatment. He is clinically somewhat improved. His liver enzymes are improving. His pancreatic enzymes are improving. His respiratory status is somewh at better. There is going to be a trial of weaning today. 1. Respiratory failure, methicillin-resistant Staphylococcus aureus pneumonia, bilateral pulmonary i nfiltrates. 2. Acute pancreatitis. 3. Improving liver function status, status post acute fulminant hepatitis. 4. Improving WBC count. 5. Severe anemia, status post total of 3 units of blood transfusion. 6. Hypercalcemia, in the setting of hepatitis, poor prognostic sign. 7. Hypoalbuminemia. 8. End-stage renal disease. PLAN: 1. Continue Zyvox for MRSA pneumonia. 2. Continue oral vancomycin for possible C. diff. 3. Monitor H and H closely. 4. Dialysis today, he will be dialyzed for 4 hours, ultrafiltration of 2500. 5. Trial of weaning. 5. Supportive care. Case discussed with Dr. Boyd at bedside, ICU nurses, ICU residents. Case discussed with dialysis sta ff. More than 35 minutes were spent in the care of this critically ill patient. Shavonne Varela MD cc: [phone] TT: 03/12/2017 16:41:12 Confirmation # [id number] Dictation # [id number] jannet
[2017-03-12 16:56] LABS: TOXOPLASMA IGG AB <0.91 (<0.91)
[2017-03-12 16:56] LABS: TOXOPLASMA IGG AB <0.91 (<0.91)
[2017-03-12 18:53] LABS: EBV EA (D) AB IgG 2.03 (<=0.90)
[2017-03-12] MEDS: Albuterol-Ipratrop 3 mg / 0.5 (3 ml) UD IH PRN (20:32)
--- NOTE | 2017-03-12 23:40 | CON ---
DATE: 03/12/2017 CONSULT REQUESTED BY: Dr. Bowen. REASON FOR CONSULTATION: Leukocytosis. HISTORY OF PRESENT ILLNESS: The patient is a 61-year-old male admitted with nausea and vomiting. He was found to have pulmonary hepatic failure. He has history of chronic end-stage renal disease on hemodialysis. He also has respiratory failure, remains intubated. He has bilateral lung infiltrates. He is being treated with IV antibiotics for sepsis. White count was elevated to 67 ,000. It declined initially with IV antibiotic, but again was elevated up to 70 ,000 on 03/10/2017. Hemoglobin also declined to 6.9. He received 3 units of blood transfusion since admission. His current white count is 29,000, which has declined significantly over the past 2 days. PAST MEDICAL HISTORY: End-stage renal disease, chronic anemia, hypertension, morbid obesity, history of gout, congestive cardiac failure, coronary artery disease, status post cardiac catheterization, history of anemia, blood transfusion in the past. ALLERGIES: PENICILLIN. PAST SURGICAL HISTORY: Arteriovenous fistula, coronary catheterization. FAMILY HISTORY: Significant for hypertension. HOME MEDICATIONS: Amlodipine, multivitamin, nebulizer, enalapril 20 mg daily. CURRENT MEDICATIONS: Albuterol, ipratropium, fentanyl drip, heparin 5000 q. 12 , hydralazine p.r.n., Levemir 20 subQ daily, lactulose, Zyvox, meropenem, Flagyl , Zofran, Protonix, vancomycin. SOCIAL HISTORY: Single, lives with her son. PERSONAL HISTORY: No history of smoking, drinking, or alcohol abuse. REVIEW OF SYSTEMS: As per HPI. Review of systems cannot be performed; he is sedated and intubated. PHYSICAL EXAMINATION: GENERAL: He is intubated and sedated. VITAL SIGNS: Heart rate is 63 per minute, blood pressure 117/79, mean blood pressure is 73, respiratory rate 26 per minute, oxygen saturation 100% on ventilator. FIO2 40%. HEENT: Normal. Oral mucosa dry. NECK: Supple. CHEST: Air entry present bilateral. Bilateral conducted sounds present. HEART: S1, S2 normal. No murmur, no gallop. ABDOMEN: Tender all over, winces on deep palpation. EXTREMITIES: No edema. LABORATORY DATA: White count 29,000; hemoglobin 8.1; hematocrit 23.5; platelet count 103. Granulocytes 74%, lymphocytes 12%, monocytes 11%. Sodium 134, potassium 4, anion gap 21, BUN 58, creatinine 6.1, calcium 10.8, magnesium 2. Total bilirubin 3. Amylase and lipase are elevated. ASSESSMENT: 1. Leukocytosis. 2. Anemia. 3. Respiratory failure. 4. Sepsis. 5. End-stage renal disease on hemodialysis. 6. Acute hepatitis, etiology uncertain. PLAN: 1. He continues to be intubated, sedated. Leukocytosis, white count declined and now it was elevated to 70,000, likely due to sepsis, but I will send flow cytometry for leukemia, lymphoma panel. BCR-ABL by PCR to rule out CML. Hemoglobin and hematocrit stable now. He received 3 units of PRBCs since admission. No obvious bleeding from any site. 2. Sepsis. He is being treated with IV antibiotics as per ID. 3. End-stage renal disease. He is currently on hemodialysis. Nephrology following. 4. Coagulopathy related to sepsis. He is on DVT prophylaxis with heparin 5000 q. 12, continue that. Thank you, Dr. Bowen, for allowing us to participate in the patient's care. Kimberly Fernandez MD cc: [id number] TT: 03/12/2017 23:39:30 Confirmation # [id number] Dictation # [id number] mn MTDD
--- NOTE | 2017-03-13 01:45 | CP.PCM.PCO ---
Physician Communication Note - Physician Communication Note Physician Communication Note: Diffuse AbdPain-Pancreatitis:Needs GB surgery post Pneumonia
[2017-03-13] MEDS: Dexmedetomidine HCl 4mcg/ml 400 MCG/100 ML BOTTLE IV PRN (04:01)
[2017-03-13] MEDS: Albuterol-Ipratrop 3 mg / 0.5 (3 ml) UD IH SCH ×6 (05:07→23:30)
[2017-03-13] MEDS: metroNIDAZOLE IV 500 mg/100 ml 500 MG/100 ML BAG IVPB SCH ×3 (05:17→21:50)
[2017-03-13 05:36] LABS: ARTERIAL BLOOD GAS HCO3 24.8 mmol/L (21-28); ARTERIAL BLOOD GAS O2 CAPACITY 10.9 mL/dl (16-24); ARTERIAL BLOOD GAS O2 CONTENT 10.6 ML/dl (15-23); ARTERIAL BLOOD GAS PH 7.38 (7.35-7.45); ARTERIAL BLOOD HGB O2 SAT 91.2 % (95.0-98.0); CARBOXYHEMOGLOBIN 3.3 % (0.5-1.5); HHB 2.6 % (0-5); METHEMOGLOBIN 2.9 % (0.0-3.0)
[2017-03-13 06:34] LABS: ADD MANUAL DIFF? NO
[2017-03-13 06:47] LABS: BASO # 0.04 K/mm3 (0.0-2.0); BASO % 0.3 % (0.0-3.0); EOS # 0.4 (0.0-0.7); EOS % 2.7 % (1.5-5.0); GRAN % 75.9 % (50.0-68.0); HEMATOCRIT 24.8 % (42.0-52.0); LYMPH # 1.8 (1.2-3.4); LYMPH % 11.6 % (22.0-35.0); MEAN CELL VOLUME 90.5 fL (80.0-105.0); MEAN CORPUSCULAR HEMOGLOBIN 29.9 pg (25.0-35.0); MEAN CORPUSCULAR HGB CONC 33.1 g/dl (31.0-37.0); MEAN PLATELET VOLUME 10.9 fl (7.0-11.0); MONO # 1.5 (0.1-0.6); MONO % 9.5 % (1.0-6.0); PLATELET COUNT 125 10^3/uL (120.0-450.0); RED CELL DISTRIBUTION WIDTH 22.5 % (11.5-14.5); WHITE BLOOD COUNT 15.4 10^3/ul (4.5-11.0)
--- NOTE | 2017-03-13 08:01 | PN ---
DATE: 03/12/2017 REASON FOR CONSULTATION: Status post respiratory failure, acute liver failure, borderline troponin p ositive, end-stage renal disease. BRIEF CLINICAL HISTORY: This is a 61-year-old morbidly obese male with past medical history of diabe yuri, hypertension, hyperlipidemia, end-stage renal disease, on dialysis. Cardiac catheterization on 11/02/2016, nonobstructive coronary artery disease. Admitted with ____ shortness of breath for 2 days ' duration. Was on Zithromax by PMD as outpatient. Admitted after having deterioration in respirato ry distress requiring intubation. Found to be acute liver failure with AST 7000. Now awaiting for t he transfer to [facility]. Now, the liver function is significantly improving. Troponin 0.35, 0.75, 0.65, possibly secondary to end-stage renal disease and ____. ____ [place]. PHYSICAL EXAMINATION: As follows: VITAL SIGNS: Temperature afebrile, heart rate 64, blood pressure 100/40. HEENT: PERRLA, intact. NECK: Supple. No carotid bruits. No thyromegaly. CHEST: Clear to auscultation. HEART: S1, S2 regular. ABDOMEN: Soft. EXTREMITIES: Clubbing and cyanosis negative. Having dialysis. BLOOD WORKUP: As follows: WBC 29.6, hemoglobin ____, hematocrit 23.5, platelet count 103. Chemistr y shows sodium 130, potassium 4, chloride 96, carbon dioxide 21, anion gap of ____, BUN ____, creatin ine 6.1. IMPRESSION: Status post respiratory failure, acute liver failure. AST improved, initially 7000, now is at 295. End-stage renal disease, on dialysis. Troponin borderline secondary to end-stage renal disease status post cardiac ____, nonobstructive coronary artery disease, leukocytosis, possibly seps is, bilateral pulmonary infiltrate, respiratory failure on vent, acute liver failure improving, end-s tage renal disease on dialysis, chronic anemia. RECOMMENDATION: Continue broad-spectrum antibiotic as per ID. Avoid nephrotoxic. Avoid medication that can worsen the liver function. Liver function is improving. Continue DVT prophylaxis. The pat ient responding to the painful stimuli. ____ dialysis. The patient also ____ to fingerstick for glu cose check, wincing his hand. We will follow with you. Thank you, Dr. Bowen, for providing the opportunity in taking care of the patient. Try to wean off the vent as tolerated. Darrel Ervin MD cc: [phone] TT: 03/12/2017 14:57:53 Confirmation # [id number] Dictation # [id number] sn
--- NOTE | 2017-03-13 08:17 | PN ---
DATE: 03/12/2017 ADDENDUM This is an addendum to the GI progress report dictated by RAJNI Delvalle. The patient still remains on ventilator. Propofol drip have been discontinued has also been di scontinued. PHYSICAL EXAMINATION: VITAL SIGNS: Temperature is 98.6, pulse 69, blood pressure 144/82. ABDOMEN: Distended, soft. Tenderness present in the epigastric area. LUNGS: Bilateral air entry present with scattered rhonchi. EXTREMITIES: Mild edema present. NEUROLOGIC: On vent. Responds to only painful stimuli. The patient has pancreatitis, probably has gallstones, but CBD was normal. Other differential diagno sis should include ischemia, drug-induced should be considered also. Maddie Brown MD cc: [phone] TT: 03/13/2017 00:26:20 Confirmation # [id number] Dictation # [id number] tn 03/13/2017 07:16:04
[2017-03-13 08:29] LABS: ALB/GLOB RATIO 0.8 (1.1-1.8); BILIRUBIN,TOTAL 2.6 mg/dL (0.2-1.3); CALCIUM 9.8 mg/dL (8.4-10.5); POTASSIUM 4.1 mmol/L (3.6-5.0)
[2017-03-13] MEDS: Linezolid 600 mg in D5W 300 ml 600 MG/300 ML BAG IVPB SCH ×2 (10:05→22:04)
[2017-03-13] MEDS: Insulin Detemir 100 units/ml Vial (Levemir) SC SCH (10:06)
[2017-03-13] MEDS: Insulin Reg-MEDIUM-Coverage SC SCH ×5 (10:06→21:57)
[2017-03-13 10:15] LABS: ARTERIAL BLOOD GAS HCO3 26.6 mmol/L (21-28); ARTERIAL BLOOD GAS O2 CAPACITY 10.6 mL/dl (16-24); ARTERIAL BLOOD GAS O2 CONTENT 10.3 ML/dl (15-23); ARTERIAL BLOOD GAS PH 7.27 (7.35-7.45); ARTERIAL BLOOD HGB O2 SAT 91.6 % (95.0-98.0); CARBOXYHEMOGLOBIN 3.1 % (0.5-1.5); HHB 2.3 % (0-5); METHEMOGLOBIN 2.9 % (0.0-3.0)
[2017-03-13] MEDS: Vancomycin 25 MG/ML PO SCH ×4 (10:17→22:01)
--- NOTE | 2017-03-13 10:37 | PN ---
DATE: 03/13/2017 REASON FOR CONSULTATION AND FOLLOWUP: Status post respiratory failure, acute liver failure, borderli ne troponin positive, end-stage renal disease, status post cardiac catheterization and nonobstructive CAD. BRIEF CLINICAL HISTORY: This is a 61-year-old morbidly obese male with past medical history signific ant for diabetes, hypertension, hyperlipidemia, end-stage renal disease on dialysis, cardiac catheter ization 11/02/2016, nonobstructive coronary artery disease, admitted with shortness of breath 2 days' direction, symptoms of upper respiratory tract infection, was on Zithromax at home, admitted with acu te decompensated liver failure. AST was 7000, respiratory failure. Initial plan was to transferred to [facility]. Now, the liver function is significantly improved and almost at baseline. The patient also shows the troponin positive secondary to end-stage renal disease. Maximum troponin was 0.75. Possib ly, secondary to end-stage renal disease and stress and strain as patient had a cardiac catheterizati on 11/02/2016, nonobstructive coronary artery disease. Currently on vent, but responded to the painfu l stimuli yesterday. PHYSICAL EXAMINATION: VITAL SIGNS: Temperature afebrile, heart rate 69, blood pressure 132/50. HEENT: PERRLA. Extraocular muscles intact. NECK: Supple. No carotid bruits. No thyromegaly. CHEST: Clear to auscultation. HEART: S1, S2 regular. ABDOMEN: Soft. EXTREMITIES: Clubbing and cyanosis negative. LABORATORY DATA: Blood workup as follows: WBC 15.4, hemoglobin 8.2, hematocrit 24.8, platelet count 125. Chemistry shows sodium 130, potassium 4.0, chloride 90, carbon dioxide 24, anion gap of 17, BU N 38, creatinine 4.4. IMPRESSION: Acute liver failure, significantly improved. Now, the AST is 183, ALT 289. [place] [address]. Morbid obesity, increased body mass index 44.4 kg/m2, end-stage renal disease on dialy sis, status post cardiac catheterization 10/2016, nonobstructive coronary artery disease, respiratory failure, history of upper respiratory tract infection, was on Zithromax at home since 2 days prior to admission here. RECOMMENDATION: Continue vent management,, try to wean off the vent as tolerated, discontinue sedati on. Avoid any toxic medication for the liver hepatotoxic medication. Continue p.r.n. hydralazine as needed. Repeat echo was done on this admission that shows normal LV size, ejection fraction mildly reduced 45-50%, dilated RV, valve function moderately reduced. Trace to mild aortic regurgitation, m ild mitral regurg, mild to moderate tricuspid regurg, RV systolic pressure of 45, on vent. CVS statu s relatively stable, holding hemodynamically stable. Surgical impression was also diffuse abdominal pain, pancreatitis, needs gallbladder surgery. We will follow with you. Thank you, Dr. Bowen, for providing us the opportunity in taking care of the patient. ADDENDUM: The patient will be high risk for surgical intervention as recently suffered acute liver f ailure, but if the patient need surgical intervention to save his life, the patient can go as high ri sk procedure. We will closely follow with you. As the patient is hemodynamically stable and no evid ence of acute UT, no evidence of ischemia, status post cardiac catheterization 11/02/2016, no evidence of arrhythmia, we will follow with you. Darrel Ervin MD cc: [phone] TT: 03/13/2017 10:36:25 Confirmation # [id number] Dictation # [id number] tn
--- NOTE | 2017-03-13 11:28 | PN ---
DATE: 03/13/2017 The patient seen and examined at bedside. He is off of Precedex. He is waking up. He is comfortable. He is on pressure support 5/5 and he is tolerating it very well; however, he does have a lot of sputum and he is wheezing. Thus, I will proceed with frequent bronchodilators, frequent suction and a small dose of steroids. PHYSICAL EXAMINATION: VITAL SIGNS: Heart rate 83, blood pressure 122/52, respiratory rate 13, oxygen saturation 100%, FIO2 of 40%. HEAD AND NECK: Atraumatic. LUNGS: Wheezes bilaterally. HEART: Regular rate and rhythm. S1, S2 distant. ABDOMEN: Soft, nontender, nondistended. MUSCULOSKELETAL: No C/C/E. NEUROLOGIC: The patient moves all extremities spontaneously. SKIN: Moist. PSYCHIATRIC: The patient is following commands easily. Has good cough and gag reflex and muscle strength in both upper extremities. LABORATORY DATA: WBC 15.4, hemoglobin 8.2, platelet count 125. Sodium 136, potassium 4.1, chloride 99, carbon dioxide 24, BUN 38, creatinine 4.4, glucose 209. AST 183, ALT 289. Serology reviewed. ABG 7.27/58/91 on 40% FIO2 (then small dose of steroids started, bronchodilators given and frequent suctioning continued). MEDICATIONS: DuoNeb p.r.n. and every 4 hours on standing basis, Precedex, Flagyl, heparin subQ, Apresoline p.r.n., Levemir, lactulose, levofloxacin, Solu- Medrol 20 mg IV q. 12, Zofran p.r.n., rifaximin, vancomycin p.o. and Zyvox. ASSESSMENT AND PLAN: This is a 61-year-old gentleman who is recovering from acute liver failure from unknown etiology. Despite fairly detailed workup, it is unclear why lipase is so much elevated; however, it is also going down. The patient has methicillin-resistant Staphylococcus aureus and currently is on linezolid. He is tolerating pressure support 5/5 very well; however, still has signs of bronchospasm which has been treated with bronchodilators, low dose steroids and pulmonary toilet. 1. Neurology: The patient is awake, following commands. 2. Pulmonary: We will continue with pressure support trial and if bronchospasm resolves, we will consider extubation after HD. Otherwise, we will proceed with daily weaning trials and sedation vacation. We will continue with conservative fluid management. The patient is on dialysis for his end- stage renal disease. We will continue with head of bed elevated more than 35 degrees. Low dose steroids will also help with minimizing laryngeal edema in this high risk patient. The patient is on antibiotics for methicillin- resistant Staphylococcus aureus pneumonia. 3. Cardiovascular: The patient is stable. 4. Infectious disease: The patient is on linezolid for the methicillin- resistant Staphylococcus aureus pneumonia. Infectious disease service is following him as well. Multiple viral studies did not point to any one etiology of his initial clinical compromise. Leukocytosis is getting down and the patient is afebrile. 5. Renal: The patient is getting dialysis 3 times a week. 6. Endocrine: We will continue to maintain blood glucose between 140-180 range according to NICE-SUGAR trial. 7. We will continue to target euvolemia, euglycemia, normothermia and oxygen saturation more than 90%. We will continue with deep venous thrombosis and gastrointestinal prophylaxis. ccm time 40 min Tay Yañez MD cc: [phone] TT: 03/13/2017 11:27:34 Confirmation # [id number] Dictation # [id number] tn MTDD
--- NOTE | 2017-03-13 12:32 | RAD ---
HISTORY: pneumonia COMPARISON: 03/09/2017 FINDINGS: LUNGS: No active pulmonary disease. PLEURA: No significant pleural effusion identified, no pneumothorax apparent. CARDIOVASCULAR: Moderate cardiomegaly. Moderate vascular congestion. Endotracheal and nasogastric tubes in satisfactory position OSSEOUS STRUCTURES: No significant abnormalities. VISUALIZED UPPER ABDOMEN: Normal. OTHER FINDINGS: None. IMPRESSION: Moderate cardiomegaly and moderate vascular congestion.
--- NOTE | 2017-03-13 12:53 | PN ---
DATE: 03/13/2017 GI FOLLOWUP NOTE Seen and examined at the bedside. The patient remains on ventilator, waiting to get a PICC, weaning off sedation. VITAL SIGNS: Blood pressure 136/70, respirations 26, 100 on vent. LABORATORY DATA: Today, WBC is 15.4. This is improved, hemoglobin 8.2. Hematocrit is 24.8. Platel ets are 125. Sodium 136, K 4.1, BUN 38. Creatinine is 4.4. Total bilirubin is 2.6, AST 183, ALT 28 9. Alk phos is 130. Amylase is 233. Lipase is 1708. This is improving. Sputum is positive MRSA. His stool culture is negative for Salmonella, Shigella, ____. The patient had a chest x-ray. Report is pending. PHYSICAL EXAMINATION: HEENT: Sclerae are ____. NECK: Supple. CARDIAC: S1 and S2. LUNGS: Positive rhonchi. ABDOMEN: Soft and obese. It does not appear nontender. No organomegaly. NEUROLOGIC: The patient is being weaned off sedation, but moves extremities. ASSESSMENT: This is a 61-year-old male with history of end-stage renal disease on dialysis, came wit h acute liver failure of unknown etiology. He is now positive methicillin-resistant Staphylococcus a ureus and found to have acute pancreatitis. His wounds are improving. It could be pancreatitis. Wo uld have to consider if this is drug-induced ischemia or gallstones, but common bile duct is normal. The patient also with bilateral pneumonia. PLAN: Remain on IV antibiotics. He is on Flagyl, Zyvox, vancomycin oral. Continue the Xifaxan. He is on Protonix for GI prophylaxis, on lactulose, and on heparin. Continue to follow closely. The p vadim was seen and case discussed with Dr. Brown. Idalia MONROE cc: [phone] TT: 03/13/2017 12:52:34 Confirmation # [id number] Dictation # [id number] symone
--- NOTE | 2017-03-13 13:20 | US ---
HISTORY: Cystic duct observation-pancreatitis COMPARISON: None. TECHNIQUE: Sonographic evaluation of the right upper quadrant of the abdomen. FINDINGS: LIVER: Measures 17.9 cm in length. Mildly increased echogenicity of the liver parenchyma. No mass. No intrahepatic bile duct dilatation. GALLBLADDER: Unremarkable. No gallstones. COMMON BILE DUCT: Measures 5 mm. No stones. No dilatation. PANCREAS: Unremarkable as visualized. No mass. No ductal dilatation. RIGHT KIDNEY: Measures 10.0 cm in length. Normal echogenicity. No calculus, mass, or hydronephrosis. AORTA: No aneurysmal dilatation. IVC: Unremarkable. OTHER FINDINGS: None . IMPRESSION: Mild hepatomegaly with diffuse fatty infiltration. No evidence of cholelithiasis or cholecystitis. No sonographic evidence of acute pancreatitis.
[2017-03-13] MEDS ORDERED: Lidocaine 2% Inj (20ml) ONE (13:49)
--- NOTE | 2017-03-13 13:49 | PN ---
DATE: 03/13/2017 SUBJECTIVE: The patient is currently seen in CCU, bed 6. He remains intubated. The patient is sche duled for placement of a PICC line today, a short dialysis with ultrafiltration and possible extubati on later today. The patient was seen by general surgery who feels that he would benefit from a sharan cystectomy post resolution of his acute situation and MRSA pneumonia. MEDICATIONS: Medication list reviewed. The patient is currently on hydralazine p.r.n., DuoNeb, Enul ose, fentanyl, Flagyl, heparin, insulin, Levemir, Precedex p.r.n., Protonix, Solu-Medrol, oral vancom ycin, Xifaxan, Zofran, and Zyvox. OBJECTIVE: INTAKE AND OUTPUT: Intake 1674, output 2700. VITAL SIGNS: Blood pressure 132/50. Respiratory rate is 26. Pulse ox is 100%, pulse is 69. The pa rakesh remains on an FIO2 of 40%. HEENT: Shows him to be intubated. The patient is completely responsive, shaking his head appropriat kimmy to all questions. Conjunctivae are pale. Sclerae are nonicteric. NECK: Supple, no neck vein distention. CHEST: Scattered rhonchi. Diminished breath sounds at the bases. No wheezing, no rales. CARDIOVASCULAR: Shows a normal S1, S2, mitral regurgitation/tricuspid regurgitation. No rub. ABDOMEN: Mildly distended. Mild obesity. Bowel sounds are present. No rebound, no guarding, no ma sses appreciated. EXTREMITIES: Show no lower extremity edema with his legs raised in bed. He has a working AV fistula , left upper extremity, positive thrill, positive bruit. LABORATORY DATA AND IMAGING: Chest, abdominal and pelvic CT scan again shows extensive bilateral inf iltrates. Abdominal and pelvic CT scan shows infiltration of the soft tissue of the pancreas suspici ous for pancreatitis. Gallbladder and bile ducts are unremarkable. Liver was unremarkable. Abdomin al ultrasound of the gallbladder showed thickening of the gallbladder, inflammation and stones. Lab: CBC: White blood cell count down to 15.4 from 29.6. Hemoglobin 8.2, platelet count is 125,000. C oags: PT 12.6 with an INR of 1.17. Blood gas from today, pH 7.27, pCO2 58 with a pO2 of 91. Chemis tries: Normal electrolytes. BUN 38 with a creatinine of 4.4, glucose 209. Calcium is 9.8. Last ph osphorus was 8.1. Bilirubin 2.6, AST is down to 183, ALT is down to 289. Last ammonia level was nor mal at 30 back on 03/08/2017. Albumin is 3.4. Amylase 233 down from 985. Lipase down from over 20 1 [id number]. Microbiology: Sputum is positive for MRSA. Stools are negative despite copious amounts o f diarrhea. ASSESSMENT: 1. Respiratory failure in the setting of methicillin-resistant Staphylococcus aureus bilateral pneum onia. The patient will continue present ventilatory support with the help of perhaps extubation late r today. The patient will complete a course of IV antibiotic therapy. 2. Diarrhea. The patient is being treated empirically for Clostridium difficile colitis, pseudomemb ranous colitis. To date, cultures have all been negative. 3. Acute pancreatitis and possible acute cholecystitis. As per surgical note, patient will elective ly need to have his gallbladder removed. Pancreatitis appears to be resolving. 4. Severe transaminitis in the setting of acute fulminant hepatitis. This appears to be resolving n gomezly. 5. Improving leukocytosis. 6. History of severe anemia. The patient is status post 3 units of packed red blood cells. Hemoglo bin remains at 8.2 which is in the lower range of his baseline. 7. End-stage renal disease. With the hope of possible extubation later today, post-placement of a P ICC line, the patient will likely receive a short dialysis treatment with ultrafiltration in order to facilitate a successful extubation. 8. History of secondary hyperparathyroidism. Phosphorus level remains elevated. The patient will c ontinue binder therapy post-extubation. He had been on Auryxia. PLAN: 1. Plan for today is placement of a PICC line in order to obtain IV access, short dialysis with ultr afiltration in order to facilitate a successful extubation with extubation to follow. We will discus s with cover stitch machine operator the possibility of nutrition in light of the fact that the patient has been hospit alized for 1 week. NG tube feedings have not been started because of his pancreatitis. Perhaps hype ralimentation. 2. Complete a course of antibiotic therapy for his MRSA pneumonia. 3. Continue vancomycin and Flagyl for his diarrhea and continue to repeat stool samples for C. diff. 4. In light of his tendency toward anemia, the patient can be transfused on dialysis which is the sa fest way to give him blood products. 5. Attempt extubation later today as per plan. 6. Case discussed with the cover stitch machine operator and CCU nursing staff in detail. Greater than 35 minutes spent in the care of this patient. Tono Kent MD cc: [id number] TT: 03/13/2017 13:49:40 Confirmation # [id number] Dictation # [id number] tn
[2017-03-13] MEDS: MethylPREDNISolone 40 mg Vial IVP SCH ×2 (18:00→22:00)
--- NOTE | 2017-03-13 18:35 | CP.PCM.PN ---
Subjective - Date & Time of Evaluation Date of Evaluation: 03/13/17 Time of Evaluation: 10:10 - Subjective Subjective: Still on the ventilator, but oxygen requirement is less, responds to questions when sedation is turned off. Afebrile overnight. Objective - Vital Signs/Intake and Output Vital Signs (last 24 hours): Temp Pulse Resp BP Pulse Ox 99.2 F 69 26 H 132/50 L 100 03/13/17 04:00 03/13/17 04:06 03/13/17 07:27 03/13/17 04:06 03/13/17 07:27 Intake and Output: 03/13/17 03/13/17 06:59 18:59 Intake Total 964 Output Total 400 Balance 564 - Medications Medications: Current Medications Albuterol/Ipratropium (Duoneb 3 Mg/0.5 Mg (3 Ml) Ud) 3 ml IH Q2H PRN PRN Reason: Shortness of Breath Last Admin: 03/12/17 20:32 Dose: 3 ml Albuterol/Ipratropium (Duoneb 3 Mg/0.5 Mg (3 Ml) Ud) 3 ml IH [id number] NARA Last Admin: 03/13/17 07:21 Dose: 3 ml Heparin Sodium (Porcine) (Heparin) 5,000 units SC Q12 [facility] PRN Reason: Protocol Last Admin: 03/12/17 21:32 Dose: 5,000 units Hydralazine HCl (Apresoline) 10 mg IVP Q6 PRN PRN Reason: SBP >180 Last Admin: 03/07/17 02:05 Dose: 10 mg Metronidazole (Flagyl) 500 mg in 100 mls @ 100 mls/hr IVPB Q8 NARA PRN Reason: Protocol Last Admin: 03/13/17 05:17 Dose: 100 mls/hr Linezolid (Zyvox 600mg/300ml D5w) 600 mg in 300 mls @ 200 mls/hr IVPB Q12 [facility] PRN Reason: Protocol Stop: 03/16/17 22:01 Last Admin: 03/12/17 21:35 Dose: 200 mls/hr Fentanyl Citrate (Fentanyl Citrate/Sodium Chloride 1 Mg/100 Ml) 1,000 mcg in 100 mls @ 10 mls/hr IV .Q10H PRN; Protocol; 100 MCG/HR PRN Reason: TITRATE PER MD ORDER Last Titration: 03/12/17 15:00 Dose: 0 mcg/hr, 0 mls/hr Dexmedetomidine HCl (Precedex 4 Mcg/Ml (100 Ml)) 400 mcg in 100 mls @ 12.111 mls/hr IV .Q8H16M PRN; Protocol; 0.4 MCG/KG/HR PRN Reason: Agitation Last Admin: 03/13/17 04:01 Dose: 0.4 mcg/kg/hr, 12.111 mls/hr Insulin Detemir (Levemir) 20 unit SC DAILY [facility] Last Admin: 03/12/17 12:25 Dose: 20 unit Insulin Human Regular (Humulin R Med) 0 units SC Q4 NARA Last Admin: 03/13/17 00:00 Dose: Not Given Lactulose (Enulose) 20 gm PO Q8H [facility] Last Admin: 03/13/17 02:18 Dose: 20 gm Ondansetron HCl (Zofran Inj) 4 mg IVP Q6H PRN PRN Reason: Nausea/Vomiting Pantoprazole Sodium (Protonix Inj) 40 mg IVP DAILY [facility] Last Admin: 03/12/17 10:21 Dose: 40 mg Rifaximin (Xifaxan) 550 mg PO BID [facility] PRN Reason: Protocol Last Admin: 03/12/17 18:24 Dose: 550 mg Vancomycin HCl (Vancocin 25 Mg/Ml (Oral Use)) 500 mg PO QID [facility] PRN Reason: Protocol Last Admin: 03/12/17 21:54 Dose: 500 mg - Labs Labs: 03/13/17 05:45 03/13/17 05:45 PT 12.6 Seconds (9.9-11.8) H 03/12/17 10:00 INR 1.17 (0.93-1.08) H 03/12/17 10:00 APTT 26.8 Seconds (23.7-30.8) 03/08/17 07:00 - Constitutional Appears: Other (remains on the ventilator) - Head Exam Head Exam: NORMAL INSPECTION - ENT Exam Additional comments: ET tube in place - Neck Exam Neck Exam: absent: Lymphadenopathy, Meningismus - Respiratory Exam Respiratory Exam: Decreased Breath Sounds - Cardiovascular Exam Cardiovascular Exam: +S1, +S2 - GI/Abdominal Exam GI & Abdominal Exam: Soft. absent: Tenderness Assessment and Plan - Assessment and Plan (Free Text) Plan: Assessment Severe sepsis with ventilator-dependent respiratory failure and acute liver failure/acute fulminant hepatitis due to bilateral healthcare-associated pneumonia with possible gram positive cocci and/or gram negative bacilli; sputum cx now growing MRSA; need to rule out C. diff. infection HTN ESRD on HD dyslipidemia morbid obesity with BMI 45 positive HIV SELVIN test with negative HIV-1 PCR Plan continue Zyvox and continue Merrem (day 8 to complete 7-10 days of therapy); we have discontinued Doxycycline several days ago since it may worsen the liver failure; reviewed CT scan which showed the bilateral consolidations and infiltrates in the lungs; reviewed ultrasound of the abdomen which showed the fatty liver and hepatomegaly - liver enzymes are trending down and bilirubin as well Patient has also been started on PO vancomycin and IV flagyl pending repeat stool for C. diff (day 4) patient has history of multiple positive HIV SELVIN, even the 4th generation test - HIV-1 PCR still negative - may be a false positive test Follow up fungal and mycobacterial work up Overall prognosis is guarded at best
--- NOTE | 2017-03-13 19:00 | VASCULAR ---
PROCEDURE: Ultrasound and fluoroscopically placed right upper extremity PICC line. HISTORY: Sepsis. Multi organ dysfunction. It IV access. Needs PICC line. PHYSICIAN(S): Navjot Leonard MD. TECHNIQUE: The relative risks and indications of the procedure were explained to the patient and consent obtained. The patient was placed supine on the arteriogram table and the right arm prepped and draped in the usual sterile fashion. A tourniquet was applied to the right axilla. 1% Xylocaine was used to anesthetize the skin and soft tissues at the puncture site above the elbow. The right basilic vein was punctured under direct ultrasound guidance with a micropuncture set. A 0.018 guidewire was advanced centrally and used to measure the length to the SVC/RA junction. A 5 Tamazight single-lumen PICC line 45 cm long was advanced to the SVC/RA junction. The catheter was flushed and secured. The patient tolerated the procedure well. IMPRESSION: 1. Ultrasound and fluoroscopically placed right upper extremity PICC line. A 5 Tamazight single-lumen PICC line 45 cm long was advanced to the SVC/RA junction.
[2017-03-13] MEDS ORDERED: Propofol 10 mg/ml 1,000 MG/100 ML VIAL ONE (19:20)
[2017-03-13] MEDS: Albuterol-Ipratrop 3 mg / 0.5 (3 ml) UD IH PRN ×3 (19:30→21:25)
[2017-03-13] MEDS ORDERED: MethylPREDNISolone 40 mg Vial IVP STA (19:32)
[2017-03-13] MEDS ORDERED: NOREPINEPHRINE BIT/0.9 % NACL 4 MG/250 ML BAG IV PRN (19:33)
[2017-03-13] MEDS ORDERED: Midazolam 5 MG/5 ML VIAL ONE (19:41)
[2017-03-13] MEDS: Midazolam 5 MG/5 ML VIAL IVP PRN (19:45)
[2017-03-13] MEDS ORDERED: Midazolam 50 mg/10 ml Inj IVP PRN (19:48)
[2017-03-13] MEDS ORDERED: Cisatracurium 2 mg/mL Inj 10ml IV ONE (19:55)
[2017-03-13 20:07] LABS: ARTERIAL BLOOD GAS HCO3 21.6 mmol/L (21-28); ARTERIAL BLOOD GAS O2 CAPACITY 10.7 mL/dl (16-24); ARTERIAL BLOOD GAS O2 CONTENT 10.6 ML/dl (15-23); ARTERIAL BLOOD HGB O2 SAT 94.2 % (95.0-98.0); CARBOXYHEMOGLOBIN 2.7 % (0.5-1.5); HHB 0.5 % (0-5); METHEMOGLOBIN 2.6 % (0.0-3.0)
[2017-03-13 20:09] LABS: ARTERIAL BLOOD GAS PH 7.18 (7.35-7.45)
[2017-03-13] MEDS ORDERED: Sodium Chloride 0.9% 1,000 ML IV STA ×2 (20:19→21:44)
--- NOTE | 2017-03-13 20:31 | CP.PCM.PN ---
<Leeann Lopez - Last Filed: 03/13/17 20:45> Subjective - Date & Time of Evaluation Date of Evaluation: 03/13/17 Time of Evaluation: 19:00 - Subjective Subjective: Code Blue note 61 yo male was found to have decreasing heart rate leading to PEA, code blue was called. ACLS protocol was started, patient received 1 dose epinephrine. AT 7 :01 ROSC. Patient was previously intubated, he was suctioned out thick secretions. Stat CXR, ABG, EKG were ordered. He was started on levophed. CXR showed pneumomediastinum and surgery was informed. Sodium chloride 7% inhalation , duoneb breathing treatments, and versed were started. Patient recived stat solu- medrol dose. Vent settings adjusted per ABG. EKG was note changed from previous. Objective - Vital Signs/Intake and Output Vital Signs (last 24 hours): Temp Pulse Resp BP Pulse Ox 99.2 F 111 H 20 190/85 H 100 03/13/17 16:00 03/13/17 19:05 03/13/17 19:05 03/13/17 19:05 03/13/17 19:05 Intake and Output: 03/13/17 03/14/17 18:59 06:59 Intake Total 450 Output Total 3100 Balance -2650 - Medications Medications: Current Medications Albuterol/Ipratropium (Duoneb 3 Mg/0.5 Mg (3 Ml) Ud) 3 ml IH Q2H PRN PRN Reason: Shortness of Breath Last Admin: 03/12/17 20:32 Dose: 3 ml Albuterol/Ipratropium (Duoneb 3 Mg/0.5 Mg (3 Ml) Ud) 3 ml IH [id number] NARA Last Admin: 03/13/17 16:08 Dose: 3 ml Heparin Sodium (Porcine) (Heparin) 5,000 units SC Q12 [facility] PRN Reason: Protocol Last Admin: 03/13/17 10:04 Dose: 5,000 units Hydralazine HCl (Apresoline) 10 mg IVP Q6 PRN PRN Reason: SBP >180 Last Admin: 03/07/17 02:05 Dose: 10 mg Metronidazole (Flagyl) 500 mg in 100 mls @ 100 mls/hr IVPB Q8 [facility] PRN Reason: Protocol Last Admin: 03/13/17 17:56 Dose: 100 mls/hr Linezolid (Zyvox 600mg/300ml D5w) 600 mg in 300 mls @ 200 mls/hr IVPB Q12 [facility] PRN Reason: Protocol Stop: 03/16/17 22:01 Last Admin: 03/13/17 10:05 Dose: 200 mls/hr Fentanyl Citrate (Fentanyl Citrate/Sodium Chloride 1 Mg/100 Ml) 1,000 mcg in 100 mls @ 10 mls/hr IV .Q10H PRN; Protocol; 100 MCG/HR PRN Reason: TITRATE PER MD ORDER Last Titration: 03/12/17 15:00 Dose: 0 mcg/hr, 0 mls/hr Dexmedetomidine HCl (Precedex 4 Mcg/Ml (100 Ml)) 400 mcg in 100 mls @ 12.111 mls/hr IV .Q8H16M PRN; Protocol; 0.4 MCG/KG/HR PRN Reason: Agitation Last Admin: 03/13/17 04:01 Dose: 0.4 mcg/kg/hr, 12.111 mls/hr NOREPINEPHRINE BIT/0.9 % NACL (Levophed 4 Mg/ 250 Ml Ns Premixed) 4 mg in 250 mls @ 15 mls/hr IV .[id number] PRN; Protocol; 4 MCG/MIN PRN Reason: TITRATE PER MD ORDER Insulin Detemir (Levemir) 20 unit SC DAILY [facility] Last Admin: 03/13/17 10:06 Dose: 20 unit Insulin Human Regular (Humulin R Med) 0 units SC Q4 [facility] Last Admin: 03/13/17 17:57 Dose: Not Given Lactulose (Enulose) 20 gm PO Q8H [facility] Last Admin: 03/13/17 18:19 Dose: 20 gm Methylprednisolone (Solu-Medrol) 20 mg IVP Q12 [facility] Last Admin: 03/13/17 18:00 Dose: 20 mg Midazolam HCl (Versed Inj) 5 mg IVP Q2H PRN PRN Reason: Sedation Ondansetron HCl (Zofran Inj) 4 mg IVP Q6H PRN PRN Reason: Nausea/Vomiting Pantoprazole Sodium (Protonix Inj) 40 mg IVP DAILY [facility] Last Admin: 03/13/17 10:04 Dose: 40 mg Rifaximin (Xifaxan) 550 mg PO BID [facility] PRN Reason: Protocol Last Admin: 03/13/17 18:10 Dose: 550 mg Sodium Chloride (Sodium Chloride 7% Inhalation) 4 ml IH Q4 NARA Vancomycin HCl (Vancocin 25 Mg/Ml (Oral Use)) 500 mg PO QID [facility] PRN Reason: Protocol Last Admin: 03/13/17 18:06 Dose: 500 mg - Labs Labs: 03/13/17 05:45 03/13/17 05:45 PT 12.6 Seconds (9.9-11.8) H 03/12/17 10:00 INR 1.17 (0.93-1.08) H 03/12/17 10:00 APTT 26.8 Seconds (23.7-30.8) 03/08/17 07:00 - Constitutional Appears: In Acute Distress - Respiratory Exam Respiratory Exam: Rhonchi Additional comments: intubated - Cardiovascular Exam Cardiovascular Exam: Tachycardia, REGULAR RHYTHM - Neurological Exam Neurological Exam: Awake <Jean Gates MD - Last Filed: 03/14/17 08:33> Objective - Vital Signs/Intake and Output Vital Signs (last 24 hours): Temp Pulse Resp BP Pulse Ox 98 F 95 H 31 H 124/56 L 100 03/14/17 04:00 03/14/17 07:01 03/14/17 07:27 03/14/17 07:01 03/14/17 07:27 Intake and Output: 03/14/17 03/14/17 06:59 18:59 Intake Total 2650 25 Output Total 150 Balance 2500 25 - Medications Medications: Current Medications Albuterol/Ipratropium (Duoneb 3 Mg/0.5 Mg (3 Ml) Ud) 3 ml IH Q2H PRN PRN Reason: Shortness of Breath Last Admin: 03/13/17 21:25 Dose: 3 ml Albuterol/Ipratropium (Duoneb 3 Mg/0.5 Mg (3 Ml) Ud) 3 ml IH [id number] [facility] Last Admin: 03/14/17 07:11 Dose: 3 ml Heparin Sodium (Porcine) (Heparin) 5,000 units SC Q12 [facility] PRN Reason: Protocol Last Admin: 03/13/17 21:52 Dose: 5,000 units Hydralazine HCl (Apresoline) 10 mg IVP Q6 PRN PRN Reason: SBP >180 Last Admin: 03/07/17 02:05 Dose: 10 mg Metronidazole (Flagyl) 500 mg in 100 mls @ 100 mls/hr IVPB Q8 [facility] PRN Reason: Protocol Last Admin: 03/14/17 05:04 Dose: 100 mls/hr Linezolid (Zyvox 600mg/300ml D5w) 600 mg in 300 mls @ 200 mls/hr IVPB Q12 [facility] PRN Reason: Protocol Stop: 03/16/17 22:01 Last Admin: 03/13/17 22:04 Dose: 200 mls/hr Fentanyl Citrate (Fentanyl Citrate/Sodium Chloride 1 Mg/100 Ml) 1,000 mcg in 100 mls @ 10 mls/hr IV .Q10H PRN; Protocol; 100 MCG/HR PRN Reason: TITRATE PER MD ORDER Last Titration: 03/12/17 15:00 Dose: 0 mcg/hr, 0 mls/hr Dexmedetomidine HCl (Precedex 4 Mcg/Ml (100 Ml)) 400 mcg in 100 mls @ 12.111 mls/hr IV .Q8H16M PRN; Protocol; 0.4 MCG/KG/HR PRN Reason: Agitation Last Admin: 03/13/17 04:01 Dose: 0.4 mcg/kg/hr, 12.111 mls/hr NOREPINEPHRINE BIT/0.9 % NACL (Levophed 4 Mg/ 250 Ml Ns Premixed) 4 mg in 250 mls @ 15 mls/hr IV .[id number] PRN; Protocol; 4 MCG/MIN PRN Reason: TITRATE PER MD ORDER Last Admin: 03/13/17 19:35 Dose: 15 mls/hr Propofol (Diprivan) 1,000 mg in 100 mls @ 3.633 mls/hr IV .Q24H PRN; Protocol; 5 MCG/KG/MIN PRN Reason: TITRATE PER MD ORDER Last Titration: 03/14/17 08:30 Dose: 0 mcg/kg/min, 0 mls/hr Insulin Detemir (Levemir) 20 unit SC DAILY [facility] Last Admin: 03/13/17 10:06 Dose: 20 unit Insulin Human Regular (Humulin R Med) 0 units SC Q4 [facility] Last Admin: 03/14/17 08:00 Dose: 3 units Lactulose (Enulose) 20 gm PO Q8H [facility] Last Admin: 03/14/17 03:11 Dose: 20 gm Methylprednisolone (Solu-Medrol) 20 mg IVP Q12 [facility] Last Admin: 03/13/17 22:00 Dose: Not Given Midazolam HCl (Versed Inj) 5 mg IVP Q2H PRN PRN Reason: Sedation Last Admin: 03/14/17 00:50 Dose: 5 mg Ondansetron HCl (Zofran Inj) 4 mg IVP Q6H PRN PRN Reason: Nausea/Vomiting Pantoprazole Sodium (Protonix Inj) 40 mg IVP DAILY [facility] Last Admin: 03/13/17 10:04 Dose: 40 mg Rifaximin (Xifaxan) 550 mg PO BID [facility] PRN Reason: Protocol Last Admin: 03/13/17 18:10 Dose: 550 mg Sodium Chloride (Sodium Chloride 7% Inhalation) 4 ml IH [id number] [facility] Vancomycin HCl (Vancocin 25 Mg/Ml (Oral Use)) 500 mg PO QID [facility] PRN Reason: Protocol Last Admin: 03/13/17 22:01 Dose: 500 mg - Labs Labs: 03/13/17 05:45 03/14/17 06:45 PT 12.6 Seconds (9.9-11.8) H 03/12/17 10:00 INR 1.17 (0.93-1.08) H 03/12/17 10:00 APTT 26.8 Seconds (23.7-30.8) 03/08/17 07:00 Attending/Attestation - Attestation I have personally seen and examined this patient.: Yes I have fully participated in the care of the patient.: Yes I have reviewed all pertinent clinical information, including history, physical exam and plan: Yes Notes (Text): 03/14/17 08:33 -I agree with the above CODE BLUE note completed by the resident physician
--- NOTE | 2017-03-13 21:30 | CARD ---
APPROVED REPORT EKG Measurement Heart [id number] HI [id number] <Conclusion> Sinus rhythm with premature atrial complexes Nonspecific T wave abnormality Prolonged QT Abnormal ECG
--- NOTE | 2017-03-13 21:46 | PN ---
DATE: 03/13/2017 SUBJECTIVE: The patient is a 61-year-old male, still sedated and intubated. He has end-stage renal disease on hemodialysis. He was admitted with sepsis and fulminant liver failure, has bilateral lung infiltrates. White count was elevated at 70k. Flow cytometry on peripheral blood was ordered, which is negative. BCR-ABL by PCR is still pending. He is currently getting hemodialysis now. He received several units of blood transfusion since admission for low hemoglobin. He was also mildly coagulopathic on admission. He has severe sepsis currently on IV antibiotics. REVIEW OF SYSTEMS: Could not be obtained. The patient is sedated and intubated. PHYSICAL EXAMINATION: GENERAL: The patient is sedated and intubated. VITAL SIGNS: Heart rate is 70 per minute, blood pressure 120/80, heart rate is 90 per minute, respiratory rate 26 per minute, oxygen saturation 100% on vent. HEENT: Normal. Oral mucosa dry. NECK: No lymphadenopathy. CHEST: Air entry present, equal bilateral, bilateral conducted sounds present. CARDIOVASCULAR: S1, S2 normal, tachycardia plus. ABDOMEN: Tenderness, diffuse. EXTREMITIES: No edema. CENTRAL NERVOUS SYSTEM: Sedated and intubated. SKIN: No breakdown. No petechia, no rash. LABORATORY DATA: White count 15,000 declined from 70,520, hemoglobin 8.2, hematocrit 24.8, platelet count 125. Sodium 136, potassium 4.1, creatinine 4.4 , glucose 209, bilirubin 2.6, AST 183, ALT 289. MEDICATIONS: DuoNeb, fentanyl drip, heparin 5000 q. 12 hours, hydralazine 10 mg q. 6 hours p.r.n., Levemir 20 mg subQ daily, lactulose 20 mg p.o. q. 8 hours , Zyvox, Solu-Medrol 20 IV q. 12, Flagyl 500 q. 8 hours, Zofran 4 mg q. 6 hours p.r.n., Protonix 40 mg daily, rifaximin 550 mg p.o. b.i.d., vancomycin 500 mg p.o. q.i.d. ASSESSMENT: 1. Leukocytosis. 2. Anemia. 3. Respiratory failure. 4. Sepsis. 5. End-stage renal disease on hemodialysis. 6. Acute hepatitis. PLAN: 1. Leukocytosis. Flow cytometry and peripheral blood is negative. White count is declining. BCR-ABL is awaited by PCR. Hemoglobin and hematocrit is stable now status post PRBC transfusion. 2. Severe sepsis, improving. Currently on IV antibiotics. Antibiotics are being tapered down. 3. End-stage renal disease, currently getting hemodialysis. Nephrology following. 4. Respiratory failure, ventilator setting. Oxygen saturation is better. 5. Continue DVT prophylaxis with heparin 5000 units subQ q. 12 hours. Thank you, Dr. Bowen, for allowing us to participate in the patient's care. Kimberly Fernandez MD cc: [id number] TT: 03/13/2017 21:45:59 Confirmation # [id number] Dictation # [id number] an MTDD
--- NOTE | 2017-03-13 22:06 | PN ---
DATE: 03/13/2017 LOCATION: CCU bed 6. The patient has been slowly recovering from acute hepatic failure and new onset of pancreatitis with elevated amylase and lipase, as well as CAT scan findings. The presumptive etiology for the pancreat itis is the cholelithiasis. The patient has not been getting feeding through the tube, but has been getting medication only. During the same period of time, he developed a white count as high as 70,00 0 despite the fact that he is positive for HIV-1. Over the last several days, there have been daily attempts at weaning him from the respirator, and to day was no different except that by 4:00 and 4:30, he began to labor more and more difficulty and haritha aturating significantly and he was placed back on the respirator and still remained desaturated. Unf ortunately, this did not work, so he was manually bagged and a portable chest x-ray demonstrated a ve ry large massive pneumomediastinum, most likely from barotrauma. At this point in time, he is gettin g a CAT scan, he is being ventilated and the GI tract is being decompressed; however, we have no thor acic surgery back up at this point and looking to a level 1 trauma center where he can be transferred providing that he is stable enough to travel in the ambulance. At this point, his prognosis is extremely grave, and without surgical intervention, there is a very h igh likelihood of demise. The attending physician has been notified by this client insights consultant and we will request the soil sampler to mine navarrete for a trauma referral center. This dictation will be electronically signed without being read. Sven Lin MD cc: [id number] TT: 03/13/2017 22:05:02 Confirmation # [id number] Dictation # [id number] mn
[2017-03-13 22:47] LABS: ARTERIAL BLOOD GAS HCO3 21.4 mmol/L (21-28); ARTERIAL BLOOD GAS O2 CONTENT 10.8 ML/dl (15-23); ARTERIAL BLOOD GAS PH 7.24 (7.35-7.45); ARTERIAL BLOOD HGB O2 SAT 92.5 % (95.0-98.0); HHB 1.5 % (0-5)
[2017-03-14] MEDS: Insulin Reg-MEDIUM-Coverage SC SCH ×6 (00:20→20:57)
[2017-03-14] MEDS ORDERED: Propofol 10 mg/ml 1,000 MG/100 ML VIAL IV PRN (00:23)
[2017-03-14] MEDS ORDERED: Propofol 10 mg/ml Inj (20 ML) IVP ONE (00:24)
[2017-03-14] MEDS: Midazolam 5 MG/5 ML VIAL IVP PRN (00:50)
--- NOTE | 2017-03-14 02:50 | PCM.PROC ---
<Leeann Lopez - Last Filed: 03/14/17 02:46> Procedures Attestation:: I certify that I have explained the specified Operation(s) or Procedure(s), risks, benefits and reasonable alternatives to the Patient and/or other person responsible. The opportunity was given to ask questions and all questions answered - Central Line Placement Right Femoral Triple Lumen Catheter Aseptic technique was employed throughout the procedure: Hand Hygiene done prior to procedure, Full sterile barriers (mask, hair cover, sterile gown, sterile gloves), Full body sterile drape, Chloraprep Antiseptic: 2 minute prep for Femoral CVP Time Out Performed: Yes Pt. Placed on Pulse Ox Monitor: Yes Central Line Prep: Povidone-Iodine 1% Local Anesthesia Used: Lidocaine 1% Ultrasound Used for Placement: Yes Immediate Complications: None Additional Comments: Vein was canalized, however wire could not advance. Central venous line was not able to be placed. <Jean Gates MD - Last Filed: 03/14/17 08:38> Attending/Attestation - Attestation I have personally seen and examined this patient.: Yes I have fully participated in the care of the patient.: Yes I have reviewed all pertinent clinical information, including history, physical exam and plan: Yes Notes (Text): 03/14/17 08:34 -I agree with the above procedure note completed by the resident physician. -Briefly, with the assistance of the general surgery resident, an attempt was made to place a right femoral central venous line overnight. Despite multiple attempts, the wire failed to advance and became kinked each time. As a result, ultimately no central line was placed.
[2017-03-14] MEDS: Albuterol-Ipratrop 3 mg / 0.5 (3 ml) UD IH SCH ×4 (03:50→20:15)
[2017-03-14] MEDS: metroNIDAZOLE IV 500 mg/100 ml 500 MG/100 ML BAG IVPB SCH ×3 (05:04→21:03)
[2017-03-14 06:36] LABS: ARTERIAL BLOOD GAS HCO3 17.6 mmol/L (21-28); ARTERIAL BLOOD GAS O2 CAPACITY 10.2 mL/dl (16-24); ARTERIAL BLOOD GAS O2 CONTENT 10.1 ML/dl (15-23); ARTERIAL BLOOD GAS PH 7.24 (7.35-7.45); CARBOXYHEMOGLOBIN 2.3 % (0.5-1.5); HHB 0.6 % (0-5); METHEMOGLOBIN 2.1 % (0.0-3.0)
[2017-03-14 07:00] LABS: ADD MANUAL DIFF? NO
[2017-03-14 07:21] LABS: ALB/GLOB RATIO 0.7 (1.1-1.8); BILIRUBIN,TOTAL 2.3 mg/dL (0.2-1.3); MAGNESIUM 2.2 mg/dL (1.7-2.2); PHOSPHOROUS 9.1 mg/dL (2.5-4.5); POTASSIUM 4.6 mmol/L (3.6-5.0); TOTAL PROTEIN 8.2 g/dL (5.8-8.3)
[2017-03-14] MEDS ORDERED: SODIUM CHLORIDE 7% IH SCH (07:30)
[2017-03-14] MEDS: SODIUM CHLORIDE 7% IH SCH ×3 (07:30→15:25)
--- NOTE | 2017-03-14 07:35 | PN ---
DATE: 03/13/2017 The patient is a 61-year-old, seen and examined. Discussed with the nurse. The patient is sedated a nd intubated. Received hemodialysis yesterday. He is on a weaning trial. He seems to be waking up. PHYSICAL EXAMINATION: VITAL SIGNS: He is afebrile, pulse 60, respirations 18, blood pressure 132/50. LUNGS: Bilateral fair airflow. Occasional rhonchi and crackle. HEART: S1, S2 audible. ABDOMEN: Soft, nontender, no rebound, no guarding. NEUROLOGIC: The patient is sedated. Opens eye on painful stimulus. LABORATORY DATA: WBC 15.4, hemoglobin 8.2, hematocrit 24.8, platelet of 128. Chemistry: Sodium 136 , potassium 4.1, chloride 99, CO2 24, BUN 38, creatinine 4.4, blood sugar of 120. Sputum has MRSA. The patient has PICC line placed today. ASSESSMENT: 1. Status post respiratory failure. 2. Hepatic failure. 3. Bilateral pulmonary infiltrates. 4. Resolving sepsis. 5. End-stage renal disease, on hemodialysis. 6. Acute hepatic failure, etiology still undetermined. PLAN: Currently, the patient is on Zyvox, Flagyl, and he is getting Xifaxan. He is on GI prophylaxi s. His weaning trial is in progress. If he remains stable, he might be extubated. Raf Bowen MD cc: [phone] TT: 03/14/2017 07:34:47 Confirmation # [id number] Dictation # [id number] cheryl
[2017-03-14 07:39] LABS: BASO # 0.02 K/mm3 (0.0-2.0); BASO % 0.1 % (0.0-3.0); EOS % 0.3 % (1.5-5.0); GRAN % 86.4 % (50.0-68.0); LYMPH # 1.2 (1.2-3.4); LYMPH % 7.4 % (22.0-35.0); MEAN CELL VOLUME 92.3 fL (80.0-105.0); MEAN CORPUSCULAR HEMOGLOBIN 31.2 pg (25.0-35.0); MEAN CORPUSCULAR HGB CONC 33.8 g/dl (31.0-37.0); MEAN PLATELET VOLUME 9.7 fl (7.0-11.0); MONO # 0.9 (0.1-0.6); MONO % 5.8 % (1.0-6.0); PLATELET COUNT 111 10^3/uL (120.0-450.0); RED CELL DISTRIBUTION WIDTH 22.1 % (11.5-14.5); WHITE BLOOD COUNT 15.9 10^3/ul (4.5-11.0)
[2017-03-14 08:49] LABS: HEMATOCRIT 22.8 % (42.0-52.0)
[2017-03-14] MEDS: MethylPREDNISolone 40 mg Vial IVP SCH ×2 (09:22→21:02)
[2017-03-14] MEDS: Insulin Detemir 100 units/ml Vial (Levemir) SC SCH (09:23)
[2017-03-14] MEDS: Vancomycin 25 MG/ML PO SCH ×4 (09:24→21:01)
--- NOTE | 2017-03-14 09:31 | CON ---
DATE: 03/13/2017 This patient was seen and evaluated earlier today. This is an addendum to the GI progress report dic tated by Idalia Nguyen NP. The patient remains on vent. Lipase is showing downward trend. Pancreati c enzyme shows downward trend. Continue the antibiotics as per ID. The etiology for acute liver thalia lure remains unclear. Sepsis, pneumonia, pancreatitis. CBD appeared normal size. We will continue to closely follow up the patient. Thank you very much for allowing us to participate in the care of the patient. Maddie Brown MD cc: [phone] TT: 03/14/2017 09:31:29 Confirmation # [id number] Dictation # [id number] tn
--- NOTE | 2017-03-14 09:50 | CP.PCM.PN ---
<Spencer Olivo - Last Filed: 03/14/17 09:46> Subjective - Date & Time of Evaluation Date of Evaluation: 03/14/17 Time of Evaluation: 09:46 - Subjective Subjective: GI for Dr. Brown Pt s&e with attending. Pt had code blue yesterday with bradycardia. CXR shows pneumomediastinum. Pt is currently intubated. Off sedation. Response to pain stimuli. Has rectal tube. Objective - Vital Signs/Intake and Output Vital Signs (last 24 hours): Temp Pulse Resp BP Pulse Ox 98 F 95 H 31 H 124/56 L 100 03/14/17 04:00 03/14/17 07:01 03/14/17 07:27 03/14/17 07:01 03/14/17 07:27 Intake and Output: 03/14/17 03/14/17 06:59 18:59 Intake Total 2650 25 Output Total 150 Balance 2500 25 - Medications Medications: Current Medications Albuterol/Ipratropium (Duoneb 3 Mg/0.5 Mg (3 Ml) Ud) 3 ml IH Q2H PRN PRN Reason: Shortness of Breath Last Admin: 03/13/17 21:25 Dose: 3 ml Albuterol/Ipratropium (Duoneb 3 Mg/0.5 Mg (3 Ml) Ud) 3 ml IH [id number] NARA Last Admin: 03/14/17 07:11 Dose: 3 ml Heparin Sodium (Porcine) (Heparin) 5,000 units SC Q12 NARA PRN Reason: Protocol Last Admin: 03/14/17 09:23 Dose: 5,000 units Hydralazine HCl (Apresoline) 10 mg IVP Q6 PRN PRN Reason: SBP >180 Last Admin: 03/07/17 02:05 Dose: 10 mg Metronidazole (Flagyl) 500 mg in 100 mls @ 100 mls/hr IVPB Q8 NARA PRN Reason: Protocol Last Admin: 03/14/17 05:04 Dose: 100 mls/hr Linezolid (Zyvox 600mg/300ml D5w) 600 mg in 300 mls @ 200 mls/hr IVPB Q12 NARA PRN Reason: Protocol Stop: 03/16/17 22:01 Last Admin: 03/13/17 22:04 Dose: 200 mls/hr Fentanyl Citrate (Fentanyl Citrate/Sodium Chloride 1 Mg/100 Ml) 1,000 mcg in 100 mls @ 10 mls/hr IV .Q10H PRN; Protocol; 100 MCG/HR PRN Reason: TITRATE PER MD ORDER Last Titration: 03/12/17 15:00 Dose: 0 mcg/hr, 0 mls/hr Dexmedetomidine HCl (Precedex 4 Mcg/Ml (100 Ml)) 400 mcg in 100 mls @ 12.111 mls/hr IV .Q8H16M PRN; Protocol; 0.4 MCG/KG/HR PRN Reason: Agitation Last Admin: 03/13/17 04:01 Dose: 0.4 mcg/kg/hr, 12.111 mls/hr NOREPINEPHRINE BIT/0.9 % NACL (Levophed 4 Mg/ 250 Ml Ns Premixed) 4 mg in 250 mls @ 15 mls/hr IV .[id number] PRN; Protocol; 4 MCG/MIN PRN Reason: TITRATE PER MD ORDER Last Admin: 03/13/17 19:35 Dose: 15 mls/hr Propofol (Diprivan) 1,000 mg in 100 mls @ 3.633 mls/hr IV .Q24H PRN; Protocol; 5 MCG/KG/MIN PRN Reason: TITRATE PER MD ORDER Last Titration: 03/14/17 08:30 Dose: 0 mcg/kg/min, 0 mls/hr Insulin Detemir (Levemir) 20 unit SC DAILY [facility] Last Admin: 03/14/17 09:23 Dose: 20 unit Insulin Human Regular (Humulin R Med) 0 units SC Q4 [facility] Last Admin: 03/14/17 08:00 Dose: 3 units Lactulose (Enulose) 20 gm PO Q8H [facility] Last Admin: 03/14/17 03:11 Dose: 20 gm Methylprednisolone (Solu-Medrol) 20 mg IVP Q12 NARA Last Admin: 03/14/17 09:22 Dose: 20 mg Midazolam HCl (Versed Inj) 5 mg IVP Q2H PRN PRN Reason: Sedation Last Admin: 03/14/17 00:50 Dose: 5 mg Ondansetron HCl (Zofran Inj) 4 mg IVP Q6H PRN PRN Reason: Nausea/Vomiting Pantoprazole Sodium (Protonix Inj) 40 mg IVP DAILY [facility] Last Admin: 03/14/17 09:22 Dose: 40 mg Rifaximin (Xifaxan) 550 mg PO BID NARA PRN Reason: Protocol Last Admin: 03/14/17 09:23 Dose: 550 mg Sodium Chloride (Sodium Chloride 7% Inhalation) 4 ml IH [id number] NARA Vancomycin HCl (Vancocin 25 Mg/Ml (Oral Use)) 500 mg PO QID NARA PRN Reason: Protocol Last Admin: 03/14/17 09:24 Dose: 500 mg - Labs Labs: 03/14/17 06:45 03/14/17 06:45 PT 12.6 Seconds (9.9-11.8) H 03/12/17 10:00 INR 1.17 (0.93-1.08) H 03/12/17 10:00 APTT 26.8 Seconds (23.7-30.8) 03/08/17 07:00 - Constitutional Appears: In Acute Distress, Unkempt - Head Exam Head Exam: ATRAUMATIC, NORMAL INSPECTION, NORMOCEPHALIC - Eye Exam Eye Exam: PERRL Pupil Exam: NORMAL ACCOMODATION - Respiratory Exam Respiratory Exam: Respiratory Distress Additional comments: Intubated - Cardiovascular Exam Cardiovascular Exam: REGULAR RHYTHM, +S1, +S2. absent: Murmur - GI/Abdominal Exam GI & Abdominal Exam: Soft, Tenderness, Normal Bowel Sounds. absent: Distended, Firm - Rectal Exam Additional comments: Rectal tube in place - Neurological Exam Neurological Exam: absent: Oriented x3 - Skin Skin Exam: Dry, Intact, Normal Color, Warm Assessment and Plan - Assessment and Plan (Free Text) Assessment: 61 M w PMD ESRD on HD , DM , CAD, GERD came with vomiting and respiratory distress. Pt is intubated. found to have elevated LFT and ammonia (63->29). Hep panel is negative. On initial labs MELD score: 32 -> 50% 3month mortality. Differential dx: Acetominophen induced acute hepatic failure , hepatic encephalopathy. Liver failure with Unknown etiology: LFT, Lipase trending down Plan -ABX per ID -Trend LFT -ICU management -We will continue to follow closely Case Discussed with Dr. Brown <Maddie Brown V - Last Filed: 05/02/17 14:39> Objective - Vital Signs/Intake and Output Vital Signs (last 24 hours): Temp Pulse Resp BP Pulse Ox 97.9 F 72 18 130/60 99 03/23/17 07:30 03/23/17 07:30 03/23/17 07:30 03/23/17 07:30 03/23/17 07:30 - Labs Labs: 03/23/17 11:42 03/23/17 11:42 PT 11.7 Seconds (9.9-11.8) 03/21/17 12:30 INR 1.08 (0.93-1.08) 03/21/17 12:30 APTT 23.1 Seconds (23.7-30.8) L 03/21/17 12:30 Assessment and Plan - Assessment and Plan (Free Text) Assessment: The patient was seen and examined at bedside. The chart was reviewed. Last 24 hours events reviewed. Agreed with the above findings and treatment plan as outlined in 's note
--- NOTE | 2017-03-14 10:14 | RAD ---
HISTORY: pneumonia COMPARISON: 03/13/2017 FINDINGS: LUNGS: Vascular congestion and right lower lobe perihilar infiltrate PLEURA: The pneumomediastinum seen earlier is no longer seen CARDIOVASCULAR: Moderate cardiomegaly OSSEOUS STRUCTURES: No significant abnormalities. VISUALIZED UPPER ABDOMEN: Normal. OTHER FINDINGS: Central lines and tubes unchanged IMPRESSION: Resolution of pneumomediastinum
--- NOTE | 2017-03-14 10:22 | PN ---
DATE: 03/14/2017 REASON FOR CONSULTATION AND FOLLOWUP: Status post respiratory failure, acute liver failure, improved , borderline troponin positive end-stage renal disease, status post cardiac catheterization, no nobstructive coronary artery disease. BRIEF CLINICAL HISTORY: This is a 61-year-old morbidly obese male with a past medical history signif icant for diabetes, hypertension, hyperlipidemia, end-stage renal disease on dialysis, cardiac cathet erization 11/02/2016 nonobstructive coronary artery disease. Admitted with shortness of breath, 2 day s, symptoms of upper respiratory tract infection on Zithromax at home. Admitted with acute decompens ated congestive heart failure, AST was 7000, respiratory failure. Initial plan was to transfer to [facility], but liver function significantly improved and nonavailability of the bed. The patient is staying here. Now, the liver function significantly improved. During the course of hospitalization, the pat ient had some borderline troponin positive. Maximum was 0.75, which is thought to be not significant because patient has end-stage renal disease, hemodynamic instability and recent cardiac catheterizat ion on 11/02/2016 was nonobstructive coronary artery disease, so further, no invasive cardiac workup i s planned. The patient remained on vent. PHYSICAL EXAMINATION: VITAL SIGNS: Temperature afebrile, heart rate 95, blood pressure 124/56. HEENT: PERRLA. Extraocular muscles intact. NECK: Supple. No carotid bruit, no thyromegaly. CHEST: Clear to auscultation. HEART: S1, S2 regular. ABDOMEN: Soft. EXTREMITIES: Clubbing, cyanosis negative. BLOOD WORKUP: WBC 15. , hemoglobin 8. , hematocrit 24.8, platelet count 125. Chemistry show s sodium 130, potassium 4.0, chloride 100, carbon dioxide 22, anion gap of 21, BUN 55, creatinine 6.5 . AST 113, ALT 223, significantly improved from 7000. IMPRESSION: Acute liver failure, improving, INR 1.17, respiratory failure, morbid obesity, hypertens ion, hyperlipidemia, end-stage renal disease on dialysis, positive troponin secondary to hemodynamic instability and end-stage renal disease, status post cardiac catheterization 11/02/2016, nonobstructiv e coronary artery disease. RECOMMENDATION: Continue dialysis. Continue treatment for liver failure as per GI. Try to wean off the vent as blood pressures tolerated. Avoid hepatotoxic medication. We will follow with you. Thank you, Dr. Bowen, for providing us the opportunity in taking care of the patient. The patient had repeat echocardiography done 03/07/2017 that showed ejection fraction 45%-50%, systolic function o f right ventricle moderately reduced, mild mitral regurgitation, mild to moderate tricuspid regurgita tion, dilated inferior vena cava. Thank you, Dr. Bowen, for providing us the opportunity in taking care of the patient. Darrel Ervin MD cc: [phone] TT: 03/14/2017 10:22:09 Confirmation # [id number] Dictation # [id number] en
--- NOTE | 2017-03-14 10:28 | RAD ---
HISTORY: r/o pnemo COMPARISON: No prior. FINDINGS: LUNGS: Perihilar infiltrate on the right PLEURA: There is a left-sided pneumo mediastinum which is slightly smaller in size from the earlier study same day CARDIOVASCULAR: Normal. OSSEOUS STRUCTURES: No significant abnormalities. VISUALIZED UPPER ABDOMEN: Normal. OTHER FINDINGS: Central lines and tubes in satisfactory position IMPRESSION: Left-sided pneumo mediastinum decreased in size
--- NOTE | 2017-03-14 10:33 | RAD ---
HISTORY: code blue COMPARISON: Earlier same day FINDINGS: LUNGS: Right-sided perihilar infiltrate PLEURA: There is a left-sided pneumo mediastinum CARDIOVASCULAR: Moderate cardiomegaly OSSEOUS STRUCTURES: No significant abnormalities. VISUALIZED UPPER ABDOMEN: Normal. OTHER FINDINGS: Central lines and tubes unchanged IMPRESSION: Left-sided pneumo mediastinum
--- NOTE | 2017-03-14 13:07 | CP.PCM.PCO ---
Physician Communication Note - Physician Communication Note Physician Communication Note: Air Pericardium-Mediastinum gone!/?Mucus plug- barotrauma
[2017-03-14] MEDS: Linezolid 600 mg in D5W 300 ml 600 MG/300 ML BAG IVPB SCH ×2 (13:14→21:04)
--- NOTE | 2017-03-14 17:45 | PN ---
DATE: 03/14/2017 The patient seen and examined at bedside. He is off sedation. He just received dialysis and tolerated pressure support trial for a long period of time. He just got bronchoscopy, which revealed multiple and tenacious mucous plugs in the endotracheal tube, which made bronchoscopy suboptimal. Some mucous plugs were removed. The patient just got extubated to BiPAP. A lot of mucous plug attached to biofilm were noted in the endotracheal tube. PHYSICAL EXAMINATION: VITAL SIGNS: Heart rate 93, respiratory rate 25, blood pressure 168/76, oxygen saturation 100% on 40% FiO2. HEAD AND NECK: Atraumatic. LUNGS: Few wheezes bilaterally, but much better than yesterday. HEART: Regular rate and rhythm. S1, S2 normal. ABDOMEN: Soft, nontender, nondistended. MUSCULOSKELETAL: No C/C/E. NEUROLOGIC: The patient moves all extremities spontaneously. SKIN: Moist. PSYCHIATRIC: The patient is alert and oriented and awake. LABORATORIES: WBC 15.9, hemoglobin 7.7, platelet count 111. Sodium 138, potassium 4.6, chloride 100, BUN 55, creatinine 6.3 (the patient is on dialysis) , glucose 231, AST 113, ALT 223. Lipase 778, down from 1708. MEDICATIONS: DuoNeb p.r.n. and every 4 hours, heparin subQ, hydralazine p.r.n. , Levemir, regular insulin sliding scale medium protocol, lactulose, Solu- Medrol 20 mg IV q. 12, Versed p.r.n., Zofran p.r.n., Protonix, hypertonic saline inhalers every 4 hours, linezolid. ASSESSMENT AND PLAN: This is a 61-year-old gentleman who is recovering from acute liver injury and methicillin-resistant Staphylococcus aureus community- acquired pneumonia. The patient tolerated pressure support trial and got extubated to BiPAP. He is doing very well. He is alert, awake, no signs of hepatic encephalopathy. He has tolerated nasal cannula. However, out of abundance of precaution was put on BiPAP as patient likely has obstructive sleep apnea and potentially obesity hypoventilation syndrome. A small dose of steroids were given as patient would be considered high risk for laryngeal edema after 7 days of ET. The patient continued to be on antibiotics directed toward methicillin-resistant Staphylococcus aureus (linezolid). ID service is following him. He underwent dialysis today. We will continue to target euvolemia, euglycemia, normothermia and oxygen saturation more than 90%. Deep venous thrombosis and gastrointestinal prophylaxis. ccm time 40 min Tay Yañez MD cc: [phone] TT: 03/14/2017 17:44:55 Confirmation # [id number] Dictation # [id number] en MTDD
--- NOTE | 2017-03-14 18:27 | CP.PCM.PN ---
Subjective - Date & Time of Evaluation Date of Evaluation: 03/14/17 Time of Evaluation: 10:10 - Subjective Subjective: Continues to be on the ventilator, sedated. Afebrile overnight. Objective - Vital Signs/Intake and Output Vital Signs (last 24 hours): Temp Pulse Resp BP Pulse Ox 99 F 92 H 20 165/73 H 100 03/14/17 16:00 03/14/17 17:09 03/14/17 17:09 03/14/17 17:10 03/14/17 16:19 Intake and Output: 03/14/17 03/14/17 06:59 18:59 Intake Total 2650 65 Output Total 150 3100 Balance 2500 -3035 - Medications Medications: Current Medications Albuterol/Ipratropium (Duoneb 3 Mg/0.5 Mg (3 Ml) Ud) 3 ml IH Q2H PRN PRN Reason: Shortness of Breath Last Admin: 03/13/17 21:25 Dose: 3 ml Albuterol/Ipratropium (Duoneb 3 Mg/0.5 Mg (3 Ml) Ud) 3 ml IH [id number] NARA Last Admin: 03/14/17 11:11 Dose: 3 ml Heparin Sodium (Porcine) (Heparin) 5,000 units SC Q12 NARA PRN Reason: Protocol Last Admin: 03/14/17 09:23 Dose: 5,000 units Hydralazine HCl (Apresoline) 10 mg IVP Q6 PRN PRN Reason: SBP >180 Last Admin: 03/07/17 02:05 Dose: 10 mg Metronidazole (Flagyl) 500 mg in 100 mls @ 100 mls/hr IVPB Q8 NARA PRN Reason: Protocol Last Admin: 03/14/17 14:48 Dose: 100 mls/hr Linezolid (Zyvox 600mg/300ml D5w) 600 mg in 300 mls @ 200 mls/hr IVPB Q12 NARA PRN Reason: Protocol Stop: 03/16/17 22:01 Last Admin: 03/14/17 13:14 Dose: 200 mls/hr Fentanyl Citrate (Fentanyl Citrate/Sodium Chloride 1 Mg/100 Ml) 1,000 mcg in 100 mls @ 10 mls/hr IV .Q10H PRN; Protocol; 100 MCG/HR PRN Reason: TITRATE PER MD ORDER Last Titration: 03/12/17 15:00 Dose: 0 mcg/hr, 0 mls/hr Dexmedetomidine HCl (Precedex 4 Mcg/Ml (100 Ml)) 400 mcg in 100 mls @ 12.111 mls/hr IV .Q8H16M PRN; Protocol; 0.4 MCG/KG/HR PRN Reason: Agitation Last Admin: 03/13/17 04:01 Dose: 0.4 mcg/kg/hr, 12.111 mls/hr NOREPINEPHRINE BIT/0.9 % NACL (Levophed 4 Mg/ 250 Ml Ns Premixed) 4 mg in 250 mls @ 15 mls/hr IV .[id number] PRN; Protocol; 4 MCG/MIN PRN Reason: TITRATE PER MD ORDER Last Admin: 03/13/17 19:35 Dose: 15 mls/hr Propofol (Diprivan) 1,000 mg in 100 mls @ 3.633 mls/hr IV .Q24H PRN; Protocol; 5 MCG/KG/MIN PRN Reason: TITRATE PER MD ORDER Last Titration: 03/14/17 08:30 Dose: 0 mcg/kg/min, 0 mls/hr Insulin Detemir (Levemir) 20 unit SC DAILY [facility] Last Admin: 03/14/17 09:23 Dose: 20 unit Insulin Human Regular (Humulin R Med) 0 units SC Q4 NARA Last Admin: 03/14/17 16:32 Dose: 5 units Lactulose (Enulose) 20 gm PO Q8H [facility] Last Admin: 03/14/17 13:20 Dose: 20 gm Methylprednisolone (Solu-Medrol) 20 mg IVP Q12 [facility] Last Admin: 03/14/17 09:22 Dose: 20 mg Midazolam HCl (Versed Inj) 5 mg IVP Q2H PRN PRN Reason: Sedation Last Admin: 03/14/17 00:50 Dose: 5 mg Ondansetron HCl (Zofran Inj) 4 mg IVP Q6H PRN PRN Reason: Nausea/Vomiting Pantoprazole Sodium (Protonix Inj) 40 mg IVP DAILY [facility] Last Admin: 03/14/17 09:22 Dose: 40 mg Rifaximin (Xifaxan) 550 mg PO BID NARA PRN Reason: Protocol Last Admin: 03/14/17 09:23 Dose: 550 mg Sodium Chloride (Sodium Chloride 7% Inhalation) 4 ml IH [id number] [facility] Last Admin: 03/14/17 15:25 Dose: Not Given Vancomycin HCl (Vancocin 25 Mg/Ml (Oral Use)) 500 mg PO QID [facility] PRN Reason: Protocol Last Admin: 03/14/17 13:17 Dose: 500 mg - Labs Labs: 03/14/17 06:45 03/14/17 06:45 PT 12.6 Seconds (9.9-11.8) H 03/12/17 10:00 INR 1.17 (0.93-1.08) H 03/12/17 10:00 APTT 26.8 Seconds (23.7-30.8) 03/08/17 07:00 - Constitutional Appears: Other (Intubated and sedated) - Head Exam Head Exam: NORMAL INSPECTION - ENT Exam Additional comments: ET tube in place - Neck Exam Neck Exam: absent: Lymphadenopathy, Meningismus - Respiratory Exam Respiratory Exam: Decreased Breath Sounds - Cardiovascular Exam Cardiovascular Exam: +S1, +S2 - GI/Abdominal Exam GI & Abdominal Exam: Soft. absent: Tenderness Assessment and Plan - Assessment and Plan (Free Text) Plan: Assessment Severe sepsis with ventilator-dependent respiratory failure and acute liver failure/acute fulminant hepatitis due to bilateral healthcare-associated pneumonia with sputum cx now growing MRSA; need to rule out C. diff. infection HTN ESRD on HD dyslipidemia morbid obesity with BMI 45 positive HIV SELVIN test with negative HIV-1 PCR Plan continue Zyvox and continue Merrem (day 9 to complete 7-10 days of therapy); reviewed CT scan which showed the bilateral consolidations and infiltrates in the lungs; reviewed ultrasound of the abdomen which showed the fatty liver and hepatomegaly - liver enzymes are trending down and bilirubin as well continue PO vancomycin and IV flagyl (day 5) patient has history of multiple positive HIV SELVIN, even the 4th generation test - HIV-1 PCR still negative - may be a false positive test Follow up fungal and mycobacterial work up Overall prognosis is guarded at best
--- NOTE | 2017-03-14 18:55 | PN ---
DATE: 03/14/2017 SUBJECTIVE: The patient is a 61-year-old, seen and examined. Remains sedated on vent, getting dialy sis and weaning trial was given last night, but patient became restless. I discussed with the intensi vist. There was one big mucus plug. He had bedside bronchoscopy done and mucus plug was removed and he is getting trial again. PHYSICAL EXAMINATION: VITAL SIGNS: He is afebrile, pulse 92, respirations 20, blood pressure 160/73. LUNGS: Bilateral fair airflow, no rhonchi or crackle. HEART: S1, S2 audible. ABDOMEN: Soft, obese, nontender, no rebound, no guarding. NEUROLOGIC: The patient is sedated. LABORATORY EXAMINATION: WBC is 15.9, hemoglobin 7.7, hematocrit 22.8, platelet of 111. Chemistry: Sodium 138, potassium 4.6, chloride 100, CO2 21, BUN 55, creatinine 6.3, blood sugar of 231. There wa s a suspicion for pneumomediastinum, but repeat x-ray seems to be unremarkable. Either it was positio nal or it was a limited leak, did not need any intervention. ASSESSMENT AND PLAN: 1. Respiratory failure. 2. Acute renal, hepatic failure improving. 3. End-stage renal disease on hemodialysis. 4. insulin-dependent diabetes. 5. Respiratory insufficiency. PLAN: Extubate him today. He is being weaned off after he finishes dialysis, which will be attempted to ex tubate him. Raf Bowen MD cc: [phone] TT: 03/14/2017 18:54:18 Confirmation # [id number] Dictation # [id number] ln
--- NOTE | 2017-03-14 20:05 | BRONCH ---
PROCEDURE DATE: 03/14/2017 PROCEDURE: Bronchoscopy. INDICATIONS: Copious secretions and mucus plugs. DESCRIPTION OF PROCEDURE: After obtaining informed consent, the patient was sedated with propofol. The bronchoscope was advanced to the tube; however, multiple mucus plaque attached to biofilm were noticed. An attempt at removing them and suctioning them out was undertaken. This was, however, only partially successful. Risk to continue attempting to advance bronchoscope perceived to outweigh benefits. I aborted the procedure. The patient tolerated procedure well. No immediate complications. Tay Yañez MD cc: [phone] TT: 03/14/2017 20:04:08 jn MTDD
[2017-03-14 21:48] LABS: BCR-ABL PRIOR RESULT NOT GIVEN; BCR-ABL SOURCE BLOOD; P190 BCR-ABL1 NOT DETECTED; P210 BCR-ABL1 NOT DETECTED
--- NOTE | 2017-03-14 23:22 | CP.PCM.PN ---
Subjective - Date & Time of Evaluation Date of Evaluation: 03/14/17 Time of Evaluation: 12:00 - Subjective Subjective: DATE: 03/14/2017 SUBJECTIVE: The patient is a 61-year-old male, still sedated and intubated. He has end-stage renal disease on hemodialysis. He was admitted with sepsis and fulminant liver failure, has bilateral lung infiltrates. White count was elevated at 70k. Flow cytometry on peripheral blood was ordered, which is negative. BCR-ABL by PCR is still pending. He is currently getting hemodialysis now. He received several units of blood transfusion since admission for low hemoglobin. He was also mildly coagulopathic on admission. He has severe sepsis currently on IV antibiotics. Failed extubation trial last night. getting hemodialysis now. REVIEW OF SYSTEMS: Could not be obtained. The patient is sedated and intubated. PHYSICAL EXAMINATION: GENERAL: The patient is sedated and intubated. VITAL SIGNS: reviewed. HEENT: Normal. Oral mucosa dry. NECK: No lymphadenopathy. CHEST: Air entry present, equal bilateral, bilateral conducted sounds present. CARDIOVASCULAR: S1, S2 normal, tachycardia plus. ABDOMEN: Tenderness, diffuse. EXTREMITIES: No edema. CENTRAL NERVOUS SYSTEM: Sedated and intubated. SKIN: No breakdown. No petechia, no rash. LABORATORY DATA: reviewed. MEDICATIONS: reviewed. ASSESSMENT: 1. Leukocytosis. 2. Anemia. 3. Respiratory failure. 4. Sepsis. 5. End-stage renal disease on hemodialysis. 6. Acute hepatitis. PLAN: 1. Leukocytosis. WC declining. Flow cytometry and peripheral blood is negative. White count is declining. BCR-ABL is awaited by PCR. Hemoglobin and hematocrit is stable. 2. Severe sepsis, improving. Currently on IV antibiotics. Antibiotics are being tapered down. 3. End-stage renal disease, currently getting hemodialysis. 4. Respiratory failure, ventilator setting. Oxygen saturation is better. discussed with staff nurse. trial of extubation after completion of hemodalysis today. Failed last night. 5. Continue DVT prophylaxis with heparin 5000 units subQ q. 12 hours. Thank you, Dr. Bowen, for allowing us to participate in the patient's care. Kimberly Jim MD Objective - Vital Signs/Intake and Output Vital Signs (last 24 hours): Temp Pulse Resp BP Pulse Ox 99 F 92 H 32 H 167/69 H 99 03/14/17 16:00 03/14/17 20:15 03/14/17 20:00 03/14/17 19:10 03/14/17 20:00 Intake and Output: 03/14/17 03/15/17 18:59 06:59 Intake Total 482 Output Total 3100 Balance -2618 - Medications Medications: Current Medications Albuterol/Ipratropium (Duoneb 3 Mg/0.5 Mg (3 Ml) Ud) 3 ml IH Q2H PRN PRN Reason: Shortness of Breath Last Admin: 03/13/17 21:25 Dose: 3 ml Albuterol/Ipratropium (Duoneb 3 Mg/0.5 Mg (3 Ml) Ud) 3 ml IH [id number] NARA Last Admin: 03/14/17 20:15 Dose: 3 ml Heparin Sodium (Porcine) (Heparin) 5,000 units SC Q12 NARA PRN Reason: Protocol Last Admin: 03/14/17 21:03 Dose: 5,000 units Hydralazine HCl (Apresoline) 10 mg IVP Q6 PRN PRN Reason: SBP >180 Last Admin: 03/07/17 02:05 Dose: 10 mg Metronidazole (Flagyl) 500 mg in 100 mls @ 100 mls/hr IVPB Q8 NARA PRN Reason: Protocol Last Admin: 03/14/17 21:03 Dose: 100 mls/hr Linezolid (Zyvox 600mg/300ml D5w) 600 mg in 300 mls @ 200 mls/hr IVPB Q12 NARA PRN Reason: Protocol Stop: 03/16/17 22:01 Last Admin: 03/14/17 21:04 Dose: 200 mls/hr Fentanyl Citrate (Fentanyl Citrate/Sodium Chloride 1 Mg/100 Ml) 1,000 mcg in 100 mls @ 10 mls/hr IV .Q10H PRN; Protocol; 100 MCG/HR PRN Reason: TITRATE PER MD ORDER Last Titration: 03/12/17 15:00 Dose: 0 mcg/hr, 0 mls/hr Dexmedetomidine HCl (Precedex 4 Mcg/Ml (100 Ml)) 400 mcg in 100 mls @ 12.111 mls/hr IV .Q8H16M PRN; Protocol; 0.4 MCG/KG/HR PRN Reason: Agitation Last Admin: 03/13/17 04:01 Dose: 0.4 mcg/kg/hr, 12.111 mls/hr NOREPINEPHRINE BIT/0.9 % NACL (Levophed 4 Mg/ 250 Ml Ns Premixed) 4 mg in 250 mls @ 15 mls/hr IV .[id number] PRN; Protocol; 4 MCG/MIN PRN Reason: TITRATE PER MD ORDER Last Titration: 03/14/17 05:00 Dose: 0 mcg/min, 0 mls/hr Propofol (Diprivan) 1,000 mg in 100 mls @ 3.633 mls/hr IV .Q24H PRN; Protocol; 5 MCG/KG/MIN PRN Reason: TITRATE PER MD ORDER Last Titration: 03/14/17 08:30 Dose: 0 mcg/kg/min, 0 mls/hr Insulin Detemir (Levemir) 20 unit SC DAILY [facility] Last Admin: 03/14/17 09:23 Dose: 20 unit Insulin Human Regular (Humulin R Med) 0 units SC Q4 [facility] Last Admin: 03/14/17 20:57 Dose: 5 units Lactulose (Enulose) 20 gm PO Q8H [facility] Last Admin: 03/14/17 18:27 Dose: Not Given Methylprednisolone (Solu-Medrol) 20 mg IVP Q12 [facility] Last Admin: 03/14/17 21:02 Dose: 20 mg Midazolam HCl (Versed Inj) 5 mg IVP Q2H PRN PRN Reason: Sedation Last Admin: 03/14/17 00:50 Dose: 5 mg Ondansetron HCl (Zofran Inj) 4 mg IVP Q6H PRN PRN Reason: Nausea/Vomiting Pantoprazole Sodium (Protonix Inj) 40 mg IVP DAILY [facility] Last Admin: 03/14/17 09:22 Dose: 40 mg Rifaximin (Xifaxan) 550 mg PO BID [facility] PRN Reason: Protocol Last Admin: 03/14/17 18:28 Dose: Not Given Sodium Chloride (Sodium Chloride 7% Inhalation) 4 ml IH [id number] [facility] Last Admin: 03/14/17 15:25 Dose: Not Given Vancomycin HCl (Vancocin 25 Mg/Ml (Oral Use)) 500 mg PO QID [facility] PRN Reason: Protocol Last Admin: 03/14/17 21:01 Dose: 500 mg - Labs Labs: 03/14/17 06:45 03/14/17 06:45 PT 12.6 Seconds (9.9-11.8) H 03/12/17 10:00 INR 1.17 (0.93-1.08) H 03/12/17 10:00 APTT 26.8 Seconds (23.7-30.8) 03/08/17 07:00
[2017-03-15] MEDS: Albuterol-Ipratrop 3 mg / 0.5 (3 ml) UD IH SCH ×6 (00:10→20:00)
[2017-03-15 00:35] LABS: IGG SUBCLASS 1 1920 mg/dL (382-929); IGG SUBCLASS 2 624 mg/dL (241-700); IGG SUBCLASS 3 192 mg/dL (22-178); IGG SUBCLASS 4 33.2 mg/dL (4.0-86.0)
--- NOTE | 2017-03-15 01:06 | PN ---
DATE: 03/14/2017 ADDENDUM: This is an addendum to the GI progress report dictated by Dr. Olivo. SUBJECTIVE: The patient remains on vent liver failure. Appears to be improving transaminases and im proving INR. The patient did have pancreatitis and lipase has been improving. PHYSICAL EXAMINATION: ABDOMEN: The patient does have some tenderness in the epigastric area. LUNGS: Has bilateral few rhonchi. Attempted bronchoscopy today. Thank you very much for allowing us to participate in the care of the patient. Maddie Brown MD cc: [phone] TT: 03/15/2017 01:05:44 Confirmation # [id number] Dictation # [id number] mn
[2017-03-15] MEDS: Insulin Reg-MEDIUM-Coverage SC SCH ×6 (05:00→22:28)
[2017-03-15] MEDS: metroNIDAZOLE IV 500 mg/100 ml 500 MG/100 ML BAG IVPB SCH (05:37)
[2017-03-15 06:33] LABS: ADD MANUAL DIFF? NO
[2017-03-15 06:47] LABS: BASO # 0.01 K/mm3 (0.0-2.0); BASO % 0.1 % (0.0-3.0); EOS % 0.1 % (1.5-5.0); GRAN # 8.93 (1.4-6.5); GRAN % 83.3 % (50.0-68.0); LYMPH # 0.8 (1.2-3.4); LYMPH % 7.4 % (22.0-35.0); MEAN CELL VOLUME 92.3 fL (80.0-105.0); MEAN CORPUSCULAR HEMOGLOBIN 30.1 pg (25.0-35.0); MEAN CORPUSCULAR HGB CONC 32.6 g/dl (31.0-37.0); MEAN PLATELET VOLUME 9.6 fl (7.0-11.0); MONO % 9.1 % (1.0-6.0); PLATELET COUNT 119 10^3/uL (120.0-450.0); RED CELL DISTRIBUTION WIDTH 21.7 % (11.5-14.5); WHITE BLOOD COUNT 10.7 10^3/ul (4.5-11.0)
[2017-03-15 07:28] LABS: ALB/GLOB RATIO 0.7 (1.1-1.8); BILIRUBIN,TOTAL 2.3 mg/dL (0.2-1.3); MAGNESIUM 2.2 mg/dL (1.7-2.2); PHOSPHOROUS 7.2 mg/dL (2.5-4.5); TOTAL PROTEIN 8.5 g/dL (5.8-8.3)
[2017-03-15 07:45] LABS: HEMATOCRIT 23.9 % (42.0-52.0)
--- NOTE | 2017-03-15 08:13 | PN ---
DATE: 03/14/2017 SUBJECTIVE: The patient is seen in the ICU. He is awake, he is alert. He is on BiPAP. The events over the last 24 hours are noted and discussed with the house staff. The patient was found to be cyanotic, unresponsive on vent. Code blue was called. CPR was initiated. The patient received epi. The patient was extubated because he had tenacious mucus plugging that was difficult/impossible to dislodge. Once the patient was extubated, he was found to be clinically better, awake, responsive, oxygenating better. Overnight, the patient has been on BiPAP. Moving all extremities. He was dialyzed earlier today. He received 4 hours of dialysis, 3000 cc was taken off. oxygenation improved. PHYSICAL EXAMINATION: GENERAL: Obese, middle-aged male, seen in the ICU on BiPAP. VITAL SIGNS: blood pressure 140/89, heart rate is 92, respiratory rate 24, , T-max is 99.2. HEENT: Normocephalic, atraumatic. Positive pallor. NECK: Supple, no JVD. LUNGS: Bilateral rhonchi, bilateral crackles, equal expansion. CARDIAC: S1, S2, regular rate and rhythm. no murmurs, no rub. ABDOMEN: obese, soft, nontender, bowel sounds present. EXTREMITIES: Trace lower-extremity edema. INTAKE AND OUTPUT: 3160/3250. LABORATORY DATA: WBC 15.9, hemoglobin 7.7, hematocrit 23, platelets 111. Sodium 138, potassium 4.6, chloride 100, CO2 of 22, BUN 55, creatinine 6. , 231, calcium 10.0, phosphorus 9.1, magnesium 2.2, AST 113, ALT 223, total bilirubin 2.3. BRONCHOSCOPY REPORT: The bronchoscope was advanced through the tube; however, multiple mucous plugs attached to biofilm were noticed. Attempt at removing them was unsuccessful. CURRENT MEDICATIONS: Apresoline, Diprivan, , DuoNeb inhaler, Protonix, Solu-Medrol, p.o. vancomycin, Zyvox 600 q.12, Zofran, rifaximin. ASSESSMENT AND PLAN: 1. A 61-year-old male with extensive bilateral multilobar pneumonia, respiratory failure, altered mental status, acute fulminant_ hepatitis, status post code blue last night, found to have mucus plugging. The patient extubated because mucous plug was not able to be dislodged. Doing better post extubation , currently hemodynamically stable. Respiratory status acceptable on BiPAP, oxygenating well. The patient received 4 hours of dialysis this morning. Multiple events. 2. Liver enzymes are improving. Transaminitis is improving. Pancreatitis seems to be improving. Clinically improving. 3. Etiology of his acute pulmonary hypertension is still not clear. Drug induced versus viral hepatitis. 4. At this time, continue p.o. vancomycin. 5. Continue p.o. Zyvox. 6. Continue to monitor closely in the ICU. 7. Dialysis/ultrafiltration daily as needed. Case was discussed at length with resident staff, ICU residents, dialysis staff , Dr. Yañez. More than 35 minutes was spent in the care of this critically-ill patient. Shavonne Varela MD cc: [phone] TT: 03/14/2017 23:02:15 Confirmation # [id number] Dictation # [id number] vn MTDD
[2017-03-15] MEDS: Linezolid 600 mg in D5W 300 ml 600 MG/300 ML BAG IVPB SCH (09:29)
[2017-03-15] MEDS: MethylPREDNISolone 40 mg Vial IVP SCH ×2 (09:30→22:25)
[2017-03-15] MEDS: Insulin Detemir 100 units/ml Vial (Levemir) SC SCH (09:31)
[2017-03-15] MEDS: Vancomycin 25 MG/ML PO SCH ×2 (09:33→22:39)
--- NOTE | 2017-03-15 10:59 | RAD ---
HISTORY: pneumonia COMPARISON: 03/14/2017 FINDINGS: LUNGS: There is a diffuse infiltrate right greater than left. This could represent pulmonary edema versus pneumonia. PLEURA: No significant pleural effusion identified, no pneumothorax apparent. CARDIOVASCULAR: Moderate cardiomegaly OSSEOUS STRUCTURES: No significant abnormalities. VISUALIZED UPPER ABDOMEN: Normal. OTHER FINDINGS: None. IMPRESSION: Increasing diffuse infiltrate right greater than left, pulmonary edema versus pneumonia
--- NOTE | 2017-03-15 11:12 | PN ---
DATE: 03/15/2017 REASON FOR CONSULTATION AND FOLLOWUP: Status post respiratory failure, acute liver failure, improved status post extubated, nonobstructive coronary artery disease by catheterization. BRIEF CLINICAL HISTORY: This is a 61-year-old morbidly obese male with past medical history signific ant for diabetes, hypertension, hyperlipidemia, end-stage renal disease on dialysis, cardiac catheter ization ____, nonobstructive coronary artery disease, who admitted with shortness of breath, furth er respiratory status deteriorated requiring intubation, found to be in acute liver failure, AST was 7000 and up. Liver function improved. The patient was successfully extubated yesterday. Awake and alert. History of cardiac catheterization, as mentioned, ____, nonobstructive coronary artery dis ease. PHYSICAL EXAMINATION: VITAL SIGNS: Temperature afebrile, heart rate 99, blood pressure 152/71. HEENT: PERRLA. Extraocular muscles intact. NECK: Supple. No carotid bruits, no thyromegaly. CHEST: Clear to auscultation. HEART: S1, S2 regular. ABDOMEN: Soft. EXTREMITIES: Clubbing and cyanosis negative. BLOOD WORKUP: As follows: WBC 10.7, hemoglobin 7.____, hematocrit 23.9, platelet count 119. Chemis try shows sodium 130, potassium 4, chloride 96, carbon dioxide 26, anion gap of 20, BUN 44, creatinin e 4.6. IMPRESSION: Acute liver failure, improved; status post respiratory failure, yesterday was successful ly extubated; history of cardiac catheterization ____, nonobstructive coronary artery disease; mor bid obesity, hypertension; end-stage renal disease, on dialysis; positive troponin secondary to hemod ynamic instability, nonobstructive coronary artery disease history. RECOMMENDATION: Continue dialysis. Continue to monitor liver function. Avoid nephrotoxic medicatio n. Will continue antihypertensive medication before. Will follow with you. Will start again [place] and 10 mg of Ramipril for blood pressure, and continue hydralazine p.r.n. Thank you, Dr. Bowen, for providing the opportunity in taking care of the patient. Darrel Ervin MD cc: [phone] TT: 03/15/2017 10:07:42 Confirmation # [id number] Dictation # [id number] mn
--- NOTE | 2017-03-15 13:44 | CP.PCM.PN ---
Subjective - Date & Time of Evaluation Date of Evaluation: 03/15/17 Time of Evaluation: 13:41 - Subjective Subjective: GI for Dr. Brown Pt s&e. Pt is extubated. AAOx3. Resting comfortably. Fully communicating w/o difficulty. Denies F/C/N/V/CP/SOB. No ambulation. Has rectal tube. Objective - Vital Signs/Intake and Output Vital Signs (last 24 hours): Temp Pulse Resp BP Pulse Ox 99 F 93 H 43 H 157/68 H 91 L 03/15/17 04:00 03/15/17 10:10 03/15/17 09:08 03/15/17 10:10 03/15/17 09:08 Intake and Output: 03/15/17 03/15/17 06:59 18:59 Intake Total 800 Output Total 100 Balance 700 - Medications Medications: Current Medications Albuterol/Ipratropium (Duoneb 3 Mg/0.5 Mg (3 Ml) Ud) 3 ml IH Q2H PRN PRN Reason: Shortness of Breath Last Admin: 03/13/17 21:25 Dose: 3 ml Albuterol/Ipratropium (Duoneb 3 Mg/0.5 Mg (3 Ml) Ud) 3 ml IH [id number] NARA Last Admin: 03/15/17 11:04 Dose: 3 ml Amlodipine Besylate (Norvasc) 10 mg PO DAILY [facility] Last Admin: 03/15/17 10:10 Dose: 10 mg Heparin Sodium (Porcine) (Heparin) 5,000 units SC Q12 [facility] PRN Reason: Protocol Last Admin: 03/15/17 09:30 Dose: 5,000 units Hydralazine HCl (Apresoline) 10 mg IVP Q6 PRN PRN Reason: SBP >180 Last Admin: 03/07/17 02:05 Dose: 10 mg Metronidazole (Flagyl) 500 mg in 100 mls @ 100 mls/hr IVPB Q8 NARA PRN Reason: Protocol Last Admin: 03/15/17 05:37 Dose: 100 mls/hr Linezolid (Zyvox 600mg/300ml D5w) 600 mg in 300 mls @ 200 mls/hr IVPB Q12 NARA PRN Reason: Protocol Stop: 03/16/17 22:01 Last Admin: 03/15/17 09:29 Dose: 200 mls/hr Fentanyl Citrate (Fentanyl Citrate/Sodium Chloride 1 Mg/100 Ml) 1,000 mcg in 100 mls @ 10 mls/hr IV .Q10H PRN; Protocol; 100 MCG/HR PRN Reason: TITRATE PER MD ORDER Last Titration: 03/12/17 15:00 Dose: 0 mcg/hr, 0 mls/hr Dexmedetomidine HCl (Precedex 4 Mcg/Ml (100 Ml)) 400 mcg in 100 mls @ 12.111 mls/hr IV .Q8H16M PRN; Protocol; 0.4 MCG/KG/HR PRN Reason: Agitation Last Admin: 03/13/17 04:01 Dose: 0.4 mcg/kg/hr, 12.111 mls/hr NOREPINEPHRINE BIT/0.9 % NACL (Levophed 4 Mg/ 250 Ml Ns Premixed) 4 mg in 250 mls @ 15 mls/hr IV .[id number] PRN; Protocol; 4 MCG/MIN PRN Reason: TITRATE PER MD ORDER Last Titration: 03/14/17 05:00 Dose: 0 mcg/min, 0 mls/hr Propofol (Diprivan) 1,000 mg in 100 mls @ 3.633 mls/hr IV .Q24H PRN; Protocol; 5 MCG/KG/MIN PRN Reason: TITRATE PER MD ORDER Last Titration: 03/14/17 08:30 Dose: 0 mcg/kg/min, 0 mls/hr Insulin Detemir (Levemir) 20 unit SC DAILY [facility] Last Admin: 03/15/17 09:31 Dose: 20 unit Insulin Human Regular (Humulin R Med) 0 units SC Q4 NARA Last Admin: 03/15/17 09:22 Dose: 5 units Lactulose (Enulose) 20 gm PO Q8H NARA Last Admin: 03/15/17 03:49 Dose: 20 gm Lisinopril (Zestril) 5 mg PO DAILY [facility] Last Admin: 03/15/17 10:10 Dose: 5 mg Methylprednisolone (Solu-Medrol) 20 mg IVP Q12 NARA Last Admin: 03/15/17 09:30 Dose: 20 mg Midazolam HCl (Versed Inj) 5 mg IVP Q2H PRN PRN Reason: Sedation Last Admin: 03/14/17 00:50 Dose: 5 mg Ondansetron HCl (Zofran Inj) 4 mg IVP Q6H PRN PRN Reason: Nausea/Vomiting Pantoprazole Sodium (Protonix Inj) 40 mg IVP DAILY [facility] Last Admin: 03/15/17 09:30 Dose: 40 mg Rifaximin (Xifaxan) 550 mg PO BID [facility] PRN Reason: Protocol Last Admin: 03/15/17 09:30 Dose: 550 mg Sodium Chloride (Sodium Chloride 7% Inhalation) 4 ml IH [id number] [facility] Last Admin: 03/14/17 15:25 Dose: Not Given Vancomycin HCl (Vancocin 25 Mg/Ml (Oral Use)) 500 mg PO QID [facility] PRN Reason: Protocol Last Admin: 03/15/17 09:33 Dose: 500 mg - Labs Labs: 03/15/17 06:00 03/15/17 06:00 PT 12.6 Seconds (9.9-11.8) H 03/12/17 10:00 INR 1.17 (0.93-1.08) H 03/12/17 10:00 APTT 26.8 Seconds (23.7-30.8) 03/08/17 07:00 - Constitutional Appears: No Acute Distress - Head Exam Head Exam: ATRAUMATIC, NORMAL INSPECTION, NORMOCEPHALIC - Eye Exam Eye Exam: EOMI, Normal appearance, PERRL Pupil Exam: NORMAL ACCOMODATION, PERRL - ENT Exam ENT Exam: Mucous Membranes Moist, Normal Exam - Neck Exam Neck Exam: Full ROM, Normal Inspection. absent: Lymphadenopathy - Respiratory Exam Respiratory Exam: NORMAL BREATHING PATTERN - Cardiovascular Exam Cardiovascular Exam: REGULAR RHYTHM - GI/Abdominal Exam GI & Abdominal Exam: Soft, Normal Bowel Sounds. absent: Distended, Firm, Guarding, Rigid, Tenderness, Rebound - Rectal Exam Additional comments: rectal tube in place - Extremities Exam Extremities Exam: Normal Capillary Refill, Pedal Edema - Back Exam Back Exam: NORMAL INSPECTION - Neurological Exam Neurological Exam: Alert, Awake, CN II-XII Intact, Oriented x3 - Psychiatric Exam Psychiatric exam: Normal Affect, Normal Mood - Skin Skin Exam: Dry, Intact, Normal Color, Warm Assessment and Plan - Assessment and Plan (Free Text) Assessment: 61 M w PMD ESRD on HD , DM , CAD, GERD came with vomiting and respiratory distress. found to have elevated LFT and ammonia (63->29). Hep panel is negative. On initial labs MELD score: 32 -> 50% 3month mortality. Differential dx: Acetominophen induced acute hepatic failure , hepatic encephalopathy. Liver failure with Unknown etiology: LFT, Lipase trending down Plan -ABX per ID -Trend LFT -Medical management -We will continue to follow closely Case Discussed with Dr. Brown
--- NOTE | 2017-03-15 14:06 | CP.CCUPN ---
<Hortensia Vee - Last Filed: 03/15/17 14:42> CCU Subjective - Physician Review Events Since Last Encounter (Free Text): 03/15/17 14:06 pt s/e at bedside this AM. Patient was hemodynamically stable and had stable respiratory status overnight on the BiPAP. Patient is awake, alert, and orientedx3 but shows poor insight. Today he complains of diffuse abdominal pain and rectal pain like he has to have a bowel movement but denies any nausea, vomiting, chest pain, SOB, fevers, or chills CCU Objective - Vital Signs / Intake & Output Vital Signs (Last 4 hours): Vital Signs Pulse BP 03/15/17 10:10 93 H 157/68 H Intake and Output (Last 8hrs): Intake & Output 03/14/17 03/15/17 03/15/17 22:59 06:59 14:59 Intake Total 457 800 Output Total 3100 100 Balance -2643 700 Weight 118.926 kg Intake: IV 417 500 Right Upper arm 417 500 Oral 300 Other 40 Output: Urine 0 Straight 0 Stool 100 100 Other 3000 - Physical Exam Head: Positive for: Atraumatic, Normocephalic. Negative for: Tenderness, Contusion, Swelling, Ecchymosis, Abrasion, Laceration, Other Pupils: Positive for: PERRL. Negative for: Sluggish, Non-Reactive, Pinpoint, Other Extroacular Muscles: Positive for: EOMI Conjunctiva: Positive for: Icteric Ears: Positive for: Normal Mouth: Positive for: Moist Mucous Membranes Pharnyx: Positive for: Other (ET in place) Nose (External): Positive for: Atraumatic Neck: Positive for: Trachea Midline. Negative for: JVD, Lymphadenopathy Respiratory/Chest: Positive for: Clear to Auscultation, Good Air Exchange. Negative for: Respiratory Distress, Accessory Muscle Use Cardiovascular: Positive for: Regular Rate and Rhythm, Normal S1, S2. Negative for: Murmurs, Rub, Gallop Abdomen: Positive for: Tenderness (RUQ, Epigastrium), Normal Bowel Sounds. Negative for: Distention, Peritoneal Signs, Rebound, Guarding Rectal: Positive for: Other (rectal tube in place) Back: Positive for: Normal Inspection. Negative for: CVA Tenderness, Midline Tenderness, Paraspinal Tenderness Upper Extremity: Positive for: Normal Inspection, Tenderness. Negative for: Cyanosis, Edema Lower Extremity: Positive for: Normal Inspection, Edema (+3), CALF TENDERNESS Neurological: Positive for: GCS=15, CN II-XII Intact, Speech Normal, Motor Func Grossly Intact Skin: Positive for: Warm, Dry, Normal Color. Negative for: Rashes Psychiatric: Positive for: Alert, Oriented x 3, Normal Concentration. Negative for: Normal Insight - Medications Active Medications: Active Medications Generic Name Dose Route Start Last Admin Trade Name Freq PRN Reason Stop Dose Admin Albuterol/Ipratropium 3 ml 03/06/17 00:33 03/13/17 21:25 Duoneb 3 Mg/0.5 Mg (3 Ml) Ud IH 3 ml Q2H PRN Administration Shortness of Breath Albuterol/Ipratropium 3 ml 03/12/17 19:30 03/15/17 11:04 Duoneb 3 Mg/0.5 Mg (3 Ml) Ud IH 3 ml [id number] NARA Administration Amlodipine Besylate 10 mg 03/15/17 10:00 03/15/17 10:10 Norvasc PO 10 mg DAILY NARA Administration Heparin Sodium (Porcine) 5,000 units 03/06/17 10:00 03/15/17 09:30 Heparin SC 5,000 units Q12 NARA Administration Protocol Hydralazine HCl 10 mg 03/06/17 02:36 03/07/17 02:05 Apresoline IVP 10 mg Q6 PRN Administration SBP >180 Linezolid 600 mg in 300 mls @ 200 mls/hr 03/09/17 22:00 03/15/17 09:29 Zyvox 600mg/300ml D5w IVPB 03/16/17 22:01 200 mls/hr Q12 NARA Administration Protocol Fentanyl Citrate 1,000 mcg in 100 mls @ 10 mls/hr 03/12/17 09:14 03/12/17 15: 00 Fentanyl Citrate/Sodium Chloride 1 Mg/100 Ml IV 0 mcg/hr .Q10H PRN 0 mls/hr TITRATE PER MD ORDER Titration Protocol 100 MCG/HR Dexmedetomidine HCl 400 mcg in 100 mls @ 12.111 mls/hr 03/12/17 09:15 04:01 Precedex 4 Mcg/Ml (100 Ml) IV 0.4 mcg/kg/hr .Q8H16M PRN 12.111 mls/hr Agitation Administration Protocol 0.4 MCG/KG/HR NOREPINEPHRINE BIT/0.9 % NACL 4 mg in 250 mls @ 15 mls/hr 03/13/17 19:33 05:00 Levophed 4 Mg/ 250 Ml Ns Premixed IV 0 mcg/min .[id number] PRN 0 mls/hr TITRATE PER MD ORDER Titration Protocol 4 MCG/MIN Propofol 1,000 mg in 100 mls @ 3.633 mls/hr 03/14/17 00:23 03/14/17 08:30 Diprivan IV 0 mcg/kg/min .Q24H PRN 0 mls/hr TITRATE PER MD ORDER Titration Protocol 5 MCG/KG/MIN Insulin Detemir 20 unit 03/08/17 12:10 03/15/17 09:31 Levemir SC 20 unit DAILY NARA Administration Insulin Human Regular 0 units 03/12/17 01:12 03/15/17 09:22 Humulin R Med SC 5 units Q4 NARA Administration Lisinopril 5 mg 03/15/17 10:00 03/15/17 10:10 Zestril PO 5 mg DAILY NARA Administration Methylprednisolone 20 mg 03/13/17 10:45 03/15/17 09:30 Solu-Medrol IVP 20 mg Q12 NARA Administration Midazolam HCl 5 mg 03/13/17 19:56 03/14/17 00:50 Versed Inj IVP 5 mg Q2H PRN Administration Sedation Ondansetron HCl 4 mg 03/05/17 22:41 Zofran Inj IVP Q6H PRN Nausea/Vomiting Pantoprazole Sodium 40 mg 03/06/17 10:00 03/15/17 09:30 Protonix Inj IVP 40 mg DAILY NARA Administration Rifaximin 550 mg 03/06/17 10:30 03/15/17 09:30 Xifaxan PO 550 mg BID NARA Administration Protocol Sodium Chloride 4 ml 03/13/17 23:30 03/14/17 15:25 Sodium Chloride 7% Inhalation IH Not Given [id number] NARA - Patient Studies Lab Studies: Lab Studies 03/15/17 03/15/17 03/15/17 Range/Units 06:00 06:00 05:54 WBC 10.7 D (4.5-11.0) 10^3/ul RBC 2.59 L (3.5-6.1) 10^6/uL Hgb 7.8 L (14.0-18.0) gm/dL Hct 23.9 L (42.0-52.0) % MCV 92.3 (80.0-105.0) fL MCH 30.1 (25.0-35.0) pg MCHC 32.6 (31.0-37.0) g/dl RDW 21.7 H (11.5-14.5) % Plt Count 119 L (120.0-450.0) 10^3/uL MPV 9.6 (7.0-11.0) fl Gran % 83.3 H (50.0-68.0) % Lymph % (Auto) 7.4 L (22.0-35.0) % Hughes % (Auto) 9.1 H (1.0-6.0) % Eos % (Auto) 0.1 L (1.5-5.0) % Baso % (Auto) 0.1 (0.0-3.0) % Gran # 8.93 H (1.4-6.5) Lymph # 0.8 L (1.2-3.4) Hughes # 1.0 H (0.1-0.6) Eos # 0.0 (0.0-0.7) Baso # 0.01 (0.0-2.0) K/mm3 Sodium 138 (132-148) mmol/L Potassium 4.0 (3.6-5.0) mmol/L Chloride 96 L (98-107) mmol/L Carbon Dioxide 26 (21-33) mmol/L Anion Gap 20 (10-20) BUN 44 H (7-21) mg/dL Creatinine 4.6 H (0.5-1.4) mg/dL Est GFR ( Amer) 16 Est GFR (Non-Af Amer) 13 POC Glucose (mg/dL) 281 H (65-110) mg/dL Random Glucose 245 H (70-110) mg/dL Calcium 10.0 (8.4-10.5) mg/dL Phosphorus 7.2 H (2.5-4.5) mg/dL Magnesium 2.2 (1.7-2.2) mg/dL Total Bilirubin 2.3 H (0.2-1.3) mg/dL AST 104 H (15-59) U/L ALT 187 H (7-56) U/L Alkaline Phosphatase 133 (38-133) U/L Total Protein 8.5 H (5.8-8.3) g/dL Albumin 3.6 (3.0-4.8) g/dL Globulin 4.9 gm/dL Albumin/Globulin Ratio 0.7 L (1.1-1.8) IgG1 (382-929) mg/dL IgG2 (241-700) mg/dL IgG3 (22-178) mg/dL IgG4 (4.0-86.0) mg/dL Absolute Lymphs (Flow) (850-3900) Cells/mcL % CD4 Cells (30-61) Percent Absolute CD4 Count (490-1740) Cells/mcL T-Help/Suppress Ratio (0.86-5.00) Ratio % CD8 Cells (12-42) Percent Absolute CD8 Count (180-1170) Cells/mcL BCR/abl Source BCR/abl Prior Result BCR/abl Interpretation BCR/abl1 to abl1 % (0.000) BCR/abl1 to abl1 IS % (0.000) BCR/abl1 Mnr (p190) Res BCR/abl1 Mjr (p210) Res 03/14/17 03/14/17 03/14/17 Range/Units 19:27 15:52 11:50 WBC (4.5-11.0) 10^3/ul RBC (3.5-6.1) 10^6/uL Hgb (14.0-18.0) gm/dL Hct (42.0-52.0) % MCV (80.0-105.0) fL MCH (25.0-35.0) pg MCHC (31.0-37.0) g/dl RDW (11.5-14.5) % Plt Count (120.0-450.0) 10^3/uL MPV (7.0-11.0) fl Gran % (50.0-68.0) % Lymph % (Auto) (22.0-35.0) % Hughes % (Auto) (1.0-6.0) % Eos % (Auto) (1.5-5.0) % Baso % (Auto) (0.0-3.0) % Gran # (1.4-6.5) Lymph # (1.2-3.4) Hughes # (0.1-0.6) Eos # (0.0-0.7) Baso # (0.0-2.0) K/mm3 Sodium (132-148) mmol/L Potassium (3.6-5.0) mmol/L Chloride (98-107) mmol/L Carbon Dioxide (21-33) mmol/L Anion Gap (10-20) BUN (7-21) mg/dL Creatinine (0.5-1.4) mg/dL Est GFR ( Amer) Est GFR (Non-Af Amer) POC Glucose (mg/dL) 275 H 277 H 133 H (65-110) mg/dL Random Glucose (70-110) mg/dL Calcium (8.4-10.5) mg/dL Phosphorus (2.5-4.5) mg/dL Magnesium (1.7-2.2) mg/dL Total Bilirubin (0.2-1.3) mg/dL AST (15-59) U/L ALT (7-56) U/L Alkaline Phosphatase (38-133) U/L Total Protein (5.8-8.3) g/dL Albumin (3.0-4.8) g/dL Globulin gm/dL Albumin/Globulin Ratio (1.1-1.8) IgG1 (382-929) mg/dL IgG2 (241-700) mg/dL IgG3 (22-178) mg/dL IgG4 (4.0-86.0) mg/dL Absolute Lymphs (Flow) (850-3900) Cells/mcL % CD4 Cells (30-61) Percent Absolute CD4 Count (490-1740) Cells/mcL T-Help/Suppress Ratio (0.86-5.00) Ratio % CD8 Cells (12-42) Percent Absolute CD8 Count (180-1170) Cells/mcL BCR/abl Source BCR/abl Prior Result BCR/abl Interpretation BCR/abl1 to abl1 % (0.000) BCR/abl1 to abl1 IS % (0.000) BCR/abl1 Mnr (p190) Res BCR/abl1 Mjr (p210) Res 03/14/17 03/12/17 03/12/17 Range/Units 07:22 10:00 06:00 WBC (4.5-11.0) 10^3/ul RBC (3.5-6.1) 10^6/uL Hgb (14.0-18.0) gm/dL Hct (42.0-52.0) % MCV (80.0-105.0) fL MCH (25.0-35.0) pg MCHC (31.0-37.0) g/dl RDW (11.5-14.5) % Plt Count (120.0-450.0) 10^3/uL MPV (7.0-11.0) fl Gran % (50.0-68.0) % Lymph % (Auto) (22.0-35.0) % Hughes % (Auto) (1.0-6.0) % Eos % (Auto) (1.5-5.0) % Baso % (Auto) (0.0-3.0) % Gran # (1.4-6.5) Lymph # (1.2-3.4) Hughes # (0.1-0.6) Eos # (0.0-0.7) Baso # (0.0-2.0) K/mm3 Sodium (132-148) mmol/L Potassium (3.6-5.0) mmol/L Chloride (98-107) mmol/L Carbon Dioxide (21-33) mmol/L Anion Gap (10-20) BUN (7-21) mg/dL Creatinine (0.5-1.4) mg/dL Est GFR ( Amer) Est GFR (Non-Af Amer) POC Glucose (mg/dL) 236 H (65-110) mg/dL Random Glucose (70-110) mg/dL Calcium (8.4-10.5) mg/dL Phosphorus (2.5-4.5) mg/dL Magnesium (1.7-2.2) mg/dL Total Bilirubin (0.2-1.3) mg/dL AST (15-59) U/L ALT (7-56) U/L Alkaline Phosphatase (38-133) U/L Total Protein (5.8-8.3) g/dL Albumin (3.0-4.8) g/dL Globulin gm/dL Albumin/Globulin Ratio (1.1-1.8) IgG1 (382-929) mg/dL IgG2 (241-700) mg/dL IgG3 (22-178) mg/dL IgG4 (4.0-86.0) mg/dL Absolute Lymphs (Flow) 1585 (850-3900) Cells/mcL % CD4 Cells 33 (30-61) Percent Absolute CD4 Count 523 (490-1740) Cells/mcL T-Help/Suppress Ratio 1.29 (0.86-5.00) Ratio % CD8 Cells 26 (12-42) Percent Absolute CD8 Count 406 (180-1170) Cells/mcL BCR/abl Source Blood BCR/abl Prior Result Not given BCR/abl Interpretation See note BCR/abl1 to abl1 % 0.000 (0.000) BCR/abl1 to abl1 IS % 0.000 (0.000) BCR/abl1 Mnr (p190) Res Not detected BCR/abl1 Mjr (p210) Res Not detected 03/09/17 Range/Units 16:12 WBC (4.5-11.0) 10^3/ul RBC (3.5-6.1) 10^6/uL Hgb (14.0-18.0) gm/dL Hct (42.0-52.0) % MCV (80.0-105.0) fL MCH (25.0-35.0) pg MCHC (31.0-37.0) g/dl RDW (11.5-14.5) % Plt Count (120.0-450.0) 10^3/uL MPV (7.0-11.0) fl Gran % (50.0-68.0) % Lymph % (Auto) (22.0-35.0) % Hughes % (Auto) (1.0-6.0) % Eos % (Auto) (1.5-5.0) % Baso % (Auto) (0.0-3.0) % Gran # (1.4-6.5) Lymph # (1.2-3.4) Hughes # (0.1-0.6) Eos # (0.0-0.7) Baso # (0.0-2.0) K/mm3 Sodium (132-148) mmol/L Potassium (3.6-5.0) mmol/L Chloride (98-107) mmol/L Carbon Dioxide (21-33) mmol/L Anion Gap (10-20) BUN (7-21) mg/dL Creatinine (0.5-1.4) mg/dL Est GFR ( Amer) Est GFR (Non-Af Amer) POC Glucose (mg/dL) (65-110) mg/dL Random Glucose (70-110) mg/dL Calcium (8.4-10.5) mg/dL Phosphorus (2.5-4.5) mg/dL Magnesium (1.7-2.2) mg/dL Total Bilirubin (0.2-1.3) mg/dL AST (15-59) U/L ALT (7-56) U/L Alkaline Phosphatase (38-133) U/L Total Protein (5.8-8.3) g/dL Albumin (3.0-4.8) g/dL Globulin gm/dL Albumin/Globulin Ratio (1.1-1.8) IgG1 1920 H (382-929) mg/dL IgG2 624 (241-700) mg/dL IgG3 192 H (22-178) mg/dL IgG4 33.2 (4.0-86.0) mg/dL Absolute Lymphs (Flow) (850-3900) Cells/mcL % CD4 Cells (30-61) Percent Absolute CD4 Count (490-1740) Cells/mcL T-Help/Suppress Ratio (0.86-5.00) Ratio % CD8 Cells (12-42) Percent Absolute CD8 Count (180-1170) Cells/mcL BCR/abl Source BCR/abl Prior Result BCR/abl Interpretation BCR/abl1 to abl1 % (0.000) BCR/abl1 to abl1 IS % (0.000) BCR/abl1 Mnr (p190) Res BCR/abl1 Mjr (p210) Res Laboratory Results - last 24 hr 03/09/17 03/12/17 03/12/17 16:12 06:00 10:00 WBC RBC Hgb Hct MCV MCH MCHC RDW Plt Count MPV Gran % Lymph % (Auto) Hughes % (Auto) Eos % (Auto) Baso % (Auto) Gran # Lymph # Hughes # Eos # Baso # Sodium Potassium Chloride Carbon Dioxide Anion Gap BUN Creatinine Est GFR ( Amer) Est GFR (Non-Af Amer) POC Glucose (mg/dL) Random Glucose Calcium Phosphorus Magnesium Total Bilirubin AST ALT Alkaline Phosphatase Total Protein Albumin Globulin Albumin/Globulin Ratio IgG1 1920 H IgG2 624 IgG3 192 H IgG4 33.2 Absolute Lymphs (Flow) 1585 % CD4 Cells 33 Absolute CD4 Count 523 T-Help/Suppress Ratio 1.29 % CD8 Cells 26 Absolute CD8 Count 406 BCR/abl Source Blood BCR/abl Prior Result Not given BCR/abl Interpretation See note BCR/abl1 to abl1 % 0.000 BCR/abl1 to abl1 IS % 0.000 BCR/abl1 Mnr (p190) Res Not detected BCR/abl1 Mjr (p210) Res Not detected 03/14/17 03/14/17 03/14/17 07:22 11:50 15:52 WBC RBC Hgb Hct MCV MCH MCHC RDW Plt Count MPV Gran % Lymph % (Auto) Hughes % (Auto) Eos % (Auto) Baso % (Auto) Gran # Lymph # Hughes # Eos # Baso # Sodium Potassium Chloride Carbon Dioxide Anion Gap BUN Creatinine Est GFR ( Amer) Est GFR (Non-Af Amer) POC Glucose (mg/dL) 236 H 133 H 277 H Random Glucose Calcium Phosphorus Magnesium Total Bilirubin AST ALT Alkaline Phosphatase Total Protein Albumin Globulin Albumin/Globulin Ratio IgG1 IgG2 IgG3 IgG4 Absolute Lymphs (Flow) % CD4 Cells Absolute CD4 Count T-Help/Suppress Ratio % CD8 Cells Absolute CD8 Count BCR/abl Source BCR/abl Prior Result BCR/abl Interpretation BCR/abl1 to abl1 % BCR/abl1 to abl1 IS % BCR/abl1 Mnr (p190) Res BCR/abl1 Mjr (p210) Res 03/14/17 03/15/17 03/15/17 19:27 05:54 06:00 WBC 10.7 D RBC 2.59 L Hgb 7.8 L Hct 23.9 L MCV 92.3 MCH 30.1 MCHC 32.6 RDW 21.7 H Plt Count 119 L MPV 9.6 Gran % 83.3 H Lymph % (Auto) 7.4 L Hughes % (Auto) 9.1 H Eos % (Auto) 0.1 L Baso % (Auto) 0.1 Gran # 8.93 H Lymph # 0.8 L Hughes # 1.0 H Eos # 0.0 Baso # 0.01 Sodium Potassium Chloride Carbon Dioxide Anion Gap BUN Creatinine Est GFR ( Amer) Est GFR (Non-Af Amer) POC Glucose (mg/dL) 275 H 281 H Random Glucose Calcium Phosphorus Magnesium Total Bilirubin AST ALT Alkaline Phosphatase Total Protein Albumin Globulin Albumin/Globulin Ratio IgG1 IgG2 IgG3 IgG4 Absolute Lymphs (Flow) % CD4 Cells Absolute CD4 Count T-Help/Suppress Ratio % CD8 Cells Absolute CD8 Count BCR/abl Source BCR/abl Prior Result BCR/abl Interpretation BCR/abl1 to abl1 % BCR/abl1 to abl1 IS % BCR/abl1 Mnr (p190) Res BCR/abl1 Mjr (p210) Res 03/15/17 06:00 WBC RBC Hgb Hct MCV MCH MCHC RDW Plt Count MPV Gran % Lymph % (Auto) Hughes % (Auto) Eos % (Auto) Baso % (Auto) Gran # Lymph # Hughes # Eos # Baso # Sodium 138 Potassium 4.0 Chloride 96 L Carbon Dioxide 26 Anion Gap 20 BUN 44 H Creatinine 4.6 H Est GFR ( Amer) 16 Est GFR (Non-Af Amer) 13 POC Glucose (mg/dL) Random Glucose 245 H Calcium 10.0 Phosphorus 7.2 H Magnesium 2.2 Total Bilirubin 2.3 H AST 104 H ALT 187 H Alkaline Phosphatase 133 Total Protein 8.5 H Albumin 3.6 Globulin 4.9 Albumin/Globulin Ratio 0.7 L IgG1 IgG2 IgG3 IgG4 Absolute Lymphs (Flow) % CD4 Cells Absolute CD4 Count T-Help/Suppress Ratio % CD8 Cells Absolute CD8 Count BCR/abl Source BCR/abl Prior Result BCR/abl Interpretation BCR/abl1 to abl1 % BCR/abl1 to abl1 IS % BCR/abl1 Mnr (p190) Res BCR/abl1 Mjr (p210) Res Fingerstick Blood Sugar Results: 265 Review of Systems - Review of Systems All systems: reviewed and no additional remarkable complaints except (as per HPI ) - EENT Eyes: UNREMARKABLE - Cardiovascular Cardiovascular: As Per HPI - Respiratory Respiratory: Cough (mild cough productive of thick green sputum), Chest Congestion. absent: Dyspnea - Gastrointestinal Gastrointestinal: As Per HPI - Genitourinary Genitourinary: absent: Dysuria, Flank Pain, Hematuria - Musculoskeletal Musculoskeletal: Back Pain - Integumentary Integumentary: UNREMARKABLE - Neurological Neurological: UNREMARKABLE Critical Care Progress Note - Nutrition Nutrition: Nutrition Category Date Time Status NPO Diet [DIET] Diets 03/07/17 Breakfast Ordered Assessment/Plan - Assessment and Plan (Free Text) Assessment: 61M with PMH of HTN, IDDM, and ESRD on HD recovering from acute liver injury, pancreatitis, and MRSA CAP who was extubated yesterday Neuro: AA&Ox3, but with some poor insight, gross neuromuscular function intact No complaints or concerns Continue to monitor Re-oriented often Cardio: Denies any cardiac symptoms, VSS, exam benign HGB low but stable from yesterday @7.8 Contineu to monitor To be transfused 2 units PRBC during HD per nephro recs continue norvasc 10 daily, lisinopril 50 PO daily Cardiology following Respiratory: complains of productive cough but denies dyspnea Patient extubated yesterday, stable SaO2 on BiPAP overnight and 5L NC throughout the morning Exam: CTAB, no R/R/W MRSA pneumonia Metabolic acidosis improved on EKG Pulmonology following Continue duonebs NARA and PRN, solumedrol 20Q12 Closely monitor Supplement O2 as needed to keep SaO2>94% GI: patient reports abdominal pain in his RUQ and epigastrium and urge to defecate Patient denies any nausea, vomiting, still has green colored liquid stool output Exam: moderately distended, but soft, tenderness in RUQ and epigastrium, no signs of peritonitis NPO LFT's trending down Contineu to monitor GI following--follow up their recs regarding diet and possible D/C lactulose Nephro: Creatinine 4.6 today Patient going for HD this afternoon Continue to monitor I&O's and CMP Follow up Dr. Varela's recs Endo: Glucose 281, electrolytes wnl Supplement electrolytes as needed Continue Levemir and RISS medium protocol ID: Patient was afebrile overnight WBC 10.7 down cfrom 15.9 yesterday MRSA in the sputum Being followed by ID--continue PO antibiotics per their recs MSK: Patient complaining of lower back pain, denies numbness/tingling, gross neuromuscularly intact physical therapy eval/therapy for deconditioning OOBT once evaluated by PT PPX: NARA, protonix Dispo: Transfer to med/surg today . Patient seen and discussed with Dr. Pari Vee, PGY1 <Tay Yañez - Last Filed: 03/15/17 17:10> CCU Objective - Vital Signs / Intake & Output Vital Signs (Last 4 hours): Vital Signs Temp Pulse Resp BP Pulse Ox 03/15/17 16:45 99.1 F 50 L 20 150/76 94 L 03/15/17 15:16 97.9 F 86 18 136/65 03/15/17 15:15 97.9 F 86 18 136/65 03/15/17 14:54 98.2 F 86 18 135/64 03/15/17 14:39 98.1 F 94 H 18 155/53 H 03/15/17 14:36 98.1 F 94 H 18 155/53 H 03/15/17 13:08 149/67 Intake and Output (Last 8hrs): Intake & Output 03/15/17 03/15/17 03/15/17 06:59 14:59 22:59 Intake Total 800 10 0 Output Total 100 Balance 700 10 0 Weight 262 lb 3 oz Intake: IV 500 Right Upper arm 500 Oral 300 Blood Product 0 0 Red Blood Cells Cpd As1 0 0 Lr Unit [id number] Other 10 Red Blood Cells Cpd As1 10 Lr Unit [id number] Output: Stool 100 - Medications Active Medications: Active Medications Generic Name Dose Route Start Last Admin Trade Name Freq PRN Reason Stop Dose Admin Albuterol/Ipratropium 3 ml 03/06/17 00:33 03/13/17 21:25 Duoneb 3 Mg/0.5 Mg (3 Ml) Ud IH 3 ml Q2H PRN Administration Shortness of Breath Albuterol/Ipratropium 3 ml 03/12/17 19:30 03/15/17 11:04 Duoneb 3 Mg/0.5 Mg (3 Ml) Ud IH 3 ml [id number] NARA Administration Amlodipine Besylate 10 mg 03/15/17 10:00 03/15/17 10:10 Norvasc PO 10 mg DAILY NARA Administration Heparin Sodium (Porcine) 5,000 units 03/06/17 10:00 03/15/17 09:30 Heparin SC 5,000 units Q12 NARA Administration Protocol Hydralazine HCl 10 mg 03/06/17 02:36 03/07/17 02:05 Apresoline IVP 10 mg Q6 PRN Administration SBP >180 Linezolid 600 mg in 300 mls @ 200 mls/hr 03/09/17 22:00 03/15/17 09:29 Zyvox 600mg/300ml D5w IVPB 03/16/17 22:01 200 mls/hr Q12 NARA Administration Protocol Fentanyl Citrate 1,000 mcg in 100 mls @ 10 mls/hr 03/12/17 09:14 03/12/17 15: 00 Fentanyl Citrate/Sodium Chloride 1 Mg/100 Ml IV 0 mcg/hr .Q10H PRN 0 mls/hr TITRATE PER MD ORDER Titration Protocol 100 MCG/HR Dexmedetomidine HCl 400 mcg in 100 mls @ 12.111 mls/hr 03/12/17 09:15 04:01 Precedex 4 Mcg/Ml (100 Ml) IV 0.4 mcg/kg/hr .Q8H16M PRN 12.111 mls/hr Agitation Administration Protocol 0.4 MCG/KG/HR NOREPINEPHRINE BIT/0.9 % NACL 4 mg in 250 mls @ 15 mls/hr 03/13/17 19:33 05:00 Levophed 4 Mg/ 250 Ml Ns Premixed IV 0 mcg/min .[id number] PRN 0 mls/hr TITRATE PER MD ORDER Titration Protocol 4 MCG/MIN Propofol 1,000 mg in 100 mls @ 3.633 mls/hr 03/14/17 00:23 03/14/17 08:30 Diprivan IV 0 mcg/kg/min .Q24H PRN 0 mls/hr TITRATE PER MD ORDER Titration Protocol 5 MCG/KG/MIN Insulin Detemir 20 unit 03/08/17 12:10 03/15/17 09:31 Levemir SC 20 unit DAILY NARA Administration Insulin Human Regular 0 units 03/12/17 01:12 03/15/17 12:00 Humulin R Med SC 5 units Q4 NARA Administration Lisinopril 5 mg 03/15/17 10:00 03/15/17 10:10 Zestril PO 5 mg DAILY ANRA Administration Methylprednisolone 20 mg 03/13/17 10:45 03/15/17 09:30 Solu-Medrol IVP 20 mg Q12 NARA Administration Midazolam HCl 5 mg 03/13/17 19:56 03/14/17 00:50 Versed Inj IVP 5 mg Q2H PRN Administration Sedation Ondansetron HCl 4 mg 03/05/17 22:41 Zofran Inj IVP Q6H PRN Nausea/Vomiting Pantoprazole Sodium 40 mg 03/06/17 10:00 03/15/17 09:30 Protonix Inj IVP 40 mg DAILY NARA Administration Rifaximin 550 mg 03/06/17 10:30 03/15/17 09:30 Xifaxan PO 550 mg BID [facility] Administration Protocol Sevelamer HCl 1,600 mg 03/15/17 18:00 Renagel PO TID [facility] Sodium Chloride 4 ml 03/13/17 23:30 03/14/17 15:25 Sodium Chloride 7% Inhalation IH Not Given [id number] NARA - Patient Studies Lab Studies: Microbiology Studies 03/14/17 11:40 Mycobacterial Culture - Preliminary Other: Please Indicate 03/14/17 11:40 Fungal Culture - Preliminary Bronchial Washings Lab Studies 03/15/17 03/15/17 03/15/17 Range/Units 12:27 06:00 06:00 WBC 10.7 D (4.5-11.0) 10^3/ul RBC 2.59 L (3.5-6.1) 10^6/uL Hgb 7.8 L (14.0-18.0) gm/dL Hct 23.9 L (42.0-52.0) % MCV 92.3 (80.0-105.0) fL MCH 30.1 (25.0-35.0) pg MCHC 32.6 (31.0-37.0) g/dl RDW 21.7 H (11.5-14.5) % Plt Count 119 L (120.0-450.0) 10^3/uL MPV 9.6 (7.0-11.0) fl Gran % 83.3 H (50.0-68.0) % Lymph % (Auto) 7.4 L (22.0-35.0) % Hughes % (Auto) 9.1 H (1.0-6.0) % Eos % (Auto) 0.1 L (1.5-5.0) % Baso % (Auto) 0.1 (0.0-3.0) % Gran # 8.93 H (1.4-6.5) Lymph # 0.8 L (1.2-3.4) Hughes # 1.0 H (0.1-0.6) Eos # 0.0 (0.0-0.7) Baso # 0.01 (0.0-2.0) K/mm3 Sodium 138 (132-148) mmol/L Potassium 4.0 (3.6-5.0) mmol/L Chloride 96 L (98-107) mmol/L Carbon Dioxide 26 (21-33) mmol/L Anion Gap 20 (10-20) BUN 44 H (7-21) mg/dL Creatinine 4.6 H (0.5-1.4) mg/dL Est GFR ( Amer) 16 Est GFR (Non-Af Amer) 13 POC Glucose (mg/dL) (65-110) mg/dL Random Glucose 245 H (70-110) mg/dL Calcium 10.0 (8.4-10.5) mg/dL Phosphorus 7.2 H (2.5-4.5) mg/dL Magnesium 2.2 (1.7-2.2) mg/dL Total Bilirubin 2.3 H (0.2-1.3) mg/dL AST 104 H (15-59) U/L ALT 187 H (7-56) U/L Alkaline Phosphatase 133 (38-133) U/L Total Protein 8.5 H (5.8-8.3) g/dL Albumin 3.6 (3.0-4.8) g/dL Globulin 4.9 gm/dL Albumin/Globulin Ratio 0.7 L (1.1-1.8) IgG1 (382-929) mg/dL IgG2 (241-700) mg/dL IgG3 (22-178) mg/dL IgG4 (4.0-86.0) mg/dL Absolute Lymphs (Flow) (850-3900) Cells/mcL % CD4 Cells (30-61) Percent Absolute CD4 Count (490-1740) Cells/mcL T-Help/Suppress Ratio (0.86-5.00) Ratio % CD8 Cells (12-42) Percent Absolute CD8 Count (180-1170) Cells/mcL BCR/abl Source BCR/abl Prior Result BCR/abl Interpretation BCR/abl1 to abl1 % (0.000) BCR/abl1 to abl1 IS % (0.000) BCR/abl1 Mnr (p190) Res BCR/abl1 Mjr (p210) Res Blood Type O POSITIVE Antibody Screen Negative Crossmatch See Detail BBK History Checked Patient has bt 03/15/17 03/14/17 03/14/17 Range/Units 05:54 19:27 15:52 WBC (4.5-11.0) 10^3/ul RBC (3.5-6.1) 10^6/uL Hgb (14.0-18.0) gm/dL Hct (42.0-52.0) % MCV (80.0-105.0) fL MCH (25.0-35.0) pg MCHC (31.0-37.0) g/dl RDW (11.5-14.5) % Plt Count (120.0-450.0) 10^3/uL MPV (7.0-11.0) fl Gran % (50.0-68.0) % Lymph % (Auto) (22.0-35.0) % Hughes % (Auto) (1.0-6.0) % Eos % (Auto) (1.5-5.0) % Baso % (Auto) (0.0-3.0) % Gran # (1.4-6.5) Lymph # (1.2-3.4) Hughes # (0.1-0.6) Eos # (0.0-0.7) Baso # (0.0-2.0) K/mm3 Sodium (132-148) mmol/L Potassium (3.6-5.0) mmol/L Chloride (98-107) mmol/L Carbon Dioxide (21-33) mmol/L Anion Gap (10-20) BUN (7-21) mg/dL Creatinine (0.5-1.4) mg/dL Est GFR ( Amer) Est GFR (Non-Af Amer) POC Glucose (mg/dL) 281 H 275 H 277 H (65-110) mg/dL Random Glucose (70-110) mg/dL Calcium (8.4-10.5) mg/dL Phosphorus (2.5-4.5) mg/dL Magnesium (1.7-2.2) mg/dL Total Bilirubin (0.2-1.3) mg/dL AST (15-59) U/L ALT (7-56) U/L Alkaline Phosphatase (38-133) U/L Total Protein (5.8-8.3) g/dL Albumin (3.0-4.8) g/dL Globulin gm/dL Albumin/Globulin Ratio (1.1-1.8) IgG1 (382-929) mg/dL IgG2 (241-700) mg/dL IgG3 (22-178) mg/dL IgG4 (4.0-86.0) mg/dL Absolute Lymphs (Flow) (850-3900) Cells/mcL % CD4 Cells (30-61) Percent Absolute CD4 Count (490-1740) Cells/mcL T-Help/Suppress Ratio (0.86-5.00) Ratio % CD8 Cells (12-42) Percent Absolute CD8 Count (180-1170) Cells/mcL BCR/abl Source BCR/abl Prior Result BCR/abl Interpretation BCR/abl1 to abl1 % (0.000) BCR/abl1 to abl1 IS % (0.000) BCR/abl1 Mnr (p190) Res BCR/abl1 Mjr (p210) Res Blood Type Antibody Screen Crossmatch BBK History Checked 03/14/17 03/14/17 03/12/17 Range/Units 11:50 07:22 10:00 WBC (4.5-11.0) 10^3/ul RBC (3.5-6.1) 10^6/uL Hgb (14.0-18.0) gm/dL Hct (42.0-52.0) % MCV (80.0-105.0) fL MCH (25.0-35.0) pg MCHC (31.0-37.0) g/dl RDW (11.5-14.5) % Plt Count (120.0-450.0) 10^3/uL MPV (7.0-11.0) fl Gran % (50.0-68.0) % Lymph % (Auto) (22.0-35.0) % Hughes % (Auto) (1.0-6.0) % Eos % (Auto) (1.5-5.0) % Baso % (Auto) (0.0-3.0) % Gran # (1.4-6.5) Lymph # (1.2-3.4) Hughes # (0.1-0.6) Eos # (0.0-0.7) Baso # (0.0-2.0) K/mm3 Sodium (132-148) mmol/L Potassium (3.6-5.0) mmol/L Chloride (98-107) mmol/L Carbon Dioxide (21-33) mmol/L Anion Gap (10-20) BUN (7-21) mg/dL Creatinine (0.5-1.4) mg/dL Est GFR ( Amer) Est GFR (Non-Af Amer) POC Glucose (mg/dL) 133 H 236 H (65-110) mg/dL Random Glucose (70-110) mg/dL Calcium (8.4-10.5) mg/dL Phosphorus (2.5-4.5) mg/dL Magnesium (1.7-2.2) mg/dL Total Bilirubin (0.2-1.3) mg/dL AST (15-59) U/L ALT (7-56) U/L Alkaline Phosphatase (38-133) U/L Total Protein (5.8-8.3) g/dL Albumin (3.0-4.8) g/dL Globulin gm/dL Albumin/Globulin Ratio (1.1-1.8) IgG1 (382-929) mg/dL IgG2 (241-700) mg/dL IgG3 (22-178) mg/dL IgG4 (4.0-86.0) mg/dL Absolute Lymphs (Flow) 1585 (850-3900) Cells/mcL % CD4 Cells 33 (30-61) Percent Absolute CD4 Count 523 (490-1740) Cells/mcL T-Help/Suppress Ratio 1.29 (0.86-5.00) Ratio % CD8 Cells 26 (12-42) Percent Absolute CD8 Count 406 (180-1170) Cells/mcL BCR/abl Source BCR/abl Prior Result BCR/abl Interpretation BCR/abl1 to abl1 % (0.000) BCR/abl1 to abl1 IS % (0.000) BCR/abl1 Mnr (p190) Res BCR/abl1 Mjr (p210) Res Blood Type Antibody Screen Crossmatch BBK History Checked 03/12/17 03/09/17 Range/Units 06:00 16:12 WBC (4.5-11.0) 10^3/ul RBC (3.5-6.1) 10^6/uL Hgb (14.0-18.0) gm/dL Hct (42.0-52.0) % MCV (80.0-105.0) fL MCH (25.0-35.0) pg MCHC (31.0-37.0) g/dl RDW (11.5-14.5) % Plt Count (120.0-450.0) 10^3/uL MPV (7.0-11.0) fl Gran % (50.0-68.0) % Lymph % (Auto) (22.0-35.0) % Hughes % (Auto) (1.0-6.0) % Eos % (Auto) (1.5-5.0) % Baso % (Auto) (0.0-3.0) % Gran # (1.4-6.5) Lymph # (1.2-3.4) Hughes # (0.1-0.6) Eos # (0.0-0.7) Baso # (0.0-2.0) K/mm3 Sodium (132-148) mmol/L Potassium (3.6-5.0) mmol/L Chloride (98-107) mmol/L Carbon Dioxide (21-33) mmol/L Anion Gap (10-20) BUN (7-21) mg/dL Creatinine (0.5-1.4) mg/dL Est GFR ( Amer) Est GFR (Non-Af Amer) POC Glucose (mg/dL) (65-110) mg/dL Random Glucose (70-110) mg/dL Calcium (8.4-10.5) mg/dL Phosphorus (2.5-4.5) mg/dL Magnesium (1.7-2.2) mg/dL Total Bilirubin (0.2-1.3) mg/dL AST (15-59) U/L ALT (7-56) U/L Alkaline Phosphatase (38-133) U/L Total Protein (5.8-8.3) g/dL Albumin (3.0-4.8) g/dL Globulin gm/dL Albumin/Globulin Ratio (1.1-1.8) IgG1 1920 H (382-929) mg/dL IgG2 624 (241-700) mg/dL IgG3 192 H (22-178) mg/dL IgG4 33.2 (4.0-86.0) mg/dL Absolute Lymphs (Flow) (850-3900) Cells/mcL % CD4 Cells (30-61) Percent Absolute CD4 Count (490-1740) Cells/mcL T-Help/Suppress Ratio (0.86-5.00) Ratio % CD8 Cells (12-42) Percent Absolute CD8 Count (180-1170) Cells/mcL BCR/abl Source Blood BCR/abl Prior Result Not given BCR/abl Interpretation See note BCR/abl1 to abl1 % 0.000 (0.000) BCR/abl1 to abl1 IS % 0.000 (0.000) BCR/abl1 Mnr (p190) Res Not detected BCR/abl1 Mjr (p210) Res Not detected Blood Type Antibody Screen Crossmatch BBK History Checked Laboratory Results - last 24 hr 03/09/17 03/12/17 03/12/17 16:12 06:00 10:00 WBC RBC Hgb Hct MCV MCH MCHC RDW Plt Count MPV Gran % Lymph % (Auto) Hughes % (Auto) Eos % (Auto) Baso % (Auto) Gran # Lymph # Hughes # Eos # Baso # Sodium Potassium Chloride Carbon Dioxide Anion Gap BUN Creatinine Est GFR ( Amer) Est GFR (Non-Af Amer) POC Glucose (mg/dL) Random Glucose Calcium Phosphorus Magnesium Total Bilirubin AST ALT Alkaline Phosphatase Total Protein Albumin Globulin Albumin/Globulin Ratio IgG1 1920 H IgG2 624 IgG3 192 H IgG4 33.2 Absolute Lymphs (Flow) 1585 % CD4 Cells 33 Absolute CD4 Count 523 T-Help/Suppress Ratio 1.29 % CD8 Cells 26 Absolute CD8 Count 406 BCR/abl Source Blood BCR/abl Prior Result Not given BCR/abl Interpretation See note BCR/abl1 to abl1 % 0.000 BCR/abl1 to abl1 IS % 0.000 BCR/abl1 Mnr (p190) Res Not detected BCR/abl1 Mjr (p210) Res Not detected Blood Type Antibody Screen Crossmatch BBK History Checked 03/14/17 03/14/17 03/14/17 07:22 11:50 15:52 WBC RBC Hgb Hct MCV MCH MCHC RDW Plt Count MPV Gran % Lymph % (Auto) Hughes % (Auto) Eos % (Auto) Baso % (Auto) Gran # Lymph # Hughes # Eos # Baso # Sodium Potassium Chloride Carbon Dioxide Anion Gap BUN Creatinine Est GFR ( Amer) Est GFR (Non-Af Amer) POC Glucose (mg/dL) 236 H 133 H 277 H Random Glucose Calcium Phosphorus Magnesium Total Bilirubin AST ALT Alkaline Phosphatase Total Protein Albumin Globulin Albumin/Globulin Ratio IgG1 IgG2 IgG3 IgG4 Absolute Lymphs (Flow) % CD4 Cells Absolute CD4 Count T-Help/Suppress Ratio % CD8 Cells Absolute CD8 Count BCR/abl Source BCR/abl Prior Result BCR/abl Interpretation BCR/abl1 to abl1 % BCR/abl1 to abl1 IS % BCR/abl1 Mnr (p190) Res BCR/abl1 Mjr (p210) Res Blood Type Antibody Screen Crossmatch BBK History Checked 03/14/17 03/15/17 03/15/17 19:27 05:54 06:00 WBC 10.7 D RBC 2.59 L Hgb 7.8 L Hct 23.9 L MCV 92.3 MCH 30.1 MCHC 32.6 RDW 21.7 H Plt Count 119 L MPV 9.6 Gran % 83.3 H Lymph % (Auto) 7.4 L Hughes % (Auto) 9.1 H Eos % (Auto) 0.1 L Baso % (Auto) 0.1 Gran # 8.93 H Lymph # 0.8 L Hughes # 1.0 H Eos # 0.0 Baso # 0.01 Sodium Potassium Chloride Carbon Dioxide Anion Gap BUN Creatinine Est GFR ( Amer) Est GFR (Non-Af Amer) POC Glucose (mg/dL) 275 H 281 H Random Glucose Calcium Phosphorus Magnesium Total Bilirubin AST ALT Alkaline Phosphatase Total Protein Albumin Globulin Albumin/Globulin Ratio IgG1 IgG2 IgG3 IgG4 Absolute Lymphs (Flow) % CD4 Cells Absolute CD4 Count T-Help/Suppress Ratio % CD8 Cells Absolute CD8 Count BCR/abl Source BCR/abl Prior Result BCR/abl Interpretation BCR/abl1 to abl1 % BCR/abl1 to abl1 IS % BCR/abl1 Mnr (p190) Res BCR/abl1 Mjr (p210) Res Blood Type Antibody Screen Crossmatch BBK History Checked 03/15/17 03/15/17 06:00 12:27 WBC RBC Hgb Hct MCV MCH MCHC RDW Plt Count MPV Gran % Lymph % (Auto) Hughes % (Auto) Eos % (Auto) Baso % (Auto) Gran # Lymph # Hughes # Eos # Baso # Sodium 138 Potassium 4.0 Chloride 96 L Carbon Dioxide 26 Anion Gap 20 BUN 44 H Creatinine 4.6 H Est GFR ( Amer) 16 Est GFR (Non-Af Amer) 13 POC Glucose (mg/dL) Random Glucose 245 H Calcium 10.0 Phosphorus 7.2 H Magnesium 2.2 Total Bilirubin 2.3 H AST 104 H ALT 187 H Alkaline Phosphatase 133 Total Protein 8.5 H Albumin 3.6 Globulin 4.9 Albumin/Globulin Ratio 0.7 L IgG1 IgG2 IgG3 IgG4 Absolute Lymphs (Flow) % CD4 Cells Absolute CD4 Count T-Help/Suppress Ratio % CD8 Cells Absolute CD8 Count BCR/abl Source BCR/abl Prior Result BCR/abl Interpretation BCR/abl1 to abl1 % BCR/abl1 to abl1 IS % BCR/abl1 Mnr (p190) Res BCR/abl1 Mjr (p210) Res Blood Type O POSITIVE Antibody Screen Negative Crossmatch See Detail BBK History Checked Patient has bt Critical Care Progress Note - Nutrition Nutrition: Nutrition Category Date Time Status NPO Diet [DIET] Diets 03/07/17 Breakfast Ordered Addendum Addendum: 03/15/17 17:04 patient was seen, examined and disucssed with Dr. Vee at bedside. Her note reflects my exam, assessment and plan, except as below. meds/Labs reviewed. 61 yo male recovering from VDRF due to MRSA pneumonia and acute liver failure. Extubated yesterday, did well overnight on and off BPAP. alert oriented x 3, portecting airways, not in respiratory distress on NC, states he is "doing beter ". LUL resolved. Ok to downgrade to med/surg. speech and swallow eval. Agressive fluid removal with HD to increase chances for continued respiratory improvement ccm time 40 min
--- NOTE | 2017-03-15 14:43 | PN ---
DATE: 03/15/2017 SUBJECTIVE: The patient is seen in the ICU. He is awake, he is alert. He is coherent. He recogniz es me. Case is discussed with ICU residents. The patient had an episode of agitation, he was aggrav ated, he was being aggressive with the nursing staff. He was somewhat confused. Hemodynamically, he has been stable. His FIO2 is down to 60%. Currently, he denies any pain. He denies any shortness of breath. He reports that he wants to move his bowels. He denies any nausea, vomiting. PHYSICAL EXAMINATION: GENERAL: Obese, middle-aged male lying in bed in the ICU. VITAL SIGNS: Blood pressure 157/68, heart rate 93, respiratory rate 18-20, temperature 99, T-max is 99.5. HEENT: Normocephalic, atraumatic, positive pallor. NECK: Supple, no JVD. LUNGS: Bilateral equal air entry, bilateral rhonchi, rales at right base more than left. CARDIAC: S1, S2, regular rate and rhythm. No murmur, no rub. ABDOMEN: Obese, distended, soft, nontender, bowel sounds present. EXTREMITIES: Trace lower extremity edema. INTAKE AND OUTPUT: 1282/3200. LABORATORY DATA: WBC 10.7, hemoglobin 7.8, hematocrit 24, platelets 119. Sodium 138, potassium 4.0, chloride 96, CO2 26, BUN 44, creatinine 4.6, glucose 245, calcium 10.0, phosphorus 7.2, magnesium 2. 2. Total bili 2.3, AST 104, ALT 187, albumin 3.6, globulin 4.9. CD4 count 524. Chest x-ray: Increasing diffuse infiltrate, right greater than left. CURRENT MEDICATIONS: Hydralazine, DuoNeb, heparin subQ, insulin, amlodipine 10 mg, Solu-Medrol 20 IV q. 12, rifaximin, Zestril 5, Zofran, Zyvox 600 q. 12. Vancomycin 500 q.i.d., Flagyl 500 q. 8 IV. ASSESSMENT: 1. Respiratory failure secondary to bilateral severe methicillin-resistant Staphylococcus aureus pne umonia. 2. Altered mental status. 3. Acute liver failure/acute fulminant hepatitis. 4. Severe anemia. 5. Altered mental status. 6. End-stage renal disease. 7. Volume overload. PLAN: 1. Ultrafiltration today, 2 hours, will ultrafiltrate 3 kilos. 2. Transfuse 1 unit of blood during dialysis. 3. Continue antibiotics for MRSA pneumonia. 4. Continue empiric vancomycin. 5. Continue Zestril and amlodipine for hypertension. 6. Restart phosphate binders, Renagel 800 mg 2 tablets t.i.d. with meals. 7. Long discussion with patient at bedside, ICU residents, ICU staff, dialysis staff. More than 35 minutes spent in the care of this critically ill patient. Shavonne Varela MD cc: [id number] TT: 03/15/2017 14:42:35 Confirmation # [id number] Dictation # [id number] mn
--- NOTE | 2017-03-15 17:26 | CP.PCM.PCO ---
Physician Communication Note - Physician Communication Note Physician Communication Note: Extubated-confused/No surgery now
--- NOTE | 2017-03-15 17:44 | CP.PCM.PN ---
<Hortensia Vee - Last Filed: 03/15/17 17:53> Subjective - Date & Time of Evaluation Date of Evaluation: 03/15/17 Time of Evaluation: 17:38 - Subjective Subjective: Progress note for Dr. Yañez Patient was seen and examined on the 4th floor at bedside. Patient was extubated yesterday and tolerated BiPAP with respiratory stability last night. Patient had a stable respiratory and hemodynamic status on NC on 5L in the ICU today and was transferred up to the 5th floor for further monitoring and treatment. Patient is lying comfortably in bed on nasal cannula, with no signs of respiratory distress--no retractions, increased respiratory effort, tachypnea , able to converse without getting short of breath. Patient is awake, alert, and oriented, conversing appropriately with good insight, grossly neuromuscularly intact. Patient denies any chest pain, SOB, cough, fevers, chills, or any other symptoms. Objective - Vital Signs/Intake and Output Vital Signs (last 24 hours): Temp Pulse Resp BP Pulse Ox 99.1 F 50 L 20 150/76 94 L 03/15/17 16:45 03/15/17 16:45 03/15/17 16:45 03/15/17 16:45 03/15/17 16:45 Intake and Output: 03/15/17 03/15/17 06:59 18:59 Intake Total 800 10 Output Total 100 Balance 700 10 - Medications Medications: Current Medications Albuterol/Ipratropium (Duoneb 3 Mg/0.5 Mg (3 Ml) Ud) 3 ml IH Q2H PRN PRN Reason: Shortness of Breath Last Admin: 03/13/17 21:25 Dose: 3 ml Albuterol/Ipratropium (Duoneb 3 Mg/0.5 Mg (3 Ml) Ud) 3 ml IH [id number] [facility] Last Admin: 03/15/17 17:33 Dose: Not Given Amlodipine Besylate (Norvasc) 10 mg PO DAILY [facility] Last Admin: 03/15/17 10:10 Dose: 10 mg Heparin Sodium (Porcine) (Heparin) 5,000 units SC Q12 NARA PRN Reason: Protocol Last Admin: 03/15/17 09:30 Dose: 5,000 units Hydralazine HCl (Apresoline) 10 mg IVP Q6 PRN PRN Reason: SBP >180 Last Admin: 03/07/17 02:05 Dose: 10 mg Linezolid (Zyvox 600mg/300ml D5w) 600 mg in 300 mls @ 200 mls/hr IVPB Q12 NARA PRN Reason: Protocol Stop: 03/16/17 22:01 Last Admin: 03/15/17 09:29 Dose: 200 mls/hr Fentanyl Citrate (Fentanyl Citrate/Sodium Chloride 1 Mg/100 Ml) 1,000 mcg in 100 mls @ 10 mls/hr IV .Q10H PRN; Protocol; 100 MCG/HR PRN Reason: TITRATE PER MD ORDER Last Titration: 03/12/17 15:00 Dose: 0 mcg/hr, 0 mls/hr Dexmedetomidine HCl (Precedex 4 Mcg/Ml (100 Ml)) 400 mcg in 100 mls @ 12.111 mls/hr IV .Q8H16M PRN; Protocol; 0.4 MCG/KG/HR PRN Reason: Agitation Last Admin: 03/13/17 04:01 Dose: 0.4 mcg/kg/hr, 12.111 mls/hr NOREPINEPHRINE BIT/0.9 % NACL (Levophed 4 Mg/ 250 Ml Ns Premixed) 4 mg in 250 mls @ 15 mls/hr IV .[id number] PRN; Protocol; 4 MCG/MIN PRN Reason: TITRATE PER MD ORDER Last Titration: 03/14/17 05:00 Dose: 0 mcg/min, 0 mls/hr Propofol (Diprivan) 1,000 mg in 100 mls @ 3.633 mls/hr IV .Q24H PRN; Protocol; 5 MCG/KG/MIN PRN Reason: TITRATE PER MD ORDER Last Titration: 03/14/17 08:30 Dose: 0 mcg/kg/min, 0 mls/hr Insulin Detemir (Levemir) 20 unit SC DAILY [facility] Last Admin: 03/15/17 09:31 Dose: 20 unit Insulin Human Regular (Humulin R Med) 0 units SC Q4 NARA Last Admin: 03/15/17 12:00 Dose: 5 units Lisinopril (Zestril) 5 mg PO DAILY [facility] Last Admin: 03/15/17 10:10 Dose: 5 mg Methylprednisolone (Solu-Medrol) 20 mg IVP Q12 NARA Last Admin: 03/15/17 09:30 Dose: 20 mg Midazolam HCl (Versed Inj) 5 mg IVP Q2H PRN PRN Reason: Sedation Last Admin: 03/14/17 00:50 Dose: 5 mg Ondansetron HCl (Zofran Inj) 4 mg IVP Q6H PRN PRN Reason: Nausea/Vomiting Pantoprazole Sodium (Protonix Inj) 40 mg IVP DAILY [facility] Last Admin: 03/15/17 09:30 Dose: 40 mg Rifaximin (Xifaxan) 550 mg PO BID NARA PRN Reason: Protocol Last Admin: 03/15/17 09:30 Dose: 550 mg Sevelamer HCl (Renagel) 1,600 mg PO TID [facility] Sodium Chloride (Sodium Chloride 7% Inhalation) 4 ml IH [id number] [facility] Last Admin: 03/14/17 15:25 Dose: Not Given - Labs Labs: 03/15/17 06:00 03/15/17 06:00 PT 12.6 Seconds (9.9-11.8) H 03/12/17 10:00 INR 1.17 (0.93-1.08) H 03/12/17 10:00 APTT 26.8 Seconds (23.7-30.8) 03/08/17 07:00 - Constitutional Appears: Well, Non-toxic, No Acute Distress - Head Exam Head Exam: ATRAUMATIC, NORMOCEPHALIC - Eye Exam Eye Exam: EOMI, Scleral icterus. absent: Conjunctival injection - ENT Exam ENT Exam: Mucous Membranes Moist, Normal Oropharynx - Respiratory Exam Respiratory Exam: Rhonchi (rhonchi in the upper lobes), NORMAL BREATHING PATTERN. absent: Accessory Muscle Use, Rales, Wheezes, Respiratory Distress - Cardiovascular Exam Cardiovascular Exam: RRR, +S1, +S2. absent: Murmur - GI/Abdominal Exam GI & Abdominal Exam: Distended, Soft. absent: Tenderness, Rebound - Extremities Exam Extremities Exam: absent: Calf Tenderness, Pedal Edema, Tenderness - Neurological Exam Neurological Exam: Alert, Awake, Oriented x3 - Psychiatric Exam Psychiatric exam: Normal Affect, Normal Mood - Skin Skin Exam: Dry, Normal Color, Warm Assessment and Plan - Assessment and Plan (Free Text) Assessment: 61 yo male with PMH of IDDM, ESRD on HD recently admitted to the ICU for VDRF due to MRSA pneumonia and acute liver failure. He was extubated yesterday, and had stable respiratory status on 5L NC and is currently stable and AA&OX3 with no signs of respiratory distress on 3L NC, protecting airways well. Plan: continue to monitor respiratory status closely, supplement O2 as necessary to keep SaO2>94% Continue current regimen of duonebs, solumedrol 20 IV BID Continue to follow up bronchial washing cultures and mycobacterial cultures Follow ID recommendations for antibiotics Patient examined with Dr. Pari Vee, PGY1 <Tay Yañez - Last Filed: 03/20/17 17:35> Objective - Vital Signs/Intake and Output Vital Signs (last 24 hours): Temp Pulse Resp BP Pulse Ox 98.2 F 85 20 155/72 H 98 03/20/17 16:00 03/20/17 16:00 03/20/17 16:00 03/20/17 16:00 03/20/17 16:00 Intake and Output: 03/20/17 03/20/17 06:59 18:59 Intake Total 480 Balance 480 - Medications Medications: Current Medications Albuterol/Ipratropium (Duoneb 3 Mg/0.5 Mg (3 Ml) Ud) 3 ml IH Q2H PRN PRN Reason: Shortness of Breath Last Admin: 03/20/17 16:41 Dose: 3 ml Amlodipine Besylate (Norvasc) 10 mg PO DAILY [facility] Last Admin: 03/20/17 09:29 Dose: 10 mg Aspirin (Ecotrin) 81 mg PO DAILY [facility] Last Admin: 03/20/17 09:29 Dose: 81 mg Heparin Sodium (Porcine) (Heparin) 5,000 units SC Q12 NARA PRN Reason: Protocol Last Admin: 03/20/17 09:29 Dose: 5,000 units Hydralazine HCl (Apresoline) 10 mg IVP Q6 PRN PRN Reason: SBP >180 Last Admin: 03/07/17 02:05 Dose: 10 mg Insulin Detemir (Levemir) 20 unit SC DAILY [facility] Last Admin: 03/20/17 09:27 Dose: 20 unit Insulin Human Regular (Humulin R Med) 0 units SC Q4 [facility] Last Admin: 03/20/17 17:16 Dose: 8 units Lisinopril (Zestril) 10 mg PO DAILY [facility] Last Admin: 03/20/17 09:28 Dose: 10 mg Ondansetron HCl (Zofran Inj) 4 mg IVP Q6H PRN PRN Reason: Nausea/Vomiting Last Admin: 03/17/17 23:30 Dose: 4 mg Pantoprazole Sodium (Protonix Ec Tab) 40 mg PO 0630 [facility] Last Admin: 03/20/17 05:39 Dose: 40 mg Prednisone (Prednisone Tab) 10 mg PO DAILY [facility] Rifaximin (Xifaxan) 550 mg PO BID NARA PRN Reason: Protocol Last Admin: 03/20/17 17:17 Dose: 550 mg Sevelamer HCl (Renagel) 1,600 mg PO TID [facility] Last Admin: 03/20/17 17:16 Dose: 1,600 mg Vancomycin HCl (Vancocin 25 Mg/Ml (Oral Use)) 125 mg PO QID [facility] PRN Reason: Protocol Last Admin: 03/20/17 17:17 Dose: 125 mg - Labs Labs: 03/19/17 10:20 03/19/17 10:20 PT 12.6 Seconds (9.9-11.8) H 03/12/17 10:00 INR 1.17 (0.93-1.08) H 03/12/17 10:00 APTT 26.8 Seconds (23.7-30.8) 03/08/17 07:00 Attending/Attestation - Attestation I have personally seen and examined this patient.: Yes I have fully participated in the care of the patient.: Yes I have reviewed all pertinent clinical information, including history, physical exam and plan: Yes Notes (Text): 03/20/17 17:34 Patient is comfortable, not in respiratory or otherwise distress. agree with above
[2017-03-15 17:47] LABS: ARTERIAL BLOOD GAS HCO3 26.2 mmol/L (21-28); ARTERIAL BLOOD GAS O2 CAPACITY 11.2 mL/dl (16-24); ARTERIAL BLOOD GAS PH 7.31 (7.35-7.45); ARTERIAL BLOOD HGB O2 SAT 93.7 % (95.0-98.0); CARBOXYHEMOGLOBIN 2.8 % (0.5-1.5); HHB 1.4 % (0-5)
--- NOTE | 2017-03-15 18:11 | PN ---
DATE: 03/15/2017 SUBJECTIVE: The patient is a 61-year-old, seen and examined. He was extubated successfully, eating and tolerating, had swallowing eval done and was recommended to have pureed food. No history of naus ea or vomiting. Complained of generalized weakness, seemed to be somewhat confused. PHYSICAL EXAMINATION: VITAL SIGNS: Temperature 99.1, pulse 50, respirations 20, blood pressure 150/76. LUNGS: Bilateral fair airflow, no rhonchi or crackle. HEART: S1, S2 audible. ABDOMEN: Soft, obese, nontender, no rebound, no guarding. NEUROLOGIC: The patient is awake and alert, moves all extremities, communicative. LABORATORY EXAMINATION: WBC is 10.7, hemoglobin 7.8, hematocrit 23.9, platelet of 119. Chemistry: Sodium 138, potassium 4.0, chloride 96, CO2 , BUN 44, creatinine 4.6, blood sugar of 254. Phosp horus 7.2, total bilirubin 2.3. ASSESSMENT: 1. Status post hepatic failure. 2. Cholelithiasis. 3. Gallstone pancreatitis, resolving. 4. Acute renal and hepatic failure, improving. 5. Anemia. 6. Improving metabolic encephalopathy. 7. End-stage renal disease, on hemodialysis. PLAN: The patient will get dialysis today. Will be given 1 blood transfusion. Currently, he is on nebulizer treatment. Monitor blood sugar. Advance his diet. A small dose of IV steroid and . He is also being given Zyvox 600 twice a day and lisinopril 5 mg daily. We will continue that. We wi ll follow up his electrolytes in a.m. Request for TCU evaluation and physical therapy. Raf Bowen MD cc: [phone] TT: 03/15/2017 18:10:42 Confirmation # [id number] Dictation # [id number]
--- NOTE | 2017-03-15 18:58 | CP.PCM.PN ---
Subjective - Date & Time of Evaluation Date of Evaluation: 03/15/17 Time of Evaluation: 09:00 - Subjective Subjective: Patient seen earlier in ICU. PAtient is now extubated, awake and alert, afebrile , still with watery stools. Objective - Vital Signs/Intake and Output Vital Signs (last 24 hours): Temp Pulse Resp BP Pulse Ox 99.1 F 50 L 20 150/76 99 03/15/17 16:45 03/15/17 16:45 03/15/17 16:45 03/15/17 16:45 03/15/17 17:52 Intake and Output: 03/15/17 03/15/17 06:59 18:59 Intake Total 800 10 Output Total 100 Balance 700 10 - Medications Medications: Current Medications Albuterol/Ipratropium (Duoneb 3 Mg/0.5 Mg (3 Ml) Ud) 3 ml IH Q2H PRN PRN Reason: Shortness of Breath Last Admin: 03/13/17 21:25 Dose: 3 ml Albuterol/Ipratropium (Duoneb 3 Mg/0.5 Mg (3 Ml) Ud) 3 ml IH [id number] NARA Last Admin: 03/15/17 17:33 Dose: Not Given Amlodipine Besylate (Norvasc) 10 mg PO DAILY [facility] Last Admin: 03/15/17 10:10 Dose: 10 mg Heparin Sodium (Porcine) (Heparin) 5,000 units SC Q12 NARA PRN Reason: Protocol Last Admin: 03/15/17 09:30 Dose: 5,000 units Hydralazine HCl (Apresoline) 10 mg IVP Q6 PRN PRN Reason: SBP >180 Last Admin: 03/07/17 02:05 Dose: 10 mg Linezolid (Zyvox 600mg/300ml D5w) 600 mg in 300 mls @ 200 mls/hr IVPB Q12 NARA PRN Reason: Protocol Stop: 03/16/17 22:01 Last Admin: 03/15/17 09:29 Dose: 200 mls/hr Fentanyl Citrate (Fentanyl Citrate/Sodium Chloride 1 Mg/100 Ml) 1,000 mcg in 100 mls @ 10 mls/hr IV .Q10H PRN; Protocol; 100 MCG/HR PRN Reason: TITRATE PER MD ORDER Last Titration: 03/12/17 15:00 Dose: 0 mcg/hr, 0 mls/hr NOREPINEPHRINE BIT/0.9 % NACL (Levophed 4 Mg/ 250 Ml Ns Premixed) 4 mg in 250 mls @ 15 mls/hr IV .[id number] PRN; Protocol; 4 MCG/MIN PRN Reason: TITRATE PER MD ORDER Last Titration: 03/14/17 05:00 Dose: 0 mcg/min, 0 mls/hr Propofol (Diprivan) 1,000 mg in 100 mls @ 3.633 mls/hr IV .Q24H PRN; Protocol; 5 MCG/KG/MIN PRN Reason: TITRATE PER MD ORDER Last Titration: 03/14/17 08:30 Dose: 0 mcg/kg/min, 0 mls/hr Meropenem 500 mg/ Sodium (Chloride) 100 mls @ 100 mls/hr IVPB Q12 NARA PRN Reason: Protocol Stop: 03/18/17 22:01 Insulin Detemir (Levemir) 20 unit SC DAILY [facility] Last Admin: 03/15/17 09:31 Dose: 20 unit Insulin Human Regular (Humulin R Med) 0 units SC Q4 [facility] Last Admin: 03/15/17 18:46 Dose: 1 units Lisinopril (Zestril) 5 mg PO DAILY [facility] Last Admin: 03/15/17 10:10 Dose: 5 mg Methylprednisolone (Solu-Medrol) 20 mg IVP Q12 [facility] Last Admin: 03/15/17 09:30 Dose: 20 mg Midazolam HCl (Versed Inj) 5 mg IVP Q2H PRN PRN Reason: Sedation Last Admin: 03/14/17 00:50 Dose: 5 mg Ondansetron HCl (Zofran Inj) 4 mg IVP Q6H PRN PRN Reason: Nausea/Vomiting Pantoprazole Sodium (Protonix Inj) 40 mg IVP DAILY [facility] Last Admin: 03/15/17 09:30 Dose: 40 mg Rifaximin (Xifaxan) 550 mg PO BID [facility] PRN Reason: Protocol Last Admin: 03/15/17 18:45 Dose: 550 mg Sevelamer HCl (Renagel) 1,600 mg PO TID [facility] Last Admin: 03/15/17 18:45 Dose: 1,600 mg Sodium Chloride (Sodium Chloride 7% Inhalation) 4 ml IH [id number] [facility] Last Admin: 03/14/17 15:25 Dose: Not Given - Labs Labs: 03/15/17 06:00 03/15/17 06:00 PT 12.6 Seconds (9.9-11.8) H 03/12/17 10:00 INR 1.17 (0.93-1.08) H 03/12/17 10:00 APTT 26.8 Seconds (23.7-30.8) 03/08/17 07:00 - Constitutional Appears: Non-toxic, No Acute Distress - Head Exam Head Exam: NORMAL INSPECTION - ENT Exam ENT Exam: Mucous Membranes Moist - Neck Exam Neck Exam: absent: Lymphadenopathy, Meningismus - Respiratory Exam Respiratory Exam: Decreased Breath Sounds - Cardiovascular Exam Cardiovascular Exam: +S1, +S2 - GI/Abdominal Exam GI & Abdominal Exam: Soft. absent: Tenderness Assessment and Plan - Assessment and Plan (Free Text) Plan: Assessment Severe sepsis S/P ventilator-dependent respiratory failure and improving acute liver failure/acute fulminant hepatitis due to bilateral healthcare-associated pneumonia with sputum cx growing MRSA; need to rule out C. diff. infection HTN ESRD on HD dyslipidemia morbid obesity with BMI 45 positive HIV SELVIN test with negative HIV-1 PCR Plan continue Zyvox and will d/c Merrem (day 10 to complete 7-10 days of therapy); reviewed CT scan which showed the bilateral consolidations and infiltrates in the lungs; reviewed ultrasound of the abdomen which showed the fatty liver and hepatomegaly - liver enzymes are trending down and bilirubin as well continue PO vancomycin and d/c IV flagyl (day 6 of 10) patient has history of multiple positive HIV SELVIN, even the 4th generation test - HIV-1 PCR still negative - may be a false positive test Follow up fungal and mycobacterial work up will continue to monitor clinically
--- NOTE | 2017-03-15 19:39 | PN ---
DATE: 03/15/2017 SUBJECTIVE: The patient is a 61-year-old male transferred to the regular floor from CCU. He presented with fulminant hepatitis, hepatic encephalopathy, was intubated for respiratory failure, successfully extubated now. Hemoglobin declined to 7.7 today. He has leukocytosis, white count elevated up to 70,000. White count is declining. Flow cytometry was negative for malignant cells. BCR-ABL negative for CML. He is confused. He has generalized weakness, cannot hold the water glass himself. Sensorium is altered also. He is awake and alert. MEDICATIONS: Reviewed. REVIEW OF SYSTEMS: As per HPI. Rest of 12-point review of systems reviewed and negative. PHYSICAL EXAMINATION: GENERAL: Comfortable in bed, in no acute distress. VITAL SIGNS: Temperature 98.7, heart rate 60 per minute, respiratory 15 per minute, blood pressure 140/70. NECK: Normal. CHEST: Air entry present, equal bilateral. No added sounds. CARDIOVASCULAR: Within normal limits. ABDOMEN: Soft, nontender, no hepatosplenomegaly. EXTREMITIES: No edema. NEUROLOGIC: Awake, alert, oriented, confused, weakness in the upper extremity, cannot hold things. SKIN: No petechia, no rash. LABORATORY DATA: White count 10.7, hemoglobin 7.8, hematocrit 23.7, platelet count 219, creatinine 4.6. Electrolytes normal. ASSESSMENT: 1. Leukocytosis, resolved. 2. Severe anemia. 3. End-stage renal disease on hemodialysis. 4. Fulminant hepatitis. 5. Delirium. PLAN: He was planned to receive 1 unit of blood transfusion. We will maintain hemoglobin around 8 g/dL. He might need erythropoietin support to maintain the normal hemoglobin because of end-stage renal disease. Blood pressure controlled on current medications. Hepatitis resolving. Respiratory status improved. Kimberly Fernandez MD cc: [id number] TT: 03/15/2017 19:38:59 Confirmation # [id number] Dictation # [id number] ln MTDD
[2017-03-15] MEDS ORDERED: Meropenem 500 MG in Sodium Chloride 0.9% 100 ML IVPB SCH (22:00)
[2017-03-16] MEDS: Albuterol-Ipratrop 3 mg / 0.5 (3 ml) UD IH SCH ×6 (00:29→23:55)
[2017-03-16] MEDS: Linezolid 600 mg in D5W 300 ml 600 MG/300 ML BAG IVPB SCH ×2 (01:30→11:00)
[2017-03-16] MEDS: Insulin Reg-MEDIUM-Coverage SC SCH ×6 (02:09→20:18)
--- NOTE | 2017-03-16 02:30 | PN ---
DATE: 03/15/2017 ADDENDUM: This is an addendum to the GI progress report dictated by Dr. Olivo. The patient was seen and evaluated earlier today. The patient is off the ventilator. LFTs are showi ng improving trend. Followup of the LFTs. Cardiac enzymes are also showing a downward trend. On examination, the abdomen is soft, there is mild tenderness present in the epigastric area. RECOMMENDATIONS: Would recommend at this point followup of the LFTs, continue the antibiotics as per ID. The patient does have bilateral pneumonia. Thank you very much for allowing us to participate in the care of the patient. Maddie Brown MD cc: [phone] TT: 03/16/2017 02:29:49 Confirmation # [id number] Dictation # [id number] an
[2017-03-16 06:52] LABS: ADD MANUAL DIFF? NO
[2017-03-16 06:59] LABS: BASO # 0.01 K/mm3 (0.0-2.0); BASO % 0.1 % (0.0-3.0); GRAN % 77.9 % (50.0-68.0); HEMATOCRIT 24.7 % (42.0-52.0); LYMPH % 12.2 % (22.0-35.0); MEAN CELL VOLUME 90.8 fL (80.0-105.0); MEAN CORPUSCULAR HEMOGLOBIN 30.1 pg (25.0-35.0); MEAN CORPUSCULAR HGB CONC 33.2 g/dl (31.0-37.0); MEAN PLATELET VOLUME 9.7 fl (7.0-11.0); MONO # 0.8 (0.1-0.6); MONO % 9.8 % (1.0-6.0); PLATELET COUNT 117 10^3/uL (120.0-450.0); WHITE BLOOD COUNT 8.1 10^3/ul (4.5-11.0)
[2017-03-16 07:11] LABS: ALB/GLOB RATIO 0.8 (1.1-1.8); BILIRUBIN,TOTAL 2.1 mg/dL (0.2-1.3); CALCIUM 9.5 mg/dL (8.4-10.5); MAGNESIUM 2.2 mg/dL (1.7-2.2); PHOSPHOROUS 7.9 mg/dL (2.5-4.5); POTASSIUM 4.3 mmol/L (3.6-5.0); TOTAL PROTEIN 8.1 g/dL (5.8-8.3)
[2017-03-16] MEDS: Vancomycin 25 MG/ML PO SCH ×4 (10:22→21:24)
--- NOTE | 2017-03-16 10:58 | RAD ---
HISTORY: pneumonia COMPARISON: 03/15/2017 FINDINGS: LUNGS: There is improvement in the extensive bilateral alveolar infiltrates. The infiltrate now has a more perihilar appearance which is suggestive of CHF. PLEURA: No significant pleural effusion identified, no pneumothorax apparent. CARDIOVASCULAR: Normal. OSSEOUS STRUCTURES: No significant abnormalities. VISUALIZED UPPER ABDOMEN: Normal. OTHER FINDINGS: None. IMPRESSION: There is improvement in the extensive bilateral alveolar infiltrates. The infiltrate now has a more perihilar appearance which is suggestive of CHF.
[2017-03-16] MEDS: Insulin Detemir 100 units/ml Vial (Levemir) SC SCH (11:00)
[2017-03-16] MEDS: MethylPREDNISolone 40 mg Vial IVP SCH (11:00)
[2017-03-16] MEDS ORDERED: Darbepoetin Alfa 100 mcg/ml Inj IVP ONE (12:19)
--- NOTE | 2017-03-16 13:16 | PN ---
DATE: 03/16/2017 The patient in room 564, bed 1. REASON FOR CONSULTATION AND FOLLOWUP: Status post respiratory failure, acute liver failure, improved , status post extubated, nonobstructive coronary artery disease. HISTORY OF PRESENT ILLNESS: The patient is a 61-year-old morbidly obese male with past medical histo ry significant for diabetes, hypertension, hyperlipidemia, end-stage renal disease on dialysis, cardi ac catheterization on 11/02/2016 which showed nonobstructive coronary artery disease. Was admitted wi th shortness of breath and respiratory status deteriorated and he needed to be intubated. The patien t also was found to be in acute liver failure. AST was 7000 and up. Liver functions improved. The patient's respiratory status improved. He was successfully extubated. The patient denies any chest pain. His shortness of breath is better. Denies any palpitation. The patient has renal failure, on dialysis. PHYSICAL EXAMINATION: VITAL SIGNS: Blood pressure is 157/68, respirations 20, pulse rate 84, temperature 99. HEAD: Normocephalic. EYES: Pupils normal. Conjunctivae slightly pale. NECK: JVP low. Carotid equal. THORAX: AP diameter normal. LUNGS: No significant rales. CARDIOVASCULAR: S1, S2. ABDOMEN: Protuberant, no organomegaly. EXTREMITIES: No clubbing, no cyanosis. LABORATORY DATA: WBC 8.1, hemoglobin 8.2, hematocrit 24.7, platelet 117. Sodium 132, potassium 4.3, BUN 73, creatinine 6.8, random glucose 313, calcium 9.5, phosphorus 7.9, magnesium 2.2, total biliru bin 2.1, AST 75, ALT 141, total protein 8.1, albumin 3.5. On 03/12, prothrombin time 12.6, INR 1.17. Chest x-ray on 03/16 shows improvement, but still has changes consistent with CHF. DIAGNOSES: Acute liver failure, status post respiratory failure, status post extubation, congestive heart failure, nonobstructive coronary artery disease, morbid obesity, hypertension, end-stage renal failure on dialysis, positive troponin secondary to hemodynamic instability. PLAN: Continue dialysis with negative fluid. Chest x-ray still showing changes consistent with judith estive heart failure. The patient on DuoNeb hand nebulizer therapy, heparin 5000 units subQ q. 12 ho urs, insulin as ordered, Levophed drip, amlodipine 10 mg daily, Solu-Medrol 20 mg IV b.i.d., vancomyc in 125 mg p.o. q.i.d., Zestril 5 mg daily, linezolid 600 mg in D5W q. 12 hours. We will continue pre sent therapy and we will follow with you. Darrel Mccarthy MD cc: [phone] TT: 03/16/2017 13:16:00 Confirmation # [id number] Dictation # [id number] en
--- NOTE | 2017-03-16 13:49 | PN ---
DATE: 03/16/2017 The patient has been satisfactorily extubated for 24 hours. He is coughing very well and still has r adiographic evidence of bilateral MRSA pneumonia. His initial acute hepatic injury is responding slo wly and improving and his chronic kidney disease is managed by hemodialysis. The episode where he developed an inability to be ventilated and large mucous plugs were removed and a pneumomediastinum-pericardium were initially seen are now fully resolved at this point. He is communicating better today than yesterday when he was markedly confused and he has liquid bowel movements and is describing minimal abdominal discomfort at this point. We hope that with the clear ing of his mentation, he would be able to give us some more information as to what happened that migh t have precipitated his admission. At this point, his prognosis has reversed and is improving very s ignificantly and we are now modestly hopeful that he might recover and be able to be discharged home. This dictation will be electronically signed without being read. Sven Lin MD cc: [phone] TT: 03/16/2017 13:48:30 Confirmation # [id number] Dictation # [id number] jerry
[2017-03-16 13:56] LABS: PARVOVIRUS B19 AB (IGG) 0.9 (<0.9); PARVOVIRUS B19 AB (IGM) 0.1 (<0.9)
--- NOTE | 2017-03-16 14:24 | PN ---
DATE: 03/16/2017 SUBJECTIVE: The patient is seen in the dialysis unit. He is awake, he is alert. He recognizes me, but he is confused. He is oriented to place and person. PHYSICAL EXAMINATION: GENERAL: Obese, elderly male, lying in bed, in the dialysis unit. VITAL SIGNS: Blood pressure 147/68, heart rate 84, respiratory rate 20, temperature 99, T-max 99.1. HEENT: Normocephalic, atraumatic. NECK: Supple, no JVD. LUNGS: Bilateral rhonchi, bilateral rales. CARDIAC: S1, S2, regular rate and rhythm, no murmur, no rub. ABDOMEN: Obese, distended, soft, nontender, bowel sounds present. EXTREMITIES: No lower extremity edema. LABORATORY DATA: WBC 8.1, hemoglobin 8.2, hematocrit 25, platelets 117. Sodium 132, potassium 4.3, chloride of 95, CO2 22, BUN 73, creatinine 6.8, glucose 313, calcium 9.5, phosphorus 7.9, magnesium 2 .2, total bili 2.1, AST 75, ALT 141. Hemoglobin A1c 5.6. Albumin 3.5. Bronchial culture, gram-posi tive cocci. Sputum culture, MRSA. Chest x-ray, improvement in extensive bilateral alveolar infiltra yuri. Now, the infiltrate is mostly perihilar. CURRENT MEDICATIONS: List reviewed. ASSESSMENT: 1. Status post respiratory failure, extensive bilateral methicillin-resistant Staphylococcus aureus pneumonia. 2. Altered mental status, still confused. 3. Severe anemia. 4. Resolving acute fulminant hepatitis. 5. Hypertension. 6. End-stage renal disease. PLAN: 1. Stable dialysis treatment, status post 1 unit of PRBC yesterday. 2. Continue antibiotics for methicillin-resistant Staphylococcus aureus pneumonia. 3. Continue phosphate binders. 4. Physical therapy. 5. Will need subacute rehab. Shavonne Varela MD cc: [phone] TT: 03/16/2017 14:22:51 Confirmation # [id number] Dictation # [id number] en
[2017-03-16 16:37] LABS: A TERREUS NOT DETECTED
--- NOTE | 2017-03-16 17:11 | CP.PCM.PN ---
Subjective - Date & Time of Evaluation Date of Evaluation: 03/16/17 Time of Evaluation: 09:35 - Subjective Subjective: Comfortable, afebrile, less diarrhea. Objective - Vital Signs/Intake and Output Vital Signs (last 24 hours): Temp Pulse Resp BP Pulse Ox 98.8 F 88 20 150/72 97 03/16/17 16:00 03/16/17 16:00 03/16/17 16:00 03/16/17 16:00 03/16/17 16:00 Intake and Output: 03/16/17 03/16/17 06:59 18:59 Intake Total 480 240 Output Total 0 Balance 480 240 - Medications Medications: Current Medications Albuterol/Ipratropium (Duoneb 3 Mg/0.5 Mg (3 Ml) Ud) 3 ml IH Q2H PRN PRN Reason: Shortness of Breath Last Admin: 03/13/17 21:25 Dose: 3 ml Albuterol/Ipratropium (Duoneb 3 Mg/0.5 Mg (3 Ml) Ud) 3 ml IH [id number] NARA Last Admin: 03/16/17 16:06 Dose: 3 ml Amlodipine Besylate (Norvasc) 10 mg PO DAILY [facility] Last Admin: 03/16/17 14:50 Dose: 10 mg Heparin Sodium (Porcine) (Heparin) 5,000 units SC Q12 [facility] PRN Reason: Protocol Last Admin: 03/16/17 10:21 Dose: Not Given Hydralazine HCl (Apresoline) 10 mg IVP Q6 PRN PRN Reason: SBP >180 Last Admin: 03/07/17 02:05 Dose: 10 mg Linezolid (Zyvox 600mg/300ml D5w) 600 mg in 300 mls @ 200 mls/hr IVPB Q12 [facility] PRN Reason: Protocol Stop: 03/16/17 22:01 Last Admin: 03/16/17 11:00 Dose: Not Given Fentanyl Citrate (Fentanyl Citrate/Sodium Chloride 1 Mg/100 Ml) 1,000 mcg in 100 mls @ 10 mls/hr IV .Q10H PRN; Protocol; 100 MCG/HR PRN Reason: TITRATE PER MD ORDER Last Titration: 03/12/17 15:00 Dose: 0 mcg/hr, 0 mls/hr Propofol (Diprivan) 1,000 mg in 100 mls @ 3.633 mls/hr IV .Q24H PRN; Protocol; 5 MCG/KG/MIN PRN Reason: TITRATE PER MD ORDER Last Titration: 03/14/17 08:30 Dose: 0 mcg/kg/min, 0 mls/hr Insulin Detemir (Levemir) 20 unit SC DAILY [facility] Last Admin: 03/16/17 11:00 Dose: Not Given Insulin Human Regular (Humulin R Med) 0 units SC Q4 [facility] Last Admin: 03/16/17 12:30 Dose: Not Given Lisinopril (Zestril) 5 mg PO DAILY [facility] Last Admin: 03/16/17 14:50 Dose: 5 mg Methylprednisolone (Solu-Medrol) 20 mg IVP Q12 [facility] Last Admin: 03/16/17 11:00 Dose: Not Given Midazolam HCl (Versed Inj) 5 mg IVP Q2H PRN PRN Reason: Sedation Last Admin: 03/14/17 00:50 Dose: 5 mg Ondansetron HCl (Zofran Inj) 4 mg IVP Q6H PRN PRN Reason: Nausea/Vomiting Pantoprazole Sodium (Protonix Inj) 40 mg IVP DAILY [facility] Last Admin: 03/16/17 14:50 Dose: 40 mg Rifaximin (Xifaxan) 550 mg PO BID [facility] PRN Reason: Protocol Last Admin: 03/16/17 10:22 Dose: Not Given Sevelamer HCl (Renagel) 1,600 mg PO TID [facility] Last Admin: 03/16/17 14:51 Dose: 1,600 mg Sodium Chloride (Sodium Chloride 7% Inhalation) 4 ml IH [id number] [facility] Last Admin: 03/14/17 15:25 Dose: Not Given Vancomycin HCl (Vancocin 25 Mg/Ml (Oral Use)) 125 mg PO QID [facility] PRN Reason: Protocol Last Admin: 03/16/17 14:50 Dose: 125 mg - Labs Labs: 03/16/17 06:30 03/16/17 06:30 PT 12.6 Seconds (9.9-11.8) H 03/12/17 10:00 INR 1.17 (0.93-1.08) H 03/12/17 10:00 APTT 26.8 Seconds (23.7-30.8) 03/08/17 07:00 - Constitutional Appears: Non-toxic, No Acute Distress - Head Exam Head Exam: NORMAL INSPECTION - ENT Exam ENT Exam: Mucous Membranes Moist - Neck Exam Neck Exam: absent: Lymphadenopathy, Meningismus - Respiratory Exam Respiratory Exam: Decreased Breath Sounds - Cardiovascular Exam Cardiovascular Exam: +S1, +S2 - GI/Abdominal Exam GI & Abdominal Exam: Soft. absent: Tenderness Assessment and Plan - Assessment and Plan (Free Text) Plan: Assessment Severe sepsis with ventilator-dependent respiratory failure and acute liver failure/acute fulminant hepatitis due to bilateral healthcare-associated pneumonia with sputum cx now growing MRSA; need to rule out C. diff. infection, clinically improved HTN ESRD on HD dyslipidemia morbid obesity with BMI 45 positive HIV SELVIN test with negative HIV-1 PCR Plan will d/c Zyvox and Merrem (day 10 of 10); reviewed CT scan which showed the bilateral consolidations and infiltrates in the lungs; reviewed ultrasound of the abdomen which showed the fatty liver and hepatomegaly - liver enzymes are trending down and bilirubin as well continue PO vancomycin (day 6 of 10) patient has history of multiple positive HIV SELVIN, even the 4th generation test - HIV-1 PCR still negative - may be a false positive test
--- NOTE | 2017-03-16 20:21 | PN ---
DATE: 03/16/2017 SUBJECTIVE: The patient is a 61-year-old, seen and examined, lying in bed, seems to be comfortable. He was seen while he was in dialysis. PHYSICAL EXAMINATION: GENERAL: Fully awake, alert, oriented, communicative, answers appropriately. VITAL SIGNS: He is afebrile, pulse 80, respirations 20, blood pressure 150/72. LUNGS: Bilateral fair airflow, no rhonchi or crackle. HEART: S1, S2 audible. ABDOMEN: Soft, obese, nontender, no rebound, no guarding. NEUROLOGIC: The patient is awake and alert, answers appropriately. EXTREMITIES: Bilateral legs, no edema. LABORATORY EXAMINATION: WBC is 8.1, hemoglobin 8.2, hematocrit 24.7, platelet of 117. Chemistry: S odium 132, potassium 4.3, chloride 95, CO2 22, BUN 73, creatinine 6.8, blood sugar of 313. ASSESSMENT: 1. Status post hepatic failure, improving. 2. Status post respiratory failure. 3. Status post methicillin-resistant Staphylococcus aureus pneumonia. 4. Metabolic encephalopathy. 5. Anemia, status post blood transfusion. 6. End-stage renal disease, on hemodialysis. PLAN: Currently, the patient is on lisinopril 5 mg daily. He is receiving Xifaxan. Cut down his st eroid. He is getting Renagel. Change his Protonix to 40 p.o. daily. Continue nebulizer treatment. Get physical therapy evaluation and decide if he needs TCU or subacute rehab. Raf Bowen MD cc: [phone] TT: 03/16/2017 20:21:27 Confirmation # [id number] Dictation # [id number] jerry
[2017-03-17] MEDS: Albuterol-Ipratrop 3 mg / 0.5 (3 ml) UD IH SCH ×5 (03:21→21:00)
[2017-03-17] MEDS: Insulin Reg-MEDIUM-Coverage SC SCH ×6 (06:24→22:38)
[2017-03-17] MEDS: Pantoprazole 40 mg EC Tab PO SCH (06:24)
[2017-03-17 08:22] LABS: ADD MANUAL DIFF? NO
[2017-03-17 08:29] LABS: BASO # 0.01 K/mm3 (0.0-2.0); BASO % 0.1 % (0.0-3.0); EOS # 0.1 (0.0-0.7); EOS % 1.8 % (1.5-5.0); GRAN # 4.72 (1.4-6.5); GRAN % 63.6 % (50.0-68.0); LYMPH # 1.7 (1.2-3.4); LYMPH % 22.8 % (22.0-35.0); MEAN CELL VOLUME 93.1 fL (80.0-105.0); MEAN CORPUSCULAR HEMOGLOBIN 30.3 pg (25.0-35.0); MEAN CORPUSCULAR HGB CONC 32.6 g/dl (31.0-37.0); MEAN PLATELET VOLUME 10.4 fl (7.0-11.0); MONO # 0.9 (0.1-0.6); MONO % 11.7 % (1.0-6.0); PLATELET COUNT 134 10^3/uL (120.0-450.0); RED CELL DISTRIBUTION WIDTH 19.5 % (11.5-14.5); WHITE BLOOD COUNT 7.4 10^3/ul (4.5-11.0)
[2017-03-17 08:47] LABS: ALB/GLOB RATIO 0.8 (1.1-1.8); BILIRUBIN,TOTAL 1.7 mg/dL (0.2-1.3); CALCIUM 9.2 mg/dL (8.4-10.5); PHOSPHOROUS 3.9 mg/dL (2.5-4.5); POTASSIUM 3.1 mmol/L (3.6-5.0); TOTAL PROTEIN 7.8 g/dL (5.8-8.3)
--- NOTE | 2017-03-17 08:53 | PN ---
DATE: 03/17/2017 SUBJECTIVE: The patient is currently seen on 5R. He is lying comfortable in bed. He continues on a ntibiotic therapy for his Staph aureus pneumonia. The patient states that he has noted significant w eakness in his muscles and would like to start aggressive physical therapy as he has been bedridden f or the last 12 days. The patient had an uneventful dialysis yesterday. MEDICATIONS: Medication list reviewed. The patient is currently on p.r.n. hydralazine, DuoNeb, hepa rin, insulin, Norvasc, prednisone, Protonix, Renagel, vancomycin orally, Xifaxan, Zestril, Zofran. Rogelio garcia has completed a course of Zyvox. OBJECTIVE: INTAKE AND OUTPUT: Intake 600, output hemodialysis. VITAL SIGNS: Blood pressure 150/72, temperature 98.8, heart rate is 88 with a respiratory rate of 20 . Pulse ox is 97%. HEENT: Normocephalic, atraumatic. Conjunctivae are pale. Sclerae are nonicteric. NECK: Supple, no neck vein distention. CHEST: Slight decreased breath sounds at the bases. No rales, no rhonchi, no wheezing. CARDIOVASCULAR: Shows a normal S1, S2, mitral regurgitation/tricuspid regurgitation. No rub. No S3 , no S4. ABDOMEN: Soft. Mild distention, mild obesity. Bowel sounds normal. No rebound, no guarding, no ma sses. EXTREMITIES: No lower extremity edema. Positive fistula, left upper extremity, positive thrill, pos itive bruit. LABORATORY DATA AND IMAGING: CBC from yesterday shows a white blood cell count which is down to 8.1, hemoglobin 8.2. Platelet count is 117,000. Chemistries show normal electrolytes. BUN 73 with a cr eatinine of 6.8. Glucose was elevated at 313 predialysis yesterday. Calcium 9.5 with a phosphorus o f 7.9. The patient remains on binders. Magnesium 2.2. Bilirubin is down to 2.1, AST down to 75, AL T down to 141. Lipase is down to 814 from a high of 20,477. Microbiology: Sputum cultures are posi tive for MRSA. C. diff was negative. ASSESSMENT: 1. Respiratory failure secondary to methicillin-resistant Staph aureus pneumonia. The patient appea rs to have completed a course of Zyvox. 2. Diarrhea appears to have resolved. The patient was empirically treated for Clostridium difficile colitis. Clostridium difficile toxin; however, was negative. He continues on oral vancomycin. 3. Acute pancreatitis and possible acute cholecystitis. The patient's pancreatic enzymes are fallin g to normal. The patient had been seen by surgery and electively will likely need to have his gallbl adder removed. 4. Severe transaminitis in the setting of acute fulminant hepatitis, this appears to be resolving ni laz. 5. Leukocytosis, improved. 6. History of severe anemia. The patient continues to receive blood transfusions on an as needed ba sis. His hemoglobin is stable in the low to mid-8 range. The patient continues maximum dose of Nilesh kiko. 7. History of end-stage renal disease. The patient will continue routine Sunday, Sunday, Sunday dialysis. 8. History of severe secondary hyperparathyroidism. Phosphorus levels remain elevated. The patient is back on binder therapy 1600 mg of Renagel with each meal. In the outpatient setting, the patient had been on Auryxia. 9. Severe deconditioning. The patient needs aggressive physical therapy as he has been bedridden fo r the last 12 days and states he would likely have difficulty ambulating. PLAN: 1. Continue Sunday, Sunday, Sunday dialysis. 2. The patient appears to have completed a course of antibiotic therapy for this MRSA pneumonia. 3. Continue sliding scale insulin and adjust long acting insulin. 4. Continue a renal diet and continue binder therapy. 5. Intensive physical therapy to get the patient out of bed and to see whether or not he can ambulat e on his own. Tono Kent MD cc: [phone] TT: 03/17/2017 08:52:32 Confirmation # [id number] Dictation # [id number] symone
[2017-03-17 09:02] LABS: IRON 56 ug/dL (45-180)
[2017-03-17 10:05] LABS: % CD16+CD56+(NK CELL) 6 Percent (4-25); % CD19 (B CELL) 26 Percent (6-29); % CD3 (MATURE T CELL) 66 Percent (57-85); ABSOLUTE CD16+CD56+CELLS 52 Cells/mcL (70-760)
[2017-03-17] MEDS: Insulin Detemir 100 units/ml Vial (Levemir) SC SCH (10:48)
[2017-03-17] MEDS: Vancomycin 25 MG/ML PO SCH ×4 (10:50→22:35)
--- NOTE | 2017-03-17 12:14 | PN ---
DATE: 03/17/2017 SUBJECTIVE: The patient is a 61-year-old, seen and examined, lying in bed, comfortable, eating and t olerating. No nausea, vomiting, no diarrhea, no fever, no chills, no abdominal pain. He has general ized weakness. Physical therapy evaluated the patient. He is too weak to walk; however, he has no f ocal deficit. PHYSICAL EXAMINATION: VITAL SIGNS: He is afebrile, pulse 96, respirations 20, blood pressure 162/78. LUNGS: Bilateral fair airflow, no rhonchi or crackle. HEART: S1, S2 audible. ABDOMEN: Soft, nontender, no rebound, no guarding. NEUROLOGIC: The patient is awake and alert, communicative. Moves all extremities, just has generali zed weakness. LABORATORY EXAMINATION: WBC 7.4, hemoglobin 8.8, hematocrit 27.0, platelet of 134. Chemistry: Sodi um 133, potassium 3.1, chloride 97, CO2 44, BUN ____, creatinine ____. ASSESSMENT: 1. Status post respiratory failure secondary to methicillin-resistant Staphylococcus aureus in sputu m 2. Gallstone pancreatitis with acute hepatic failure. 3. Resolved cholecystitis. 4. Status post liver failure, improved. 5. Leukocytosis that has improved. 6. Chronic anemia, status post blood transfusion. 7. End-stage renal disease, on hemodialysis. PLAN: Currently, the patient is on nebulizer treatment. We will continue that. He is on DVT prophy laxis. His blood sugar is being monitored. He is on Norvasc. He is on p.o. small dose of prednison e that we will taper down slowly. He is on p.o. vancomycin empirically and Xifaxan. We will discuss with social services assistant to make arrangement for subacute rehab. Raf Bowen MD cc: [phone] TT: 03/17/2017 12:14:01 Confirmation # [id number] Dictation # [id number] tn
--- NOTE | 2017-03-17 14:34 | PN ---
DATE: 03/17/2017 The patient is in bed in no acute distress, nontoxic. PHYSICAL EXAMINATION: VITAL SIGNS: Temperature is 99, blood pressure is 160/70, respiratory rate of 16. HEENT: Unremarkable. NECK: Supple. LUNGS: Have decreased breath sounds. HEART: Normal S1, S2. ABDOMEN: Soft, nontender. LABORATORY DATA: Reveals a white count of 7.4, hemoglobin of 8 and platelets of 134. BUN of 44, cre atinine of 4.9. CD4 count is noted at 362. ASSESSMENT AND PLAN: This is a 61-year-old male with severe sepsis with ventilator-dependent respira tory failure, acute liver failure, acute fulminant hepatitis and bilateral healthcare-associated pneu monia, sputum growing MRSA in a patient with hypertension, end-stage renal disease on hemodialysis an d morbid obesity and history of multiple positive HIV and fourth generation HIV test still nega tive. He may be a false positive. On review of orders, the patient is on prednisone and p.o. vancom ycin. Will follow with you. Feliciano Vargas MD cc: [phone] TT: 03/17/2017 14:33:59 Confirmation # [id number] Dictation # [id number] yoselyn
[2017-03-18] MEDS: Albuterol-Ipratrop 3 mg / 0.5 (3 ml) UD IH SCH ×5 (01:15→19:30)
[2017-03-18] MEDS: Insulin Reg-MEDIUM-Coverage SC SCH ×5 (05:17→17:23)
[2017-03-18] MEDS: Pantoprazole 40 mg EC Tab PO SCH (05:47)
--- NOTE | 2017-03-18 08:53 | PN ---
DATE: 03/17/2017 This patient was seen and evaluated earlier today. The patient had soft bowel movement. PHYSICAL EXAMINATION: VITAL SIGNS: Temperature is 97.9, pulse 90, blood pressure is 170/80. HEENT: Atraumatic, anicteric. NECK: Supple. HEART: S1, S2 heard. LUNGS: Bilateral air entry present. A few scattered rhonchi present. ABDOMEN: Softly distended. EXTREMITIES: Mild edema present. LABORATORY DATA: Hemoglobin 8, hematocrit 27.0, WBC 7.4, platelets 134. BUN 44 , creatinine is 4.9. The patient's bilirubin has continued to be downward trend , 1.7. AST 62, ALT is 108. This is a 61-year-old patient admitted with sepsis, pneumonia. Has acute liver failure, which is clinically improving. Continue the antibiotics as per ID. The patient has gallstones, but the ultrasound showed common bile duct normal. The patient did have pancreatitis, but clinically improved, probably drug induced or sepsis for the etiology. Would recommend, patient is continue the antibiotics as per ID. Presently, patient on rifaximin, Vancocin p.o. for Clostridium difficile. The patient's last Clostridium difficile was negative. Is empirically on rifaximin and also p.o. vancomycin. The patient is clinically improving. Now, we will continue to closely follow up his care and suggest further recommendation based upon clinical course. Thank you very much for allowing us to participate in the care of the patient. Maddie Brown MD cc: [phone] TT: 03/18/2017 08:52:45 Confirmation # [id number] Dictation # [id number] en MTDD
[2017-03-18] MEDS: Insulin Detemir 100 units/ml Vial (Levemir) SC SCH (09:33)
[2017-03-18] MEDS: Vancomycin 25 MG/ML PO SCH ×5 (09:34→21:55)
--- NOTE | 2017-03-18 10:03 | PN ---
DATE: 03/18/2017 SUBJECTIVE: The patient is currently seen on 5R. He is complaining of feeling fatigued and tired, b ut otherwise, no acute issues. He is scheduled for a routine dialysis tomorrow. MEDICATIONS: Medication list reviewed. The patient is currently on p.r.n. hydralazine, albuterol, s ubQ heparin, insulin, amlodipine, prednisone, Protonix, Renagel, oral vancomycin, Xifaxan, Zestril, a nd Zofran p.r.n. OBJECTIVE: INTAKE AND OUTPUT: Intake 840, output 3000. VITAL SIGNS: Blood pressure 141/67, temperature 97.9, respiratory rate 20 with a pulse of 94. HEENT: Normocephalic, atraumatic. Conjunctivae are pale. Sclerae are nonicteric. NECK: Supple. No neck vein distention. CHEST: Clear to auscultation and percussion with decreased breath sounds at the bases. No rales, no rhonchi, no wheezing. CARDIOVASCULAR: Normal S1, S2, MR/TR. No rub. No S3, no S4. ABDOMEN: Soft. Mild distention, mild obesity. Bowel sounds normal. No rebound, no guarding, no ma sses, no midepigastric and right upper quadrant tenderness. EXTREMITIES: No lower extremity edema. Positive fistula - left upper extremity, positive thrill, po sitive bruit. LABORATORY DATA AND IMAGING: CBC: White blood cell count from yesterday 7.4 with a hemoglobin of 8. 8 with a platelet count of 134,000. These are all within baseline range. Chemistries: Potassium 3. 1 yesterday, BUN 44 with a creatinine of 4.9. Glucose 309. Iron saturation 32%. Bilirubin 1.7 with an AST of 62 and an ALT of 108, continuing to normalize. Albumin level is 3.4. Microbiology: Sput um cultures are positive for MRSA and yeast. ASSESSMENT: 1. Status post respiratory failure secondary to methicillin-resistant Staphylococcus aureus pneumoni a. The patient has completed a course of Zyvox. 2. Status post diarrhea. No evidence for Clostridium difficile. However, the patient is completing a course of oral vancomycin therapy. 3. Acute pancreatitis and transaminitis with possible acute cholecystitis with gallstones. The page ent's liver enzymes are falling to normal. The patient's pancreatic enzyme lipase is falling and is now down to 814 from a high of 20,477. 4. History of severe anemia. The patient's hemoglobin is stable at 8.8. This is well within his ba seline range. The patient continues to receive maximum dose of Aranesp, and iron levels are all acce ptable. 5. History of end-stage renal disease. The patient will continue Sunday, Sunday, Sunday dialysis . As necessary, we will increase the potassium bath, as his K is borderline low. 6. History of severe secondary hyperparathyroidism. The patient's last phosphorus level was improve d down to 3.9, back on binder therapy. Calcium level was acceptable at 9.2. 7. History of severe deconditioning. The patient needs aggressive physical therapy, as he has been bedridden for the last 13 days. PLAN: 1. Sunday, Sunday, Sunday dialysis. Dialysis is scheduled for tomorrow. 2. Again, we will increase the potassium dialysate if his potassium level is borderline low. 3. Continue insulin therapy. 4. Continue renal diet and binder therapy. 5. Intensive physical therapy. The patient needs to get out of bed and start ambulating. Tono Kent MD cc: [phone] TT: 03/18/2017 10:02:30 Confirmation # [id number] Dictation # [id number] jn
--- NOTE | 2017-03-18 11:47 | PN ---
DATE: 03/18/2017 REASON FOR CONSULTATION AND FOLLOWUP: Status post respiratory failure, acute liver failure, improved , status post intubated, nonobstructive coronary artery disease. BRIEF CLINICAL HISTORY: This is a 61-year-old morbidly obese male with past medical history signific ant for diabetes, hypertension, hyperlipidemia, end-stage renal disease on dialysis, status post card iac catheterization 11/02/2016, nonobstructive coronary artery disease. Admitted because of shortness of breath, found to be acute liver failure. AST was 7000. Now, patient successfully extubated. No w, liver function came back to normal. Denies any chest pain, shortness of breath, any palpitation. PHYSICAL EXAMINATION: VITAL SIGNS: Temperature afebrile, heart rate 94, blood pressure 147/67. HEENT: PERRLA. Extraocular muscles intact. NECK: Supple. No carotid bruit, no thyromegaly. CHEST: Clear to auscultation. HEART: S1, S2 regular. ABDOMEN: Soft. EXTREMITIES: Clubbing, cyanosis negative. BLOOD WORKUP: WBC 7.4, hemoglobin 8.8, hematocrit 27, platelet count 137. Chemistry shows sodium 13 0, potassium 3.1, chloride 97, carbon dioxide 25, anion gap of 14, BUN 44, creatinine 4.9. IMPRESSION: Status post respiratory failure, acute liver failure, improved, nonobstructive coronary artery disease, status post cardiac catheterization in 10/2016, morbid obesity, diabetes, hypertension , hyperlipidemia. RECOMMENDATION: Continue amlodipine. Started lisinopril 10 mg daily. Continue baby aspirin. We wi ll start baby aspirin. We will follow with you. Thank you, Dr. Bowen, for providing us the opportunity in taking care of the patient. Avoid any he patotoxic medication. Darrel Ervin MD cc: [phone] TT: 03/18/2017 11:47:05 Confirmation # [id number] Dictation # [id number] en
--- NOTE | 2017-03-18 11:51 | PN ---
DATE: 03/18/2017 The patient is in bed, in no acute distress, nontoxic. PHYSICAL EXAMINATION: VITAL SIGNS: Temperature is 98, blood pressure is 140/60, respiratory rate of 16. HEENT: Unremarkable. NECK: Supple. LUNGS: Have decreased breath sounds. HEART: Normal S1, S2. ABDOMEN: Soft. LABORATORY EXAMINATION: Reveals the patient's white count is 7.4, hemoglobin of 8, platelets of 134. Chemistries reveals the BUN of 44, creatinine of 4.9. Microbiology is noted. Review of orders reveals the patient to be on p.o. vancomycin, p.o. prednisone. ASSESSMENT AND PLAN: A 61-year-old male with severe sepsis, status post ventilatory dependent respir atory failure, acute liver failure and fulminant hepatitis, bilateral healthcare-associated pneumonia with methicillin-resistant Staphylococcus aureus and hypertension, end-stage renal disease on hemodi alysis and morbidly obesity, history of multiple positive human immunodeficiency virus fourth generat ion tests, still negative, may be a false positive test, SELVIN, on p.o. vancomycin and prednisone and stool for Clostridium difficile from 03/09 is negative antigen and negative toxin. Will complete a s hort course of p.o. vancomycin. Feliciano Vargas MD cc: [phone] TT: 03/18/2017 11:51:15 Confirmation # [id number] Dictation # [id number] en
--- NOTE | 2017-03-18 15:44 | CP.PCM.PN ---
<Spencer Olivo - Last Filed: 03/18/17 15:41> Subjective - Date & Time of Evaluation Date of Evaluation: 03/18/17 Time of Evaluation: 15:41 - Subjective Subjective: GI for Dr. Brown Pt s&e w attending. SHANE. Pt is comfortable and has no complainst. Tolerating PO. Denies F/C?N/V/D/CP/SOB. Objective - Vital Signs/Intake and Output Vital Signs (last 24 hours): Temp Pulse Resp BP Pulse Ox 97.9 F 94 H 20 141/67 94 L 03/18/17 07:18 03/18/17 07:18 03/18/17 07:18 03/18/17 09:34 03/18/17 07:18 Intake and Output: 03/18/17 03/18/17 06:59 18:59 Intake Total 240 600 Output Total 3000 Balance -2760 600 - Medications Medications: Current Medications Albuterol/Ipratropium (Duoneb 3 Mg/0.5 Mg (3 Ml) Ud) 3 ml IH Q2H PRN PRN Reason: Shortness of Breath Last Admin: 03/13/17 21:25 Dose: 3 ml Albuterol/Ipratropium (Duoneb 3 Mg/0.5 Mg (3 Ml) Ud) 3 ml IH Q0[facility] Last Admin: 03/18/17 12:34 Dose: 3 ml Amlodipine Besylate (Norvasc) 10 mg PO DAILY [facility] Last Admin: 03/18/17 09:34 Dose: 10 mg Aspirin (Ecotrin) 81 mg PO DAILY [facility] Heparin Sodium (Porcine) (Heparin) 5,000 units SC Q12 NARA PRN Reason: Protocol Last Admin: 03/18/17 09:41 Dose: Not Given Hydralazine HCl (Apresoline) 10 mg IVP Q6 PRN PRN Reason: SBP >180 Last Admin: 03/07/17 02:05 Dose: 10 mg Insulin Detemir (Levemir) 20 unit SC DAILY [facility] Last Admin: 03/18/17 09:33 Dose: 20 unit Insulin Human Regular (Humulin R Med) 0 units SC Q4 [facility] Last Admin: 03/18/17 12:44 Dose: 8 units Lisinopril (Zestril) 10 mg PO DAILY [facility] Last Admin: 03/18/17 09:34 Dose: 10 mg Ondansetron HCl (Zofran Inj) 4 mg IVP Q6H PRN PRN Reason: Nausea/Vomiting Last Admin: 03/17/17 23:30 Dose: 4 mg Pantoprazole Sodium (Protonix Ec Tab) 40 mg PO 0630 [facility] Last Admin: 03/18/17 05:47 Dose: 40 mg Prednisone (Prednisone Tab) 20 mg PO DAILY [facility] Last Admin: 03/18/17 09:33 Dose: 20 mg Rifaximin (Xifaxan) 550 mg PO BID [facility] PRN Reason: Protocol Last Admin: 03/18/17 09:33 Dose: 550 mg Sevelamer HCl (Renagel) 1,600 mg PO TID [facility] Last Admin: 03/18/17 15:35 Dose: Not Given Vancomycin HCl (Vancocin 25 Mg/Ml (Oral Use)) 125 mg PO QID [facility] PRN Reason: Protocol Last Admin: 03/18/17 15:35 Dose: Not Given - Labs Labs: 03/17/17 07:00 03/17/17 07:00 PT 12.6 Seconds (9.9-11.8) H 03/12/17 10:00 INR 1.17 (0.93-1.08) H 03/12/17 10:00 APTT 26.8 Seconds (23.7-30.8) 03/08/17 07:00 - Constitutional Appears: No Acute Distress - Head Exam Head Exam: ATRAUMATIC, NORMAL INSPECTION, NORMOCEPHALIC - Eye Exam Eye Exam: EOMI, Normal appearance, PERRL Pupil Exam: NORMAL ACCOMODATION, PERRL - ENT Exam ENT Exam: Mucous Membranes Moist, Normal Exam - Neck Exam Neck Exam: Full ROM, Normal Inspection. absent: Lymphadenopathy - Respiratory Exam Respiratory Exam: Clear to Ausculation Bilateral, NORMAL BREATHING PATTERN - Cardiovascular Exam Cardiovascular Exam: REGULAR RHYTHM, +S1, +S2. absent: Murmur - GI/Abdominal Exam GI & Abdominal Exam: Soft, Normal Bowel Sounds. absent: Tenderness - Extremities Exam Extremities Exam: Full ROM, Normal Capillary Refill, Normal Inspection. absent : Joint Swelling, Pedal Edema - Back Exam Back Exam: NORMAL INSPECTION - Neurological Exam Neurological Exam: Alert, Awake, CN II-XII Intact, Normal Gait, Oriented x3 - Psychiatric Exam Psychiatric exam: Normal Affect, Normal Mood - Skin Skin Exam: Dry, Intact, Normal Color, Warm Assessment and Plan - Assessment and Plan (Free Text) Assessment: 61 M w PMD ESRD on HD , DM , CAD, GERD came with vomiting and respiratory distress. found to have elevated LFT and ammonia (63->29). Hep panel was negative. On initial labs MELD score: 32 -> 50% 3month mortality. Differential dx: Acetominophen induced acute hepatic failure , hepatic encephalopathy. Liver failure with Unknown etiology: LFT, Lipase trending down Clinically imprving as well. Plan -ABX per ID -Trend LFT -Medical management -We will continue to follow closely Case Discussed with Dr. Brown <Maddie Brown V - Last Filed: 05/03/17 21:50> Objective - Vital Signs/Intake and Output Vital Signs (last 24 hours): Temp Pulse Resp BP Pulse Ox 97.9 F 72 18 130/60 99 03/23/17 07:30 03/23/17 07:30 03/23/17 07:30 03/23/17 07:30 03/23/17 07:30 - Labs Labs: 03/23/17 11:42 03/23/17 11:42 PT 11.7 Seconds (9.9-11.8) 03/21/17 12:30 INR 1.08 (0.93-1.08) 03/21/17 12:30 APTT 23.1 Seconds (23.7-30.8) L 03/21/17 12:30 Assessment and Plan - Assessment and Plan (Free Text) Assessment: Addendum to the GI progress note of Dr. Olivo. Patient seen,examined, and chart reviewed. Continue to follow closely, continue present management.
--- NOTE | 2017-03-18 22:18 | PN ---
DATE: 03/17/2017 SUBJECTIVE: The patient is comfortable, in no acute distress. He was admitted with fulminant hepatitis and hepatic failure. His condition is improving gradually. He had leukocytosis with an elevated white count of 70,000. White count has declined to normal now. Flow cytometry and BCR-ABL on peripheral blood was normal. Hemoglobin has been low, but it is stable. He has not required blood transfusion in past few days. Complaining of constipation and weakness in the upper extremities and lower extremities, not able to ambulate without support. No fever. No cough with expectoration. REVIEW OF SYSTEMS: As per HPI. Rest of 12-point review of systems reviewed and negative. PHYSICAL EXAMINATION: GENERAL: Comfortable in bed, in no acute distress. VITAL SIGNS: Temperature 98.9, heart rate is 70 per minute, respiratory rate is 18 per minute, blood pressure 130/88. HEENT: Normal. CHEST: Air entry present, equal bilateral. No added sound. CARDIOVASCULAR: S1, S2 normal. No murmur, no gallop. ABDOMEN: Soft, nontender, no hepatosplenomegaly. EXTREMITIES: No edema. NEUROLOGIC: Awake, alert, oriented x 3. No focal sensorimotor deficit. SKIN: No petechia, no rash. LABORATORY DATA: White count 7.4, hemoglobin 8.8, hematocrit 27, platelet count 134. Sodium 133, potassium 3.1, glucose 355, total bilirubin 1.7. iron 56, percentage saturation 32. MEDICATIONS: DuoNeb 3 mL q. 4 hours p.r.n., Norvasc 10 mg daily, aspirin 81 mg daily, heparin 5000 subQ q. 12, hydralazine 10 mg q. 6 hours p.r.n., Levemir 20 units subQ daily, regular insulin plus sliding scale, lisinopril 10 mg daily, Zofran 4 mg IV q. 6 hours p.r.n., Protonix 40 mg daily, prednisone 20 mg daily, Xifaxan 550 mg p.o. b.i.d., Renagel 1600 p.o. t.i.d., vancomycin 125 mg p.o. q.i.d. ASSESSMENT: 1. Leukocytosis, resolved. 2. Severe anemia, hemoglobin and hematocrit stable. Hemoglobin and hematocrit stable. Iron studies showed iron saturation of 32%. Anemia likely related to chronic kidney disease. He will need Procrit to maintain normal hemoglobin. 3. End-stage renal disease, on hemodialysis. 4. Fulminant hepatitis, improving. 5. Delirium, improving. Thank you, Dr. Bowen, for allowing us to participate in the patient's care. Kimberly Fernandez MD cc: [id number] TT: 03/18/2017 22:17:05 Confirmation # [id number] Dictation # [id number] jerry DANIELLE
--- NOTE | 2017-03-18 22:47 | PN ---
DATE: 03/18/2017 DATE OF EVALUATION: 03/18/2017 SUBJECTIVE: The patient is comfortable in bed, in no acute distress. Sodium improved markedly. He is more alert, oriented. He is not talking. He had dialysis today. He had leukocytosis on admission. White count has resolved to normal. Hemoglobin and hematocrit has been stable. Denies any complaints. No breathing problem, no chest pain, no shortness of breath. REVIEW OF SYSTEMS: As per HPI. Rest of 12-point review of systems reviewed and negative. PHYSICAL EXAMINATION: GENERAL: Comfortably sitting in chair, in no acute distress. VITAL SIGNS: Temperature 97.8. Heart rate 70 per minute, respiratory 18 per minute, blood pressure 130/70. NECK: Normal. CHEST: Air entry present, equal bilateral. No added sound. CARDIOVASCULAR: Within normal limits. ABDOMEN: Soft, nontender, no hepatosplenomegaly. EXTREMITIES: No edema. NEUROLOGIC: Alert, oriented x 3, no focal sensorimotor deficit. SKIN: No petechia, no rash. LABORATORY DATA: From 03/17/2017, white count 7.5, hemoglobin 8.8, hematocrit 27, platelet count 134. Iron 56, saturation 32, potassium 3.1, glucose 355. MEDICATIONS: DuoNeb 3 mL q. 4 hours p.r.n., Norvasc 10 mg daily, aspirin 81 mg daily, heparin 5000 subQ q. 12, hydralazine 10 mg q. 6 hours p.r.n., Levemir 20 units subQ daily, regular insulin plus sliding scale, lisinopril 10 mg daily, Zofran 4 mg IV q. 6 hours p.r.n., Protonix 40 mg daily, prednisone 20 mg daily, Xifaxan 550 mg p.o. b.i.d., Renagel 1600 p.o. t.i.d., vancomycin 125 mg p.o. q.i.d. ASSESSMENT: 1. Hepatic failure, improving. 2. Leg edema, improved. 3. End-stage renal disease, on hemodialysis. PLAN: We will continue hemodialysis. We will continue Renagel. He is currently on prednisone 20 mg daily. We will continue to wean steroids. He is on lisinopril and hydralazine. Blood pressure is fairly controlled on current medications. We will continue on bronchodilators. He is awaiting subacute rehab placement. Kimberly Fernandez MD cc: [id number] TT: 03/18/2017 22:47:38 Confirmation # [id number] Dictation # [id number] MTDD
[2017-03-19] MEDS: Albuterol-Ipratrop 3 mg / 0.5 (3 ml) UD IH SCH ×8 (01:44→23:30)
[2017-03-19] MEDS ORDERED: Naproxen 550 mg Tab PO STA (04:30)
[2017-03-19] MEDS ORDERED: Alum-Mag Hydrox-Simethicone Susp (30 mL) PO STA (04:30)
--- NOTE | 2017-03-19 04:31 | CP.PCM.PN ---
Subjective - Date & Time of Evaluation Date of Evaluation: 03/19/17 Time of Evaluation: 04:18 - Subjective Subjective: Patient was seen at bed side. He had complained of chest pain. States that chest pain is in left side of chest, has been present for past 3-4 hours, he gets this pain every time after he gets the breathing treatment, not radiating, was 10/10 , can not describe nature of pain, denies nausea, sweating, palpitation , cough, gives family history of heart disease (MGM), is a smoker and uses alcohol. This 61 year old male was admitted with nausea,vomiting, abdominal pain, weakness, fatigue. Has PMH of HTN,CHF,gout, ESRD,obesity, anemia, IDDM,received multiple blood transfusions. BP 157/86, 98*F HR-96/ min, RR- 18/ min. Objective - Vital Signs/Intake and Output Vital Signs (last 24 hours): Temp Pulse Resp BP Pulse Ox 97 F L 87 20 165/76 H 99 03/18/17 16:00 03/18/17 16:00 03/18/17 16:00 03/18/17 16:00 03/18/17 16:00 Intake and Output: 03/18/17 03/19/17 18:59 06:59 Intake Total 840 120 Balance 840 120 - Medications Medications: Current Medications Albuterol/Ipratropium (Duoneb 3 Mg/0.5 Mg (3 Ml) Ud) 3 ml IH Q2H PRN PRN Reason: Shortness of Breath Last Admin: 03/13/17 21:25 Dose: 3 ml Albuterol/Ipratropium (Duoneb 3 Mg/0.5 Mg (3 Ml) Ud) 3 ml IH [id number] [facility] Last Admin: 03/19/17 01:44 Dose: 3 ml Amlodipine Besylate (Norvasc) 10 mg PO DAILY [facility] Last Admin: 03/18/17 09:34 Dose: 10 mg Aspirin (Ecotrin) 81 mg PO DAILY [facility] Heparin Sodium (Porcine) (Heparin) 5,000 units SC Q12 NARA PRN Reason: Protocol Last Admin: 03/18/17 21:53 Dose: 5,000 units Hydralazine HCl (Apresoline) 10 mg IVP Q6 PRN PRN Reason: SBP >180 Last Admin: 03/07/17 02:05 Dose: 10 mg Insulin Detemir (Levemir) 20 unit SC DAILY [facility] Last Admin: 03/18/17 09:33 Dose: 20 unit Insulin Human Regular (Humulin R Med) 0 units SC Q4 [facility] Last Admin: 03/18/17 17:23 Dose: 7 units Lisinopril (Zestril) 10 mg PO DAILY [facility] Last Admin: 03/18/17 09:34 Dose: 10 mg Ondansetron HCl (Zofran Inj) 4 mg IVP Q6H PRN PRN Reason: Nausea/Vomiting Last Admin: 03/17/17 23:30 Dose: 4 mg Pantoprazole Sodium (Protonix Ec Tab) 40 mg PO 0630 [facility] Last Admin: 03/18/17 05:47 Dose: 40 mg Prednisone (Prednisone Tab) 20 mg PO DAILY [facility] Last Admin: 03/18/17 09:33 Dose: 20 mg Rifaximin (Xifaxan) 550 mg PO BID [facility] PRN Reason: Protocol Last Admin: 03/18/17 17:24 Dose: 550 mg Sevelamer HCl (Renagel) 1,600 mg PO TID [facility] Last Admin: 03/18/17 17:24 Dose: 1,600 mg Vancomycin HCl (Vancocin 25 Mg/Ml (Oral Use)) 125 mg PO QID [facility] PRN Reason: Protocol Last Admin: 03/18/17 21:55 Dose: 125 mg - Labs Labs: 03/17/17 07:00 03/17/17 07:00 PT 12.6 Seconds (9.9-11.8) H 03/12/17 10:00 INR 1.17 (0.93-1.08) H 03/12/17 10:00 APTT 26.8 Seconds (23.7-30.8) 03/08/17 07:00 - Constitutional Appears: Well, No Acute Distress - Head Exam Head Exam: ATRAUMATIC, NORMAL INSPECTION, NORMOCEPHALIC - Eye Exam Eye Exam: Normal appearance - ENT Exam ENT Exam: Normal External Ear Exam - Neck Exam Neck Exam: Normal Inspection - Respiratory Exam Respiratory Exam: Chest Wall Tenderness (Left precordial tenderness positive.), Clear to Ausculation Bilateral, NORMAL BREATHING PATTERN. absent: Rales, Rhonchi, Wheezes, Respiratory Distress, Stridor - Cardiovascular Exam Cardiovascular Exam: REGULAR RHYTHM, +S1 (Normal.), +S2 (Normal.). absent: JVD , Murmur - GI/Abdominal Exam GI & Abdominal Exam: absent: Distended, Tenderness - Rectal Exam Rectal Exam: Deferred - Extremities Exam Extremities Exam: absent: Calf Tenderness, Tenderness - Back Exam Back Exam: NORMAL INSPECTION - Neurological Exam Neurological Exam: Alert, Oriented x3 - Psychiatric Exam Psychiatric exam: Normal Affect, Normal Mood - Skin Skin Exam: Normal Color Assessment and Plan - Assessment and Plan (Free Text) Assessment: Chest pain, musculo skeletal. R/o cardiac cause. CHF. HTN. Obesity. ESRD. Anemia. Gout. Plan: EKG stat. Troponin stat. Naprosyn 550 mg PO stat. Mylanta 30 CC po Stat. Continue present management.
[2017-03-19] MEDS: Insulin Reg-MEDIUM-Coverage SC SCH ×8 (04:48→21:02)
[2017-03-19] MEDS: Pantoprazole 40 mg EC Tab PO SCH (07:54)
[2017-03-19 10:45] LABS: MEAN CELL VOLUME 89.3 fL (80.0-105.0); MEAN CORPUSCULAR HEMOGLOBIN 29.9 pg (25.0-35.0); MEAN CORPUSCULAR HGB CONC 33.5 g/dl (31.0-37.0); RED CELL DISTRIBUTION WIDTH 18.2 % (11.5-14.5); WHITE BLOOD COUNT 9.3 10^3/ul (4.5-11.0)
[2017-03-19 10:48] LABS: ALB/GLOB RATIO 0.8 (1.1-1.8); BILIRUBIN,TOTAL 1.5 mg/dL (0.2-1.3); CALCIUM 9.6 mg/dL (8.4-10.5); PHOSPHOROUS 4.5 mg/dL (2.5-4.5); POTASSIUM 3.3 mmol/L (3.6-5.0); TOTAL PROTEIN 7.4 g/dL (5.8-8.3)
[2017-03-19] MEDS: Insulin Detemir 100 units/ml Vial (Levemir) SC SCH (11:04)
[2017-03-19] MEDS: Vancomycin 25 MG/ML PO SCH ×4 (11:04→21:02)
--- NOTE | 2017-03-19 12:41 | PN ---
DATE: 03/19/2017 SUBJECTIVE: The patient is currently seen in hemodialysis. Blood pressure is stable. We are removi ng 3000 mL of fluid. He is tolerating dialysis well. He has no acute complaints. MEDICATIONS: List reviewed. The patient is on p.r.n. hydralazine, albuterol, aspirin, heparin, insu kobe, Norvasc, prednisone, Protonix, Renagel, oral vancomycin, Xifaxan, Zestril and Zofran p.r.n. OBJECTIVE: INTAKE AND OUTPUT: Intake is 1080, output is not charted, but is likely 0. VITAL SIGNS: Blood pressure presently is 141/88, heart rate is 78, respiratory rate is 18, temperatu re is 97.9. HEENT: Shows him to be normocephalic, atraumatic. Conjunctivae are pale. Sclerae are nonicteric. NECK: Supple, no neck vein distention. CHEST: Clear to auscultation and percussion with decreased breath sounds at the bases. CARDIOVASCULAR: Shows a normal S1, S2. MR/TR. No rub. No S3, no S4. ABDOMEN: Soft. Mild distention, mild obesity. Bowel sounds normal. No rebound, no guarding, no ma sses, no mid epigastric or right upper quadrant tenderness on palpation. EXTREMITIES: Show no lower extremity edema. He has a cannulated AV fistula of the left upper extrem ity with blood flow rates of 400 mL per minute. LABORATORY DATA AND IMAGING: Predialysis labs from today are pending. His last white blood cell cou nt was 7.4 with a hemoglobin of 8.8 and a platelet count of 134,000. Chemistries: Last potassium le faina was 3.1. BUN 44 with a creatinine of 4.9. Last sugar was 355. Calcium 9.2, phosphorus improved at 3.9, magnesium 2.0. ASSESSMENT: 1. Status post-treatment for a methicillin-resistant Staphylococcus aureus pneumonia. The patient h as completed a course of Zyvox. 2. Status post diarrhea. The patient is completing a course of oral vancomycin therapy. Lab tests for Clostridium difficile have been negative. 3. Acute pancreatitis, transaminitis and possible gallstone-induced acute cholecystitis. The patien t's liver enzymes continue to fall to normal. Liver enzymes from today are pending. The patient's l ast lipase was 814, down from greater than 20,000. The patient had been evaluated by surgery and at some point in time will likely need to have an elective cholecystectomy. 4. History of anemia. Hemoglobin remains stable. The patient will continue to receive Aranesp maxi mum dose. Iron levels are acceptable. 5. History of end-stage renal disease. Continue Sunday, Sunday, Sunday dialysis. 6. History of severe secondary hyperparathyroidism. Repeat phosphorus level is now normal. The pat ient will continue binder therapy. 7. The patient is severely deconditioned with a 14-day hospital stay. He needs aggressive physical therapy. PLAN: 1. Continue Sunday, Sunday, Sunday dialysis. 2. P.r.n. increased potassium dialysate if K level is low. 3. Continue insulin therapy for diabetes. 4. Continue renal diet and binder therapy. 5. The patient needs intensive physical therapy to get back on his feet and to start ambulating agai n. Tono Kent MD cc: [phone] TT: 03/19/2017 12:40:58 Confirmation # [id number] Dictation # [id number] en
--- NOTE | 2017-03-19 13:24 | PN ---
DATE: 03/19/2017 The patient is in bed, in no acute distress, nontoxic. PHYSICAL EXAMINATION: VITAL SIGNS: Temperature is 97, blood pressure is 170/60, respiratory rate of 20, heart rate of 94. HEENT: Unremarkable. NECK: Supple. LUNGS: Have decreased breath sounds. HEART: Normal S1, S2. ABDOMEN: Soft. LABORATORY DATA: Reveals the patient's white count is 9.3, hemoglobin of 8.7, platelets of 210. Magdalena mistries are noted with a creatinine of 9.3. Review of the orders reveals the patient to be on p.o. vancomycin. The patient's stool for C. diff from 03/09/2017: Negative toxin, negative antigen. Dr. Gonzalez's note from earlier today is noted. ASSESSMENT AND PLAN: A 61-year-old male with severe sepsis, status post ventilatory-dependent respir atory failure, acute liver failure, fulminant hepatitis, bilateral healthcare-associated pneumonia, m ethicillin-resistant Staphylococcus aureus, hypertension; end-stage renal disease, on hemodialysis; m orbid obesity; history of multiple positive human immunodeficiency virus, fourth generation tests neg ative, may have been a false positive SELVIN. On p.o. vancomycin. Complete a short course of p.o. va ncomycin of 7-10 days. Today is day #6 of 7-10 days of p.o. vancomycin. Feliciano Vargas MD cc: [phone] TT: 03/19/2017 13:23:38 Confirmation # [id number] Dictation # [id number] mn
--- NOTE | 2017-03-19 14:32 | CARD ---
APPROVED REPORT EKG Measurement Heart [id number] <Conclusion> Normal sinus rhythm Nonspecific T wave abnormality Abnormal ECG
--- NOTE | 2017-03-19 23:21 | CP.PCM.PN ---
Subjective - Date & Time of Evaluation Date of Evaluation: 03/19/17 Time of Evaluation: 12:00 - Subjective Subjective: DATE: 03/19/2017 SUBJECTIVE: The patient is comfortable, in no acute distress. He was admitted with fulminant hepatitis and hepatic failure. His condition is improving gradually. He had leukocytosis with an elevated white count of 70,000. White count has declined to normal now. Flow cytometry and BCR-ABL on peripheral blood was normal. Hemoglobin has been low, but it is stable. He has not required blood transfusion in past few days. Complaining of constipation and weakness in the upper extremities and lower extremities, not able to ambulate without support. No fever. No cough with expectoration. Dialysis today REVIEW OF SYSTEMS: As per HPI. Rest of 12-point review of systems reviewed and negative. PHYSICAL EXAMINATION: GENERAL: Comfortable in bed, in no acute distress. VITAL SIGNS: reviewed. HEENT: Normal. CHEST: Air entry present, equal bilateral. No added sound. CARDIOVASCULAR: S1, S2 normal. No murmur, no gallop. ABDOMEN: Soft, nontender, no hepatosplenomegaly. EXTREMITIES: No edema. NEUROLOGIC: Awake, alert, oriented x 3. No focal sensorimotor deficit. SKIN: No petechia, no rash. LABORATORY DATA: White count 7.4, hemoglobin 8.8, hematocrit 27, platelet count 134. Sodium 133, potassium 3.1, glucose 355, total bilirubin 1.7. iron 56, percentage saturation 32. MEDICATIONS: DuoNeb 3 mL q. 4 hours p.r.n., Norvasc 10 mg daily, aspirin 81 mg daily, heparin 5000 subQ q. 12, hydralazine 10 mg q. 6 hours p.r.n., Levemir 20 units subQ daily, regular insulin plus sliding scale, lisinopril 10 mg daily, Zofran 4 mg IV q. 6 hours p.r.n., Protonix 40 mg daily, prednisone 20 mg daily, Xifaxan 550 mg p.o. b.i.d., Renagel 1600 p.o. t.i.d., vancomycin 125 mg p.o. q.i.d. ASSESSMENT: 1. Leukocytosis, resolved. 2. Severe anemia, hemoglobin and hematocrit stable. Hemoglobin and hematocrit stable. Iron studies showed iron saturation of 32%. Anemia likely related to chronic kidney disease. He will need Procrit to maintain normal hemoglobin. 3. End-stage renal disease, on hemodialysis. 4. Fulminant hepatitis, improving. 5. Delirium, resolved discharge planning. Thank you, Dr. Bowen, for allowing us to participate in the patient's care. Kimberly Fernandez MD Objective - Vital Signs/Intake and Output Vital Signs (last 24 hours): Temp Pulse Resp BP Pulse Ox 98 F 60 18 168/70 H 93 L 03/19/17 15:49 03/19/17 15:49 03/19/17 15:49 03/19/17 15:49 03/19/17 15:49 Intake and Output: 03/19/17 03/20/17 18:59 06:59 Intake Total 780 Balance 780 - Medications Medications: Current Medications Albuterol/Ipratropium (Duoneb 3 Mg/0.5 Mg (3 Ml) Ud) 3 ml IH Q2H PRN PRN Reason: Shortness of Breath Last Admin: 03/13/17 21:25 Dose: 3 ml Albuterol/Ipratropium (Duoneb 3 Mg/0.5 Mg (3 Ml) Ud) 3 ml IH [id number] [facility] Last Admin: 03/19/17 16:23 Dose: Not Given Amlodipine Besylate (Norvasc) 10 mg PO DAILY [facility] Last Admin: 03/19/17 11:04 Dose: Not Given Aspirin (Ecotrin) 81 mg PO DAILY [facility] Last Admin: 03/19/17 11:03 Dose: Not Given Heparin Sodium (Porcine) (Heparin) 5,000 units SC Q12 [facility] PRN Reason: Protocol Last Admin: 03/19/17 21:02 Dose: 5,000 units Hydralazine HCl (Apresoline) 10 mg IVP Q6 PRN PRN Reason: SBP >180 Last Admin: 03/07/17 02:05 Dose: 10 mg Insulin Detemir (Levemir) 20 unit SC DAILY [facility] Last Admin: 03/19/17 11:04 Dose: Not Given Insulin Human Regular (Humulin R Med) 0 units SC Q4 [facility] Last Admin: 03/19/17 21:02 Dose: 3 units Lisinopril (Zestril) 10 mg PO DAILY [facility] Last Admin: 03/19/17 11:05 Dose: Not Given Ondansetron HCl (Zofran Inj) 4 mg IVP Q6H PRN PRN Reason: Nausea/Vomiting Last Admin: 03/17/17 23:30 Dose: 4 mg Pantoprazole Sodium (Protonix Ec Tab) 40 mg PO 0630 [facility] Last Admin: 03/19/17 07:54 Dose: 40 mg Prednisone (Prednisone Tab) 20 mg PO DAILY [facility] Last Admin: 03/19/17 11:04 Dose: Not Given Rifaximin (Xifaxan) 550 mg PO BID [facility] PRN Reason: Protocol Last Admin: 03/19/17 17:20 Dose: 550 mg Sevelamer HCl (Renagel) 1,600 mg PO TID [facility] Last Admin: 03/19/17 17:20 Dose: 1,600 mg Vancomycin HCl (Vancocin 25 Mg/Ml (Oral Use)) 125 mg PO QID [facility] PRN Reason: Protocol Last Admin: 03/19/17 21:02 Dose: 125 mg - Labs Labs: 03/19/17 10:20 03/19/17 10:20 PT 12.6 Seconds (9.9-11.8) H 03/12/17 10:00 INR 1.17 (0.93-1.08) H 03/12/17 10:00 APTT 26.8 Seconds (23.7-30.8) 03/08/17 07:00
--- NOTE | 2017-03-19 23:44 | PN ---
DATE: 03/19/2017 SUBJECTIVE: This patient was seen and evaluated earlier today. The patient is comfortable, not in d istress. PHYSICAL EXAMINATION: VITAL SIGNS: Temperature is 98, blood pressure is 168/70, pulse 60. HEENT: Atraumatic, anicteric. NECK: Supple. HEART: S1, S2 heard. LUNGS: Bilateral air entry present. There are decreased breath sounds in the base. EXTREMITIES: No cyanosis, no clubbing. There is a fistula in the left upper extremity. LABORATORY DATA: Hemoglobin 8.7, hematocrit 26, WBC is 9.3, platelets 210. Creatinine is 9.3, potas sium 3.3, sodium 130. IMPRESSION: 1. Acute liver failure, improving, clinically well. 2. Methicillin-resistant Staphylococcus aureus pneumonia. The patient has a history of mildly eleva rk . The patient has gallstones and also mildly elevated pancreatitis. It was thought to be a t that time may be related to drug induced rather than a gallstone pancreatitis. Bilirubin has been normal. The reasonable thing is to follow up with the LFTs. Want the patient to continue to be opti mized initially further. Thank you very much for allowing us to participate in the care of the patient. Maddie Brown MD cc: [phone] TT: 03/19/2017 23:43:50 Confirmation # [id number] Dictation # [id number] jannet
[2017-03-20] MEDS: Insulin Reg-MEDIUM-Coverage SC SCH ×6 (00:38→20:25)
[2017-03-20] MEDS: Albuterol-Ipratrop 3 mg / 0.5 (3 ml) UD IH SCH ×3 (04:52→11:49)
[2017-03-20] MEDS: Pantoprazole 40 mg EC Tab PO SCH (05:39)
--- NOTE | 2017-03-20 08:26 | PN ---
DATE: 03/19/2017 REASON FOR CONSULTATION AND FOLLOWUP: Status post respiratory failure, acute liver failure, improved , status post intubated, status post successfully extubated, nonobstructive coronary artery disease. BRIEF CLINICAL HISTORY: This is a 61-year-old morbidly obese male with past medical history signific ant for diabetes, hypertension, hyperlipidemia, end-stage renal disease on dialysis, status post card iac catheterization 11/02/2016, nonobstructive coronary artery disease. Admitted with shortness of br eath, acute liver failure, AST in 7000. Now, patient successfully extubated, liver function back to normal. Denies any chest pain, shortness of breath, any palpitation. PHYSICAL EXAMINATION: VITAL SIGNS: Temperature afebrile, heart rate , blood pressure 174/76. HEENT: PERRLA. Extraocular muscles intact. NECK: Supple. No carotid bruits. No thyromegaly. CHEST: Clear to auscultation. HEART: S1, S2 regular. ABDOMEN: Soft. EXTREMITIES: Clubbing, cyanosis negative. BLOOD WORKUP: WBC 9.3, hemoglobin 8. , hematocrit 26.0, platelet count 210. Chemistry shows sod ium 130, potassium 3.3, chloride 95, carbon dioxide 22, anion gap of 16, BUN 78, creatinine 9.3. The patient is having dialysis now. Potassium is during the dialysis, postdialysis. IMPRESSION: Obesity, end-stage renal disease on dialysis, hypertension, acute liver failure, improve d, status post intubated, now improved, extubated, coronary artery disease, nonobstructive, status po st cardiac catheterization 11/02/2016, diabetes, hypertension, hyperlipidemia. RECOMMENDATION: Continue amlodipine. Continue lisinopril. Continue baby aspirin. We will follow w ith you. Discharge planning. Thank you, Dr. Bowen, for providing us the opportunity in taking care of the patient. Darrel Ervin MD cc: [phone] TT: 03/19/2017 13:01:44 Confirmation # [id number] Dictation # [id number] en
--- NOTE | 2017-03-20 08:26 | PN ---
DATE: 03/17/2017 REASON FOR CONSULTATION AND FOLLOWUP: Status post respiratory failure, acute liver failure improved, status post intubated and successfully extubated, now for coronary artery disease. BRIEF CLINICAL HISTORY: A 61-year-old morbidly obese male with past medical history significant for diabetes, hypertension, hyperlipidemia, end-stage renal disease on dialysis, cardiac catheterization 11/02/2016 shows nonobstructive coronary artery disease, admitted with shortness of breath, acute live r failure, AST is 7000. Now patient is successfully extubated, liver function came back to normal. Denies any chest pain, shortness of breath, end-stage renal disease on dialysis. PHYSICAL EXAMINATION: VITAL SIGNS: Temperature afebrile, heart rate ____ , blood pressure 162/78. HEENT: PERRLA. Extraocular muscles intact. NECK: Supple. No carotid bruits. No thyromegaly. CHEST: Clear to auscultation. HEART: S1, S2 regular. ABDOMEN: Soft. EXTREMITIES: Clubbing and cyanosis negative. LABORATORY DATA: Blood workup as follows: WBC 7.____, hemoglobin 8.8, hematocrit 27, platelet count 134. Chemistry shows sodium 133, potassium 3.____, carbon dioxide 25, anion gap of 14, BUN 44, pota ssium 4.9. IMPRESSION: Acute liver failure, improved, liver function came back to normal almost, AST 60, ALT 10 9 from 7000. End-stage renal disease on dialysis, nonobstructive coronary artery disease, morbid obe sity, respiratory failure, intubated and successfully extubated. RECOMMENDATION: Avoid hepatotoxic medication. Continue dialysis, hydralazine. We will increase the Vasotec, continue amlodipine. The patient was on Vasotec 20, will increase lisinopril to 10 from to day, ____ from tomorrow. We will follow with you. Thank you, Dr. Bowen, for providing the opportunity in the patient. No further cardiac workup is p lanned. The patient had repeat echo cardiographic on 03/07/2017 that showed RV is moderately reduced, ejection fraction 45% - ____%, mild to moderate tricuspid regurgitation, mild mitral regurgitation, trace to mild aortic regurgitation. We will follow with you. Darrel Ervin MD cc: [phone] TT: 03/17/2017 17:09:30 Confirmation # [id number] Dictation # [id number] jn
[2017-03-20] MEDS: Insulin Detemir 100 units/ml Vial (Levemir) SC SCH (09:27)
[2017-03-20] MEDS: Vancomycin 25 MG/ML PO SCH ×4 (09:30→22:15)
--- NOTE | 2017-03-20 10:55 | PN ---
DATE: 03/20/2017 SUBJECTIVE: The patient is currently seen in his room. He is sitting on a commode. He had an uneve ntful dialysis yesterday. He remains in isolation for his MRSA pneumonia. He has completed a course of Zyvox. MEDICATIONS: Medication list reviewed. The patient is on hydralazine p.r.n., albuterol, aspirin, he amparo, insulin, Norvasc, prednisone, Protonix, Renagel, vancomycin orally, Xifaxan, Zestril and Zofra n. OBJECTIVE: INTAKE AND OUTPUT: Intake 780, output 3000 mL with dialysis. VITAL SIGNS: Blood pressure 134/72, temperature 98.3, respiratory rate 18 with a pulse of 85. HEENT: Normocephalic, atraumatic. Conjunctivae are pale. Sclerae are nonicteric. NECK: Supple, no neck vein distention. CHEST: Clear to auscultation and percussion with decreased breath sounds at the bases. CARDIOVASCULAR: S1, S2 normal. MR/TR. No rub. No S3, no S4. ABDOMEN: Soft. Mild distention, mild obesity. Bowel sounds normal. No rebound, no guarding, no mi d epigastric or right upper quadrant tenderness on palpation. EXTREMITIES: No lower extremity edema. Positive AV fistula, left upper extremity, positive thrill, positive bruit. LABORATORY DATA AND IMAGING: Labs done predialysis yesterday: White blood cell count 9.3, hemoglobi n 8.7 with a platelet count of 210,000. Chemistries from yesterday: Sodium 130, potassium 3.3, chlo ride 95 with a BUN of 78 and a creatinine of 9.3. Glucose is 329. Calcium 9.6, phosphorus 4.5, magn esium 2.0. Liver enzymes, AST now normal. Bilirubin down to 1.5, ALT down to 74. Lipase remains mi ldly elevated at 1337. ASSESSMENT: 1. Status post treatment for a methicillin-resistant Staphylococcus aureus pneumonia. The patient h as completed a course of Zyvox. 2. Status post diarrhea. The patient remains on oral vancomycin therapy. Lab tests for Clostridium difficile have been negative. 3. Acute pancreatitis, transaminitis, possible gallstone-induced acute cholecystitis. The patient's liver enzymes are trending down to normal. Mild elevation of lipase. The patient was evaluated by surgery and at some point in time, he will likely need to have an elective cholecystectomy. He was t hought to possibly have gallstone pancreatitis. 4. History of anemia. Hemoglobin remains stable. The patient will continue maximum dose of Aranesp . Iron levels have been acceptable. Transfusions on a p.r.n. basis. 5. Non-insulin dependent diabetes mellitus. The patient remains on insulin therapy. Glucose contro l remains erratic. 6. History of end-stage renal disease. Continue Sunday, Sunday, Sunday dialysis. Next dialysis scheduled for tomorrow. 7. History of secondary hyperparathyroidism. Phosphorus level is now normal. The patient will cont inue on binder therapy and a renal diet. 8. The patient is severely deconditioned with a 15-day hospital stay. He needs aggressive physical therapy, ambulation and balance. PLAN: 1. Continue Sunday, Sunday, Sunday dialysis. 2. Increase potassium bath dialysate if his potassium level remains low. 3. Continue insulin for diabetes and perhaps increase long acting insulin. 4. Continue renal diet and binder therapy. 5. Question duration of oral vancomycin as C. diff studies have been negative. Tono Kent MD cc: [id number] TT: 03/20/2017 10:55:12 Confirmation # [id number] Dictation # [id number] tn
--- NOTE | 2017-03-20 12:05 | PN ---
DATE: 03/20/2017 REASON FOR CONSULTATION AND FOLLOWUP: Status post respiratory failure, acute liver failure, improved , status post intubated and successfully extubated, nonobstructive coronary artery disease. BRIEF CLINICAL HISTORY: This is a 61-year-old morbidly obese male with past medical history signific ant for diabetes, hypertension, hyperlipidemia, end-stage renal disease on dialysis, status post card iac catheterization 11/02/2016, nonobstructive CAD, admitted with shortness of breath, acute liver fa ilure, ALT is 7000, now patient successfully extubated. Liver came back to normal. Denies any chest pain, shortness of breath, any palpitation. PHYSICAL EXAMINATION: VITAL SIGNS: Temperature afebrile, heart rate 85, blood pressure 134/72. HEENT: PERRLA. Extraocular muscles intact. NECK: Supple. No carotid bruits. No thyromegaly. CHEST: Clear to auscultation. HEART: S1, S2 regular. ABDOMEN: Soft. EXTREMITIES: Clubbing and cyanosis negative. LABORATORY DATA: Blood workup as follows: WBC 9.3, hemoglobin , hematocrit 26, platelet count 210. Chemistry shows sodium 130, potassium 3.3, chloride 95, carbon dioxide 22, anion gap of 15, BUN 78, creatinine 9.3. IMPRESSION: Obesity, end-stage renal disease on dialysis, hypertension, acute liver failure, improve d, status post intubated, now improved, extubated, no evidence of acute coronary syndrome, status pos t cardiac catheterization, nonobstructive coronary artery disease, hypertension, diabetes, obesity, c ardiac catheterization done on 11/02/2016. RECOMMENDATION: Continue amlodipine. Continue lisinopril. Continue baby aspirin. Discharge planni ng is stable. We will follow with you. Thank you, Dr. Bowen, for providing the opportunity in taking care of this patient. Darrel Ervin MD cc: [phone] TT: 03/20/2017 12:05:21 Confirmation # [id number] Dictation # [id number]
--- NOTE | 2017-03-20 12:17 | PN ---
DATE: 03/20/2017 Seen and examined at the bedside late this morning. He is out of bed in a chair. Denies any nausea, vomiting, or abdominal pain. They were having issues with his blood sugar this morning. The patien t states that his appetite is good. In fact, he is eating too much. He denies diarrhea; having form ed soft stool. No reports of any overt GI bleed. VITAL SIGNS: Temperature 98.3, blood pressure 134/72, pulse 85, respirations 18, 96 room air. LABORATORY DATA: The patient is not noted to have any new labs for today except for POC glucose at 4 :23 a.m. at 331. PHYSICAL EXAMINATION: HEENT: Sclerae are anicteric. NECK: Supple. CARDIAC: S1, S2. LUNGS: With decreased breath sounds but good air entry. No rales or wheeze. ABDOMEN: With bowel sounds. Soft, obese. No tenderness on palpation. EXTREMITIES: No edema. The patient with left upper arm fistula. ASSESSMENT AND PLAN: Improving acute liver failure. The patient is doing clinically well. The page ent with history of end-stage renal disease, on dialysis. He also has methicillin-resistant Staphylo coccus aureus. The patient noted to have elevated liver enzymes which are improving. Found to have gallstones and also pancreatitis; thought it could be drug induced rather than gallstone pancreatitis . His liver enzymes have improved. Continue to monitor the patient with a history of diabetes shahram fang and he is on insulin coverage and on Levemir. Continue PPI. The patient is on Xifaxan and on pr ednisone, on oral vancomycin for severe sepsis. Will continue to monitor. The patient was seen and case discussed with Dr. Brown. Idalia MONROE cc: [phone] TT: 03/20/2017 12:16:50 Confirmation # [id number] Dictation # [id number]
--- NOTE | 2017-03-20 13:29 | CP.PCM.PN ---
Subjective - Date & Time of Evaluation Date of Evaluation: 03/20/17 Time of Evaluation: 11:30 - Subjective Subjective: Comfortable, afebrile, improving bowel movements, breathing better. Objective - Vital Signs/Intake and Output Vital Signs (last 24 hours): Temp Pulse Resp BP Pulse Ox 98.3 F 85 18 134/72 96 03/20/17 07:24 03/20/17 09:28 03/20/17 07:24 03/20/17 09:29 03/20/17 07:24 - Medications Medications: Current Medications Albuterol/Ipratropium (Duoneb 3 Mg/0.5 Mg (3 Ml) Ud) 3 ml IH Q2H PRN PRN Reason: Shortness of Breath Last Admin: 03/13/17 21:25 Dose: 3 ml Amlodipine Besylate (Norvasc) 10 mg PO DAILY [facility] Last Admin: 03/20/17 09:29 Dose: 10 mg Aspirin (Ecotrin) 81 mg PO DAILY [facility] Last Admin: 03/20/17 09:29 Dose: 81 mg Heparin Sodium (Porcine) (Heparin) 5,000 units SC Q12 [facility] PRN Reason: Protocol Last Admin: 03/20/17 09:29 Dose: 5,000 units Hydralazine HCl (Apresoline) 10 mg IVP Q6 PRN PRN Reason: SBP >180 Last Admin: 03/07/17 02:05 Dose: 10 mg Insulin Detemir (Levemir) 20 unit SC DAILY [facility] Last Admin: 03/20/17 09:27 Dose: 20 unit Insulin Human Regular (Humulin R Med) 0 units SC Q4 [facility] Last Admin: 03/20/17 12:14 Dose: 7 units Lisinopril (Zestril) 10 mg PO DAILY [facility] Last Admin: 03/20/17 09:28 Dose: 10 mg Ondansetron HCl (Zofran Inj) 4 mg IVP Q6H PRN PRN Reason: Nausea/Vomiting Last Admin: 03/17/17 23:30 Dose: 4 mg Pantoprazole Sodium (Protonix Ec Tab) 40 mg PO 0630 [facility] Last Admin: 03/20/17 05:39 Dose: 40 mg Prednisone (Prednisone Tab) 10 mg PO DAILY [facility] Rifaximin (Xifaxan) 550 mg PO BID [facility] PRN Reason: Protocol Last Admin: 03/20/17 09:29 Dose: 550 mg Sevelamer HCl (Renagel) 1,600 mg PO TID [facility] Last Admin: 03/20/17 13:05 Dose: 1,600 mg Vancomycin HCl (Vancocin 25 Mg/Ml (Oral Use)) 125 mg PO QID [facility] PRN Reason: Protocol Last Admin: 03/20/17 13:05 Dose: 125 mg - Labs Labs: 03/19/17 10:20 03/19/17 10:20 PT 12.6 Seconds (9.9-11.8) H 03/12/17 10:00 INR 1.17 (0.93-1.08) H 03/12/17 10:00 APTT 26.8 Seconds (23.7-30.8) 03/08/17 07:00 - Constitutional Appears: Non-toxic, No Acute Distress - Head Exam Head Exam: NORMAL INSPECTION - ENT Exam ENT Exam: Mucous Membranes Moist - Neck Exam Neck Exam: absent: Lymphadenopathy, Meningismus - Respiratory Exam Respiratory Exam: Decreased Breath Sounds - Cardiovascular Exam Cardiovascular Exam: +S1, +S2 - GI/Abdominal Exam GI & Abdominal Exam: Soft. absent: Tenderness Assessment and Plan - Assessment and Plan (Free Text) Plan: Assessment S/PSevere sepsis with ventilator-dependent respiratory failure and acute liver failure/acute fulminant hepatitis due to bilateral healthcare-associated pneumonia with sputum cx now growing MRSA, S/P treatment rule out C. diff. infection, clinically improved HTN ESRD on HD dyslipidemia morbid obesity with BMI 45 positive HIV SELVIN test with negative HIV-1 PCR Plan continue PO vancomycin (day 10 of 10-14 days) patient has history of multiple positive HIV SELVIN, even the 4th generation test - HIV-1 PCR still negative - may be a false positive test will continue to monitor clinically
--- NOTE | 2017-03-20 15:30 | PN ---
DATE: 03/20/2017 The patient is a 61-year-old who was admitted with intractable nausea and vomiting. Later on that da y, he became lethargic. He was intubated for airway protection and he was found to be in ____ acute hepatic failure with unknown etiology; however, later on patient ____ he was extubated at 1 week prio r to coming to the hospital. He went ____ and he was having some abdominal discomfort for a few days . However, the patient was admitted in ICU. The initial plan was to transfer him to [facility], but while awaiting for transfer, the patient started to improve. His LFTs started to improve. H e was kept n.p.o., he was given IV antibiotics since he had MRSA sputum and has bilateral pneumonia. So patient eventually improved, his LFTs improved. He was receiving hemodialysis. He was successfu lly extubated and transferred to med/surg floor. PHYSICAL EXAMINATION: GENERAL: Today, he is awake and alert, communicative. VITAL SIGNS: He is afebrile, pulse 82, respirations 18, blood pressure 134/72. LUNGS: Bilateral fair airflow, no rhonchi or crackle. HEART: S1, S2 audible. ABDOMEN: Soft, obese, nontender, no rebound, no guarding. NEUROLOGIC: The patient is awake and alert, able to communicate. LABORATORY EXAM: WBC of 9.3, hemoglobin 8.7, hematocrit 26, platelets of 210. Chemistry: Sodium 13 0, potassium 3.6, chloride 95, CO2 22, BUN 78, creatinine 9.3, blood sugar of 331. ASSESSMENT: 1. Status post gallstone pancreatitis. 2. Status post hepatic failure. 3. End-stage renal disease, on hemodialysis. 4. Bilateral pneumonia. 5. Anemia, status post blood transfusion. 6. Deconditioning and difficulty walking. PLAN: The patient is currently on nebulizer treatment. Since he is doing well, I will discontinue t hat. Will keep him q. 2 hours p.r.n. and continue him on aspirin. His blood sugar is being monitore d. He is on amlodipine 10 mg daily. Will cut down his steroid to 10 mg. Discussed with social serv ices. They are trying to make arrangements in [facility] where he can get dialysis if bed is av lable. He will be transferred to [facility] for subacute rehabilitation and hemodialysis later on today. Raf Bowen MD cc: [phone] TT: 03/20/2017 15:29:11 Confirmation # [id number] Dictation # [id number] rn
[2017-03-20] MEDS: Albuterol-Ipratrop 3 mg / 0.5 (3 ml) UD IH PRN (16:41)
[2017-03-20] MEDS ORDERED: Insulin Regular 1 UNITS/0.01 ML ML SC STA (20:23)
--- NOTE | 2017-03-20 20:23 | CP.PCM.PN ---
Subjective - Date & Time of Evaluation Date of Evaluation: 03/20/17 Time of Evaluation: 22:16 - Subjective Subjective: S:Patient was seen for fsbs of 412 mg %. Has no complaints. States that he ate 2 extra cookies. Denies blurry vision, polyurea. Medical record was reviewed. O: Last Vital Signs 3 Temp 98.2 F 03/20/17 16:00 Pulse 85 03/20/17 16:00 Resp 20 03/20/17 16:00 BP 155/72 H 03/20/17 16:00 Pulse Ox 98 03/20/17 16:00 Awake, alert, not in distress. LUNGS:Normal breathing pattern. ABD:No distension. A: Hyperglycemia. P:Regular insulin 6 untis SC stat. Objective - Vital Signs/Intake and Output Vital Signs (last 24 hours): Temp Pulse Resp BP Pulse Ox 98.2 F 85 20 155/72 H 98 03/20/17 16:00 03/20/17 16:00 03/20/17 16:00 03/20/17 16:00 03/20/17 16:00 Intake and Output: 03/20/17 03/21/17 18:59 06:59 Intake Total 480 Balance 480 - Medications Medications: Current Medications Albuterol/Ipratropium (Duoneb 3 Mg/0.5 Mg (3 Ml) Ud) 3 ml IH Q2H PRN PRN Reason: Shortness of Breath Last Admin: 03/20/17 16:41 Dose: 3 ml Amlodipine Besylate (Norvasc) 10 mg PO DAILY [facility] Last Admin: 03/20/17 09:29 Dose: 10 mg Aspirin (Ecotrin) 81 mg PO DAILY [facility] Last Admin: 03/20/17 09:29 Dose: 81 mg Heparin Sodium (Porcine) (Heparin) 5,000 units SC Q12 [facility] PRN Reason: Protocol Last Admin: 03/20/17 09:29 Dose: 5,000 units Hydralazine HCl (Apresoline) 10 mg IVP Q6 PRN PRN Reason: SBP >180 Last Admin: 03/07/17 02:05 Dose: 10 mg Insulin Detemir (Levemir) 20 unit SC DAILY [facility] Last Admin: 03/20/17 09:27 Dose: 20 unit Insulin Human Regular (Humulin R Med) 0 units SC Q4 [facility] Last Admin: 03/20/17 17:16 Dose: 8 units Lisinopril (Zestril) 10 mg PO DAILY [facility] Last Admin: 03/20/17 09:28 Dose: 10 mg Ondansetron HCl (Zofran Inj) 4 mg IVP Q6H PRN PRN Reason: Nausea/Vomiting Last Admin: 03/17/17 23:30 Dose: 4 mg Pantoprazole Sodium (Protonix Ec Tab) 40 mg PO 0630 [facility] Last Admin: 03/20/17 05:39 Dose: 40 mg Prednisone (Prednisone Tab) 10 mg PO DAILY [facility] Rifaximin (Xifaxan) 550 mg PO BID [facility] PRN Reason: Protocol Last Admin: 03/20/17 17:17 Dose: 550 mg Sevelamer HCl (Renagel) 1,600 mg PO TID [facility] Last Admin: 03/20/17 17:16 Dose: 1,600 mg Vancomycin HCl (Vancocin 25 Mg/Ml (Oral Use)) 125 mg PO QID [facility] PRN Reason: Protocol Last Admin: 03/20/17 17:17 Dose: 125 mg - Labs Labs: 03/19/17 10:20 03/19/17 10:20 PT 12.6 Seconds (9.9-11.8) H 03/12/17 10:00 INR 1.17 (0.93-1.08) H 03/12/17 10:00 APTT 26.8 Seconds (23.7-30.8) 03/08/17 07:00
[2017-03-21] MEDS: Insulin Reg-MEDIUM-Coverage SC SCH ×6 (00:28→20:29)
--- NOTE | 2017-03-21 05:05 | PN ---
DATE: 03/20/2017 ADDENDUM: This patient was seen and evaluated earlier. This is an addendum to the GI progress repor t dictated by Idalia Nguyen APN. This 61-year-old patient with end-stage renal disease, admitted with acute liver failure, sepsis, pne umonia, MRSA pneumonia. The patient has been improving clinically well. The patient is planned to b e transferred to rehab place, rehab center. His LFTs are nearly normalized. Except total bilirubin 1.5. ALP has come down to 74, significant improvement. The patient did have an episode of pancreati tis which was thought to not be secondary to the gallstone even though he has a gallstone and thought to be at that time related to the sepsis and also be drug induced. Repeat ultrasound also showed no rmal gallstones, normal CBD. No stones, but repeat ultrasound showed no stones, but however, the, ho wever, the ultrasound done on 03/05 was suggestive of gallstones. The reasonable thing at this point is clinically follow the patient. clinical course. He may benefit from repeating the ultraso und in, in a month, in about 2 months', 1-2 months' time. Thank you very much. Thank you very much for allowing us to participate in the care of the patient. Maddie Brown MD cc: [phone] TT: 03/21/2017 05:04:49 Confirmation # [id number] Dictation # [id number] jannet
[2017-03-21] MEDS: Pantoprazole 40 mg EC Tab PO SCH (05:30)
[2017-03-21] MEDS: Vancomycin 25 MG/ML PO SCH ×3 (10:19→18:31)
[2017-03-21] MEDS: Insulin Detemir 100 units/ml Vial (Levemir) SC SCH (10:22)
[2017-03-21 11:00] LABS: ADD MANUAL DIFF? NO
[2017-03-21 11:07] LABS: BASO # 0.01 K/mm3 (0.0-2.0); BASO % 0.1 % (0.0-3.0); EOS # 0.1 (0.0-0.7); EOS % 1.5 % (1.5-5.0); GRAN # 5.65 (1.4-6.5); GRAN % 76.9 % (50.0-68.0); HEMATOCRIT 26.3 % (42.0-52.0); LYMPH # 1.1 (1.2-3.4); LYMPH % 14.3 % (22.0-35.0); MEAN CELL VOLUME 91.6 fL (80.0-105.0); MEAN CORPUSCULAR HEMOGLOBIN 30.3 pg (25.0-35.0); MEAN CORPUSCULAR HGB CONC 33.1 g/dl (31.0-37.0); MEAN PLATELET VOLUME 8.8 fl (7.0-11.0); MONO # 0.5 (0.1-0.6); MONO % 7.2 % (1.0-6.0); PLATELET COUNT 271 10^3/uL (120.0-450.0); RED CELL DISTRIBUTION WIDTH 18.9 % (11.5-14.5); WHITE BLOOD COUNT 7.4 10^3/ul (4.5-11.0)
[2017-03-21] MEDS ORDERED: Darbepoetin Alfa 100 mcg/ml Inj SC ONE (11:09)
[2017-03-21 11:11] LABS: ALB/GLOB RATIO 0.8 (1.1-1.8); BILIRUBIN,TOTAL 1.3 mg/dL (0.2-1.3); CALCIUM 9.4 mg/dL (8.4-10.5); MAGNESIUM 1.8 mg/dL (1.7-2.2); POTASSIUM 3.9 mmol/L (3.6-5.0); TOTAL PROTEIN 7.2 g/dL (5.8-8.3)
[2017-03-21] MEDS ORDERED: Darbepoetin Alfa 100 mcg/ml Inj IVP ONE (11:31)
[2017-03-21 13:13] LABS: INR 1.08 (0.93-1.08); PARTIAL THROMBOPLASTIN TIME 23.1 Seconds (23.7-30.8)
--- NOTE | 2017-03-21 13:14 | PN ---
DATE: 03/21/2017 SUBJECTIVE: The patient is 61 years old, seen and examined, sitting in chair, complaining of general ized weakness and cannot stand up and walk without assistance. Awaiting subacute rehab. PHYSICAL EXAMINATION: GENERAL: Awake and alert, communicative. VITAL SIGNS: He is afebrile, pulse 84, respirations 20, blood pressure 169/85. LUNGS: Bilateral fair airflow. No rhonchi or crackle. HEART: S1, S2 audible. ABDOMEN: Soft, nontender. No rebound, no guarding. NEUROLOGIC: The patient is awake and alert, communicative. LABORATORY EXAM: WBC 7.4, hemoglobin 8.7, hematocrit 26.3, platelets of 271. Chemistry: Sodium 134 , potassium 3.9, chloride 100, CO2 of 24. BUN 49, creatinine 8.3. Blood sugar of 360. ASSESSMENT AND PLAN: 1. Gallstone pancreatitis. 2. History of alcohol use prior to the episode of acute hepatic failure. 3. Bilateral methicillin-resistant Staphylococcus aureus pneumonia. 4. Status post respiratory failure. 5. End-stage renal disease, on hemodialysis. 6. History of hypertension. 7. Chronic anemia, status post multiple blood transfusions. PLAN: At this point, the patient is still on Xifaxan that probably can be discontinued. He is on p. o. vanco. We will maintain him on lisinopril. He is on Protonix, and we will discontinue prednisone after 5 days, and monitor his blood sugar. As soon as arrangements for subacute rehab is made, we w ill make a discharge plan. Raf Bowen MD cc: [phone] TT: 03/21/2017 13:13:24 Confirmation # [id number] Dictation # [id number] symone
--- NOTE | 2017-03-21 17:32 | PN ---
DATE: 03/21/2017 SUBJECTIVE: The patient is seen in the dialysis unit. He is awake. He is alert. He is oriented x 3. He denies any pain. He still complains of cough. He reports he is bringing up thick ____sputum. PHYSICAL EXAMINATION: GENERAL: Elderly male sitting in the dialysis unit. VITAL SIGNS: Blood pressure 138/89, heart rate 86, respiratory rate 20, temperature 97.9. HEENT: Normocephalic, atraumatic, positive pallor. NECK: Supple, no JVD. LUNGS: Bilateral rhonchi, bilateral basal rales. CARDIAC: S1, S2, regular rate and rhythm, no murmur, no rub. ABDOMEN: Obese, distended, soft, nontender, bowel sounds present. EXTREMITIES: No lower extremity edema. LABORATORY DATA: Hemoglobin 8.7, hematocrit 26, platelets 271. Sodium 134, potassium 3.9, chloride 100, CO2 24, BUN 49, creatinine 8.3, glucose 360, calcium 9.4, phosphorus 3.0, magnesium 1.8. CURRENT MEDICATIONS: DuoNeb, aspirin, heparin, insulin, amlodipine 10, prednisone 10, Protonix, Sue gel 1600 t.i.d., p.o. vancomycin not given, rifaximin not given, lisinopril 10. ASSESSMENT: 1. Status post sepsis, respiratory failure, methicillin resistant staphylococcus aureus pneumonia. 2. Severe anemia. 3. End-stage renal disease. 4. Status post acute ____ hepatitis. 5. Obesity. 6. Peripheral arterial disease. PLAN: 1. Stable dialysis. 2. Discontinue p.o. vancomycin soon. 3. Off rifaximin. 4. Off antibiotics for Staph pneumonia. Shavonne Varela MD cc: [phone] TT: 03/21/2017 17:31:14 Confirmation # [id number] Dictation # [id number] jn
--- NOTE | 2017-03-21 17:43 | PN ---
DATE: 03/21/2017 REASON FOR CONSULTATION AND FOLLOWUP: Status post respiratory failure, acute liver failure, improved , status post intubated and successfully extubated, nonobstructive coronary artery disease. BRIEF CLINICAL HISTORY: This is a 61-year-old morbidly obese male with a past medical history signif icant for diabetes, hypertension, hyperlipidemia, end-stage renal disease on dialysis, status post ca rdiac catheterization 11/02/2016, nonobstructive coronary artery disease. Admitted with shortness of breath, acute liver failure, ALT yesterday 7000. Now, patient successfully extubated. Liver functio n came back to normal. Denies any chest pain, shortness of breath, any palpitation, getting dialysis . PHYSICAL EXAMINATION: VITAL SIGNS: Temperature afebrile, heart rate 86, blood pressure 138/89. HEENT: PERRLA. Extraocular muscles intact. NECK: Supple. No carotid bruits. No thyromegaly. CHEST: Clear to auscultation. HEART: S1, S2 regular. ABDOMEN: Soft. EXTREMITIES: Clubbing, cyanosis negative. BLOOD WORKUP: WBC 7.4, hemoglobin 8. , hematocrit 26.3, platelet count 271. Chemistry shows sod ium 134, potassium 3.9, chloride 100, carbon dioxide 24, anion gap of 14, BUN 49, creatinine 8.3. To julian protein 7.2, albumin 3.3, albumin/globulin ratio 0.8. IMPRESSION: Acute liver failure, improved, acute respiratory failure, intubated, morbid obesity, end -stage renal disease on dialysis, nonobstructive coronary artery disease, status post cardiac cathete rization on 11/02/2016, hypertension, hyperlipidemia, obesity, diabetes. RECOMMENDATION: Continue amlodipine, continue lisinopril, continue baby aspirin. Discharge planning . No further cardiac workup is planned. Thank you, Dr. Bowen, for providing us the opportunity in taking care of the patient. Will follow with you. Darrel Ervin MD cc: [phone] TT: 03/21/2017 17:42:33 Confirmation # [id number] Dictation # [id number] en
--- NOTE | 2017-03-21 18:11 | CP.PCM.PN ---
Subjective - Date & Time of Evaluation Date of Evaluation: 03/21/17 Time of Evaluation: 10:20 - Subjective Subjective: Comfortable, not in distress, afebrile, no more diarrhea, no abdominal pain. Objective - Vital Signs/Intake and Output Vital Signs (last 24 hours): Temp Pulse Resp BP Pulse Ox 97.9 F 86 20 138/89 100 03/21/17 16:00 03/21/17 16:46 03/21/17 16:00 03/21/17 16:47 03/21/17 16:00 Intake and Output: 03/21/17 03/21/17 06:59 18:59 Intake Total 420 540 Output Total 0 Balance 420 540 - Medications Medications: Current Medications Albuterol/Ipratropium (Duoneb 3 Mg/0.5 Mg (3 Ml) Ud) 3 ml IH Q2H PRN PRN Reason: Shortness of Breath Last Admin: 03/20/17 16:41 Dose: 3 ml Amlodipine Besylate (Norvasc) 10 mg PO DAILY [facility] Last Admin: 03/21/17 16:47 Dose: 10 mg Aspirin (Ecotrin) 81 mg PO DAILY [facility] Last Admin: 03/21/17 16:46 Dose: 81 mg Heparin Sodium (Porcine) (Heparin) 5,000 units SC Q12 [facility] PRN Reason: Protocol Last Admin: 03/20/17 22:15 Dose: 5,000 units Hydralazine HCl (Apresoline) 10 mg IVP Q6 PRN PRN Reason: SBP >180 Last Admin: 03/07/17 02:05 Dose: 10 mg Insulin Detemir (Levemir) 20 unit SC DAILY [facility] Last Admin: 03/21/17 10:22 Dose: 20 unit Insulin Human Regular (Humulin R Med) 0 units SC Q4 [facility] Last Admin: 03/21/17 16:44 Dose: 5 units Lisinopril (Zestril) 10 mg PO DAILY [facility] Last Admin: 03/21/17 16:46 Dose: 10 mg Pantoprazole Sodium (Protonix Ec Tab) 40 mg PO 0630 [facility] Last Admin: 03/21/17 05:30 Dose: 40 mg Prednisone (Prednisone Tab) 10 mg PO DAILY [facility] Last Admin: 03/21/17 08:16 Dose: 10 mg Rifaximin (Xifaxan) 550 mg PO BID [facility] PRN Reason: Protocol Last Admin: 03/21/17 10:22 Dose: Not Given Sevelamer HCl (Renagel) 1,600 mg PO TID [facility] Last Admin: 03/21/17 16:46 Dose: 1,600 mg Vancomycin HCl (Vancocin 25 Mg/Ml (Oral Use)) 125 mg PO QID [facility] PRN Reason: Protocol Last Admin: 03/21/17 14:00 Dose: Not Given - Labs Labs: 03/21/17 10:53 03/21/17 10:53 PT 11.7 Seconds (9.9-11.8) 03/21/17 12:30 INR 1.08 (0.93-1.08) 03/21/17 12:30 APTT 23.1 Seconds (23.7-30.8) L 03/21/17 12:30 - Constitutional Appears: Non-toxic, No Acute Distress - Head Exam Head Exam: NORMAL INSPECTION - ENT Exam ENT Exam: Mucous Membranes Moist - Neck Exam Neck Exam: absent: Lymphadenopathy, Meningismus - Respiratory Exam Respiratory Exam: Decreased Breath Sounds - Cardiovascular Exam Cardiovascular Exam: +S1, +S2 - GI/Abdominal Exam GI & Abdominal Exam: Soft. absent: Tenderness Assessment and Plan - Assessment and Plan (Free Text) Plan: Assessment S/P Severe sepsis with ventilator-dependent respiratory failure and acute liver failure/acute fulminant hepatitis and acute pancreatitis due to bilateral healthcare-associated pneumonia with sputum cx now growing MRSA, S/P treatment rule out C. diff. infection, clinically improved Acute pancreatitis, slowly improving HTN ESRD on HD dyslipidemia morbid obesity with BMI 45 positive HIV SELVIN test with negative HIV-1 PCR Plan on PO vancomycin (day 11 of 10-14 days) - will d/c Vancomycin and observe patient has history of multiple positive HIV SELVIN, even the 4th generation test - HIV-1 PCR still negative - may be a false positive test will continue to monitor clinically
--- NOTE | 2017-03-22 00:18 | PN ---
DATE: 03/21/2017 ADDENDUM This is an addendum to the GI progress report. SUBJECTIVE: This patient was seen and evaluated earlier today. The patient is comfortable. PHYSICAL EXAMINATION: VITAL SIGNS: Temperature 97.9, blood pressure is 138/78, pulse is 86, respirations 20. HEENT: Atraumatic, anicteric. HEENT: Atraumatic, anicteric. NECK: Supple. HEART: S1, S2 heard. LUNGS: Bilateral air entry present. LABORATORY DATA: Hemoglobin 8.7, hematocrit 26.3, WBC 7.3, and platelets . LFTs appear normali zed. IMPRESSION: This 61-year-old patient is admitted with sepsis, acute liver failure, patient on end-st age renal disease on hemodialysis, liver function tests have normalized. The patient did have an epi sode of pancreatitis. The ultrasound done before showed gallstones, but the repeat ultrasound showed no gallstones. Clinically, the patient is improving. Thank you very much for allowing us to participate in the care of the patient. Maddie Brown MD cc: [phone] TT: 03/22/2017 00:18:37 Confirmation # [id number] Dictation # [id number] mn
[2017-03-22] MEDS: Insulin Reg-MEDIUM-Coverage SC SCH ×6 (00:36→22:20)
[2017-03-22] MEDS: Pantoprazole 40 mg EC Tab PO SCH (05:37)
--- NOTE | 2017-03-22 10:40 | CP.PCM.PN ---
Subjective - Date & Time of Evaluation Date of Evaluation: 03/22/17 Time of Evaluation: 09:45 - Subjective Subjective: Comfortable, afebrile, no diarrhea currently, improved abdominal pain. Objective - Vital Signs/Intake and Output Vital Signs (last 24 hours): Temp Pulse Resp BP Pulse Ox 98.5 F 80 20 135/66 100 03/22/17 07:30 03/22/17 07:30 03/22/17 07:30 03/22/17 07:30 03/22/17 07:30 Intake and Output: 03/22/17 03/22/17 06:59 18:59 Intake Total 900 Balance 900 - Medications Medications: Current Medications Albuterol/Ipratropium (Duoneb 3 Mg/0.5 Mg (3 Ml) Ud) 3 ml IH Q2H PRN PRN Reason: Shortness of Breath Last Admin: 03/20/17 16:41 Dose: 3 ml Amlodipine Besylate (Norvasc) 10 mg PO DAILY [facility] Last Admin: 03/21/17 16:47 Dose: 10 mg Aspirin (Ecotrin) 81 mg PO DAILY [facility] Last Admin: 03/21/17 16:46 Dose: 81 mg Heparin Sodium (Porcine) (Heparin) 5,000 units SC Q12 [facility] PRN Reason: Protocol Last Admin: 03/21/17 21:35 Dose: 5,000 units Hydralazine HCl (Apresoline) 10 mg IVP Q6 PRN PRN Reason: SBP >180 Last Admin: 03/07/17 02:05 Dose: 10 mg Insulin Detemir (Levemir) 20 unit SC DAILY [facility] Last Admin: 03/21/17 10:22 Dose: 20 unit Insulin Human Regular (Humulin R Med) 0 units SC Q4 [facility] Last Admin: 03/22/17 08:39 Dose: 1 units Lisinopril (Zestril) 10 mg PO DAILY [facility] Last Admin: 03/21/17 16:46 Dose: 10 mg Pantoprazole Sodium (Protonix Ec Tab) 40 mg PO 0630 [facility] Last Admin: 03/22/17 05:37 Dose: 40 mg Prednisone (Prednisone Tab) 10 mg PO DAILY [facility] Last Admin: 03/21/17 08:16 Dose: 10 mg Rifaximin (Xifaxan) 550 mg PO BID [facility] PRN Reason: Protocol Last Admin: 03/21/17 18:31 Dose: 550 mg Sevelamer HCl (Renagel) 1,600 mg PO TID [facility] Last Admin: 03/22/17 08:39 Dose: 1,600 mg - Labs Labs: 03/21/17 10:53 03/21/17 10:53 PT 11.7 Seconds (9.9-11.8) 03/21/17 12:30 INR 1.08 (0.93-1.08) 03/21/17 12:30 APTT 23.1 Seconds (23.7-30.8) L 03/21/17 12:30 - Constitutional Appears: Non-toxic, No Acute Distress - Head Exam Head Exam: NORMAL INSPECTION - ENT Exam ENT Exam: Mucous Membranes Moist - Neck Exam Neck Exam: absent: Lymphadenopathy, Meningismus - Respiratory Exam Respiratory Exam: Decreased Breath Sounds - Cardiovascular Exam Cardiovascular Exam: +S1, +S2 - GI/Abdominal Exam GI & Abdominal Exam: Soft. absent: Tenderness Assessment and Plan - Assessment and Plan (Free Text) Plan: Assessment S/P Severe sepsis with ventilator-dependent respiratory failure and acute liver failure/acute fulminant hepatitis and acute pancreatitis due to bilateral healthcare-associated pneumonia with sputum cx now growing MRSA, S/P treatment rule out C. diff. infection, clinically improved and S/P treatment Acute pancreatitis, slowly improving HTN ESRD on HD dyslipidemia morbid obesity with BMI 45 positive HIV SELVIN test with negative HIV-1 PCR Plan continue to monitor off antibiotics since he is at risk for nosocomial infections continue to trend lipase levels patient has history of multiple positive HIV SELVIN, even the 4th generation test - HIV-1 PCR still negative - may be a false positive test
[2017-03-22] MEDS: Insulin Detemir 100 units/ml Vial (Levemir) SC SCH (11:00)
--- NOTE | 2017-03-22 12:41 | PN ---
DATE: 03/22/2017 Seen and examined at the bedside earlier this morning. No complaints of nausea, vomiting or abdomina l pain. He does complain of some coughing and some chest discomfort. He states that he slept with t he air conditioner on and he was cold. He denies chest pain or shortness of breath. He is moving hi s bowels. No reports of bleeding. VITAL SIGNS: Temperature 98.5, blood pressure 135/66, pulse 80, respirations 20, and 100% on room ai r. BLOOD WORK: No new labs are noted today except for POC glucose 231. His last labs were taken yester day on 03/21. H and H is 8.7 and 26.3, has been steady. Sodium 134, K is 3.9. His LFTs are normalize d now. PHYSICAL EXAMINATION: HEENT: Sclerae are anicteric. NECK: Supple. CARDIAC: S1, S2. LUNGS: Decreased breath sounds but good air entry, no rales or wheeze. ABDOMEN: With bowel sounds, soft, it is not tender. No rebound or guarding. ASSESSMENT AND PLAN: Status post severe sepsis and respiratory failure. The patient was in acute li gina failure and had acute pancreatitis, which has improved and also was status post bilateral pneumon ia. The patient also has a history of end-stage renal disease on dialysis. His liver enzymes are no w back to normal. The patient did have a repeat ultrasound done, which is not showing any gallstones . Previous ultrasound did show gallstones before. The patient continues to improve. The patient is on heparin subQ q. 12, is on aspirin. He is also on GI prophylaxis, Protonix, on prednisone and Xif axan. The patient was seen and case discussed with Dr. Brown. Idalia MONROE cc: [phone] TT: 03/22/2017 12:40:48 Confirmation # [id number] Dictation # [id number] jerry
--- NOTE | 2017-03-22 12:47 | PN ---
DATE: 03/22/2017 The patient is in room 564, bed 1. REASON FOR CONSULTATION AND FOLLOWUP: Status post respiratory failure, acute liver failure, improved , status post intubation and successful extubation, nonobstructive coronary artery disease. HISTORY OF PRESENT ILLNESS: A 61-year-old morbidly obese male with past medical history significant for diabetes, hypertension, hyperlipidemia, end-stage renal failure on dialysis, status post cardiac catheterization 11/02/2016 which showed nonobstructive coronary artery disease, was admitted with shor tness of breath, was found to have acute liver failure. The patient was put on respirator, then succ essfully extubated and liver function improved. The patient is sitting in bed right now without any cardiac symptoms. PHYSICAL EXAMINATION: VITAL SIGNS: Blood pressure 135/67, respirations 20, pulse 80, temperature 98.5. HEAD: Normocephalic. EYES: Pupils normal. Conjunctivae slightly pale. NECK: JVP low. Carotid equal. THORAX: AP diameter normal. LUNGS: Clear. CARDIOVASCULAR: S1, S2. ABDOMEN: Protuberant, no organomegaly. EXTREMITIES: No clubbing, no cyanosis. LABORATORIES: WBC 7.4, hemoglobin 8.7, hematocrit 26.3, platelet 271. Sodium 134, potassium 3.9, BU N 49, creatinine 8.3. AST, ALT normal. Total protein, albumin normal. Random sugar 360, then repea t one 231. DIAGNOSES: Acute liver failure, improved, acute respiratory failure, status post intubation, status post successful extubation, morbid obesity, end-stage renal disease on dialysis, nonobstructive coron abigail disease on cardiac catheterization on 11/02/2016, hypertension, hyperlipidemia, morbid obesity, di abetes mellitus. PLAN: Continue dialysis as scheduled, amlodipine 10 mg daily, prednisone 10 mg p.o. daily, Protonix 40 daily, lisinopril 10 mg daily, DuoNeb hand nebulizer therapy, heparin 5000 units subQ q. 12 hours, insulin as ordered. We will continue present therapy. We will follow with you. Darrel Mccarthy MD cc: [phone] TT: 03/22/2017 12:46:37 Confirmation # [id number] Dictation # [id number] en
[2017-03-22] MEDS ORDERED: Pneumococcal 23-Valent Vaccine IM ONE (13:23)
--- NOTE | 2017-03-22 13:51 | PN ---
DATE: 03/22/2017 The patient is a 61-year-old, seen and examined, sitting in bed. The patient was admitted with intra ctable nausea and vomiting. He went into acute hepatic failure. His transaminases went up to thousa nds. Etiology at that point was not clear. However, sonogram showed gallstone and gallbladder sludg e. The patient was also intubated because he became increasingly lethargic. By carefully giving him fluid, antibiotics and vent support, he started to improve and he was successfully extubated, transf erred to med/surg floor. PHYSICAL EXAMINATION: GENERAL: Today, he is awake and alert, communicative, ambulates with a walker, although it is very l imited. He is very deconditioned since he was on vent for more than 10 days. VITAL SIGNS: He is afebrile, pulse 80, respirations 20, blood pressure 135/67. LUNGS: Bilateral fair airflow, no rhonchi or crackle. HEART: S1, S2 audible. ABDOMEN: Soft, obese, nontender, no rebound, no guarding. NEUROLOGIC: The patient is awake and alert, communicative. Blood sugar is 231. ASSESSMENT: 1. Status post hepatic failure. 2. Status post gallbladder, pancreatitis. 3. Status post obstructive jaundice. 4. Cholelithiasis. 5. End-stage renal disease, on hemodialysis. 6. Status post respiratory failure. 7. Insulin-dependent diabetes. PLAN: The patient is clinically stable. He is being discharged to subacute rehab in [facility] has a facility of a built-in dialysis center, so he will get hemodialysis along with physical the rapy. I will discontinue Xifaxan. Will continue him on lisinopril 10 mg daily, Renagel, Protonix. I will discontinue prednisone. Continue to monitor his blood sugar. He will be admitted under Dr. _ ____ service in [facility]. Raf Bowen MD cc: [phone] TT: 03/22/2017 13:51:05 Confirmation # [id number] Dictation # [id number] en
--- NOTE | 2017-03-22 14:07 | PN ---
DATE: 03/22/2017 SUBJECTIVE: The patient is seen lying in bed. He is awake, he is alert. He is oriented x 3. He de nies any pain. He complains of cough. He complains of shortness of breath. PHYSICAL EXAMINATION: GENERAL: Obese elderly male sitting in bed. VITAL SIGNS: Blood pressure 134/67, heart rate 74, respiratory rate 20, temperature 98.5. HEENT: Normocephalic, atraumatic. NECK: Supple, no JVD. LUNGS: Bilateral equal air entry, no rales. CARDIAC: S1, S2, regular rate and rhythm, no murmur, no rub. ABDOMEN: Obese, distended, soft, nontender, bowel sounds present. EXTREMITIES: No edema. INTAKE AND OUTPUT: Not charted. LABORATORY DATA: No new labs today. CURRENT MEDICATIONS: DuoNeb, Ecotrin, aspirin, insulin, heparin, amlodipine 10, prednisone, Protonix , Renagel, lisinopril 10, rifaximin. ASSESSMENT: 1. Status post sepsis. 2. Methicillin-resistant Staphylococcus aureus pneumonia. 3. Status post respiratory failure. 4. Status post acute fulminant hepatitis. 5. Hypertension. 6. End-stage renal disease. PLAN: 1. Status post stable dialysis yesterday. 2. Continue amlodipine and Zestril. 3. Continue phosphate binders. 4. Taper off prednisone. 5. Complete antibiotics as per ID recommendations. Shavonne Varela MD cc: [phone] TT: 03/22/2017 14:06:50 Confirmation # [id number] Dictation # [id number] tn
[2017-03-23] MEDS: Insulin Reg-MEDIUM-Coverage SC SCH ×3 (00:05→08:50)
--- NOTE | 2017-03-23 00:39 | CP.PCM.PN ---
Subjective - Date & Time of Evaluation Date of Evaluation: 03/22/17 Time of Evaluation: 19:00 - Subjective Subjective: DATE: 03/22/2017 SUBJECTIVE: The patient is comfortable, in no acute distress. He was admitted with fulminant hepatitis and hepatic failure. His condition is improving gradually. He had leukocytosis with an elevated white count of 70,000. White count has declined to normal now. Flow cytometry and BCR-ABL on peripheral blood was normal. He has not required blood transfusion in past few days. Complaining of constipation and weakness in the upper extremities and lower extremities, not able to ambulate without support. No fever. No cough with expectoration. Dialysis today. Hb remains low around 8 gm/dl. REVIEW OF SYSTEMS: As per HPI. Rest of 12-point review of systems reviewed and negative. PHYSICAL EXAMINATION: GENERAL: Comfortable in bed, in no acute distress. VITAL SIGNS: reviewed. HEENT: Normal. CHEST: Air entry present, equal bilateral. No added sound. CARDIOVASCULAR: S1, S2 normal. No murmur, no gallop. ABDOMEN: Soft, nontender, no hepatosplenomegaly. EXTREMITIES: No edema. NEUROLOGIC: Awake, alert, oriented x 3. No focal sensorimotor deficit. SKIN: No petechia, no rash. LABORATORY DATA: reviewed. MEDICATIONS: DuoNeb 3 mL q. 4 hours p.r.n., Norvasc 10 mg daily, aspirin 81 mg daily, heparin 5000 subQ q. 12, hydralazine 10 mg q. 6 hours p.r.n., Levemir 20 units subQ daily, regular insulin plus sliding scale, lisinopril 10 mg daily, Zofran 4 mg IV q. 6 hours p.r.n., Protonix 40 mg daily, prednisone 20 mg daily, Xifaxan 550 mg p.o. b.i.d., Renagel 1600 p.o. t.i.d., vancomycin 125 mg p.o. q.i.d. ASSESSMENT: 1. Leukocytosis, resolved. 2. Severe anemia, hemoglobin and hematocrit stable. Hemoglobin and hematocrit stable. Iron studies showed iron saturation of 32%. Anemia likely related to chronic kidney disease. Aranesp 100 mcgm ordered. 3. End-stage renal disease, on hemodialysis. 4. hepatitis, improving. 5. Delirium, resolved 6. being discharged to sub acute rehab. Thank you, Dr. Bowen, for allowing us to participate in the patient's care. Kimberly Fernandez MD Objective - Vital Signs/Intake and Output Vital Signs (last 24 hours): Temp Pulse Resp BP Pulse Ox 97.4 F L 77 20 144/71 97 03/22/17 16:00 03/22/17 16:00 03/22/17 16:00 03/22/17 16:00 03/22/17 16:00 Intake and Output: 03/22/17 03/23/17 18:59 06:59 Intake Total 960 420 Balance 960 420 - Medications Medications: Current Medications Albuterol/Ipratropium (Duoneb 3 Mg/0.5 Mg (3 Ml) Ud) 3 ml IH Q2H PRN PRN Reason: Shortness of Breath Last Admin: 03/20/17 16:41 Dose: 3 ml Amlodipine Besylate (Norvasc) 10 mg PO DAILY [facility] Last Admin: 03/22/17 11:00 Dose: 10 mg Aspirin (Ecotrin) 81 mg PO DAILY [facility] Last Admin: 03/22/17 11:00 Dose: 81 mg Heparin Sodium (Porcine) (Heparin) 5,000 units SC Q12 [facility] PRN Reason: Protocol Last Admin: 03/22/17 22:18 Dose: 5,000 units Hydralazine HCl (Apresoline) 10 mg IVP Q6 PRN PRN Reason: SBP >180 Last Admin: 03/07/17 02:05 Dose: 10 mg Insulin Detemir (Levemir) 20 unit SC DAILY [facility] Last Admin: 03/22/17 11:00 Dose: 20 unit Insulin Human Regular (Humulin R Med) 0 units SC Q4 [facility] Last Admin: 03/23/17 00:05 Dose: Not Given Lisinopril (Zestril) 10 mg PO DAILY [facility] Last Admin: 03/22/17 10:59 Dose: 10 mg Pantoprazole Sodium (Protonix Ec Tab) 40 mg PO 0630 [facility] Last Admin: 03/22/17 05:37 Dose: 40 mg Prednisone (Prednisone Tab) 10 mg PO DAILY [facility] Last Admin: 03/22/17 11:01 Dose: 10 mg Rifaximin (Xifaxan) 550 mg PO BID [facility] PRN Reason: Protocol Last Admin: 03/22/17 17:28 Dose: 550 mg Sevelamer HCl (Renagel) 1,600 mg PO TID [facility] Last Admin: 03/22/17 17:29 Dose: 1,600 mg - Labs Labs: 03/21/17 10:53 03/21/17 10:53 PT 11.7 Seconds (9.9-11.8) 03/21/17 12:30 INR 1.08 (0.93-1.08) 03/21/17 12:30 APTT 23.1 Seconds (23.7-30.8) L 03/21/17 12:30
[2017-03-23] MEDS: Pantoprazole 40 mg EC Tab PO SCH (05:30)
[2017-03-23 07:47] VITALS: BP 130/60; PULSE 72; RESP 18; O2SAT 99
[2017-03-23 07:48] VITALS: TEMP 97.9
--- NOTE | 2017-03-23 10:41 | PN ---
DATE: 03/23/2017 SUBJECTIVE: The patient is seen sitting in bed. He is awake. He is alert and comfortable. VITAL SIGNS: Blood pressure 130/60, heart rate 72, respiratory rate 18, temperature 97.9. HEENT: Normocephalic, atraumatic. NECK: Supple, no JVD. LUNGS: Bilaterally equal air entry. No rales. CARDIAC: S1, S2, regular rate and rhythm, no murmur, no rub. ABDOMEN: Obese, distended, soft, nontender, bowel sounds present. EXTREMITIES: No lower extremity edema. INTAKE AND OUTPUT: Not charted. LABORATORY DATA: Not available. MEDICATIONS: List reviewed. ASSESSMENT AND PLAN: 1. Status post sepsis. 2. Status post respiratory failure. 3. Methicillin-resistant Staphylococcus aureus pneumonia. 4. Status post acute hepatitis. 5. Hypertension. 6. End-stage renal disease. PLAN: 1. Dialysis today. 2. Off all antibiotics now. 3. Discharge planning. 4. Continue antihypertensives and phosphate binders. Shavonne Varela MD cc: [phone] TT: 03/23/2017 10:41:03 Confirmation # [id number] Dictation # [id number] symone
[2017-03-23 11:54] LABS: ADD MANUAL DIFF? NO
[2017-03-23 12:12] LABS: ALB/GLOB RATIO 0.8 (1.1-1.8); BILIRUBIN,TOTAL 1.2 mg/dL (0.2-1.3); CALCIUM 9.6 mg/dL (8.4-10.5); POTASSIUM 3.3 mmol/L (3.6-5.0); TOTAL PROTEIN 7.7 g/dL (5.8-8.3)
[2017-03-23 12:19] LABS: BASO # 0.05 K/mm3 (0.0-2.0); BASO % 0.7 % (0.0-3.0); EOS # 0.2 (0.0-0.7); GRAN # 5.07 (1.4-6.5); GRAN % 67.7 % (50.0-68.0); HEMATOCRIT 30.2 % (42.0-52.0); LYMPH # 1.6 (1.2-3.4); LYMPH % 21.5 % (22.0-35.0); MEAN CELL VOLUME 93.5 fL (80.0-105.0); MEAN CORPUSCULAR HGB CONC 32.1 g/dl (31.0-37.0); MEAN PLATELET VOLUME 9.4 fl (7.0-11.0); MONO # 0.6 (0.1-0.6); MONO % 8.1 % (1.0-6.0); PLATELET COUNT 252 10^3/uL (120.0-450.0); RED CELL DISTRIBUTION WIDTH 18.6 % (11.5-14.5); WHITE BLOOD COUNT 7.5 10^3/ul (4.5-11.0)
--- NOTE | 2017-03-23 12:33 | PN ---
DATE: 03/23/2017 The patient is a 61-year-old seen and examined. Going to dialysis. He states his legs are heavy and feel weak. Otherwise denies any nausea, vomiting or diarrhea. He is eating and tolerating. PHYSICAL EXAMINATION: VITAL SIGNS: He is afebrile, pulse 72, respirations 18, blood pressure 130/60. LUNGS: Bilateral fair airflow, no rhonchi or crackle. HEART: S1, S2 audible. ABDOMEN: Soft, obese, nontender, no rebound, no guarding. NEUROLOGIC: He is awake and alert, able to communicate. EXTREMITIES: Bilateral legs, no edema. LABORATORY DATA: Blood sugar is 231. ASSESSMENT: 1. Status post respiratory failure, successfully extubated. 2. Status post hepatic failure, improved. 3. Methicillin-resistant Staphylococcus aureus pneumonia. 4. Hypertension. 5. End-stage renal disease, on hemodialysis. 6. Insulin-dependent diabetes. 7. Deconditioning and difficulty walking. 8. Cholelithiasis. PLAN: I will continue on aspirin. Since patient is more active, I will consider discontinuing hepar in in a day or 2 when he is more ambulatory. Continue on the Levemir, amlodipine. I will discontinu e Xifaxan. Awaiting paperwork for insurance approval to be placed to subacute rehab. Discussed with social media sr strategy manager. Raf Bowen MD cc: [phone] TT: 03/23/2017 12:32:17 Confirmation # [id number] Dictation # [id number] mn
--- NOTE | 2017-03-23 13:54 | PN ---
DATE: 03/23/2017 The patient in room 564, bed 1. REASON FOR CONSULTATION AND FOLLOWUP: Status post respiratory failure, acute liver failure, improved , status post intubation, successful extubation, nonobstructive coronary artery disease. HISTORY OF PRESENT ILLNESS: A 61-year-old morbidly obese male with past medical history significant for diabetes, hypertension, hyperlipidemia, end-stage renal failure on dialysis, status post cardiac catheterization 11/02/2016, which showed nonobstructive coronary artery disease, was admitted with tiffanie rtness of breath and found to have acute liver failure. The patient was put on respirator, then succ essfully extubated and liver function has improved. The patient denies any chest pain, shortness of breath, palpitation at present. PHYSICAL EXAMINATION: VITAL SIGNS: Blood pressure 130/60, respirations 18, pulse 72, temperature 97.9. HEAD: Normocephalic. EYES: Pupils normal. Conjunctivae slightly pale. NECK: JVP low. Carotid equal. THORAX: AP diameter normal. LUNGS: Clear. CARDIOVASCULAR: S1, S2. ABDOMEN: Soft, no tenderness, no organomegaly. Bowel sounds normal. EXTREMITIES: No clubbing, no cyanosis. LABORATORIES: WBC 7.5, hemoglobin 9.7, hematocrit 30.2, platelet 252. Sodium 135, potassium 3.3, BU N 36, creatinine 7.2. AST 70, ALT 62. On 03/21, AST was 52 and ALT was 56. DIAGNOSES: Acute liver failure, improved, acute respiratory failure, status post intubation, status post successful extubation, morbid obesity, end-stage renal failure on dialysis, nonobstructive coron abigail artery disease on cardiac catheterization 11/02/2016, hypertension, hyperlipidemia, diabetes shahram fang, hypokalemia. PLAN: To continue dialysis as scheduled. The patient is on DuoNeb hand nebulizer therapy, aspirin 8 1 mg daily, heparin 5000 units subQ q. 12 hours, insulin Levemir 20 units subQ daily, amlodipine 10 m g daily, Protonix 40 daily, lisinopril 10 mg daily. The patient will continue to have followup blood work with dialysis. We will follow with you. Darrel Mccarthy MD cc: [phone] TT: 03/23/2017 13:53:57 Confirmation # [id number] Dictation # [id number] en
--- NOTE | 2017-03-23 14:00 | PN ---
DATE: 03/23/2017 Seen and examined at the bedside earlier today. The patient denies any nausea, vomiting, or abdomina l pain. No reports of any acute overnight events. No new complaints. VITAL SIGNS: Temperature is 97.9, blood pressure 130/60, pulse 72, respirations 18, 99 on room air. LABORATORY DATA: WBC is 7.5, H and H is 9.7 and 30.2, platelets of 252. Sodium is 135, K is 3.3, BU N 36, creatinine 7.2. Total bilirubin is 1.2, AST 70, ALT 62, alk phos is 113 Andrew. AST, ALT are elevated today. PHYSICAL EXAMINATION: HEENT: Sclerae are anicteric. NECK: Supple. CARDIAC: S1, S2. LUNGS: Sound clear. ABDOMEN: With bowel sounds, soft, nontender. No rebound or guarding. NEUROLOGIC: Awake, alert, and oriented. EXTREMITIES: No edema. ASSESSMENT: Status post respiratory failure, improved hepatic failure, end-stage renal disease on di alysis. The patient with methicillin-resistant Staphylococcus aureus pneumonia, cholelithiasis, hist ory of diabetes mellitus. PLAN: The patient is noted to have mildly elevated liver enzymes today. We will follow this closely , could be medication related. The patient is awaiting placement to subacute rehab. He is off of pr ednisone and Xifaxan. Continue GI prophylaxis. The patient is on DVT prophylaxis and aspirin. He i s waiting to go for dialysis today. The patient is doing better. The patient was seen and case disc ussed with Dr. Brown. Idalia MONROE cc: [phone] TT: 03/23/2017 13:59:45 Confirmation # [id number] Dictation # [id number] tn
--- NOTE | 2017-03-23 17:08 | CP.PCM.PN ---
Subjective - Date & Time of Evaluation Date of Evaluation: 03/23/17 Time of Evaluation: 10:25 - Subjective Subjective: Comfortable, afebrile, no abdominal pain, no diarrhea, no nausea. Objective - Vital Signs/Intake and Output Vital Signs (last 24 hours): Temp Pulse Resp BP Pulse Ox 97.9 F 72 18 130/60 99 03/23/17 07:30 03/23/17 07:30 03/23/17 07:30 03/23/17 07:30 03/23/17 07:30 Intake and Output: 03/23/17 03/23/17 06:59 18:59 Intake Total 660 Output Total 0 Balance 660 - Medications Medications: Current Medications Albuterol/Ipratropium (Duoneb 3 Mg/0.5 Mg (3 Ml) Ud) 3 ml IH Q2H PRN PRN Reason: Shortness of Breath Last Admin: 03/20/17 16:41 Dose: 3 ml Amlodipine Besylate (Norvasc) 10 mg PO DAILY [facility] Last Admin: 03/22/17 11:00 Dose: 10 mg Aspirin (Ecotrin) 81 mg PO DAILY [facility] Last Admin: 03/22/17 11:00 Dose: 81 mg Heparin Sodium (Porcine) (Heparin) 5,000 units SC Q12 NARA PRN Reason: Protocol Last Admin: 03/22/17 22:18 Dose: 5,000 units Hydralazine HCl (Apresoline) 10 mg IVP Q6 PRN PRN Reason: SBP >180 Last Admin: 03/07/17 02:05 Dose: 10 mg Insulin Detemir (Levemir) 20 unit SC DAILY [facility] Last Admin: 03/22/17 11:00 Dose: 20 unit Insulin Human Regular (Humulin R Med) 0 units SC Q4 [facility] Last Admin: 03/23/17 03:45 Dose: Not Given Lisinopril (Zestril) 10 mg PO DAILY [facility] Last Admin: 03/22/17 10:59 Dose: 10 mg Pantoprazole Sodium (Protonix Ec Tab) 40 mg PO 0630 [facility] Last Admin: 03/23/17 05:30 Dose: 40 mg Prednisone (Prednisone Tab) 10 mg PO DAILY [facility] Last Admin: 03/22/17 11:01 Dose: 10 mg Rifaximin (Xifaxan) 550 mg PO BID [facility] PRN Reason: Protocol Last Admin: 03/22/17 17:28 Dose: 550 mg Sevelamer HCl (Renagel) 1,600 mg PO TID [facility] Last Admin: 03/22/17 17:29 Dose: 1,600 mg - Labs Labs: 03/21/17 10:53 03/21/17 10:53 PT 11.7 Seconds (9.9-11.8) 03/21/17 12:30 INR 1.08 (0.93-1.08) 03/21/17 12:30 APTT 23.1 Seconds (23.7-30.8) L 03/21/17 12:30 - Constitutional Appears: Non-toxic, No Acute Distress - Head Exam Head Exam: NORMAL INSPECTION - ENT Exam ENT Exam: Mucous Membranes Moist - Neck Exam Neck Exam: absent: Lymphadenopathy, Meningismus - Respiratory Exam Respiratory Exam: Decreased Breath Sounds - Cardiovascular Exam Cardiovascular Exam: +S1, +S2 - GI/Abdominal Exam GI & Abdominal Exam: Soft. absent: Tenderness Assessment and Plan - Assessment and Plan (Free Text) Plan: Assessment S/P Severe sepsis with ventilator-dependent respiratory failure and acute liver failure/acute fulminant hepatitis and acute pancreatitis due to bilateral healthcare-associated pneumonia with sputum cx now growing MRSA, S/P treatment rule out C. diff. 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
--- NOTE | 2017-04-11 22:43 | DS ---
HISTORY OF PRESENT ILLNESS: The patient is a 61-year-old black male with longstanding history of end -stage renal disease, hypertension, insulin-dependent diabetes. The patient received hemodialysis. He does admit drinking a day prior to coming to the hospital and started to have nausea and vomiting with abdominal discomfort. So the next day of his last dialysis while he was in the ER, he became so mnolent, increasingly lethargic, so he was intubated and admitted in ICU. He was found to have acute pancreatitis along with cholecystitis. He became septic. He remained on a respirator, had bilatera l pneumonia and it was hard to wean him off. However, he was successfully extubated and remained on IV antibiotics. His electrolytes were closely monitored and he received multiple blood transfusions. He was increasingly weak and was unable to even stand up, so it was recommended to his transfer him to subacute rehab. He was transferred to [facility][1] where he will receive his physical therapy a nd dialysis in [facility][1]. DISCHARGE DIAGNOSES: 1. Respiratory failure. 2. Sepsis. 3. Probable source was gallstone pancreatitis. 4. End-stage renal disease. 5. History of acute hepatic injury. Raf Bowen MD cc: [phone] TT: 04/11/2017 22:42:51 jn
== END 2017-03-23 18:27 | DRG 870 ==
LOC: ED 17:51 → ERH 21:46 → CCU 03-06 08:40 → 5RNO 03-15 16:45
PROVIDERS: ADMIT Internal Medicine; ATTEND Internal Medicine
PROC: 0BH17EZ Insertion of Endotracheal Airway into Trachea, Via Natural or Artificial Opening (ICD-10-PCS; principal; 2017-03-06)
PROC: 5A1955Z Respiratory Ventilation, Greater than 96 Consecutive Hours (ICD-10-PCS; 2017-03-06)
PROC: 3E0F7GC Introduction of Other Therapeutic Substance into Respiratory Tract, Via Natural or Artificial Opening (ICD-10-PCS; 2017-03-06)
PROC: 5A1D60Z (ICD-10-PCS; 2017-03-07)
PROC: 30233N1 Transfusion of Nonautologous Red Blood Cells into Peripheral Vein, Percutaneous Approach (ICD-10-PCS; 2017-03-07)
PROC: 3E03328 Introduction of Oxazolidinones into Peripheral Vein, Percutaneous Approach (ICD-10-PCS; 2017-03-09)
PROC: 02HV33Z Insertion of Infusion Device into Superior Vena Cava, Percutaneous Approach (ICD-10-PCS; 2017-03-13)
PROC: 5A09457 Assistance with Respiratory Ventilation, 24-96 Consecutive Hours, Continuous Positive Airway Pressure (ICD-10-PCS; 2017-03-14)
PROC: 0BC18ZZ Extirpation of Matter from Trachea, Via Natural or Artificial Opening Endoscopic (ICD-10-PCS; 2017-03-14)
PROC: 06HM33Z Insertion of Infusion Device into Right Femoral Vein, Percutaneous Approach (ICD-10-PCS; 2017-03-14)
DX: A41.9 Sepsis, unspecified organism (principal); K72.00 Acute and subacute hepatic failure without coma; R65.21 Severe sepsis with septic shock; G93.41 Metabolic encephalopathy; J15.212 Pneumonia due to Methicillin resistant Staphylococcus aureus; J96.01 Acute respiratory failure with hypoxia; J96.02 Acute respiratory failure with hypercapnia; K85.10 Biliary acute pancreatitis without necrosis or infection; N18.6 End stage renal disease; I13.2 Hypertensive heart and chronic kidney disease with heart failure and with stage 5 chronic kidney disease, or end stage renal disease; N17.9 Acute kidney failure, unspecified; I85.00 Esophageal varices without bleeding; D68.9 Coagulation defect, unspecified; Z99.11 Dependence on respirator [ventilator] status; N25.81 Secondary hyperparathyroidism of renal origin; B17.9 Acute viral hepatitis, unspecified; J44.0 Chronic obstructive pulmonary disease with (acute) lower respiratory infection; Z68.42 Body mass index [BMI] 45.0-49.9, adult; I08.1 Rheumatic disorders of both mitral and tricuspid valves; E11.22 Type 2 diabetes mellitus with diabetic chronic kidney disease; E66.01 Morbid (severe) obesity due to excess calories; I50.9 Heart failure, unspecified; Z99.2 Dependence on renal dialysis; M10.9 Gout, unspecified; E78.5 Hyperlipidemia, unspecified; D63.1 Anemia in chronic kidney disease; G89.29 Other chronic pain; I25.10 Atherosclerotic heart disease of native coronary artery without angina pectoris; K21.9 Gastro-esophageal reflux disease without esophagitis; E83.52 Hypercalcemia; J98.2 Interstitial emphysema; T70.29XA Other effects of high altitude, initial encounter; R00.1 Bradycardia, unspecified; T17.990A Other foreign object in respiratory tract, part unspecified in causing asphyxiation, initial encounter; F17.210 Nicotine dependence, cigarettes, uncomplicated; I27.2 Other secondary pulmonary hypertension; E11.65 Type 2 diabetes mellitus with hyperglycemia; K59.00 Constipation, unspecified; Y95 Nosocomial condition; I73.9 Peripheral vascular disease, unspecified; R26.2 Difficulty in walking, not elsewhere classified; R59.0 Localized enlarged lymph nodes; Z74.01 Bed confinement status; Z79.84 Long term (current) use of oral hypoglycemic drugs; Z87.442 Personal history of urinary calculi; Z95.5 Presence of coronary angioplasty implant and graft; Z79.4 Long term (current) use of insulin; Z88.0 Allergy status to penicillin; Z82.49 Family history of ischemic heart disease and other diseases of the circulatory system

== ENCOUNTER 2018-04-10 18:27 | Emergency (ER) | payer MEDICARE ==
[2018-04-10 18:27] VITALS: BMI 44.9
--- NOTE | 2018-04-10 19:19 | ED PDOC ---
Arrival/HPI <Benedicto Ann - Last Filed: 04/10/18 21:31> - General Historian: Patient - History of Present Illness Time/Duration: < week Symptom Onset: Gradual Symptom Course: Unchanged (dizziness, LUQ x2 days), Worsening (left scrotal pain ) Quality: Aching (LUQ pain), Throbbing (scrotal pain) <Steve Blankenship - Last Filed: 04/11/18 01:31> - General Chief Complaint: Dizziness/Lightheaded Time Seen by Provider: 04/10/18 18:59 - History of Present Illness Narrative History of Present Illness (Text): 04/10/18 19:24 This is a 62 yo AA M with PMH of HTN, IDDM, ESRD on dialysis, and HLD who presents with complaints of positional dizziness, LUQ abd pain, and left-sided scrotal pain x3-4 days. Pt describes dizziness as occuring with position changes, predominantly sitting -> standing motions, occasionally accompanied with room-spinning and diaphoresis, but denies shortness of breath/chest pain/ nausea/emesis/syncope/near-syncope/vision changes. Reports self-resolving within 30 seconds to 1 minute, but is concerned because they keep occurring. No association with his dialysis regimen (MWF, last underwent today, usually 4 hour session), but does admit his last 2 sessions (including today), they have only been removing low volumes despite him not making urine due to, as per pt, not having a lot of excess volume (took off 1.2 L today). Reports strict compliance with PO fluid restriction at home. Also complains of LUQ abd pain, intermittent, not associated with food intake or PO intolerance, not associated with nausea or emesis. Reports normal BMs up to 2 days ago, where he had 1 episode of non-bloody diarrhea (partially loose stools, not watery), which improved the LUQ pain, but has been constipated since. Feels a need to go, feels mildly distended, but reports unable to go; has not used any over the counter medications to attempt to resolve. Tenderness is dull pain, mild severity (3-4/10), not radiating anywhere else. Also complains of L-sided scrotal pain, progressively worsening over last 3 days, worse with self- palpation and walking. Reports that he observed what he though was a boil in that region 3 days prior, no longer able to visualize, denies any rashes in area , denies manipulating or trying to pop the boil. Denies fevers or chills, denies pyuria or bloody discharge from genitalia (has minimal urine output, "drops" daily as per pt). All other ROS in 12-system review negative. Never experienced symptoms like dizziness or scrotal pain before, has been dialysis pt for > 5 yrs. PMH: as above Surgical Hx: Carpal tunnel release, LUE AV fistula Social Hx: Active tobacco user (currently down to 1/3rd ppd, previously 1/2ppd for > 40 yrs as per pt), social EtOH (denies any within last week, denies any binge episodes within last 4 weeks), denies illicits Fam Hx: unknown PMD: Dr. Varela 04/10/18 19:52 Addendum: During chart review, reported hx of HIV positive not on HAART found in history from 2017, testing Positive for HIV-1 and CD4 count < 400 as of . Patient denies any knowledge of HIV history, reports not on any medications for it, unsure if he has ever been tested. (Steve Blankenship) Modifying Factors (Text): 04/10/18 19:56 Dizziness improved with rest (Steve Blankenship) Past Medical History - Provider Review Nursing Documentation Reviewed: Yes - Infectious Disease Hx of Infectious Diseases: None - Tetanus Immunization Tetanus Immunization: Unknown - Cardiac Hx Cardiac Disorders: Yes Hx Angina: Yes Hx Cardiac Arrhythmia: Yes Hx Hypertension: Yes Hx Peripheral Edema: Yes (ble +1) Hx Peripheral Vascular Disease: Yes - Pulmonary Hx Respiratory Disorders: No (smokes cigarettes) Hx Asthma: No Hx Chronic Obstructive Pulmonary Disease (COPD): Yes - Neurological Hx Neurological Disorder: No Other/Comment: peripheral neuropathy - HEENT Hx HEENT Disorder: No - Renal Hx Renal Failure: Yes - Endocrine/Metabolic Hx Endocrine Disorders: Yes Hx Diabetes Mellitus Type 1: Yes - Hematological/Oncological Hx Blood Disorders: Yes Hx Anemia: Yes (BLOOD TRANSFUSION) - Integumentary Other/Comment: ble dry skin - Musculoskeletal/Rheumatological Hx Falls: Yes (pasr) - Gastrointestinal Hx Gastrointestinal Disorders: Yes Hx Gastroesophageal Reflux: Yes - Genitourinary/Gynecological Hx Genitourinary Disorders: No - Psychiatric Hx Psychophysiologic Disorder: No Hx Substance Use: No - Past Surgical History Past Surgical History: Non-Contributing - Surgical History Hx Cholecystectomy: No Hx Coronary Stent: Yes (2016) Hx Gastric Bypass Surgery: No Hx Hysterectomy: No Hx Joint Replacement: No Hx Kidney Transplant: No Hx Liver Transplant: No Hx Mastectomy: No Hx Musculoskeletal Surgery: No Hx Open Heart Surgery: No Hx Orthopedic Surgery: No Hx Splenectomy: No Hx Valve Replacement: No Other/Comment: Dialysis shunt placement in left arm. - Anesthesia Hx Anesthesia: Yes Hx Anesthesia Reactions: No Hx Malignant Hyperthermia: No - Suicidal Assessment Feels Threatened In Home Enviroment: No <Steve Blankenship - Last Filed: 04/11/18 01:31> Family/Social History - Physician Review Nursing Documentation Reviewed: Yes Family/Social History: No Known Family HX Smoking Status: Light Smoker < 10 Cigarettes Daily Hx Alcohol Use: No Hx Substance Use: No Hx Substance Use Treatment: No <Steve Blankenship - Last Filed: 04/11/18 01:31> Allergies/Home Meds <Benedicto Ann - Last Filed: 04/10/18 21:31> <Steve Blankenship - Last Filed: 04/11/18 01:31> Allergies/Adverse Reactions: Allergies Penicillins Allergy (Verified 04/10/18 18:37) SWELLING Home Medications: Home Meds Medication Instructions Recorded Confirmed Mv,Sebastian,Min/Iron/Folic Acid/Lut 1 tab PO DAILY 05/06/16 04/10/18 [Complete Multi Tablet] amLODIPine [Norvasc] 10 mg PO DAILY 05/06/16 04/10/18 Colesevelam HCl [Welchol] 27 mg PO DAILY 05/18/16 04/10/18 Ferric Citrate [Auryxia] 210 mg PO TID 05/18/16 04/10/18 Ergocalciferol (Vitamin D2) 50,000 unit PO QD7 PRN 02/09/17 04/10/18 [Vitamin D2] Review of Systems - Physician Review All systems were reviewed & negative as marked: Yes (as per HPI) - Review of Systems Constitutional: Normal. absent: Fatigue, Fevers, Night Sweats Eyes: Normal. absent: Vision Changes, Photophobia ENT: Normal. absent: Sore Throat, Rhinorrhea, Epistaxis Respiratory: Normal. absent: SOB, Cough Cardiovascular: Normal. absent: Chest Pain, Palpitations, PRINCE, Syncope Gastrointestinal: Abdominal Pain (LUQ), Constipation (for last 2 days), Diarrhea (x1 2 days prior, now constipated). absent: Nausea, Vomiting, Appetite Changes, Hematochezia, Hematemesis, Food Intolerance Genitourinary Male: Other (oliguric 2/2 ESRD, reports no changes/cloudiness/puss /blood in few drops of urine daily). absent: Normal Musculoskeletal: absent: Neck Pain, Joint Swelling Skin: Other (area of induration and tenderness to palpation at L-scrotum) Neurological: Dizziness (with position changes, relieved with sitting or standing still, sell resolving within 30 seconds to 1 minute each episode). absent: Focal Weakness, Speech Changes, Facial Droop Endocrine: Diaphoresis (concurrent with some episodes of dizziness, also self- resolving) Psychiatric: Normal <Steve Blankenship - Last Filed: 04/11/18 01:31> Physical Exam <Benedicto Ann - Last Filed: 04/10/18 21:31> Vital Signs Reviewed: Yes Temperature: Afebrile Blood Pressure: Other (observed to be systolic 150's on arrival, 130's on recheck, concurrent with tachy to 100's on arrival and 80's on recheck) Pulse: Regular (initally tachy on monitor at start of exam to 100's, 80's by end of exam and on recheck) Appearance: Positive for: Well-Appearing, Non-Toxic, Comfortable (while as rest only, pain with movement or manipulation of left scrotum) Pain Distress: Other (none at rest, minimal with LUQ palpation, moderate to severe with left scrotal palpation) Mental Status: Positive for: Alert and Oriented X 3 - Systems Exam Head: Present: Atraumatic, Normocephalic Pupils: Present: PERRL. No: Pinpoint Extroacular Muscles: Present: EOMI. No: Gaze Palsy, Entrapment Conjunctiva: Present: Other (dirty sclera but not grossly icteric, mild conjunctival injection bilaterally). No: Normal, Icteric Mouth: Present: Moist Mucous Membranes, Normal Lips, Normal Tounge. No: Dry, Drooling Nose (External): Present: Atraumatic. No: Abrasion, Laceration Nose (Internal): Present: No Active Bleeding. No: Epistaxis Neck: Present: Normal Range of Motion, Trachea Midline. No: JVD Respiratory/Chest: Present: Clear to Auscultation, Good Air Exchange, Decreased Breath Sounds (mild decreased breath sounds all quadrants). No: Respiratory Distress, Accessory Muscle Use, Rales, Rhonchi, Tachypneic, Tender to Palpation Cardiovascular: Present: Regular Rate and Rhythm, Normal S1, S2, Peripheal Pulses Present (+2 radials, +1 dorsalis pedis, brisk pulse palpable and auscultory over LUE AV fistula). No: Murmurs, Irregular Rhythm, Tachycardic, Bradycardic Abdomen: Present: Tenderness (LUQ at most superior section overlying mid- axilary line, no radiation or extension into left flank/L CVA region/epigastric region), Distention (pt reports sensation of distention but not grossly appreciable on exam, soft and easily compressible on exam with no appreciable discrete loops of bowel), Normal Bowel Sounds, Other (no spider angiomata). No : Guarding, Mass/Organomegaly Genitourinary Male: Present: Other (region of left scrotal induration and exquiste tenderness to palpation, no appreciable fluctuance at region, both testicles palpable and discrete from this region, cremaster reflex intact bilaterally, no boils or surrounding rashes apparent, no erythema appreciated). No: Penile Swelling Back: No: CVA Tenderness Upper Extremity: Present: Normal Inspection (LUE AV fistula, otherwise normal inspection), Normal ROM, NORMAL PULSES. No: Cyanosis, Edema, Tenderness, Swelling, Erythema Lower Extremity: Present: Normal ROM. No: Edema, CALF TENDERNESS, NORMAL PULSES (difficult to palpate +1 dorsalis pedis, unable to palpate posterior tibials), Tenderness, Swelling, Erythema Neurological: Present: GCS=15, Speech Normal, Motor Func Grossly Intact, Normal Sensory Function Skin: Present: Warm, Dry, Normal Color, Induration (as described in genitourinary exam). No: Rashes, Diaphoretic, Erythematous, Hot, Cold, Laceration, Abrasion <Steve Blankenship - Last Filed: 04/11/18 01:31> Vital Signs Temp Pulse Resp BP Pulse Ox 04/11/18 01:20 78 20 115/64 98 04/10/18 21:45 95 H 20 118/60 97 04/10/18 18:28 98.5 F 79 18 137/77 100 Medical Decision Making <Benedicto Ann - Last Filed: 04/10/18 21:31> Reassessment Condition: Re-examined, Unchanged <Steve Blankenship - Last Filed: 04/11/18 01:31> ED Course and Treatment: 04/10/18 20:30 62 year old male presents to the Emergency department for positional dizziness, left upper quadrant abdominal pain, and left-sided scrotal pain since 3-4 days. In agreement with resident note, which includes further HPI details. Patient was seen and evaluated with resident, came up with plan and treatment together. (Benedicto Ann) 04/10/18 20:09 Ddx: -Scrotal abscess in setting of HIV not on HAART, less likely testicular torsion given gradual onset, lack of N/V, ambulatory state, and bilateral cremaster reflex intact -Orthostatic hypotension vs disequilibrium 2/2 dialysis -LUQ pain 2/2 constipation vs collitis vs diverticulitis -Given confirmed testing for HIV prior, need to rule out developing abscess, would require IV abx if present, CT abd/pelvis ordered -CT will also allow assessment of colon to assess for acute diverticulitis vs colitis, likely persistence of pain due to constipation -CBC, CMP, Mg, Phos to assess for acute infectious process or metabolic derangements contributing to dizziness -Likely orthostatic hypotension due to occurrence with position changes, and low volume status 2/2 dialysis & fluid restriction. Will await lab results before determining if patient needs some gentle hydration. Will obtain orthostatic BPs after PT allowed to rest and return to baseline BP and HR ( given both elevated but downtrending on arrival). -F/u and dispo 04/11/18 00:25 -Leukocytosis of 13.6 on labs, afebrile but still concerning in setting of HIV not on ART medications -Blood cultures ordered, will empirically cover with Vanco 1g x1 IVPB -CT obtained, concerning for thickening of L scrotal pole, pending official read by radiologist -Due to cellulitis vs abscess in setting of HIV + not on HAART, needs IV abx, need admission -Case discussed with Physician covering for PMD (Dr. Kent covering for Dr. Varela), who requests transfer to [facility] or [facility], as [place] [facility] [place] requiring [place]; [facility]ED [facility] as workup already done , and Transfer Center reports no beds 04/11/18 01:30 -Accepted by [facility] ED Physician (Dr. Alberto) for ED-to-ED transfer as [facility] does not do direct admits, transportation arranged Patient seen, reviewed, and discussed with attending, Dr. Ann. (Steve Blankenship ) - Lab Interpretations Lab Results: 04/10/18 19:45 04/10/18 19:45 Lab Results 04/10/18 19:45: Sodium 136, Potassium 4.4, Chloride 93 L, Carbon Dioxide 26, Anion Gap 22 H, BUN 33 H, Creatinine 5.9 H, Est GFR ( Amer) 12, Est GFR ( Non-Af Amer) 10, Random Glucose 299 H, Calcium 8.9, Phosphorus 4.7 H, Magnesium 2.0, Total Bilirubin 0.8, AST 27, ALT 20, Alkaline Phosphatase 118, Total Protein 9.5 H, Albumin 4.3, Globulin 5.2, Albumin/Globulin Ratio 0.8 L 04/10/18 19:45: WBC 13.6 H D, RBC 3.94, Hgb 10.9 L, Hct 34.0 L, MCV 86.3, MCH 27.7, MCHC 32.1, RDW 16.7 H, Plt Count 175, MPV 9.4, Gran % 78.7 H, Lymph % ( Auto) 16.0 L, Summers % (Auto) 4.8, Eos % (Auto) 0.4 L, Baso % (Auto) 0.1, Gran # 10.73 H, Lymph # (Auto) 2.2, Summers # (Auto) 0.7 H, Eos # (Auto) 0.1, Baso # (Auto ) 0.01 04/10/18 18:34: POC Glucose (mg/dL) 287 H - RAD Interpretation Radiology Orders: 04/10/18 19:20 ABD & PELVIS W/O PO OR IV CONT [CT] Stat - Medication Orders Current Medication Orders: Discontinued Medications Vancomycin HCl (Vancomycin 1gm) 1 gm in 250 mls @ 167 mls/hr IVPB STAT STA PRN Reason: Protocol Stop: 04/11/18 00:29 Last Admin: 04/11/18 00:11 Dose: 167 mls/hr eMAR Start Stop Document 04/11/18 00:11 SS (Rec: 04/11/18 00:18 SS [id number]) Intravenous Solution Start Date 04/11/18 Start Time 00:18 End Date 04/11/18 End time 01:48 Total Infusion Time 90 - PA / FEED WEIGHER / Resident Statement / has reviewed & agrees with the documentation as recorded. MD/ has examined the patient and agrees with the treatment plan. - Scribe Statement The provider has reviewed the documentation as recorded by the Scribe <Benedicto Ann - Last Filed: 04/10/18 21:31> <Steve Blankenship - Last Filed: 04/11/18 01:31> - Scribe Statement Jarrett Gregorio. All medical record entries made by the Scribe were at my direction and personally dictated by me. I have reviewed the chart and agree that the record accurately reflects my personal performance of the history, physical exam, medical decision making, and the department course for this patient. I have also personally directed, reviewed, and agree with the discharge instructions and disposition. (Benedicto Ann) Disposition/Present on Arrival <Benedicto Ann - Last Filed: 04/10/18 21:31> - Present on Arrival Any Indicators Present on Arrival: Yes History of DVT/PE: Yes History of Uncontrolled Diabetes: Yes Urinary Catheter: No History of Decub. Ulcer: No History Surgical Site Infection Following: None - Disposition Have Diagnosis and Disposition been Completed?: Yes Disposition Time: 01:30 Patient Plan: Transfer To ([facility]) <Steve Blankenship - Last Filed: 04/11/18 01:31> - Disposition Diagnosis: Cellulitis of scrotum, HIV (human immunodeficiency virus infection), ESRD (end stage renal disease), Diabetes mellitus type 2 Disposition: Transfer [facility] Patient Problems: Current Active Problems Problem Status Onset Cellulitis of scrotum Acute Diabetes mellitus type 2 Acute ESRD (end stage renal disease) Acute HIV (human immunodeficiency virus infection) Acute Condition: FAIR Discharge Instructions (ExitCare): Cellulitis (ED), Human Immunodeficiency Virus and Acquired Immune Deficiency Syndrome (ED) Referrals: Shavonne Varela MD [Primary Care Provider] - Follow up with primary Forms: [facility] (Faroese)
[2018-04-10 19:55] LABS: BASO # 0.01 K/mm3 (0.0-2.0); BASO % 0.1 % (0.0-3.0); EOS # 0.1 (0.0-0.7); EOS % 0.4 % (1.5-5.0); GRAN # 10.73 (1.4-6.5); GRAN % 78.7 % (50.0-68.0); HEMOGLOBIN 10.9 g/dL (14.0-18.0); LYMPH # 2.2 (1.2-3.4); MEAN CELL VOLUME 86.3 fl (80.0-105.0); MEAN CORPUSCULAR HEMOGLOBIN 27.7 pg (25.0-35.0); MEAN CORPUSCULAR HGB CONC 32.1 g/dl (31.0-37.0); MEAN PLATELET VOLUME 9.4 fl (7.0-11.0); MONO # 0.7 (0.1-0.6); MONO % 4.8 % (1.0-6.0); RBC 3.94 10^6/uL (3.5-6.1); RED CELL DISTRIBUTION WIDTH 16.7 % (11.5-14.5); WHITE BLOOD COUNT 13.6 10^3/ul (4.5-11.0)
[2018-04-10 20:00] LABS: ALB/GLOB RATIO 0.8 (1.1-1.8); ALBUMIN 4.3 g/dL (3.0-4.8); CALCIUM 8.9 mg/dL (8.4-10.5)
[2018-04-10] MEDS ORDERED: Vancomycin 1gm in NS 250ml 1 GM/250 ML BAG IVPB STA (23:00)
[2018-04-11 01:35] VITALS: BP 110/51; PULSE 87; RESP 18
[2018-04-11 02:07] VITALS: TEMP 99
[2018-04-11 02:20] VITALS: O2SAT 96
--- NOTE | 2018-04-11 11:24 | CARD ---
APPROVED REPORT EKG Measurement Heart [id number] <Conclusion> Normal sinus rhythm Left anterior fascicular block Abnormal ECG
--- NOTE | 2018-04-11 11:24 | CT ---
PROCEDURE: CT Abdomen and Pelvis without intravenous contrast HISTORY: LUQ pain and L testicular pain COMPARISON: CT chest, abdomen and pelvis 03/10/2017 TECHNIQUE: Without contrast.. Contrast dose: 0 Radiation dose: Total exam DLP = 1295.45 mGy-cm. This CT exam was performed using one or more of the following dose reduction techniques: Automated exposure control, adjustment of the mA and/or kV according to patient size, and/or use of iterative reconstruction technique. FINDINGS: LOWER THORAX: Alveolar opacity in both lower lobes and in the visualized anterior segment right upper lobe. Nonspecific. Possible infectious or inflammatory etiology. No mass identified. Mild cardiomegaly. LIVER: Unremarkable. No gross lesion or ductal dilatation. GALLBLADDER AND BILE DUCTS: Unremarkable. PANCREAS: Unremarkable. No gross lesion or ductal dilatation. SPLEEN: Unremarkable. ADRENALS: Unremarkable. No mass. KIDNEYS AND URETERS: Unremarkable. No hydronephrosis. No solid mass. VASCULATURE: No evidence of abdominal aortic aneurysm. Inferior vena caval filter noted. BOWEL: Unremarkable. No obstruction. No gross mural thickening. APPENDIX: Unremarkable. Normal appendix. PERITONEUM: Unremarkable. No free fluid. No free air. LYMPH NODES: Unremarkable. No enlarged lymph nodes. BLADDER: Nondistended REPRODUCTIVE: Normal prostate BONES: No acute fracture. OTHER FINDINGS: None. IMPRESSION: Unremarkable non contrast enhanced CT of the abdomen and pelvis. Preliminary interpretation of this examination was reported by [facility] at time. There is concurrence of this report with the preliminary interpretation.
== END 2018-04-11 02:19 | disposition short-term general hospital (02) ==
LOC: ED 18:27
DX: N49.2 Inflammatory disorders of scrotum (principal); B20 Human immunodeficiency virus [HIV] disease; E11.22 Type 2 diabetes mellitus with diabetic chronic kidney disease; I12.0 Hypertensive chronic kidney disease with stage 5 chronic kidney disease or end stage renal disease; N18.6 End stage renal disease; F17.210 Nicotine dependence, cigarettes, uncomplicated; Z99.2 Dependence on renal dialysis; Z79.4 Long term (current) use of insulin